=== PATIENT | male | born 1955 | race Caucasian/White ===

== ENCOUNTER 2016-11-11 18:39 | Emergency (ER) | payer OTHER ==
[~2016-11-11] VITALS: Ht 172.7 cm; Wt 110.7 kg
[~2016-11-11 18:39] MED LIST: ALL300 PO; ATEN100T PO; CLOP1TAB54 PO; FLV1 PO; GABA1CAP4 PO; INSUINJ4 SQ; ISOS-11 PO; LPD600 PO; LSX40 PO; NVLGI/PEN SC; NVLGIPEN SC; OMEP20CA9 PO; PRED-301 PO; PRED10TA PO; SIMV-151 PO
[2016-11-11 18:40] VITALS: TEMP 36.5; Ht 172.7 cm; Wt 110.7 kg
--- NOTE | 2016-11-11 18:55 | EMERGENCY ROOM VISIT NOTE ---
History First contact with patient: 18:44 Chief Complaint: LEG PAIN,LEG INJURY Stated Complaint: PAIN IN LEFT LEG History of Present Illness The patient is a 61 year old male who presents to the Emergency Room with complaints of left lower leg pain. The patient states his pain started approximately 2 weeks ago. He describes the pain as burning in nature and states it is localized to the left calf. He denies any low back pain. He denies any numbness or tingling. He denies any falls or injuries. The patient denies any chest pain or trouble breathing. He denies any redness, fevers. The patient has a history of recurrent DVT. He has been off of Coumadin for some time. He does take Plavix for a TIA. Review of Systems A 10 system review of systems was completed with positives and pertinent negatives listed in the HPI. Past Medical/Surgical History Medical Problems: (1) Acute Renal Failure, Unspecified (2) Arthritis (3) Borderline diabetes (4) Chronic Kidney Disease, Unspecified (5) DVT (deep venous thrombosis) (6) Esophageal Reflux (7) Hypertension Nos (8) Perforated diverticulitis (9) TIA (transient ischemic attack) Surgical Problems: (1) History of colon resection Family History Cancer Diabetes mellitus Social History Smoking Status: Former Smoker Alcohol Use: none Drug Use: none Marital Status: Housing Status: lives with family Occupation Status: employed Current/Historical Medications Scheduled Allopurinol (Allopurinol), 450 MG PO DAILY Atenolol (Tenormin), 100 MG PO DAILY Clopidogrel Bisulfate (Plavix), 75 MG PO DAILY Ergocalciferol (Vitamin D 54150 Unit), 50,000 UNIT PO MONTHLY Folic Acid (Folic Acid), 1 MG PO DAILY Furosemide (Furosemide), 40 MG PO DAILY Gabapentin (Gabapentin), 300 MG PO HS Gemfibrozil (Gemfibrozil), 600 MG PO BID Insulin Aspart (Novolog Flexpen), UNITS SC WM Insulin Aspart (Novolog Flexpen), 5 UNITS SC UD Insulin Aspart (Novolog Flexpen), 8 UNITS SC UD Insulin Glargine (Lantus Solostar), 30 UNITS SC QPM Isosorbide Mononitrate (Isosorbide Mononitrate ER), 30 MG PO DAILY Prednisone (Prednisone), 5 MG PO DAILY Simvastatin (Simvastatin), 20 MG PO HS Scheduled PRN Omeprazole (Prilosec), 20 MG PO DAILY PRN for Acid Reflux Allergies Coded Allergies: DEYSI Inhibitors (Verified Allergy, Unknown, cough, 11/11/16) Ibuprofen (Verified Allergy, Unknown, UNKNOWN, 11/11/16) Physical Exam Vital Signs Date Time Temp Pulse Resp B/P Pulse Ox O2 Delivery O2 Flow Rate FiO2 11/11/16 20:09 70 18 137/75 96 Room Air 11/11/16 18:40 36.5 80 18 154/88 91 Room Air Physical Exam VITALS: Vitals are noted on the nurse's note and reviewed by myself. Vital signs stable. GENERAL: This is a 61-year-old male in no acute distress, nondiaphoretic, well- developed well-nourished. SKIN: The skin was without rashes, erythema, edema, or bruising. there is a tender and palpable cord to the left calf. Capillary reflex less than 2 seconds. HEAD: Normocephalic atraumatic. EARS: The external ears are normal in appearance. EYES: Pupils equal round and reactive to light and accommodation. Conjunctivae without injection, sclerae without icterus. Extraocular movements intact. NOSE: Patent, turbinates without inflammation or discharge. MOUTH: Mucous membranes moist. Tonsils are not enlarged. Pharynx without erythema or exudate. Uvula midline. Airway patent. Tongue does not deviate. NECK: Supple without nuchal rigidity. No JVD. HEART: Regular rate and rhythm without murmurs gallops or rubs. LUNGS: Clear to auscultation bilaterally without wheezes, rales or rhonchi. No retractions or accessory muscle use. MUSCULOSKELETAL: No muscle atrophy, erythema, or edema noted. Full range of motion without joint tenderness in all extremities. Mild tenderness to palpation of the left calf. Normal gait. Strength 5/5 throughout. NEURO: Patient was alert and oriented to person place and time. No focal neurological deficits. Medical Decision & Procedures ER Provider Diagnostic Interpretation: ULTRASOUND LEFT LOWER EXTREMITY VENOUS CLINICAL HISTORY: Left leg pain and swelling. COMPARISON STUDY: Left lower extremity venous ultrasound dated 01/10/2015. TECHNIQUE: Real-time, grayscale, and color Doppler sonography of the deep veins of the left lower extremity was performed from the inguinal crease to the calf. Compression and augmentation were utilized. FINDINGS: Nonocclusive thrombus is identified within the left popliteal vein. The common femoral and superficial femoral veins are patent and normally compressible. The greater saphenous vein and the profunda femoris vein at the junction with the common femoral vein are clear. The visualized calf veins are patent. IMPRESSION: 1. There is no nonocclusive deep venous thrombosis identified in the left popliteal vein. This is similar in appearance to the 01/10/2015 examination and may be chronic. Clinical correlation will be required. 2. The remaining deep veins of the left lower extremity are clear. Laboratory Results 11/11/16 19:00 Red Blood Count 4.71, Mean Corpuscular Volume 89.8, Mean Corpuscular Hemoglobin 31.0, Mean Corpuscular Hemoglobin Concent 34.5, Mean Platelet Volume 10.0, Neutrophils (%) (Auto) 69.6, Lymphocytes (%) (Auto) 21.3, Monocytes (%) (Auto) 7.7, Eosinophils (%) (Auto) 0.8, Basophils (%) (Auto) 0.3, Neutrophils # (Auto) 6.38, Lymphocytes # (Auto) 1.95, Monocytes # (Auto) 0.71, Eosinophils # (Auto) 0.07, Basophils # (Auto) 0.03 11/11/16 19:00 Test 11/11/16 19:00 White Blood Count 9.17 K/uL (4.8-10.8) Red Blood Count 4.71 M/uL (4.7-6.1) Hemoglobin 14.6 g/dL (14.0-18.0) Hematocrit 42.3 % (42-52) Mean Corpuscular Volume 89.8 fL (80-100) Mean Corpuscular Hemoglobin 31.0 pg (25-34) Mean Corpuscular Hemoglobin Concent 34.5 g/dl (32-36) Platelet Count 233 K/uL (130-400) Mean Platelet Volume 10.0 fL (7.4-10.4) Neutrophils (%) (Auto) 69.6 % Lymphocytes (%) (Auto) 21.3 % Monocytes (%) (Auto) 7.7 % Eosinophils (%) (Auto) 0.8 % Basophils (%) (Auto) 0.3 % Neutrophils # (Auto) 6.38 K/uL (1.4-6.5) Lymphocytes # (Auto) 1.95 K/uL (1.2-3.4) Monocytes # (Auto) 0.71 K/uL (0.11-0.59) Eosinophils # (Auto) 0.07 K/uL (0-0.5) Basophils # (Auto) 0.03 K/uL (0-0.2) RDW Standard Deviation 44.4 fL (36.4-46.3) RDW Coefficient of Variation 13.6 % (11.5-14.5) Immature Granulocyte % (Auto) 0.3 % Immature Granulocyte # (Auto) 0.03 K/uL (0.00-0.02) Prothrombin Time 10.8 SECONDS (9.0-12.0) Prothromb Time International Ratio 1.0 (0.9-1.1) Activated Partial Thromboplast Time 31.1 SECONDS (21.0-31.0) Partial Thromboplastin Ratio 1.2 Anion Gap 13.0 mmol/L (3-11) Est Creatinine Clear Calc Drug Dose 50.7 ml/min Estimated GFR () 45.4 Estimated GFR (Non- 39.2 BUN/Creatinine Ratio 17.4 (10-20) Calcium Level 8.5 mg/dl (8.5-10.1) Total Bilirubin 0.5 mg/dl (0.2-1) Aspartate Amino Transf (AST/SGOT) 17 U/L (15-37) Alanine Aminotransferase (ALT/SGPT) 22 U/L (12-78) Alkaline Phosphatase 108 U/L (45-117) Total Protein 7.8 gm/dl (6.4-8.2) Albumin 3.5 gm/dl (3.4-5.0) Globulin 4.3 gm/dl (2.5-4.0) Albumin/Globulin Ratio 0.8 (0.9-2) ED Course The patient was seen and examined. Previous visits were reviewed. The patient does not have a fever or leukocytosis. He does not have any significant electrolyte abnormalities. BUN and creatinine are elevated at 31 and 1.8, respectively. This is similar compared to previous. His glucose is elevated at 174. He does have a history of diabetes. INR was 1.0. Ultrasound was obtained as above. There appears to be a chronic nonocclusive thrombus in the left popliteal vein. The image appears similar to 2015. The patient was encouraged to return to the ER immediately with any chest pain or trouble breathing. Otherwise, he should follow-up with his family doctor in 5- 7 days for recheck and possible repeat ultrasound. The case was discussed with Dr. Morgan who agrees with the assessment and treatment plan. Medical Decision The differential diagnosis includes DVT, cellulitis, superficial thrombophlebitis, muscle strain, among others Impression Primary Impression: Pain of left calf Additional Impression: 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 Departure Information Dispostion Home / Self-Care Condition GOOD Referrals Pro,Jam Onofre M.D. (PCP) Patient Instructions [facility] Additional Instructions Tylenol according to package instructions for pain Return immediately with shortness of breath or chest pain. Otherwise, follow up with your family doctor in 5-7 days for a recheck. Problem Qualifiers Additional Impression: 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 Affected thrombotic vein of extremity: popliteal Qualified Codes: I82.532 - Chronic embolism and thrombosis of left popliteal vein
[2016-11-11 19:11] LABS: BASO % 0.3 %; BASO ABS # 0.03 K/uL (0-0.2); COMPLETE YES; EOS % 0.8 %; HEMATOCRIT 42.3 % (42-52); IG% 0.3 %; LYMPH % 21.3 %; LYMPH ABS # 1.95 K/uL (1.2-3.4); MEAN CELL VOLUME 89.8 fL (80-100); MEAN CORPUSCULAR HGB CONC 34.5 g/dl (32-36); MONO % 7.7 %; NEUT % 69.6 %; PLATELET COUNT 233 K/uL (130-400); RED BLOOD COUNT 4.71 M/uL (4.7-6.1); WHITE BLOOD COUNT 9.17 K/uL (4.8-10.8)
[2016-11-11] MEDS ORDERED: INSDGIPEN SC (19:16)
[2016-11-11] MEDS ORDERED: ERGO500037 PO (19:16)
[2016-11-11 19:25] LABS: PARTIAL THROMBOPLASTIN RATIO 1.2; PROTHROMBIN TIME (PATIENT) 10.8 SECONDS (9.0-12.0)
[2016-11-11 19:27] LABS: BUN/CREATININE RATIO 17.4 (10-20); CALCIUM 8.5 mg/dl (8.5-10.1); CREATININE 1.8 mg/dl (0.60-1.40)
[2016-11-11 19:33] LABS: ALB/GLOB RATIO 0.8 (0.9-2)
[2016-11-11 20:09] VITALS: BP 137/75; PULSE 70; O2SAT 96
--- NOTE | 2016-11-11 20:19 | DIAGNOSTIC IMAGING REPORT ---
ULTRASOUND LEFT LOWER EXTREMITY VENOUS CLINICAL HISTORY: Left leg pain and swelling. COMPARISON STUDY: Left lower extremity venous ultrasound dated 01/10/2015. TECHNIQUE: Real-time, grayscale, and color Doppler sonography of the deep veins of the left lower extremity was performed from the inguinal crease to the calf. Compression and augmentation were utilized. FINDINGS: Nonocclusive thrombus is identified within the left popliteal vein. The common femoral and superficial femoral veins are patent and normally compressible. The greater saphenous vein and the profunda femoris vein at the junction with the common femoral vein are clear. The visualized calf veins are patent. IMPRESSION: 1. There is no nonocclusive deep venous thrombosis identified in the left popliteal vein. This is similar in appearance to the 01/10/2015 examination and may be chronic. Clinical correlation will be required. 2. The remaining deep veins of the left lower extremity are clear. Electronically signed by: Doug Martínez M.D. 11/11/2016 8:17 PM Dictated Date/Time: 11/11/2016 8:16 PM
== END 2016-11-11 20:47 | disposition home or self-care (01) ==
LOC: C.EDB 18:39 → C.EDC 20:47
DX: I82.532 Chronic embolism and thrombosis of left popliteal vein (principal); N18.9 Chronic kidney disease, unspecified; K21.9 Gastro-esophageal reflux disease without esophagitis; I10 Essential (primary) hypertension; Z86.73 Personal history of transient ischemic attack (TIA), and cerebral infarction without residual deficits; Z87.891 Personal history of nicotine dependence; Z79.4 Long term (current) use of insulin

== ENCOUNTER → 2017-02-06 | Outpatient (CLI) | payer OTHER ==
[~2017-02-06] MED LIST changes: +ERGO500037 PO; +INSDGIPEN SC; -INSUINJ4 SQ; -PRED10TA PO
[2017-02-06 12:31] LABS: HEMATOCRIT 47.2 % (42-52); MEAN CELL VOLUME 93.7 fL (80-100); MEAN CORPUSCULAR HEMOGLOBIN 30.8 pg (25-34); MEAN CORPUSCULAR HGB CONC 32.8 g/dl (32-36); MEAN PLATELET VOLUME 10.4 fL (7.4-10.4); PLATELET COUNT 226 K/uL (130-400); RED BLOOD COUNT 5.04 M/uL (4.7-6.1); WHITE BLOOD COUNT 8.12 K/uL (4.8-10.8)
[2017-02-06 12:37] LABS: URINE APPEARANCE CLEAR (CLEAR); URINE BILIRUBIN NEG (NEG); URINE COLOR YELLOW; URINE EPITHELIAL CELL AUTO 0-5 /lpf (0-5); URINE NITRITE NEG (NEG); UROBILINOGEN NEG (NEG)
[2017-02-06 12:42] LABS: MANUAL MICROSCOPIC REQUIRED? NO; REVIEW REQ? NO
[2017-02-06 13:06] LABS: ESTIMATED AVERAGE GLUCOSE 197 mg/dl; HA1C FLAG Normal (Normal)
[2017-02-06 13:30] LABS: URINE PROTIEN/CREAT RATIO 1.1 (0-0.2); URINE TOTAL PROTEIN 139.7 mg/dl (0-11.9)
[2017-02-06 13:43] LABS: ALT/SGPT 19 U/L (12-78); BLOOD UREA NITROGEN 39 mg/dl (7-18); BUN/CREATININE RATIO 20.7 (10-20); CARBON DIOXIDE 28 mmol/L (21-32); CHLORIDE 108 mmol/L (98-107); CHOLESTEROL 167 mg/dl (0-200); GLUCOSE 150 mg/dl (70-99); POTASSIUM 4.5 mmol/L (3.5-5.1); SODIUM 145 mmol/L (136-145); TRIGLYCERIDES 143 mg/dl (0-150); VERY LOW DENSITY LIPOPROT CALC 29 mg/dl
[2017-02-06 14:08] LABS: AST/SGOT 12 U/L (15-37)
[2017-02-06 15:29] LABS: HDL CHOLESTEROL 43 mg/dl
== END | disposition home or self-care (01) ==
LOC: C.LABBFT 09:15
PROVIDERS: ATTEND Internal Medicine Nephrology
DX: I10 Essential (primary) hypertension (principal); N18.3 Chronic kidney disease, stage 3 (moderate); D64.9 Anemia, unspecified; R80.9 Proteinuria, unspecified; E55.9 Vitamin D deficiency, unspecified; E78.00 Pure hypercholesterolemia, unspecified

== ENCOUNTER → 2017-10-19 | Outpatient (CLI) | payer OTHER ==
[~2017-10-19] MED LIST changes: +GABA-1219 PO; -GABA1CAP4 PO
[2017-10-19 08:21] LABS: HEMATOCRIT 42.6 % (42-52); HEMOGLOBIN 14.6 g/dL (14.0-18.0); MEAN CELL VOLUME 90.6 fL (80-100); MEAN CORPUSCULAR HEMOGLOBIN 31.1 pg (25-34); MEAN CORPUSCULAR HGB CONC 34.3 g/dl (32-36); MEAN PLATELET VOLUME 9.7 fL (7.4-10.4); PLATELET COUNT 200 K/uL (130-400); RED CELL DISTRIBUTION WIDTH CV 13.7 % (11.5-14.5); RED CELL DISTRIBUTION WIDTH SD 44.9 fL (36.4-46.3); WHITE BLOOD COUNT 7.21 K/uL (4.8-10.8)
[2017-10-19 08:57] LABS: ALBUMIN 3.4 gm/dl (3.4-5.0); ALT/SGPT 19 U/L (12-78); BLOOD UREA NITROGEN 27 mg/dl (7-18); CALCIUM 8.3 mg/dl (8.5-10.1); CARBON DIOXIDE 26 mmol/L (21-32); CHOLESTEROL 143 mg/dl (0-200); CREATININE 1.77 mg/dl (0.60-1.40); GLUCOSE 170 mg/dl (70-99); SODIUM 141 mmol/L (136-145)
[2017-10-19 09:02] LABS: ALKALINE PHOSPHATASE 94 U/L (45-117); AST/SGOT 11 U/L (15-37); LDL CHOLESTEROL CALCULATED 79 mg/dl; TOTAL PROTEIN 7.3 gm/dl (6.4-8.2); URIC ACID 4.5 mg/dl (2.6-7.2)
[2017-10-19 09:34] LABS: HEMOGLOBIN A1C 8.6 % (4.5-5.6)
== END | disposition home or self-care (01) ==
LOC: C.LAB 07:42
PROVIDERS: ATTEND Internal Medicine
DX: E78.00 Pure hypercholesterolemia, unspecified (principal); N18.3 Chronic kidney disease, stage 3 (moderate); M1A.9XX0 Chronic gout, unspecified, without tophus (tophi); D64.9 Anemia, unspecified; E55.9 Vitamin D deficiency, unspecified; E11.9 Type 2 diabetes mellitus without complications; Z12.5 Encounter for screening for malignant neoplasm of prostate

== ENCOUNTER 2017-11-01 12:44 | Emergency (ER) | payer OTHER ==
[~2017-11-01] VITALS: Ht 175.3 cm; Wt 110.7 kg
[2017-11-01 12:49] VITALS: BP 175/95; PULSE 66; TEMP 36.5; O2SAT 95; Ht 175.3 cm; Wt 110.7 kg
--- NOTE | 2017-11-01 13:13 | DIAGNOSTIC IMAGING REPORT ---
R SHOULDER MIN 2 VIEWS ROUTINE CLINICAL HISTORY: fell, right shoulder pain trauma. Pain. COMPARISON: None. DISCUSSION: The bones and joint spaces appear intact. There is no evidence of fracture, dislocation or bony disease. Moderate degenerative change of the acromioclavicular joint and to lesser extent glenohumeral joint. IMPRESSION: No acute process. Degenerative change. The above report was generated using voice recognition software. It may contain grammatical, syntax or spelling errors. Electronically signed by: Sebastien Hoyos M.D. 11/01/2017 1:12 PM Dictated Date/Time: 11/01/2017 1:11 PM
--- NOTE | 2017-11-01 14:24 | EMERGENCY ROOM VISIT NOTE ---
History Report prepared by Stephen: Mariama Shen Under the Supervision of: Dr. Rasheed Carver M.D. First contact with patient: 12:55 Chief Complaint: SHOULDER PAIN Stated Complaint: RT SHOULDER PAIN-WORK ACCIDENT History of Present Illness The patient is a 62 year old male who presents to the Emergency Room with complaints of persistent right shoulder pain starting this morning. The patient was at work today when he injured his right shoulder. He was pushing some timber when it rolled away and he fell onto his right shoulder. He denies any head injury. The pain is not that bad when he is still, but worsens with movement. He describes the pain as burning. He has not taken anything for pain. Pt denies LOC, headache, visual changes, neck pain, chest pain, breathing difficulties, nausea, vomiting, abdominal pain, back pain, other extremity pain , numbness, weakness, open wounds, active bleeding, or other complaints. Source of History: patient Onset: this morning Position: shoulder (right) Quality: burning Timing: other (persistent) Modifying Factors (Worsening): movement Review of Systems See HPI for pertinent positives and negatives. A total of ten systems were reviewed and were otherwise negative. Past Medical & Surgical Medical Problems: (1) Acute Renal Failure, Unspecified (2) Arthritis (3) Borderline diabetes (4) Chronic Kidney Disease, Unspecified (5) DVT (deep venous thrombosis) (6) Esophageal Reflux (7) Hypertension Nos (8) Perforated diverticulitis (9) TIA (transient ischemic attack) Surgical Problems: (1) History of colon resection Family History Cancer Diabetes mellitus Social History Smoking Status: Former Smoker Alcohol Use: none Drug Use: none Marital Status: Housing Status: lives with family Occupation Status: employed Current/Historical Medications Scheduled Allopurinol (Allopurinol), 450 MG PO DAILY Atenolol (Tenormin), 100 MG PO DAILY Clopidogrel Bisulfate (Plavix), 75 MG PO DAILY Ergocalciferol (Vitamin D 16658 Unit), 50,000 UNIT PO MONTHLY Folic Acid (Folic Acid), 1 MG PO DAILY Furosemide (Furosemide), 40 MG PO DAILY Gabapentin (Gabapentin), 300 MG PO HS Gemfibrozil (Gemfibrozil), 600 MG PO BID Insulin Aspart (Novolog Flexpen), UNITS SC WM Insulin Aspart (Novolog Flexpen), 5 UNITS SC UD Insulin Aspart (Novolog Flexpen), 8 UNITS SC UD Insulin Glargine (Lantus Solostar), 30 UNITS SC QPM Isosorbide Mononitrate (Isosorbide Mononitrate ER), 30 MG PO DAILY Prednisone (Prednisone), 5 MG PO DAILY Simvastatin (Simvastatin), 20 MG PO HS Scheduled PRN Omeprazole (Prilosec), 20 MG PO DAILY PRN for Acid Reflux Allergies Coded Allergies: DEYSI Inhibitors (Verified Allergy, Unknown, cough, 11/01/17) Ibuprofen (Verified Allergy, Unknown, UNKNOWN, 11/01/17) Physical Exam Vital Signs Date Time Temp Pulse Resp B/P (MAP) Pulse Ox O2 Delivery O2 Flow Rate FiO2 11/01/17 12:49 36.5 66 17 175/95 95 Room Air Physical Exam GENERAL: Awake, alert, well-appearing, in no distress HENT: Normocephalic, atraumatic. Oropharynx unremarkable. EYES: Normal conjunctiva. Sclera non-icteric. NECK: Supple. No nuchal rigidity. FROM. No masses. RESPIRATORY: Clear to auscultation. No wheezes. CARDIAC: Normal rate. Normal rhythm. No murmurs. No rubs. Extremities warm and well perfused. Pulses equal. No JVD. GI: Soft, non-distended. No tenderness to palpation. No rebound or guarding. No masses. RECTAL: Deferred. MUSCULOSKELETAL: Clavicle on the right side is nontender. Tenderness over the right AC joint. Forward flexion and abduction limited secondary to pain. Forced abduction limited secondary to pain. Adduction strength intact. LUE and bilateral lower extremities atraumatic. Chest examination reveals no tenderness. The back is symmetrical on inspection without obvious abnormality. There is no CVA tenderness to palpation. No joint edema. LOWER EXTREMITIES: Calves are equal size bilaterally and non-tender. No edema. No discoloration. NEURO: Normal sensorium. No sensory or motor deficits noted. SKIN: No rash or jaundice noted. Medical Decision & Procedures ER Provider Diagnostic Interpretation: Radiology results as stated below per my review and radiologist interpretation: R SHOULDER MIN 2 VIEWS ROUTINE CLINICAL HISTORY: fell, right shoulder pain trauma. Pain. COMPARISON: None. DISCUSSION: The bones and joint spaces appear intact. There is no evidence of fracture, dislocation or bony disease. Moderate degenerative change of the acromioclavicular joint and to lesser extent glenohumeral joint. IMPRESSION: No acute process. Degenerative change. The above report was generated using voice recognition software. It may contain grammatical, syntax or spelling errors. Electronically signed by: Sebastien Hoyos M.D. 11/01/2017 1:12 PM Dictated Date/Time: 11/01/2017 1:11 PM ED Course 1310: The patient was evaluated in room D7. A complete history and physical exam was performed. 1316: I reevaluated the patient. Discussed results and discharge instructions: He verbalized understanding and agreement. The patient is ready for discharge. Medical Decision er Triage Nursing notes reviewed and agree them. The patient's history was concerning for traumatic injury. Differential diagnosis: Etiologies such as fracture, dislocation, neurovascular compromise, compartment syndrome, soft tissue injury, as well as others were entertained. Physical examination: Consistent with an isolated Right should injury. ER treatment provided: Patient declined analgesia Ice pack Sling On reassessment the patient felt better. Diagnostics interpreted by me: Imaging studies: Xrays as above. The patient has a shoulder strain from falling. I suspect a possible rotator cuff injury. He has difficulty with abduction and forward flexion. There is no evidence of fracture or dislocation. He has seen [facility] in the past. He will follow-up with them. He was given a sling for comfort. I gave my usual and customary discussion regarding this issue. By the evaluation outlined above other emergent etiologies such as those listed in the differential, as well as others, were deemed relatively unlikely. The patient was educated about the findings as listed above. All questions were answered and the patient was pleased with the treatment. Return instructions were outlined and the patient was discharged in stable condition. The patient was referred to ortho for follow-up for a recheck of the current condition. Medication Reconcilliation Current Medication List: was personally reviewed by me Blood Pressure Screening Patient's blood pressure: Elevated blood pressure Blood pressure disposition: Elevated BP felt to be situational Impression Primary Impression: Right shoulder strain Scribe Attestation The scribe's documentation has been prepared under my direction and personally reviewed by me in its entirety. I confirm that the note above accurately reflects all work, treatment, procedures, and medical decision making performed by me. Departure Information Dispostion Home / Self-Care Referrals Jam Hdez M.D. (PCP) Forms HOME CARE DOCUMENTATION FORM, IMPORTANT VISIT INFORMATION Patient Instructions My [facility] Additional Instructions ORTHOPEDIC INSTRUCTIONS: Ibuprofen(Motrin, Advil) may be used for fever or pain. Use 600mg every six hours as needed. Take with food. Avoid using more than 2400mg in a 24 hour period. Do not use 2400mg per day for more than three consecutive days without physician direction. Prolonged inappropriate use can lead to stomach upset or ulcers. (AND/OR) Acetaminophen(Tylenol) may be used for fever or pain. Use 1000mg every six hours as needed. Avoid using more than 4000mg in a 24 hour period. Ice compresses for 20 minutes at a time four times daily for 2-3 days. Use the sling as instructed. Remove your arm from the sling 4-6 times a day and move all the joints around to keep them loose. Rest your injury. Return to the ER immediately for any numbness, tingling, severe pain, extreme swelling in the extremity or as needed. Call [facility], [phone], to arrange follow up for your injury.
== END 2017-11-01 13:33 | disposition home or self-care (01) ==
LOC: C.EDB 12:45 → C.EDD 13:33
DX: S43.401A Unspecified sprain of right shoulder joint, initial encounter (principal); W19.XXXA Unspecified fall, initial encounter; Y92.89 Other specified places as the place of occurrence of the external cause; Y99.0 Civilian activity done for income or pay; N17.9 Acute kidney failure, unspecified; M19.90 Unspecified osteoarthritis, unspecified site; R73.03 Prediabetes; Z86.718 Personal history of other venous thrombosis and embolism; K21.9 Gastro-esophageal reflux disease without esophagitis; I10 Essential (primary) hypertension; Z86.73 Personal history of transient ischemic attack (TIA), and cerebral infarction without residual deficits; Z80.9 Family history of malignant neoplasm, unspecified; Z83.3 Family history of diabetes mellitus; Z87.891 Personal history of nicotine dependence; Z79.4 Long term (current) use of insulin; Z79.899 Other long term (current) drug therapy; Z79.52 Long term (current) use of systemic steroids; Z88.8 Allergy status to other drugs, medicaments and biological substances

== ENCOUNTER → 2018-04-03 | Outpatient (CLI) | payer OTHER ==
[2018-04-03 12:21] LABS: HEMATOCRIT 42.3 % (42-52); MEAN CELL VOLUME 94.4 fL (80-100); MEAN CORPUSCULAR HEMOGLOBIN 31.3 pg (25-34); MEAN CORPUSCULAR HGB CONC 33.1 g/dl (32-36); MEAN PLATELET VOLUME 10.5 fL (7.4-10.4); PLATELET COUNT 228 K/uL (130-400); RED CELL DISTRIBUTION WIDTH CV 14.1 % (11.5-14.5); RED CELL DISTRIBUTION WIDTH SD 48.2 fL (36.4-46.3); WHITE BLOOD COUNT 7.74 K/uL (4.8-10.8)
[2018-04-03 12:38] LABS: HEMOGLOBIN A1C 7.5 % (4.5-5.6)
[2018-04-03 12:43] LABS: ALT/SGPT 18 U/L (12-78); AST/SGOT 16 U/L (15-37); BLOOD UREA NITROGEN 33 mg/dl (7-18); CALCIUM 8.9 mg/dl (8.5-10.1); CARBON DIOXIDE 30 mmol/L (21-32); CHOLESTEROL 152 mg/dl (0-200); CREATININE 1.89 mg/dl (0.60-1.40); GLUCOSE 89 mg/dl (70-99); LDL CHOLESTEROL CALCULATED 87 mg/dl; POTASSIUM 4.2 mmol/L (3.5-5.1); SODIUM 143 mmol/L (136-145)
== END | disposition home or self-care (01) ==
LOC: C.LABBFT 07:40
PROVIDERS: ATTEND Physician Assistant
DX: N18.3 Chronic kidney disease, stage 3 (moderate) (principal); E11.22 Type 2 diabetes mellitus with diabetic chronic kidney disease; E78.00 Pure hypercholesterolemia, unspecified; E55.9 Vitamin D deficiency, unspecified

== ENCOUNTER → 2018-04-08 | Outpatient (CLI) | payer OTHER ==
--- NOTE | 2018-04-08 12:19 | DIAGNOSTIC IMAGING REPORT ---
HEAD WITHOUT CONTRAST (CT) CT DOSE: 729.78 mGycm HISTORY: R51 [id number] TECHNIQUE: Multiaxial CT images of the head were performed without the use of intravenous contrast. A dose lowering technique was utilized adhering to the principles of ALARA. Comparison: None. Findings: The paranasal sinuses and mastoid air cells are clear. The calvarium and skull base are intact. The ventricles and sulci are within normal limits. There is no mass, hematoma, midline shift, or acute infarct. Impression: No acute intracranial abnormality. The above report was generated using voice recognition software. It may contain grammatical, syntax or spelling errors. Electronically signed by: Sebastien Hoyos M.D. 04/08/2018 12:17 PM Dictated Date/Time: 04/08/2018 12:13 PM
== END | disposition home or self-care (01) ==
LOC: C.CTS 12:01
PROVIDERS: ATTEND Internal Medicine
DX: R51 Headache (principal)

== ENCOUNTER 2020-12-28 06:39 | Inpatient (IN) ==
[2020-12-28] MEDS ORDERED: SODIUM CHLORIDE 0.9% 1000ML 1,000 ML IV STA (06:49)
[2020-12-28] MEDS ORDERED: ONDANSETRON INJ 2 MG/ML 2 ML VIAL IV STA ×2 (06:49→10:32)
--- NOTE | 2020-12-28 07:01 | Emergency Department Note ---
Impression & Plan Acute right flank pain ED Provider Note INFORMANT: Patient ED PROVIDER(S): Rasheed Carver MD CHIEF COMPLAINT: Flank pain PLAN: Disposition: Admitted Condition: Good Outpatient prescription management: none Referral: None MEDICAL DECISION MAKING: Patient presented to the emergency department because of flank pain. On examination there was concerns for a spinal etiology. He was treated with Zofran and Dilaudid. Given his severe level of pain he underwent MR imaging. He also noted urinary issues. He was found to have significant degenerative disc changes and nerve impingement mostly on the right side. This would explain his symptoms. The patient blood work was unremarkable. He was given his morning medications as he was hypertensive. He did vomit these. He was given additional antinausea medication. The patient had a consult placed with Dr. Khan with spine surgery. We discussed inpatient treatment. We also discussed IV Decadron and this was given. The hospital service was consulted. Case was discussed with Dr. Jackson. The patient will be admitted for further management. Triage Nursing notes reviewed and agree them. Vital Signs: reviewed and remarkable for hypertension Differential diagnosis: Musculoskeletal, disc herniation, fracture, metastatic disease, cord compression, discitis, sciatica, cauda equina, infection, aortic disease, renal colic, gastrointestinal, as well as other pathologies. Diagnostics interpreted by me: Cardiac Monitoring: Cardiac monitoring ordered by me: The patient was placed on continuous cardiac monitoring and observed. It revealed a normal sinus rhythm at 83 beats per minute without ectopy or evidence of dysrhythmia. Imaging studies: MRI lumbar spine: L3-4: There is a 1 cm free disc fragment located posterior to the L3 vertebral body to the right of midline. This likely arises from the L3-4 disc. There is an L3-4 disc bulge with moderate spinal stenosis. There is a right foraminal and lateral disc protrusion which likely impinges on the exited right L3 nerve root. There is facet joint arthropathy. L4-5: There is a grade 1 spondylolisthesis of L4 and L5. There is moderate to s evere spinal stenosis. There is facet joint ligamentous arthropathy. There is a moderate right lateral and foraminal disc protrusion. This likely impinges on the right L4 nerve root. There is right-sided foraminal stenosis. Other degenerative changes noted. I refer you to the EMR for further details. HPI: The patient is a 65 year old male who presents to the Emergency Room with complaints of right flank pain. This started 3 days ago and is constant. The patient also notes the following associated symptoms, right groin pain, right inner thigh pain, right inner thigh numbness, nausea, vomiting, weak urine. The patient has found no relieving factors. Current pain is rated as 10/10. Worse with walking or movement. Pt denies LOC, headache, fevers, chills, diaphoresis, visual changes, neck pain, chest pain, breathing difficulties, melena, hematochezia, weakness, lymphadenopathy, rash, or other complaints. ROS: See above HPI for pertinent positives & negatives. A total of 10 systems reviewed and were otherwise negative. PAST MEDICAL HISTORY:See Below , kidney stones, DM PAST SURGICAL HISTORY:See Below, FAMILY HISTORY:See Below SOCIAL HISTORY:See Below, no tobacco HOME MEDICATIONS:See Below ALLERGIES:See Below VITALS:See Below PHYSICAL EXAMINATION: GENERAL: Awake, alert, uncomfortable-appearing, in no distress HENT: Normocephalic, atraumatic. Oropharynx unremarkable. EYES: Normal conjunctiva. Sclera non-icteric. NECK: Inspection normal. Non-tender. Supple. No nuchal rigidity. FROM. No masses. RESPIRATORY: Clear to auscultation. No wheezes. No rales. Normal respiratory effort. CARDIAC: Normal rate. Normal rhythm. No murmurs. No rubs. Extremities warm and well perfused. Pulses equal. No JVD. GI: Soft, non-distended. No tenderness to palpation. No rebound or guarding. No masses. RECTAL: Deferred. MUSCULOSKELETAL: Atraumatic. Chest examination reveals no tenderness. The back i s symmetrical on inspection without obvious abnormality. There is no CVA tenderness to palpation. No joint edema. LOWER EXTREMITIES: Calves are equal size bilaterally and non-tender. No edema. No discoloration. NEURO: Normal sensorium. No sensory or motor deficits noted. No saddle anesthesia. + right SLR SKIN: No rash or jaundice noted. Rasheed Carver MD Past Med/Surg History Medical History 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 ~2012 or earlier. Chronic gout Chronic kidney disease, stage 3 (moderate) Colon polyps Diabetes mellitus, type 2 IDDM Diabetic peripheral neuropathy Diverticulitis of colon hx Essential hypertension Factor V Leiden mutation plavix daily GERD (gastroesophageal reflux disease) H/O proctoscopy History of balanitis Hypercholesterolemia Kidney stones hx Lumbar spondylosis Osteoarthritis Perforated diverticulitis (01/28/14) Sciatica Transient ischemic attack (TIA) (~2012) Surgical History H/O colonoscopy H/O repair of rotator cuff right x1 and left x2 History of cataract surgery bilateral History of colon resection r/t perforated diverticuliti History of cystoscopy with ureter stent History of dilation of urethra History of rectopexy laparoscopic with sigmoid resection --- patient unsure??? Family History Father Colon cancer Diabetes Myocardial infarction Mother Diabetes Sister Breast cancer Brother Brain cancer Stroke Other No family history of adverse response to anesthesia Denies family history of Ovarian cancer Prostate cancer Lung cancer Social History Smoking Status: Never smoker Age Started Using Tobacco: 14; Age Quit Using Tobacco: 30; packs per day: 1; Years Smoked: 16; Cigarettes Per Day: 20 a day for 16 years; Second Hand Exposure: No; Hx Alcohol Use: No Hx Substance Use: No Preferred Language: Bulgarian Communication Ability: Effective Visual Impairment: No Limitations Hearing Ability: Normal [employer] Required: No Beliefs That Will Affect Care: None marital status: Current Living Situation: Spouse current occupational status: 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 Other Information That Helps Us Care for You: No Feels Safe at Home: Yes Safety Concerns: Feels Safe At This Time Childhood Exposure to Second-Hand Smoke: Yes (father) Dental Care, Regularly: Yes Physical Activity Frequency: Does not Exercise Seatbelt Use: always Sunscreen Use: No Assistive Devices: Oxygen - Continuous Allergies Allergies Allergy/AdvReac Type Severity Reaction Status Date / Time ibuprofen Allergy Unknown UNKNOWN Verified 12/21/20 08:18 DEYSI Inhibitors AdvReac Mild cough Verified 12/21/20 08:41 Home Meds Home Medications Medication Instructions Recorded Confirmed prednisone 5 mg tablet 5 mg PO QAM 04/29/19 12/28/20 insulin aspart U-100 100 unit/mL 6 units SQ TIDM ml 06/07/20 12/28/20 (3 mL) subcutaneous pen Lantus Solostar U-100 Insulin 30 unit SUBCUT HS 12/14/20 12/28/20 allopurinol 300 mg PO QAM 12/14/20 12/28/20 atenolol 100 mg PO QAM 12/14/20 12/28/20 cholecalciferol (vitamin D3) 2,000 unit PO QAM 12/14/20 12/28/20 clopidogrel 75 mg PO QAM 12/14/20 12/28/20 folic acid 1 mg PO QAM 12/14/20 12/28/20 furosemide 40 mg PO QAM 12/14/20 12/28/20 omeprazole 20 mg PO QAM 12/14/20 12/28/20 Previous Rx's Medication Instructions Recorded Lite Touch Insulin Pen [place] 31 #400 ea NS 11/01/19 gauge x 3/16" atorvastatin 20 mg tablet 20 mg PO QPM #90 tab 03/02/20 gemfibrozil 600 mg tablet 600 mg PO BID #180 tab 03/02/20 gabapentin 300 mg capsule 300 mg PO BID #180 cap 06/01/20 BD Ultra-Fine Mini Pen Needle 31 #400 ea NS 06/07/20 gauge x 3/16" isosorbide mononitrate 30 mg 30 mg PO QAM #30 tab 12/22/20 tablet,extended release 24 hr lancets #400 ea 12/22/20 OneTouch Ultra Blue Test Strip #400 ea NS 12/23/20 Results & Data (ED) Vital Signs Vital Signs - 24 hr 12/28/20 06:45 12/28/20 07:13 12/28/20 07:25 Temperature 37.1 C Temperature Source Temporal Artery Scan Pulse Rate 66 Pulse Rate [Finger] 67 Respiratory Rate 20 18 Respiratory Depth Normal Blood Pressure 192/93 H Blood Pressure [Left Arm] 227/106 H Blood Pressure Mean 126 Blood Pressure Mean [Left Arm] 146 Pulse Oximetry 93 96 96 Oxygen Delivery Method Room Air Room Air Room Air Oxygen Flow Rate Sepsis Recent Fever Within 48 Hours No Sepsis New/Unexplained Change in Mental Status N/A Sepsis Action Taken by Nursing No Action Required 12/28/20 07:49 12/28/20 08:06 12/28/20 08:07 Temperature Temperature Source Pulse Rate Pulse Rate [Finger] 73 64 Respiratory Rate 18 16 Respiratory Depth Blood Pressure Blood Pressure [Left Arm] 174/91 H 169/105 H Blood Pressure Mean Blood Pressure Mean [Left Arm] 118 126 Pulse Oximetry 95 89 L 97 Oxygen Delivery Method Room Air Room Air Nasal Cannula Oxygen Flow Rate 2 Sepsis Recent Fever Within 48 Hours Sepsis New/Unexplained Change in Mental Status Sepsis Action Taken by Nursing 12/28/20 09:50 12/28/20 10:30 12/28/20 11:10 Temperature Temperature Source Pulse Rate Pulse Rate [Finger] 65 64 62 Respiratory Rate 16 16 16 Respiratory Depth Blood Pressure Blood Pressure [Left Arm] 169/119 H 181/105 H 160/110 H Blood Pressure Mean Blood Pressure Mean [Left Arm] 135 130 126 Pulse Oximetry 98 94 95 Oxygen Delivery Method Room Air Room Air Room Air Oxygen Flow Rate Sepsis Recent Fever Within 48 Hours Sepsis New/Unexplained Change in Mental Status Sepsis Action Taken by Nursing 12/28/20 12:11 12/28/20 13:03 Temperature Temperature Source Pulse Rate Pulse Rate [Finger] 65 65 Respiratory Rate 18 16 Respiratory Depth Blood Pressure Blood Pressure [Left Arm] 198/93 H 158/89 H Blood Pressure Mean Blood Pressure Mean [Left Arm] 128 112 Pulse Oximetry 98 98 Oxygen Delivery Method Nasal Cannula Nasal Cannula Oxygen Flow Rate 2 2 Sepsis Recent Fever Within 48 Hours Sepsis New/Unexplained Change in Mental Status Sepsis Action Taken by Nursing Laboratory Data Result diagrams: 12/28/20 07:15 12/28/20 07:15 Lab Results 12/28/20 12/28/20 12/28/20 Range/Units 07:15 07:15 07:16 WBC 7.53 (4.8-10.8) K/uL RBC 4.65 L (4.7-6.1) M/uL Hgb 13.3 L (14.0-18.0) g/dL Hct 39.7 L (42-52) % MCV 85.4 (80-100) fL MCH 28.6 (25-34) pg MCHC 33.5 (32-36) g/dL RDW Std Deviation 46.5 H (36.4-46.3) fL RDW Coeff of Jono 14.9 H (11.5-14.5) % Plt Count 273 (130-400) K/uL MPV 9.7 (7.4-10.4) fL Immature Gran % (Auto) 0.1 % Neut % (Auto) 69.0 % Lymph % (Auto) 18.5 % Brooks % (Auto) 11.2 % Eos % (Auto) 1.1 % Baso % (Auto) 0.1 % Neut # (Auto) 5.20 (1.4-6.5) K/uL Lymph # (Auto) 1.39 (1.2-3.4) K/uL Brooks # (Auto) 0.84 H (0.11-0.59) K/uL Eos # (Auto) 0.08 (0-0.5) K/uL Baso # (Auto) 0.01 (0-0.2) K/uL Immature Gran # (Auto) 0.01 (0.00-0.02) K/uL Sodium 140 (136-145) mmol/L Potassium 4.3 (3.5-5.1) mmol/L Chloride 109 H (98-107) mmol/L Carbon Dioxide 26 (21-32) mmol/L Anion Gap 5.0 (3-11) BUN 25 H (7-18) mg/dl Creatinine 1.69 H (0.6-1.4) mg/dl Est Cr Clr Drug Dosing 51.6 ml/min Est GFR ( Amer) 47.7 Est GFR (Non-Af Amer) 41.1 BUN/Creatinine Ratio 14.6 (10-20) Glucose 191 H (70-99) mg/dl Calcium 9.0 (8.5-10.1) mg/dl Total Bilirubin 0.7 (0.2-1) mg/dl AST 10 L (15-37) U/L ALT 17 (12-78) U/L Alkaline Phosphatase 124 H (45-117) U/L Total Protein 7.6 (6.4-8.2) gm/dl Albumin 3.4 (3.4-5.0) gm/dl Globulin 4.2 H (2.5-4.0) gm/dl Albumin/Globulin Ratio 0.8 L (0.9-2) Lipase 102 (73-393) U/L Urine Color Yellow Urine Appearance Clear (Clear) Urine pH 6.5 (4.5-7.5) Ur Specific [place] 1.021 (1.000-1.030) Urine Protein 3+ H (Negative) Urine Glucose (UA) 1+ H (Negative) Urine Ketones Negative (Negative) Urine Blood 1+ H (Negative) Urine Nitrite Negative (Negative) Urine Bilirubin Negative (Negative) Urine Urobilinogen Negative (Negative) Ur Leukocyte Esterase Negative (Negative) Urine WBC (Auto) 1-5 (0-5) /hpf Urine RBC (Auto) 0-4 (0-4) /hpf U Hyaline Cast (Auto) Not Reportable U Epithel Cells (Auto) 0-5 (0-5) /lpf Urine Bacteria (Auto) Negative (Negative) COVID-19 Eval Order SARS-CoV-2 (PCR) (Negative) Influenza Type A (PCR) (Neg) Influenza Type B (PCR) (Neg) RSV (RT-PCR) (Neg) 12/28/20 12/28/20 Range/Units 11:10 11:10 WBC (4.8-10.8) K/uL RBC (4.7-6.1) M/uL Hgb (14.0-18.0) g/dL Hct (42-52) % MCV (80-100) fL MCH (25-34) pg MCHC (32-36) g/dL RDW Std Deviation (36.4-46.3) fL RDW Coeff of Jono (11.5-14.5) % Plt Count (130-400) K/uL MPV (7.4-10.4) fL Immature Gran % (Auto) % Neut % (Auto) % Lymph % (Auto) % Brooks % (Auto) % Eos % (Auto) % Baso % (Auto) % Neut # (Auto) (1.4-6.5) K/uL Lymph # (Auto) (1.2-3.4) K/uL Brooks # (Auto) (0.11-0.59) K/uL Eos # (Auto) (0-0.5) K/uL Baso # (Auto) (0-0.2) K/uL Immature Gran # (Auto) (0.00-0.02) K/uL Sodium (136-145) mmol/L Potassium (3.5-5.1) mmol/L Chloride (98-107) mmol/L Carbon Dioxide (21-32) mmol/L Anion Gap (3-11) BUN (7-18) mg/dl Creatinine (0.6-1.4) mg/dl Est Cr Clr Drug Dosing ml/min Est GFR ( Amer) Est GFR (Non-Af Amer) BUN/Creatinine Ratio (10-20) Glucose (70-99) mg/dl Calcium (8.5-10.1) mg/dl Total Bilirubin (0.2-1) mg/dl AST (15-37) U/L ALT (12-78) U/L Alkaline Phosphatase (45-117) U/L Total Protein (6.4-8.2) gm/dl Albumin (3.4-5.0) gm/dl Globulin (2.5-4.0) gm/dl Albumin/Globulin Ratio (0.9-2) Lipase (73-393) U/L Urine Color Urine Appearance (Clear) Urine pH (4.5-7.5) Ur Specific [place] (1.000-1.030) Urine Protein (Negative) Urine Glucose (UA) (Negative) Urine Ketones (Negative) Urine Blood (Negative) Urine Nitrite (Negative) Urine Bilirubin (Negative) Urine Urobilinogen (Negative) Ur Leukocyte Esterase (Negative) Urine WBC (Auto) (0-5) /hpf Urine RBC (Auto) (0-4) /hpf U Hyaline Cast (Auto) U Epithel Cells (Auto) (0-5) /lpf Urine Bacteria (Auto) (Negative) COVID-19 Eval Order CovFluRsv at [facility] SARS-CoV-2 (PCR) NEGATIVE (Negative) Influenza Type A (PCR) Negative (Neg) Influenza Type B (PCR) Negative (Neg) RSV (RT-PCR) Negative (Neg) Administered Medications Insulin Aspart (Insulin Aspart 100 Units/Ml 3 Ml Pen) 0 units SC ACHS [facility] Stop: 01/27/21 14:29 Last Admin: 12/28/20 16:08 Dose: Not Given Documented by: [id number] Discontinued Medications Atenolol (Atenolol 50 Mg Tablet) 100 mg PO NOW ONE Stop: 12/28/20 11:39 Last Admin: 12/28/20 11:57 Dose: 100 mg Documented by: [id number] Dexamethasone Sodium Phosphate (DexamethasonePf 10 Mg/Ml Vial) 10 mg IV NOW ONE Stop: 12/28/20 10:52 Last Admin: 12/28/20 11:04 Dose: 10 mg Documented by: [id number] Furosemide (Furosemide 40 Mg Tab) 40 mg PO NOW ONE Stop: 12/28/20 11:39 Last Admin: 12/28/20 11:57 Dose: 40 mg Documented by: [id number] Gadobutrol (Gadobutrol 65ml Vial) 10.5 ml IV ONCE ONE Stop: 12/28/20 09:21 Last Admin: 12/28/20 09:20 Dose: 10.5 ml Documented by: [id number] Hydromorphone HCl (Hydromorphone Inj 0.5 Mg/0.5 Ml Syr) 0.5 mg IV Q15M PRN PRN Reason: Pain Stop: 01/11/21 06:48 Last Admin: 12/28/20 11:04 Dose: 0.5 mg Documented by: [id number] Admin: 12/28/20 07:48 Dose: 0.5 mg Documented by: [id number] Admin: 12/28/20 07:22 Dose: 0.5 mg Documented by: [id number] Sodium Chloride (Nss 1000ml) 1,000 mls @ 999 mls/hr IV .Q1H1M STA Stop: 12/28/20 07:49 Last Infusion: 12/28/20 08:00 Dose: 0 mls/hr Documented by: [id number] Admin: 12/28/20 07:22 Dose: 999 mls/hr Documented by: [id number] Promethazine HCl (Phenergan) 12.5 mg in 50.5 mls @ 202 mls/hr IV NOW STA Stop: 12/28/20 12:34 Last Admin: 12/28/20 12:22 Dose: Not Given Documented by: [id number] Isosorbide Mononitrate (Isosorbide Brooks Extended Rel 30 Mg Tabcr) 30 mg PO NOW ONE Stop: 12/28/20 11:39 Last Admin: 12/28/20 13:01 Dose: 30 mg Documented by: [id number] Metoclopramide HCl (Metoclopramide Hcl Inj 5 Mg/Ml 2 Ml Vial) Confirm Administered Dose 10 mg .ROUTE .STK-MED ONE Stop: 12/28/20 12:03 Last Admin: 12/28/20 12:03 Dose: 5 mg Documented by: [id number] Metoclopramide HCl (Metoclopramide Hcl Inj 5 Mg/Ml 2 Ml Vial) 5 mg IV ONE ONE Stop: 04/28/21 12:22 Last Admin: 12/28/20 12:22 Dose: Not Given Documented by: [id number] Ondansetron HCl (Ondansetron Inj 2 Mg/Ml 2 Ml Vial) 4 mg IV NOW STA Stop: 12/28/20 06:50 Last Admin: 12/28/20 07:22 Dose: 4 mg Documented by: [id number] Ondansetron HCl (Ondansetron Inj 2 Mg/Ml 2 Ml Vial) 4 mg IV NOW STA Stop: 12/28/20 10:33 Last Admin: 12/28/20 10:37 Dose: 4 mg Documented by: [id number] Promethazine HCl (Promethazine Hcl Inj 25 Mg/Ml 1 Ml Vial) Confirm Administered Dose 25 mg .ROUTE .STK-MED ONE Stop: 12/28/20 12:02 Last Admin: 12/28/20 12:03 Dose: 12.5 mg Documented by: [id number] Imaging Data Radiologist's Impression: Lumbar Spine MRI 12/28/20 07:03 MR lumbar spine wo/w con CLINICAL HISTORY: right sciatica TECHNIQUE: Sagittal and axial T1, T2 and STIR images were obtained. Images were acquired before and after the administration of 10.5 cc of intravenous Gadavist. COMPARISON STUDY: X-ray study dated 04/02/2016 OBSERVATIONS: The vertebral bodies and posterior elements appear intact. There is no abnormal bony signal present to suggest a marrow replacement process. L1-2: There is a circumferential disc bulge. There is mild spinal canal narrowing. There is minor bilateral foraminal narrowing. L2-3: There is a circumferential disc bulge. There is mild spinal stenosis. There is mild bilateral foraminal narrowing. L3-4: There is a 1 cm free disc fragment located posterior to the L3 vertebral body to the right of midline. This likely arises from the L3-4 disc. There is an L3-4 disc bulge with moderate spinal stenosis. There is a right foraminal and lateral disc protrusion which likely impinges on the exited right L3 nerve root. There is facet joint arthropathy. L4-5: There is a grade 1 spondylolisthesis of L4 and L5. There is moderate to severe spinal stenosis. There is facet joint ligamentous arthropathy. There is a moderate right lateral and foraminal disc protrusion. This likely impinges on the right L4 nerve root. There is right-sided foraminal stenosis. L5-S1: There is a small broad-based central disc protrusion. There is no significant spinal stenosis. There is bilateral foraminal narrowing. The conus medullaris and cauda equina appear normal. Postcontrast images reveal no pathologically enhancing masses. IMPRESSION: 1. Advanced multilevel spondylytic changes. 2. 1 cm free disc fragment located posterior to the L3 vertebral body to the right of midline 3. Right foraminal and lateral disc protrusion at the L3-4 level. 4. Right lateral and foraminal disc protrusion at the L4-5 level. 5. Moderate spinal stenosis at the L3-4 level, and moderate to severe spinal stenosis at the L4-5 level. 6. Other findings as described above. ACT 112: Negative or not required by law. Electronically signed by: Roni Feng M.D. 12/28/2020 9:41 AM Discharge Plan Visit Data Chief Complaint: Flank Pain Stated Complaint: SEVERE PAIN IN RIGHT SIDE X 3DYS,HX KIDNEY STONES ED Provider: Rasheed Carver Discharge Problem: Acute right flank pain Patient Disposition: Admitted As Inpatient Discharge Instructions Interventions: ED Discharge Assessment Last Done: 12/28/20 13:35
[2020-12-28] MEDS: HYDROmorphone INJ 0.5 MG/0.5 ML SYR IV PRN ×3 (07:22→11:04)
[2020-12-28 07:26] LABS: Basophils # (auto) 0.01 K/uL (0-0.2); Basophils % (auto) 0.1 %; Eosinophils # (auto) 0.08 K/uL (0-0.5); Eosinophils % (auto) 1.1 %; Hematocrit (blood only) 39.7 % (42-52); Hemoglobin 13.3 g/dL (14.0-18.0); Immature Granulocytes # (auto) 0.01 K/uL (0.00-0.02); Immature Granulocytes % (auto) 0.1 %; Lymphocytes # (auto) 1.39 K/uL (1.2-3.4); Lymphocytes % (auto) 18.5 %; Mean Corpuscular Hemoglobin 28.6 pg (25-34); Mean Corpuscular Hgb Conc 33.5 g/dL (32-36); Mean Corpuscular Volume 85.4 fL (80-100); Mean Platelet Volume 9.7 fL (7.4-10.4); Monocytes # (auto) 0.84 K/uL (0.11-0.59); Monocytes % (auto) 11.2 %; Platelet Count 273 K/uL (130-400); RDW Coefficient of Variation 14.9 % (11.5-14.5); RDW Standard Deviation 46.5 fL (36.4-46.3); Red Blood Count 4.65 M/uL (4.7-6.1); White Blood Count 7.53 K/uL (4.8-10.8)
[2020-12-28 07:43] LABS: Appearance Urine Clear (Clear); Bacteria Urine Automated Negative (Negative); Bilirubin Urine Negative (Negative); Blood Urine 1+ (Negative); Color Urine Yellow; Glucose Urine UA 1+ (Negative); Ketones Urine Negative (Negative); Leukocyte Esterase Urine Negative (Negative); Nitrite Urine Negative (Negative); Protein Urine 3+ (Negative); RBC Urine Automated 0-4 /hpf (0-4); Specific Gravity Urine 1.021 (1.000-1.030); Urobilinogen Urine Negative (Negative); pH Urine 6.5 (4.5-7.5)
[2020-12-28 07:44] LABS: Albumin Level 3.4 gm/dl (3.4-5.0); BUN Creatinine Ratio 14.6 (10-20); Creatinine Clr Calc Pharmacy 51.6 ml/min; Est GFR (African American) 47.7; Est GFR (Non-African American) 41.1; Potassium 4.3 mmol/L (3.5-5.1)
[2020-12-28 07:46] LABS: Albumin Globulin Ratio 0.8 (0.9-2); Bilirubin,Total 0.7 mg/dl (0.2-1); Globulin 4.2 gm/dl (2.5-4.0); Total Protein 7.6 gm/dl (6.4-8.2)
[2020-12-28 07:58] LABS: Epithelial Cell Urine Auto 0-5 /lpf (0-5)
[2020-12-28] MEDS ORDERED: GADOBUTROL 65ML VIAL IV ONE (09:20)
--- NOTE | 2020-12-28 09:42 | Magnetic Resonance Report ---
MR lumbar spine wo/w con CLINICAL HISTORY: right sciatica TECHNIQUE: Sagittal and axial T1, T2 and STIR images were obtained. Images were acquired before and a fter the administration of 10.5 cc of intravenous Gadavist. COMPARISON STUDY: X-ray study dated 04/02/2016 OBSERVATIONS: The vertebral bodies and posterior elements appear intact. There is no abnormal bony signal present t o suggest a marrow replacement process. L1-2: There is a circumferential disc bulge. There is mild spinal canal narrowing. There is minor may ateral foraminal narrowing. L2-3: There is a circumferential disc bulge. There is mild spinal stenosis. There is mild bilateral f oraminal narrowing. L3-4: There is a 1 cm free disc fragment located posterior to the L3 vertebral body to the right of m idline. This likely arises from the L3-4 disc. There is an L3-4 disc bulge with moderate spinal steno sis. There is a right foraminal and lateral disc protrusion which likely impinges on the exited right L3 nerve root. There is facet joint arthropathy. L4-5: There is a grade 1 spondylolisthesis of L4 and L5. There is moderate to severe spinal stenosis. There is facet joint ligamentous arthropathy. There is a moderate right lateral and foraminal disc p rotrusion. This likely impinges on the right L4 nerve root. There is right-sided foraminal stenosis. L5-S1: There is a small broad-based central disc protrusion. There is no significant spinal stenosis. There is bilateral foraminal narrowing. The conus medullaris and cauda equina appear normal. Postcontrast images reveal no pathologically enhancing masses. IMPRESSION: 1. Advanced multilevel spondylytic changes. 2. 1 cm free disc fragment located posterior to the L3 vertebral body to the right of midline 3. Right foraminal and lateral disc protrusion at the L3-4 level. 4. Right lateral and foraminal disc protrusion at the L4-5 level. 5. Moderate spinal stenosis at the L3-4 level, and moderate to severe spinal stenosis at the L4-5 lev el. 6. Other findings as described above. ACT 112: Negative or not required by law. Electronically signed by: Roni Feng M.D. 12/28/2020 9:41 AM
[2020-12-28] MEDS ORDERED: dexAMETHasone**PF** 10 MG/ML VIAL IV ONE (10:51)
[2020-12-28] MEDS ORDERED: FUROSEMIDE 40 MG TAB PO ONE (11:38)
[2020-12-28] MEDS ORDERED: ATENOLOL 50 MG TABLET PO ONE (11:38)
[2020-12-28] MEDS ORDERED: ISOSORBIDE MONO EXTENDED REL 30 MG TABCR PO ONE (11:38)
[2020-12-28 12:01] LABS: Influenza A virus by PCR Negative (Neg); Influenza B virus by PCR Negative (Neg); RSV by PCR Negative (Neg); SARS CoV2 RNA(COVID-19) InHosp NEGATIVE (Negative)
[2020-12-28] MEDS ORDERED: PROMETHAZINE HCL INJ 25 MG/ML 1 ML VIAL ONE (12:01)
[2020-12-28] MEDS ORDERED: METOCLOPRAMIDE HCL INJ 5 MG/ML 2 ML VIAL ONE (12:02)
[2020-12-28] MEDS ORDERED: PROMETHAZINE 12.5 MG/50.5 ML BAG IV STA (12:20)
[2020-12-28] MEDS ORDERED: METOCLOPRAMIDE HCL INJ 5 MG/ML 2 ML VIAL IV ONE (12:21)
--- NOTE | 2020-12-28 13:21 | History & Physical Report ---
Date of Service December 28, 2020 Assessment & Plan (1) Degeneration of lumbosacral intervertebral disc with acute herniation: Mr. Modi is a 65-year-old male with a history of Insulin-Requiring Type 2 Diabetes Mellitus, Stage 3 Chronic Kidney Disease, Diabetic Peripheral Neuropathy, Hypertension, Hypercholesterolemia, Factor 5 Leiden Mutation, Hyperhomocystinemia, Cervical Degenerative Disc Disease, Chronic DVT of LLE, Obesity, GERD, Anemia, Prior TIA, and Inflammatory Arthritis (on chronic prednisone 5 mg daily) who presents to [facility] ER today secondary to an Acute Lumbar Disc Herniation resulting a 1 cm free disc fragment located posterior to the L3 vertebral body to the right of midline. This likely arises from the L3-4 disc. There is an L3-4 disc bulge with moderate spinal stenosis. There is a right foraminal and lateral disc protrusion which likely impinges on the exited right L3 nerve root. Also there is grade 1 spondylolisthesis of L4 and L5. There is moderate to severe spinal stenosis. There is a moderate right lateral and foraminal disc protrusion which likely impinges on the right L4 nerve root. There is right-sided foraminal stenosis at this level. Recommend the followin. Admit to Med-Surg floor. 2. NPO at midnight except for medications in preparation for spinal surgery. 3. Consult Dr. Lex Khan, spine surgeon. 4. Pain management with hydromorphone and oxycodone as prescribed. 5. Hold prednisone 5 mg. 6. IV Dexamethasone 6 mg daily. 7. Knee-high compression stockings bilaterally for DVT prophylaxis. Recommend initiating Lovenox or heparin postoperatively for DVT prophylaxis. 8. Plavix is being held for upcoming surgical procedure. (2) Lumbar spinal stenosis: -- As outlined above. (3) Intractable low back pain: -- As outlined above. (4) Chronic kidney disease, stage 3 (moderate): Secondary to DM, HTN. -- Serum Creatinine is 1.69 mg/dl on admission. -- Monitor daily BMP. -- Avoid nephrotoxic medications. (5) Uncontrolled type 2 diabetes mellitus: Insulin-requiring type 2 diabetes mellitus, diagnosed approximately 8 years ago. -- Glycemic control consultation. -- Continue Lantus 30 units injected subcutaneously each evening. -- BSG qAC and HS. -- SSI. (6) Essential hypertension: 1. Continue Atenolol 100 mg daily including the morning of surgery with sips of water. 2. Continue Lasix 40 mg daily. 3. Continue Imdur ER 30 mg daily. 4. Consider adding an ARB for its nephro protective affects. Patient is aller gic to DEYSI inhibitors. (7) Hypercholesterolemia: 1. Continue Lipitor 20 mg daily. 2. Continue Gemfibrozil 600 mg b.i.d.. (8) 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: -- History of factor 5 Leiden mutation. -- DVT prophylaxis as noted above. -- Start heparin or Lovenox postoperatively. -- B/L knee-high compression stocking. -- Ambulate postoperatively. History of Present Illness Chief Complaint: -- Acute Lumbar Disc Herniation with Moderate to Severe Lumbar Spinal Stenosis. -- Intractable Back Pain. -- Right Sided Lumbar Radiculopathy. Primary Care Provider: Jam Hdez MD Mr. Modi is a 65-year-old male with a history of Insulin-Requiring Type 2 Diabetes Mellitus, Stage 3 Chronic Kidney Disease, Diabetic Peripheral Neuropat hy, Hypertension, Hypercholesterolemia, Factor 5 Leiden Mutation, Hyperhomocystinemia, Cervical Degenerative Disc Disease, Chronic DVT of LLE, Obesity, GERD, Anemia, Prior TIA, and Inflammatory Arthritis (on chronic prednisone 5 mg daily) who presents to [facility] ER today complaining of right low back and flank pain which radiates into his right groin and down to his anterior thigh to the level of the knee, right inner thigh pain, right inner thigh numbness, nausea, vomiting, weak urine. Patient recently moved into a new place. There is a small step down in the laundry room from the kitchen, and when he was moving in on Saturday or Saturday he misjudged this step down and stepped particularly hard. He thinks this may have been when he injured himself. The patient has found no relieving factors -- saw his chiropractor the past 2 days, these treatments did not help. Currently his pain is rated as 10/10. It is worse with walking or movement. Patient denies lightheadedness, syncope, heada geraldine, fevers, chills, diaphoresis, visual changes, neck pain, chest pain, breathing difficulties, melena, hematochezia, weakness, lymphadenopathy, rash, or other complaints. Patient has not had any urinary or fecal incontinence. MRI L-Spine 12/28/20: L3-4: There is a 1 cm free disc fragment located posterior to the L3 vertebral body to the right of midline. This likely arises from the L3-4 disc. There is an L3-4 disc bulge with moderate spinal stenosis. There is a right foraminal and lateral disc protrusion which likely impinges on the exited right L3 nerve root. There is facet joint arthropathy. L4-5: There is a grade 1 spondylolisthesis of L4 and L5. There is moderate to severe spinal stenosis. There is facet joint ligamentous arthropathy. There is a moderate right lateral and foraminal disc protrusion. This likely impinges on the right L4 nerve root. There is right-sided foraminal stenosis. Other degenerative changes noted. Allergies Allergy/AdvReac Type Severity Reaction Status Date / Time ibuprofen Allergy Unknown UNKNOWN Verified 12/21/20 08:18 DEYSI Inhibitors AdvReac Mild cough Verified 12/21/20 08:41 Home Medications Medication Instructions Recorded Confirmed Type prednisone 5 mg tablet 5 mg PO QAM 04/29/19 12/28/20 History Lite Touch Insulin Pen [place] 31 #400 ea NS 11/01/19 12/28/20 Rx gauge x 3/16" atorvastatin 20 mg tablet 20 mg PO QPM #90 tab 03/02/20 12/28/20 Rx gemfibrozil 600 mg tablet 600 mg PO BID #180 tab 03/02/20 12/28/20 Rx gabapentin 300 mg capsule 300 mg PO BID #180 cap 06/01/20 12/28/20 Rx BD Ultra-Fine Mini Pen Needle 31 #400 ea NS 06/07/20 12/28/20 Rx gauge x 3/16" insulin aspart U-100 100 unit/mL 6 units SQ TIDM ml 06/07/20 12/28/20 History (3 mL) subcutaneous pen Lantus Solostar U-100 Insulin 30 unit SUBCUT HS 12/14/20 12/28/20 History allopurinol 300 mg PO QAM 12/14/20 12/28/20 History atenolol 100 mg PO QAM 12/14/20 12/28/20 History cholecalciferol (vitamin D3) 2,000 unit PO QAM 12/14/20 12/28/20 History clopidogrel 75 mg PO QAM 12/14/20 12/28/20 History folic acid 1 mg PO QAM 12/14/20 12/28/20 History furosemide 40 mg PO QAM 12/14/20 12/28/20 History omeprazole 20 mg PO QAM 12/14/20 12/28/20 History isosorbide mononitrate 30 mg 30 mg PO QAM #30 tab 12/22/20 12/28/20 Rx tablet,extended release 24 hr lancets #400 ea 12/22/20 12/28/20 Rx [employer] Ultra Blue Test Strip #400 ea NS 12/23/20 12/28/20 Rx Past Med/Surg History Medical History 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 ~2012 or earlier. Chronic gout Chronic kidney disease, stage 3 (moderate) Colon polyps Diabetes mellitus, type 2 IDDM Diabetic peripheral neuropathy Diverticulitis of colon hx Essential hypertension Factor V Leiden mutation plavix daily GERD (gastroesophageal reflux disease) H/O proctoscopy History of balanitis Hypercholesterolemia Kidney stones hx Lumbar spondylosis Osteoarthritis Perforated diverticulitis (01/28/14) Sciatica Transient ischemic attack (TIA) (~2012) Surgical History H/O colonoscopy H/O repair of rotator cuff right x1 and left x2 History of cataract surgery bilateral History of colon resection r/t perforated diverticuliti History of cystoscopy with ureter stent History of dilation of urethra History of rectopexy laparoscopic with sigmoid resection --- patient unsure??? Family History Father Colon cancer Diabetes Myocardial infarction Mother Diabetes Sister Breast cancer Brother Brain cancer Stroke Other No family history of adverse response to anesthesia Denies family history of Ovarian cancer Prostate cancer Lung cancer Social History Smoking Status: Never smoker Age Started Using Tobacco: 14; Age Quit Using Tobacco: 30; packs per day: 1; Years Smoked: 16; Cigarettes Per Day: 20 a day for 16 years; Second Hand Exposure: No; Hx Alcohol Use: No Hx Substance Use: No Preferred Language: Ecuadorean Communication Ability: Effective Visual Impairment: No Limitations Hearing Ability: Normal Chief Executive Required: No Beliefs That Will Affect Care: None marital status: Current Living Situation: Spouse current occupational status: 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 HEENT: Head is atraumatic, normocephalic. EOM's intact. Facies symmetric. No perioral cyanosis. NECK: No JVD. JVP is at the level of the clavicle sitting upright. Carotid upstrokes are + 2 bilaterally. No bruits are noted. CHEST/LUNGS: Clear to auscultation throughout all lung jarquin. No wheezes, rales, or crackles. CVS: S1 and S2 are regular without obvious murmurs, gallops, or rubs. PMI is nonpalpable. No lifts, heaves, or thrills. No abdominal aortic or renal bruits. ABDOMINAL EXAM: Bowel sounds are present. No masses, organomegaly, or tenderness. EXTREMITIES: No clubbing or cyanosis. No edema. Intact posterior tibial and radial pulses bilaterally. NEUROLOGIC EXAM: Patient is awake, alert, and oriented. Pleasant and cooperative. Answers questions appropriately. Speech is clear. Sensation of the right anteromedial thigh is altered to light touch. No focal muscular weakness is noted. Gait was not assessed. Results & Data Results & Data ([facility]) Vital Signs (Past 12 Hours) Vital Signs Temp Pulse Pulse Resp BP BP Pulse Ox 12/28/20 13:03 65 16 158/89 H 98 12/28/20 12:11 65 18 198/93 H 98 12/28/20 11:10 62 16 160/110 H 95 12/28/20 10:30 64 16 181/105 H 94 12/28/20 09:50 65 16 169/119 H 98 12/28/20 08:07 97 12/28/20 08:06 64 16 169/105 H 89 L 12/28/20 07:49 73 18 174/91 H 95 12/28/20 07:25 67 18 227/106 H 96 12/28/20 07:13 96 12/28/20 06:45 37.1 C 66 20 192/93 H 93 Laboratory Results Laboratory Results - last 24 hr 12/28/20 12/28/20 12/28/20 07:15 07:15 07:16 WBC 7.53 RBC 4.65 L Hgb 13.3 L Hct 39.7 L MCV 85.4 MCH 28.6 MCHC 33.5 RDW Std Deviation 46.5 H RDW Coeff of Jono 14.9 H Plt Count 273 MPV 9.7 Immature Gran % (Auto) 0.1 Neut % (Auto) 69.0 Lymph % (Auto) 18.5 [place] % (Auto) 11.2 Eos % (Auto) 1.1 Baso % (Auto) 0.1 Neut # (Auto) 5.20 Lymph # (Auto) 1.39 [place] # (Auto) 0.84 H Eos # (Auto) 0.08 Baso # (Auto) 0.01 Immature Gran # (Auto) 0.01 Sodium 140 Potassium 4.3 Chloride 109 H Carbon Dioxide 26 Anion Gap 5.0 BUN 25 H Creatinine 1.69 H Est Cr Clr Drug Dosing 51.6 Est GFR ( Amer) 47.7 Est GFR (Non-Af Amer) 41.1 BUN/Creatinine Ratio 14.6 Glucose 191 H Calcium 9.0 Total Bilirubin 0.7 AST 10 L ALT 17 Alkaline Phosphatase 124 H Total Protein 7.6 Albumin 3.4 Globulin 4.2 H Albumin/Globulin Ratio 0.8 L Lipase 102 Urine Color Yellow Urine Appearance Clear Urine pH 6.5 Ur Specific [place] 1.021 Urine Protein 3+ H Urine Glucose (UA) 1+ H Urine Ketones Negative Urine Blood 1+ H Urine Nitrite Negative Urine Bilirubin Negative Urine Urobilinogen Negative Ur Leukocyte Esterase Negative Urine WBC (Auto) 1-5 Urine RBC (Auto) 0-4 U Hyaline Cast (Auto) Not Reportable U Epithel Cells (Auto) 0-5 Urine Bacteria (Auto) Negative COVID-19 Eval Order SARS-CoV-2 (PCR) Influenza Type A (PCR) Influenza Type B (PCR) RSV (RT-PCR) 12/28/20 12/28/20 11:10 11:10 WBC RBC Hgb Hct MCV MCH MCHC RDW Std Deviation RDW Coeff of Jono Plt Count MPV Immature Gran % (Auto) Neut % (Auto) Lymph % (Auto) [place] % (Auto) Eos % (Auto) Baso % (Auto) Neut # (Auto) Lymph # (Auto) [place] # (Auto) Eos # (Auto) Baso # (Auto) Immature Gran # (Auto) Sodium Potassium Chloride Carbon Dioxide Anion Gap BUN Creatinine Est Cr Clr Drug Dosing Est GFR ( Amer) Est GFR (Non-Af Amer) BUN/Creatinine Ratio Glucose Calcium Total Bilirubin AST ALT Alkaline Phosphatase Total Protein Albumin Globulin Albumin/Globulin Ratio Lipase Urine Color Urine Appearance Urine pH Ur Specific [place] Urine Protein Urine Glucose (UA) Urine Ketones Urine Blood Urine Nitrite Urine Bilirubin Urine Urobilinogen Ur Leukocyte Esterase Urine WBC (Auto) Urine RBC (Auto) U Hyaline Cast (Auto) U Epithel Cells (Auto) Urine Bacteria (Auto) COVID-19 Eval Order CovFluRsv at [facility] SARS-CoV-2 (PCR) NEGATIVE Influenza Type A (PCR) Negative Influenza Type B (PCR) Negative RSV (RT-PCR) Negative Diagnostic Findings MRI lumbar spine today: L3-4: There is a 1 cm free disc fragment located posterior to the L3 vertebral body to the right of midline. This likely arises from the L3-4 disc. There is an L3-4 disc bulge with moderate spinal stenosis. There is a right foraminal and lateral disc protrusion which likely impinges on the exited right L3 nerve root. There is facet joint arthropathy. L4-5: There is a grade 1 spondylolisthesis of L4 and L5. There is moderate to severe spinal stenosis. There is facet joint ligamentous arthropathy. There is a moderate right lateral and foraminal disc protrusion. This likely impinges on the right L4 nerve root. There is right-sided foraminal stenosis. Other degenerative changes noted. Code Status & VTE Plan Code Status Full Code VTE Prophylaxis Plan VTE Prophylaxis will be ordered: Yes Reason for no VTE drug order: Contraindicated Supervising Physician Co-Signing Physician Notes I personally saw and examined the patient. I verified all bruno points and agree with George Rodriguez PA-C with the following exceptions and/or additions: 65-year-old male admission for intractable back pain. Constant 3 days ago right flank pain radiating down his right leg. Severity 06/11. O/E HS1+2, no murmurs, Chest CTAB, Abdo SNT, Right flank pain on palpation. A/P Intractable back pain - severe spinal stenosis L4-L5, L3 disc herniation with fragment displacement 1 cm posteriorly. Disc herniation appears consistent with radiculopathy. Agree with IV dexamethasone 6 mg daily. Possible surgical management per spine orthopedics. Medical condition management as above. No known history of coronary artery disease. No shortness of breath or chest pain on exertion. Revised cardiac risk will 1. 6% 30-day risk of , SD or cardiac arrest. Suspect this is an underestimate however he is medically optimized for surgery at this time. Suggest chemical DVT prophylaxis with heparin or Lovenox post surgery given history of DVT and factor V Leiden (Plavix can be held presurgery and while on VTE prophylaxis). PG Care Time/CCT Total # of Minutes Spent Total Time Spent with Patient: Total time spent is greater than 50% in coordination of care (as documented) at patient's floor/unit and/or counseling patient:45 Coding Level of Care Code 38642 Initial Inpt Care Lvl 3 Diagnoses Degeneration of lumbosacral intervertebral disc with acute herniation M51.36; M51.27 Lumbar spinal stenosis M48.061 Intractable low back pain M54.5 Chronic kidney disease, stage 3 (moderate) N18.3 Uncontrolled type 2 diabetes mellitus E11.65 Essential hypertension I10 Hypercholesterolemia E78.00 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 I82.502 Time Spent (min) 65
[2020-12-28] MEDS ORDERED: ALUMINUM/MAGNESIUM/SIMETH (MAALOX MAX) 30 ML UDC PO PRN (14:07)
[2020-12-28] MEDS ORDERED: PROMETHAZINE HCL 12.5 MG in SODIUM CHLORIDE 0.9% 50 ML IV PRN (14:07)
[2020-12-28] MEDS ORDERED: PHARMACY GLYCEMIC MGMT CONSULT PRN (14:07)
[2020-12-28] MEDS ORDERED: HYDROmorphone INJ 1 MG/ML SYRINGE IV PRN (14:07)
[2020-12-28] MEDS ORDERED: MAGNESIUM HYDROXIDE SUSP 30 ML UDC PO PRN (14:07)
[2020-12-28] MEDS ORDERED: ACETAMINOPHEN 325 MG TAB PO PRN (14:07)
[2020-12-28] MEDS ORDERED: ONDANSETRON INJ 2 MG/ML 2 ML VIAL IV PRN (14:07)
--- NOTE | 2020-12-28 15:38 | Pharmacy Report ---
Pharmacy Glycemic Short Note 2 - Date of Service December 28, 2020 - Glycemic Short BSG Results (Last 24 hours): 12/28/20 12/28/20 07:15 14:35 Glucose 191 H POC Glucose 214 H OUTPATIENT ANTIDIABETIC REGIMEN: * Lantus 30 units qHS; Novolog 6 units TIDM * A1c 7.9% 10/31/20 ASSESSMENT: * Pt admitted with planned spinal surgery for tomorrow, NPO after midnight * Pt received dexamethasone 10 mg IV in the emergency department, pre lunch BSG 214, will use weight based stress of 3 carb ratio, stress of 2 correction * Dexamethasone 6 mg scheduled daily. * Lantus will be provided in scale up to stress of 3 dosing, will add NPH tomorrow if needed PLAN FOR INPATIENT GLYCEMIC CONTROL: * Hold outpatient oral diabetes medications * Basal insulin * Lantus 30-45 units SQ HS per scale * Bolus insulin * NovoLog per scale ACHS or Q6hrs while NPO * Goal Range: Low 110 mg/dL - High 140 mg/dL * Correction Factor: 20 mg/dL/unit * Nutritional / Prandial insulin per carb ratio of 1 unit per 5 grams CHO consumed
[2020-12-28] MEDS: INSULIN ASPART 100 UNITS/ML 3 ML PEN SC SCH ×3 (16:08→21:29)
[2020-12-28] MEDS ORDERED: INSULIN GLARGINE SOLOSTAR 100 UNITS/ML 3 ML PEN SQ SCH ×3 (16:30→21:00)
[2020-12-28] MEDS: oxyCODONE HCL IR 5 MG TAB (IMMEDIATE RELEASE) PO PRN (18:15)
[2020-12-28] MEDS: ATORVASTATIN 20 MG TAB PO SCH (21:27)
[2020-12-28] MEDS: GABAPENTIN 300 MG CAP PO SCH (21:28)
[2020-12-28] MEDS: gemfibroziL 600 MG TAB PO SCH (21:28)
[2020-12-28] MEDS: INSULIN GLARGINE SOLOSTAR 100 UNITS/ML 3 ML PEN SQ SCH (21:34)
[2020-12-29] MEDS: INSULIN ASPART 100 UNITS/ML 3 ML PEN SC SCH ×6 (00:28→21:07)
[2020-12-29] MEDS: oxyCODONE HCL IR 5 MG TAB (IMMEDIATE RELEASE) PO PRN ×4 (04:03→21:10)
[2020-12-29 07:17] LABS: Basophils # (auto) 0.01 K/uL (0-0.2); Basophils % (auto) 0.1 %; Eosinophils # (auto) 0.03 K/uL (0-0.5); Eosinophils % (auto) 0.2 %; Hemoglobin 13.1 g/dL (14.0-18.0); Immature Granulocytes # (auto) 0.03 K/uL (0.00-0.02); Immature Granulocytes % (auto) 0.2 %; Lymphocytes # (auto) 2.13 K/uL (1.2-3.4); Lymphocytes % (auto) 17.7 %; Mean Corpuscular Hemoglobin 28.2 pg (25-34); Mean Corpuscular Hgb Conc 32.8 g/dL (32-36); Mean Corpuscular Volume 86.2 fL (80-100); Mean Platelet Volume 10.1 fL (7.4-10.4); Monocytes # (auto) 1.21 K/uL (0.11-0.59); Neutrophils # (auto) 8.64 K/uL (1.4-6.5); Neutrophils % (auto) 71.8 %; Platelet Count 275 K/uL (130-400); RDW Coefficient of Variation 14.8 % (11.5-14.5); RDW Standard Deviation 46.1 fL (36.4-46.3); Red Blood Count 4.64 M/uL (4.7-6.1); White Blood Count 12.05 K/uL (4.8-10.8)
[2020-12-29 07:46] LABS: BUN Creatinine Ratio 18.2 (10-20); Calcium 9.3 mg/dl (8.5-10.1); Creatinine Clr Calc Pharmacy 44.3 ml/min; Est GFR (African American) 39.3; Est GFR (Non-African American) 33.9
--- NOTE | 2020-12-29 08:44 | Orthopedic Consultation ---
Date of Consultation December 29, 2020 Assessment & Plan (1) Degeneration of lumbosacral intervertebral disc with acute herniation: I did review with the patient the results of his MRI. Is evidence of a massive disc herniation at L3-L4 with foraminal involvement and direct compression of the L3 nerve root consistent with his radiculopathy. He also has evidence of spondylolisthesis L4-5 central and lateral recess stenosis at this region. He has neuroforaminal disease at L5-S1 bilaterally. This point he is struggling with severe pain and inability to ambulate and would like to pursue surgical invention. Would require a lumbar decompression and fusion L3-4 L4-5 possible L5-S1. Risk benefits pros cons and alternatives were outlined in detail. Risk include but not limited to anesthesia blindness stroke paralysis nerve damage blood loss requiring transfusion infection requiring reoperation benefits hopefully marked improvement of his radiculopathy inability to ambulate. This time will make him n.p.o. after midnight we will plan for surgery tomorrow pending medical clearance. Present on Admission?: Yes History of Present Illness Reason for Consultation: Back and leg pain Attending Physician: Keyur Jackson, History of Present Illness This is a 65-year-old male who presents with marked severe right leg pain. It began several days ago. He denies any precipitating trauma fall or event. It markedly limits his ability to stand and ambulate. Severe pain. He presents the emergency room being unable to take care of himself and ambulate secondary to pain. He does note a history of neurogenic claudication over the past several years only able to stand and ambulate for short distances. He now has new onset of severe radiculopathy. Allergies Allergy/AdvReac Type Severity Reaction Status Date / Time ibuprofen Allergy Unknown UNKNOWN Verified 12/21/20 08:18 DEYSI Inhibitors AdvReac Mild cough Verified 12/21/20 08:41 Home Medications Medication Instructions Recorded Confirmed Type prednisone 5 mg tablet 5 mg PO QAM 04/29/19 12/28/20 History Lite Touch Insulin Pen [place] 31 #400 ea NS 11/01/19 12/28/20 Rx gauge x 3/16" atorvastatin 20 mg tablet 20 mg PO QPM #90 tab 03/02/20 12/28/20 Rx gemfibrozil 600 mg tablet 600 mg PO BID #180 tab 03/02/20 12/28/20 Rx gabapentin 300 mg capsule 300 mg PO BID #180 cap 06/01/20 12/28/20 Rx BD Ultra-Fine Mini Pen Needle 31 #400 ea NS 06/07/20 12/28/20 Rx gauge x 3/16" insulin aspart U-100 100 unit/mL 6 units SQ TIDM ml 06/07/20 12/28/20 History (3 mL) subcutaneous pen Lantus Solostar U-100 Insulin 30 unit SUBCUT HS 12/14/20 12/28/20 History allopurinol 300 mg PO QAM 12/14/20 12/28/20 History atenolol 100 mg PO QAM 12/14/20 12/28/20 History cholecalciferol (vitamin D3) 2,000 unit PO QAM 12/14/20 12/28/20 History clopidogrel 75 mg PO QAM 12/14/20 12/28/20 History folic acid 1 mg PO QAM 12/14/20 12/28/20 History furosemide 40 mg PO QAM 12/14/20 12/28/20 History omeprazole 20 mg PO QAM 12/14/20 12/28/20 History isosorbide mononitrate 30 mg 30 mg PO QAM #30 tab 12/22/20 12/28/20 Rx tablet,extended release 24 hr lancets #400 ea 12/22/20 12/28/20 Rx OneTouch Ultra Blue Test Strip #400 ea NS 12/23/20 12/28/20 Rx Patient History Medical History 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 ~2012 or earlier. Chronic gout Chronic kidney disease, stage 3 (moderate) Colon polyps Diabetes mellitus, type 2 IDDM Diabetic peripheral neuropathy Diverticulitis of colon hx Essential hypertension Factor V Leiden mutation plavix daily GERD (gastroesophageal reflux disease) H/O proctoscopy History of balanitis Hypercholesterolemia Kidney stones hx Lumbar spondylosis Osteoarthritis Perforated diverticulitis (01/28/14) Sciatica Transient ischemic attack (TIA) (~2012) Surgical History H/O colonoscopy H/O repair of rotator cuff right x1 and left x2 History of cataract surgery bilateral History of colon resection r/t perforated diverticuliti History of cystoscopy with ureter stent History of dilation of urethra History of rectopexy laparoscopic with sigmoid resection --- patient unsure??? Family History Father Colon cancer Diabetes Myocardial infarction Mother Diabetes Sister Breast cancer Brother Brain cancer Stroke Other No family history of adverse response to anesthesia Denies family history of Ovarian cancer Prostate cancer Lung cancer Social History Smoking Status: Never smoker Age Started Using Tobacco: 14; Age Quit Using Tobacco: 30; packs per day: 1; Years Smoked: 16; Cigarettes Per Day: 20 a day for 16 years; Second Hand Exposure: No; Hx Alcohol Use: No Hx Substance Use: No Preferred Language: Marshallese Communication Ability: Effective Visual Impairment: No Limitations Hearing Ability: Normal 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 He is uncomfortable with straight leg raise. He exhibits reasonable plus out of 5 plantar flexion dorsiflexion extensor pollicis longus. There is deficits of the right quadricep at L4-5 compared to the left. Deep tendon reflexes are diminished. Sensory is intact. Results & Data ([facility]) Vital Signs (Past 12 Hours) Vital Signs Temp Pulse Resp BP Pulse Ox Pulse Ox 12/29/20 08:01 36.3 C L 57 L 16 163/84 H 95 12/28/20 23:23 36.5 C 62 18 137/74 95 12/28/20 20:50 97
[2020-12-29] MEDS ORDERED: INSULIN HUMAN NPH SC SCH (09:00)
[2020-12-29] MEDS: FOLIC ACID 1 MG TAB PO SCH (09:27)
[2020-12-29] MEDS: allopurinoL 300 MG TAB PO SCH (09:27)
[2020-12-29] MEDS: ATENOLOL 50 MG TABLET PO SCH (09:27)
[2020-12-29] MEDS: GABAPENTIN 300 MG CAP PO SCH ×2 (09:27→20:13)
[2020-12-29] MEDS: gemfibroziL 600 MG TAB PO SCH ×2 (09:27→20:13)
[2020-12-29] MEDS: FUROSEMIDE 40 MG TAB PO SCH (09:27)
[2020-12-29] MEDS: PANTOprazole 40 MG TAB PO SCH (09:28)
[2020-12-29] MEDS: CHOLECALCIFEROL 1,000 UNITS 25 MCG TAB PO SCH (09:28)
[2020-12-29] MEDS: DEXAMETHASONE SOD INJ 4 MG/ML VIAL IV SCH (09:28)
[2020-12-29] MEDS: ISOSORBIDE MONO EXTENDED REL 30 MG TABCR PO SCH (09:29)
--- NOTE | 2020-12-29 10:21 | Hospitalist Progress Note ---
Date of Service December 29, 2020 Assessment & Plan (1) Degeneration of lumbosacral intervertebral disc with acute herniation: Mr. Modi is a 65-year-old male with a history of Insulin-Requiring Type 2 Diabetes Mellitus, Stage 3 Chronic Kidney Disease, Diabetic Peripheral Neuropathy, Hypertension, Hypercholesterolemia, Factor 5 Leiden Mutation, Hyperhomocystinemia, Cervical Degenerative Disc Disease, Chronic DVT of LLE, Obesity, GERD, Anemia, Prior TIA, and Inflammatory Arthritis (on chronic prednisone 5 mg daily) who was admitted yesterday with an Acute Lumbar Disc Herniation resulting a 1 cm free disc fragment located posterior to the L3 vertebral body to the right of midline - likely arising from the L3-4 disc. There is an L3-4 disc bulge with moderate spinal stenosis. There is a right foraminal and lateral disc protrusion which likely impinges on the exited right L3 nerve root. Also there is grade 1 spondylolisthesis of L4 and L5. There is moderate to severe spinal stenosis. There is a moderate right lateral and foraminal disc protrusion which likely impinges on the right L4 nerve root. There is right-sided foraminal stenosis at this level. He is awaiting insurance approval to undergo surgical intervention. He is NPO currently. No BM since admission, but sitting on the toilet really exacerbates his back pain and radiculopathy. Urinating normally. His pain is under control on his current regimen, and he states that the nurses are taking very good care of him. Recommend the followin. Admit to Med-Surg floor. 2. NPO in preparation for spinal surgery today if his insurance approves it. 3. Pain management with hydromorphone and oxycodone as prescribed. 4. IV Dexamethasone 6 mg daily. 5. Knee-high compression stockings bilaterally for DVT prophylaxis. Recommend initiating Lovenox or heparin postoperatively for DVT prophylaxis. 6. Plavix is being held for upcoming surgical procedure. (2) Lumbar spinal stenosis: -- As outlined above. (3) Intractable low back pain: -- As outlined above. (4) Chronic kidney disease, stage 3 (moderate): Secondary to DM, HTN. -- Serum Creatinine is 1.69 mg/dl on admission. -- Today his creatinine is 1.98 mg/dl - likely prerenal due to NPO status. -- Monitor daily BMP. -- Avoid nephrotoxic medications. (5) Uncontrolled type 2 diabetes mellitus: Insulin-requiring type 2 diabetes mellitus, diagnosed approximately 8 years ago. -- Glycemic control consultation. -- Continue Lantus 30 units injected subcutaneously each evening. -- BSG qAC and HS. -- SSI. (6) Essential hypertension: 1. Continue Atenolol 100 mg daily including the morning of surgery with sips of water. 2. Continue Lasix 40 mg daily. 3. Continue Imdur ER 30 mg daily. 4. Consider adding an ARB for its nephro protective affects. Patient is allergic to DEYSI inhibitors. (7) Hypercholesterolemia: 1. Continue Lipitor 20 mg daily. 2. Continue Gemfibrozil 600 mg b.i.d.. (8) 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: -- History of factor 5 Leiden mutation. -- DVT prophylaxis as noted above. -- Start heparin or Lovenox postoperatively. -- B/L knee-high compression stocking. -- Ambulate postoperatively. Admission and Anticipated Discharge Date Admission Date: December 28, 2020 Subjective Mr. Modi is a 65-year-old male with a history of Insulin-Requiring Type 2 Diabetes Mellitus, Stage 3 Chronic Kidney Disease, Diabetic Peripheral Neuropathy, Hypertension, Hypercholesterolemia, Factor 5 Leiden Mutation, Hyperhomocystinemia, Cervical Degenerative Disc Disease, Chronic DVT of LLE, Obesity, GERD, Anemia, Prior TIA, and Inflammatory Arthritis (on chronic prednisone 5 mg daily) who was admitted yesterday with an Acute Lumbar Disc Herniation resulting a 1 cm free disc fragment located posterior to the L3 vertebral body to the right of midline - likely arising from the L3-4 disc. There is an L3-4 disc bulge with moderate spinal stenosis. There is a right foraminal and lateral disc protrusion which likely impinges on the exited right L3 nerve root. Also there is grade 1 spondylolisthesis of L4 and L5. There is moderate to severe spinal stenosis. There is a moderate right lateral and foraminal disc protrusion which likely impinges on the right L4 nerve root. There is right-sided foraminal stenosis at this level. He is awaiting insurance approval to undergo surgical intervention. He is NPO currently. No BM since admission, but sitting on the toilet really exacerbates his back pain and radiculopathy. Urinating normally. His pain is under control on his current regimen, and he states that the nurses are taking very good care of him. Review of Systems Review of Systems: All systems reviewed & are unremarkable except as noted in Subjective Physical Exam Physical Exam: GENERAL: Patient in no acute distress. He is lying supine in his bed. HEENT: Head is atraumatic, normocephalic. EOM's intact. Facies symmetric. No perioral cyanosis. NECK: No JVD. JVP is at the level of the clavicle sitting upright. Carotid upstrokes are + 2 bilaterally. No bruits are noted. CHEST/LUNGS: Clear to auscultation throughout all lung jarquin. No wheezes, rales, or crackles. CVS: S1 and S2 are regular without obvious murmurs, gallops, or rubs. PMI is nonpalpable. No lifts, heaves, or thrills. No abdominal aortic or renal bruits. ABDOMINAL EXAM: Bowel sounds are present. No masses, organomegaly, or tenderness. EXTREMITIES: No clubbing or cyanosis. No edema. Intact posterior tibial and radial pulses bilaterally. NEUROLOGIC EXAM: Patient is awake, alert, and oriented. Pleasant and cooperative. Answers questions appropriately. Speech is clear. Sensation of the right anteromedial thigh is altered to light touch. No focal muscular weakness is noted. Gait was not assessed. Results & Data Results & Data ([facility]) Vital Signs (Past 12 Hours) Vital Signs Temp Pulse Resp BP Pulse Ox 12/29/20 08:01 36.3 C L 57 L 16 163/84 H 95 12/28/20 23:23 36.5 C 62 18 137/74 95 Laboratory Results Laboratory Results - last 24 hr 12/28/20 12/28/20 12/28/20 11:10 11:10 14:35 WBC RBC Hgb Hct MCV MCH MCHC RDW Std Deviation RDW Coeff of Jono Plt Count MPV Immature Gran % (Auto) Neut % (Auto) Lymph % (Auto) [place] % (Auto) Eos % (Auto) Baso % (Auto) Neut # (Auto) Lymph # (Auto) [place] # (Auto) Eos # (Auto) Baso # (Auto) Immature Gran # (Auto) Sodium Potassium Chloride Carbon Dioxide Anion Gap BUN Creatinine Est Cr Clr Drug Dosing Est GFR ( Amer) Est GFR (Non-Af Amer) BUN/Creatinine Ratio Glucose POC Glucose 214 H Calcium COVID-19 Eval Order CovFluRsv at [facility] SARS-CoV-2 (PCR) NEGATIVE Influenza Type A (PCR) Negative Influenza Type B (PCR) Negative RSV (RT-PCR) Negative 12/28/20 12/28/20 12/29/20 16:56 20:36 00:09 WBC RBC Hgb Hct MCV MCH MCHC RDW Std Deviation RDW Coeff of Jono Plt Count MPV Immature Gran % (Auto) Neut % (Auto) Lymph % (Auto) [place] % (Auto) Eos % (Auto) Baso % (Auto) Neut # (Auto) Lymph # (Auto) [place] # (Auto) Eos # (Auto) Baso # (Auto) Immature Gran # (Auto) Sodium Potassium Chloride Carbon Dioxide Anion Gap BUN Creatinine Est Cr Clr Drug Dosing Est GFR ( Amer) Est GFR (Non-Af Amer) BUN/Creatinine Ratio Glucose POC Glucose 271 H 212 H 117 H Calcium COVID-19 Eval Order SARS-CoV-2 (PCR) Influenza Type A (PCR) Influenza Type B (PCR) RSV (RT-PCR) 12/29/20 12/29/20 12/29/20 03:53 06:23 06:23 WBC 12.05 H RBC 4.64 L Hgb 13.1 L Hct 40.0 L MCV 86.2 MCH 28.2 MCHC 32.8 RDW Std Deviation 46.1 RDW Coeff of Jono 14.8 H Plt Count 275 MPV 10.1 Immature Gran % (Auto) 0.2 Neut % (Auto) 71.8 Lymph % (Auto) 17.7 [place] % (Auto) 10.0 Eos % (Auto) 0.2 Baso % (Auto) 0.1 Neut # (Auto) 8.64 H Lymph # (Auto) 2.13 [place] # (Auto) 1.21 H Eos # (Auto) 0.03 Baso # (Auto) 0.01 Immature Gran # (Auto) 0.03 H Sodium 138 Potassium 4.0 Chloride 107 Carbon Dioxide 25 Anion Gap 6.0 BUN 36 H Creatinine 1.98 H Est Cr Clr Drug Dosing 44.3 Est GFR ( Amer) 39.3 Est GFR (Non-Af Amer) 33.9 BUN/Creatinine Ratio 18.2 Glucose 111 H POC Glucose 134 H Calcium 9.3 COVID-19 Eval Order SARS-CoV-2 (PCR) Influenza Type A (PCR) Influenza Type B (PCR) RSV (RT-PCR) 12/29/20 08:29 WBC RBC Hgb Hct MCV MCH MCHC RDW Std Deviation RDW Coeff of Jono Plt Count MPV Immature Gran % (Auto) Neut % (Auto) Lymph % (Auto) [place] % (Auto) Eos % (Auto) Baso % (Auto) Neut # (Auto) Lymph # (Auto) [place] # (Auto) Eos # (Auto) Baso # (Auto) Immature Gran # (Auto) Sodium Potassium Chloride Carbon Dioxide Anion Gap BUN Creatinine Est Cr Clr Drug Dosing Est GFR ( Amer) Est GFR (Non-Af Amer) BUN/Creatinine Ratio Glucose POC Glucose 118 H Calcium COVID-19 Eval Order SARS-CoV-2 (PCR) Influenza Type A (PCR) Influenza Type B (PCR) RSV (RT-PCR) PG Care Time/CCT Total # of Minutes Spent Total Time Spent with Patient: Total time spent is greater than 50% in coordination of care (as documented) at patient's floor/unit and/or counseling patient:35 Coding Level of Care Code 31334 Subseq Hosp Care Lvl 3 Diagnoses Degeneration of lumbosacral intervertebral disc with acute herniation M51.36; M51.27 Lumbar spinal stenosis M48.061 Intractable low back pain M54.5 Chronic kidney disease, stage 3 (moderate) N18.3 Uncontrolled type 2 diabetes mellitus E11.65 Essential hypertension I10 Hypercholesterolemia E78.00 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 I82.502 Time Spent (min) 45
[2020-12-29] MEDS ORDERED: SODIUM CHLORIDE 0.9% 1000ML 1,000 ML IV SCH (10:45)
--- NOTE | 2020-12-29 11:06 | Pharmacy Report ---
Pharmacy Glycemic Short Note 2 - Date of Service December 29, 2020 - Glycemic Short BSG Results (Last 24 hours): 12/28/20 12/28/20 12/28/20 14:35 16:56 20:36 Glucose POC Glucose 214 H 271 H 212 H 12/29/20 12/29/20 12/29/20 00:09 03:53 06:23 Glucose 111 H POC Glucose 117 H 134 H 12/29/20 08:29 Glucose POC Glucose 118 H OUTPATIENT ANTIDIABETIC REGIMEN: * Lantus 30 units qHS; Novolog 25 units TIDM * A1c 7.9% 10/31/20 ASSESSMENT: 12/29/20 * Patient NPO tonight at midnight for spinal surgery tomorrow morning * Blood sugars improved overnight, tighten CF/CR slightly for better prandial coverage * Fasting 118mg/dl - no change in Lantus * Add NPH to cover IV Dexamethasone * Updated Med rec- patient takes Novolog 25 units with meals at home 12/28/20 * Pt admitted with planned spinal surgery for tomorrow, NPO after midnight * Pt received dexamethasone 10 mg IV in the emergency department, pre lunch BSG 214, will use weight based stress of 3 carb ratio, stress of 2 correction * Dexamethasone 6 mg scheduled daily. * Lantus will be provided in scale up to stress of 3 dosing, will add NPH tomorrow if needed PLAN FOR INPATIENT GLYCEMIC CONTROL: * Hold outpatient oral diabetes medications * Basal insulin * Lantus 30-45 units SQ HS per scale * ADD: NPH 20 units SQ daily with IV Dexamethasone * Bolus insulin * NovoLog per scale ACHS or Q6hrs while NPO * Goal Range: Low 110 mg/dL - High 140 mg/dL * TIGHTEN: Correction Factor: 10 mg/dL/unit * TIGHTEN: Nutritional / Prandial insulin per carb ratio of 1 unit per 3.5 grams CHO consumed
[2020-12-29] MEDS: CARBOHYDRATES FOR HYPOGLYCEMIA PO PRN ×2 (17:10→17:27)
[2020-12-29] MEDS ORDERED: GLUCOSE 40% GEL 15 GM TUBE PO PRN (17:30)
[2020-12-29] MEDS ORDERED: GLUCAGON FOR INJ 1 MG VIAL IM PRN (17:30)
[2020-12-29] MEDS ORDERED: DEXTROSE 50% 50 ML SYRINGE IV PRN (17:30)
[2020-12-29] MEDS ORDERED: GLUCOSE 10 TABS/TUBE PO PRN (17:30)
[2020-12-29] MEDS: ATORVASTATIN 20 MG TAB PO SCH (20:12)
[2020-12-29] MEDS: INSULIN GLARGINE SOLOSTAR 100 UNITS/ML 3 ML PEN SQ SCH (21:06)
--- NOTE | 2020-12-30 00:57 | Anesthesiology Consultation ---
Date of Service December 30, 2020 Assessment & Plan (1) Encounter for pre-operative examination: Chart Review Chart Review: Acceptable Risk for Surgery and Patient NOT seen in Pre Admission Testing Consults Requested none History Surgery Operation Date: 12/30/20 12:05 Proposed Procedures p L3-L5 Decompression Fusion, Spinal Cord Monitoring - Arun Khan DO Height/Weight Height: 5 ft 8 in Weight: 113.852 kg Allergies Allergy/AdvReac Type Severity Reaction Status Date / Time ibuprofen Allergy Unknown UNKNOWN Verified 12/21/20 08:18 DEYSI Inhibitors AdvReac Mild cough Verified 12/21/20 08:41 Medications Home Medications Medication Instructions Recorded Confirmed Last Taken prednisone 5 mg tablet 5 mg PO QAM 04/29/19 12/28/20 12/27/20 Lite Touch Insulin Pen [place] 31 #400 ea NS 11/01/19 12/28/20 Unknown gauge x 3/16" atorvastatin 20 mg tablet 20 mg PO QPM #90 tab 03/02/20 12/28/20 12/27/20 gemfibrozil 600 mg tablet 600 mg PO BID #180 tab 03/02/20 12/28/20 12/27/20 gabapentin 300 mg capsule 300 mg PO BID #180 cap 06/01/20 12/28/20 12/27/20 BD Ultra-Fine Mini Pen Needle 31 #400 ea NS 06/07/20 12/28/20 Unknown gauge x 3/16" insulin aspart U-100 100 unit/mL 25 units SQ TIDM ml 06/07/20 12/29/20 12/27/20 (3 mL) subcutaneous pen Lantus Solostar U-100 Insulin 30 unit SUBCUT HS 12/14/20 12/28/20 12/27/20 allopurinol 300 mg PO QAM 12/14/20 12/28/20 12/27/20 atenolol 100 mg PO QAM 12/14/20 12/28/20 12/27/20 cholecalciferol (vitamin D3) 2,000 unit PO QAM 12/14/20 12/28/20 12/27/20 clopidogrel 75 mg PO QAM 12/14/20 12/28/20 12/27/20 folic acid 1 mg PO QAM 12/14/20 12/28/20 12/27/20 furosemide 40 mg PO QAM 04/12/28/20 12/27/20 omeprazole 20 mg PO QAM 12/14/20 12/28/20 12/27/20 isosorbide mononitrate 30 mg 30 mg PO QAM #30 tab 12/22/20 12/28/20 12/27/20 tablet,extended release 24 hr lancets #400 ea 12/22/20 12/28/20 Unknown OneTouch Ultra Blue Test Strip #400 ea NS 12/23/20 12/28/20 Unknown Active Medications Generic Name Dose Route Start Last Admin Trade Name Lee PRN Reason Stop Dose Admin Allopurinol 300 mg 12/29/20 09:00 12/29/20 09:27 Allopurinol 300 Mg Tab PO 01/28/21 08:59 300 mg QAM HUGO Administration Atenolol 100 mg 12/29/20 09:00 12/29/20 09:27 Atenolol 50 Mg Tablet PO 01/28/21 08:59 100 mg QAM HUGO Administration Atorvastatin Calcium 20 mg 12/28/20 21:00 12/29/20 20:12 Atorvastatin 20 Mg Tab PO 01/27/21 20:59 20 mg QPM HUGO Administration Dexamethasone 6 mg 12/29/20 09:00 12/29/20 09:28 Dexamethasone Sod Inj 4 Mg/Ml Vial IV 01/28/21 08:59 6 mg DAILY HUGO Administration Folic Acid 1 mg 12/29/20 09:00 12/29/20 09:27 Folic Acid 1 Mg Tab PO 01/28/21 08:59 1 mg QAM HUGO Administration Furosemide 40 mg 12/29/20 09:00 12/29/20 09:27 Furosemide 40 Mg Tab PO 01/28/21 08:59 40 mg QAM HUGO Administration Gabapentin 300 mg 12/28/20 21:00 12/29/20 20:13 Gabapentin 300 Mg Cap PO 01/27/21 20:59 300 mg BID HUOG Administration Gemfibrozil 600 mg 12/28/20 21:00 12/29/20 20:13 Gemfibrozil 600 Mg Tab PO 01/27/21 20:59 600 mg BID HUGO Administration Insulin Aspart 0 units 12/28/20 14:30 12/29/20 21:07 Insulin Aspart 100 Units/Ml 3 Ml Pen SC 01/27/21 14:29 Not Given ACHS [facility] Protocol Insulin Glargine 0 units 12/28/20 21:00 12/29/20 21:06 Insulin Glargine Solostar 100 Units/Ml 3 Ml Pen SQ 01/27/21 20:59 30 units HS HUGO Administration Protocol Isosorbide Mononitrate 30 mg 12/29/20 09:00 12/29/20 09:29 Isosorbide [place] Extended Rel 30 Mg Tabcr PO 01/28/21 08:59 30 mg QAM HUGO Administration Miscellaneous 15 - 30 gm 12/29/20 17:30 12/29/20 17:27 Carbohydrates For Hypoglycemia PO 01/28/21 17:29 15 gm UD PRN Administration Hypoglycemia Treatment Oxycodone HCl 5 mg 12/28/20 14:07 12/29/20 21:10 Oxycodone Hcl Ir 5 Mg Tab (Immediate Release) PO 01/11/21 14:06 5 mg Q4H PRN Administration Pain Pantoprazole Sodium 40 mg 12/29/20 09:00 12/29/20 09:28 Pantoprazole 40 Mg Tab PO 01/28/21 08:59 40 mg QAM HUGO Administration Protocol Vitamin D 2,000 units 12/29/20 09:00 12/29/20 09:28 Cholecalciferol 1,000 Units 25 Mcg Tab PO 01/28/21 08:59 2,000 units QAM HUGO Administration NPO Date Last Intake of Fluids: 12/28/20 Time Last Intake of Fluids: 23:59 Date Last Intake of Solids: 12/28/20 Time Last Intake of Solids: 23:59 Past Medical History Medical History 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 ~2012 or earlier. Chronic gout Chronic kidney disease, stage 3 (moderate) Colon polyps Diabetes mellitus, type 2 IDDM Diabetic peripheral neuropathy Diverticulitis of colon hx Essential hypertension Factor V Leiden mutation plavix daily GERD (gastroesophageal reflux disease) H/O proctoscopy History of balanitis Hypercholesterolemia Kidney stones hx Lumbar spondylosis Osteoarthritis Perforated diverticulitis (01/28/14) Sciatica Transient ischemic attack (TIA) (~2012) Past Family History Family History Father Colon cancer Diabetes Myocardial infarction Mother Diabetes Sister Breast cancer Brother Brain cancer Stroke Other No family history of adverse response to anesthesia Denies family history of Ovarian cancer Prostate cancer Lung cancer Past Surgical History Surgical History H/O colonoscopy H/O repair of rotator cuff right x1 and left x2 History of cataract surgery bilateral History of colon resection r/t perforated diverticuliti History of cystoscopy with ureter stent History of dilation of urethra History of rectopexy laparoscopic with sigmoid resection --- patient unsure??? Social History Smoking Status: Never smoker tobacco type: cigarettes Smoking cigarettes per day: 20 a day for 16 years Hx Alcohol Use: No Hx Substance Use: No Physical Exam Vital Signs Last Vital Signs Temp 36.6 C 12/30/20 00:19 Pulse 64 12/30/20 00:19 Resp 16 12/30/20 00:19 BP 157/83 H 12/30/20 00:19 Pulse Ox 94 12/30/20 00:19 Testing Laboratory Results 12/29/20 06:23 12/29/20 06:23 Urine Color Yellow 12/28/20 07:16 Urine Appearance Clear (Clear) 12/28/20 07:16 Urine pH 6.5 (4.5-7.5) 12/28/20 07:16 Ur Specific Harold 1.021 (1.000-1.030) 12/28/20 07:16 Urine Protein 3+ (Negative) H 12/28/20 07:16 Urine Glucose (UA) 1+ (Negative) H 12/28/20 07:16 Urine Ketones Negative (Negative) 12/28/20 07:16 Urine Nitrite Negative (Negative) 12/28/20 07:16 Ur Leukocyte Esterase Negative (Negative) 12/28/20 07:16 Urine WBC (Auto) 1-5 /hpf (0-5) 12/28/20 07:16 Urine RBC (Auto) 0-4 /hpf (0-4) 12/28/20 07:16 U Hyaline Cast (Auto) Not Reportable 12/28/20 07:16 U Epithel Cells (Auto) 0-5 /lpf (0-5) 12/28/20 07:16 Urine Bacteria (Auto) Negative (Negative) 12/28/20 07:16 Blood Type A Positive 12/29/20 14:37 Antibody Screen NEGATIVE 12/29/20 14:37 12/29/20 12/29/20 12/29/20 20:22 17:48 17:27 POC Glucose 94 70 63 L* 12/29/20 12/29/20 17:09 17:05 POC Glucose 55 L* 58 L* Electrocardiogram Date: 12/29/20 Findings: + NSR @ (60)
[2020-12-30] MEDS ORDERED: Nursing to Pharmacy Communication SCH ×2 (02:30→17:30)
[2020-12-30] MEDS: oxyCODONE HCL IR 5 MG TAB (IMMEDIATE RELEASE) PO PRN ×2 (05:51→23:42)
[2020-12-30] MEDS: INSULIN ASPART 100 UNITS/ML 3 ML PEN SC SCH ×4 (05:58→22:06)
[2020-12-30 06:47] LABS: Basophils # (auto) 0.03 K/uL (0-0.2); Basophils % (auto) 0.3 %; Eosinophils # (auto) 0.17 K/uL (0-0.5); Eosinophils % (auto) 1.8 %; Hematocrit (blood only) 38.5 % (42-52); Hemoglobin 12.6 g/dL (14.0-18.0); Immature Granulocytes # (auto) 0.03 K/uL (0.00-0.02); Immature Granulocytes % (auto) 0.3 %; Lymphocytes # (auto) 2.45 K/uL (1.2-3.4); Lymphocytes % (auto) 25.5 %; Mean Corpuscular Hemoglobin 28.1 pg (25-34); Mean Corpuscular Hgb Conc 32.7 g/dL (32-36); Mean Corpuscular Volume 85.9 fL (80-100); Mean Platelet Volume 10.4 fL (7.4-10.4); Monocytes # (auto) 0.98 K/uL (0.11-0.59); Monocytes % (auto) 10.2 %; Neutrophils # (auto) 5.94 K/uL (1.4-6.5); Neutrophils % (auto) 61.9 %; Platelet Count 238 K/uL (130-400); RDW Coefficient of Variation 14.9 % (11.5-14.5); Red Blood Count 4.48 M/uL (4.7-6.1)
[2020-12-30 07:16] LABS: BUN Creatinine Ratio 20.4 (10-20); Calcium 8.5 mg/dl (8.5-10.1); Est GFR (African American) 35.8; Est GFR (Non-African American) 30.9; Potassium 3.9 mmol/L (3.5-5.1)
[2020-12-30] MEDS ORDERED: INSULIN HUMAN NPH SC SCH (09:00)
[2020-12-30] MEDS: ATENOLOL 50 MG TABLET PO SCH ×2 (09:11→17:54)
[2020-12-30] MEDS: GABAPENTIN 300 MG CAP PO SCH ×2 (09:12→19:56)
[2020-12-30] MEDS: ISOSORBIDE MONO EXTENDED REL 30 MG TABCR PO SCH (09:12)
[2020-12-30] MEDS: DEXAMETHASONE SOD INJ 4 MG/ML VIAL IV SCH (09:14)
--- NOTE | 2020-12-30 09:37 | Hospitalist Progress Note ---
Date of Service December 30, 2020 Assessment & Plan (1) Degeneration of lumbosacral intervertebral disc with acute herniation: Mr. Modi is a 65-year-old male with a history of Insulin-Requiring Type 2 Diabetes Mellitus, Stage 3 Chronic Kidney Disease, Diabetic Peripheral Neuropathy, Hypertension, Hypercholesterolemia, Factor 5 Leiden Mutation, Hyperhomocystinemia, Cervical Degenerative Disc Disease, Chronic DVT of LLE, Obesity, GERD, Anemia, Prior TIA, and Inflammatory Arthritis (on chronic prednisone 5 mg daily) who was admitted yesterday with an Acute Lumbar Disc Herniation resulting a 1 cm free disc fragment located posterior to the L3 vertebral body to the right of midline - likely arising from the L3-4 disc. There is an L3-4 disc bulge with moderate spinal stenosis. There is a right foraminal and lateral disc protrusion which likely impinges on the exited right L3 nerve root. Also there is grade 1 spondylolisthesis of L4 and L5. There is moderate to severe spinal stenosis. There is a moderate right lateral and foraminal disc protrusion which likely impinges on the right L4 nerve root. There is right-sided foraminal stenosis at this level. He is scheduled to go to the OR today around lunchtime and he is excited for this surgery to get rid of his pain. He is NPO currently -- and he received his Atenolol and Isosorbide this morning. Urinating normally. His pain is under good control on his current regimen, and the nurses are taking very good care of him according to the patient. Recommend the followin. Remain on Med-Surg floor. 2. NPO in preparation for spinal surgery today at lunchtime. 3. Pain management with hydromorphone and oxycodone as prescribed. 4. IV Dexamethasone 6 mg daily. 5. Knee-high compression stockings bilaterally for DVT prophylaxis. Recommend initiating Lovenox or heparin postoperatively for DVT prophylaxis. 6. Plavix is being held for upcoming surgical procedure. Resume Plavix post- operatively. (2) Lumbar spinal stenosis: -- As outlined above. (3) Intractable low back pain: -- As outlined above. -- Pain is controlled on current regimen. (4) Chronic kidney disease, stage 3 (moderate): Secondary to DM, HTN. -- Serum Creatinine is 1.69 mg/dl on admission. -- Today his creatinine is 2.14 mg/dl - likely prerenal due to NPO status. -- Resume IV NSS this morning. -- Hold Lasix tomorrow morning. -- Recheck BMP tomorrow morning. -- Avoid nephrotoxic medications. (5) Uncontrolled type 2 diabetes mellitus: Insulin-requiring type 2 diabetes mellitus, diagnosed approximately 8 years ago. -- Glycemic control consultation. -- Continue Lantus 30 units injected subcutaneously each evening. -- BSG qAC and HS. -- SSI. (6) Essential hypertension: 1. Continue Atenolol 100 mg daily including the morning of surgery with sips of water. 2. Continue Imdur ER 30 mg daily. 3. Consider adding an ARB for its nephro protective affects. Patient is allergic to DEYSI inhibitors. (7) Hypercholesterolemia: 1. Continue Lipitor 20 mg daily. 2. Continue Gemfibrozil 600 mg b.i.d.. (8) 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: -- History of factor 5 Leiden mutation. -- DVT prophylaxis as noted above. -- Start heparin or Lovenox postoperatively. -- B/L knee-high compression stocking. -- Ambulate postoperatively. Admission and Anticipated Discharge Date Admission Date: December 28, 2020 Subjective Mr. Modi is a 65-year-old male with a history of Insulin-Requiring Type 2 Diabetes Mellitus, Stage 3 Chronic Kidney Disease, Diabetic Peripheral Neuropathy, Hypertension, Hypercholesterolemia, Factor 5 Leiden Mutation, Hyperhomocystinemia, Cervical Degenerative Disc Disease, Chronic DVT of LLE, Obesity, GERD, Anemia, Prior TIA, and Inflammatory Arthritis (on chronic prednisone 5 mg daily) who was admitted yesterday with an Acute Lumbar Disc Herniation resulting a 1 cm free disc fragment located posterior to the L3 vertebral body to the right of midline - likely arising from the L3-4 disc. There is an L3-4 disc bulge with moderate spinal stenosis. There is a right foraminal and lateral disc protrusion which likely impinges on the exited right L3 nerve root. Also there is grade 1 spondylolisthesis of L4 and L5. There is moderate to severe spinal stenosis. There is a moderate right lateral and foraminal disc protrusion which likely impinges on the right L4 nerve root. There is right-sided foraminal stenosis at this level. He is scheduled to go to the OR today around lunchtime and he is excited for this surgery to get rid of his pain. He is NPO currently -- and he received his Atenolol and Isosorbide this morning. Urinating normally. His pain is under good control on his current regimen, and the nurses are taking very good care of him according to the patient. Physical Exam Physical Exam: VSS. GENERAL: Patient in no acute distress. He is lying supine in his bed. HEENT: Head is atraumatic, normocephalic. EOM's intact. Facies symmetric. No perioral cyanosis. NECK: No JVD. JVP is at the level of the clavicle sitting upright. Carotid upstrokes are + 2 bilaterally. No bruits are noted. CHEST/LUNGS: Clear to auscultation throughout all lung jarquin. No wheezes, rales, or crackles. CVS: S1 and S2 are regular without obvious murmurs, gallops, or rubs. PMI is nonpalpable. No lifts, heaves, or thrills. No abdominal aortic or renal bruits. ABDOMINAL EXAM: Bowel sounds are present. No masses, organomegaly, or tenderness. EXTREMITIES: No clubbing or cyanosis. No edema. Intact posterior tibial and radial pulses bilaterally. NEUROLOGIC EXAM: Patient is awake, alert, and oriented. Pleasant and cooperative. Answers questions appropriately. Speech is clear. Sensation of the right anteromedial thigh is altered to light touch. No focal muscular weakness is noted. Gait was not assessed. Results & Data Results & Data ([facility]) Vital Signs (Past 12 Hours) Vital Signs Temp Pulse Resp BP Pulse Ox 12/30/20 09:07 57 L 138/96 12/30/20 07:49 36.6 C 69 18 173/94 H 93 12/30/20 00:19 36.6 C 64 16 157/83 H 94 Laboratory Results Laboratory Results - last 24 hr 12/29/20 12/29/20 12/29/20 12:01 14:37 17:05 WBC RBC Hgb Hct MCV MCH MCHC RDW Std Deviation RDW Coeff of Jono Plt Count MPV Immature Gran % (Auto) Neut % (Auto) Lymph % (Auto) [place] % (Auto) Eos % (Auto) Baso % (Auto) Neut # (Auto) Lymph # (Auto) [place] # (Auto) Eos # (Auto) Baso # (Auto) Immature Gran # (Auto) Sodium Potassium Chloride Carbon Dioxide Anion Gap BUN Creatinine Est Cr Clr Drug Dosing Est GFR ( Amer) Est GFR (Non-Af Amer) BUN/Creatinine Ratio Glucose POC Glucose 163 H 58 L* Calcium Blood Type A Positive Antibody Screen NEGATIVE Crossmatch See Detail 12/29/20 12/29/20 12/29/20 17:09 17:27 17:48 WBC RBC Hgb Hct MCV MCH MCHC RDW Std Deviation RDW Coeff of Jono Plt Count MPV Immature Gran % (Auto) Neut % (Auto) Lymph % (Auto) [place] % (Auto) Eos % (Auto) Baso % (Auto) Neut # (Auto) Lymph # (Auto) [place] # (Auto) Eos # (Auto) Baso # (Auto) Immature Gran # (Auto) Sodium Potassium Chloride Carbon Dioxide Anion Gap BUN Creatinine Est Cr Clr Drug Dosing Est GFR ( Amer) Est GFR (Non-Af Amer) BUN/Creatinine Ratio Glucose POC Glucose 55 L* 63 L* 70 Calcium Blood Type Antibody Screen Crossmatch 12/29/20 12/30/20 12/30/20 20:22 05:47 06:06 WBC 9.60 RBC 4.48 L Hgb 12.6 L Hct 38.5 L MCV 85.9 MCH 28.1 MCHC 32.7 RDW Std Deviation 46.0 RDW Coeff of Jono 14.9 H Plt Count 238 MPV 10.4 Immature Gran % (Auto) 0.3 Neut % (Auto) 61.9 Lymph % (Auto) 25.5 [place] % (Auto) 10.2 Eos % (Auto) 1.8 Baso % (Auto) 0.3 Neut # (Auto) 5.94 Lymph # (Auto) 2.45 [place] # (Auto) 0.98 H Eos # (Auto) 0.17 Baso # (Auto) 0.03 Immature Gran # (Auto) 0.03 H Sodium Potassium Chloride Carbon Dioxide Anion Gap BUN Creatinine Est Cr Clr Drug Dosing Est GFR ( Amer) Est GFR (Non-Af Amer) BUN/Creatinine Ratio Glucose POC Glucose 94 101 H Calcium Blood Type Antibody Screen Crossmatch 12/30/20 12/30/20 06:06 08:34 WBC RBC Hgb Hct MCV MCH MCHC RDW Std Deviation RDW Coeff of Jono Plt Count MPV Immature Gran % (Auto) Neut % (Auto) Lymph % (Auto) [place] % (Auto) Eos % (Auto) Baso % (Auto) Neut # (Auto) Lymph # (Auto) [place] # (Auto) Eos # (Auto) Baso # (Auto) Immature Gran # (Auto) Sodium 140 Potassium 3.9 Chloride 110 H Carbon Dioxide 25 Anion Gap 5.0 BUN 44 H Creatinine 2.14 H Est Cr Clr Drug Dosing 41.0 Est GFR ( Amer) 35.8 Est GFR (Non-Af Amer) 30.9 BUN/Creatinine Ratio 20.4 H Glucose 85 POC Glucose 80 Calcium 8.5 Blood Type Antibody Screen Crossmatch Medications Administered Medications prednisone 5 mg tablet 5 mg PO QAM 04/29/19 [History Confirmed 12/28/20] Lite Touch Insulin Pen [place] 31 gauge x 3/16" #400 ea NS 11/01/19 [Rx Confirmed 12/28/20] atorvastatin 20 mg tablet 20 mg PO QPM #90 tab 03/02/20 [Rx Confirmed 12/28/20] gemfibrozil 600 mg tablet 600 mg PO BID #180 tab 03/02/20 [Rx Confirmed 12/28/20] gabapentin 300 mg capsule 300 mg PO BID #180 cap 06/01/20 [Rx Confirmed 12/28/20] BD Ultra-Fine Mini Pen Needle 31 gauge x 3/16" #400 ea NS 06/07/20 [Rx Confirmed 12/28/20] insulin aspart U-100 100 unit/mL (3 mL) subcutaneous pen 25 units SQ TIDM ml 06/07/20 [History Confirmed 12/29/20] Lantus Solostar U-100 Insulin 30 unit SUBCUT HS 12/14/20 [History Confirmed 12/28/20] allopurinol 300 mg PO QAM 12/14/20 [History Confirmed 12/28/20] atenolol 100 mg PO QAM 12/14/20 [History Confirmed 12/28/20] cholecalciferol (vitamin D3) 2,000 unit PO QAM 12/14/20 [History Confirmed 12/28/20] clopidogrel 75 mg PO QAM 12/14/20 [History Confirmed 12/28/20] folic acid 1 mg PO QAM 12/14/20 [History Confirmed 12/28/20] furosemide 40 mg PO QAM 12/14/20 [History Confirmed 12/28/20] omeprazole 20 mg PO QAM 12/14/20 [History Confirmed 12/28/20] isosorbide mononitrate 30 mg tablet,extended release 24 hr 30 mg PO QAM #30 tab 12/22/20 [Rx Confirmed 12/28/20] lancets #400 ea 12/22/20 [Rx Confirmed 12/28/20] OneTouch Ultra Blue Test Strip #400 ea NS 12/23/20 [Rx Confirmed 12/28/20] Home Medications Acetaminophen (Acetaminophen 325 Mg Tab) 650 mg PO Q6H PRN PRN Reason: Pain or Fever Stop: 01/27/21 14:06 Al Hydrox/Mg Hydrox/Simethicone (Aluminum/Magnesium/Simeth (Maalox Max) 30 Ml Udc) 30 ml PO Q6H PRN PRN Reason: Heartburn Stop: 01/27/21 14:06 Allopurinol (Allopurinol 300 Mg Tab) 300 mg PO QAM [facility] Stop: 01/28/21 08:59 Last Admin: 12/29/20 09:27 Dose: 300 mg Documented by: Atenolol (Atenolol 50 Mg Tablet) 100 mg PO QAM [facility] Stop: 01/28/21 08:59 Last Admin: 12/30/20 09:11 Dose: Not Given Documented by: Atorvastatin Calcium (Atorvastatin 20 Mg Tab) 20 mg PO QPM [facility] Stop: 01/27/21 20:59 Last Admin: 12/29/20 20:12 Dose: 20 mg Documented by: Dexamethasone (Dexamethasone Sod Inj 4 Mg/Ml Vial) 6 mg IV DAILY [facility] Stop: 01/28/21 08:59 Last Admin: 12/30/20 09:14 Dose: 6 mg Documented by: Dextrose (Dextrose 50% 50 Ml Syringe) 25 - 50 ml IV UD PRN; Protocol PRN Reason: Hypoglycemia Protocol Stop: 01/28/21 17:29 Folic Acid (Folic Acid 1 Mg Tab) 1 mg PO QAM [facility] Stop: 01/28/21 08:59 Last Admin: 12/29/20 09:27 Dose: 1 mg Documented by: Furosemide (Furosemide 40 Mg Tab) 40 mg PO QAM [facility] Stop: 01/28/21 08:59 Last Admin: 12/29/20 09:27 Dose: 40 mg Documented by: Gabapentin (Gabapentin 300 Mg Cap) 300 mg PO BID [facility] Stop: 01/27/21 20:59 Last Admin: 12/30/20 09:12 Dose: 300 mg Documented by: Gemfibrozil (Gemfibrozil 600 Mg Tab) 600 mg PO BID [facility] Stop: 01/27/21 20:59 Last Admin: 12/29/20 20:13 Dose: 600 mg Documented by: Glucagon (Glucagon For Inj 1 Mg Vial) 1 mg IM UD PRN; Protocol PRN Reason: Hypoglycemia Protocol Stop: 01/28/21 17:29 Glucose (Glucose 40% Gel 15 Gm Tube) 15 - 30 gm PO UD PRN; Protocol PRN Reason: Hypoglycemia Protocol Stop: 01/28/21 17:29 Glucose (Glucose 10 Tabs/Tube) 4 - 8 tabs PO UD PRN; Protocol PRN Reason: Hypoglycemia Protocol Stop: 01/28/21 17:29 Hydromorphone HCl (Hydromorphone Inj 1 Mg/Ml Syringe) 1 mg IV Q1H PRN PRN Reason: Pain Stop: 01/11/21 14:06 Promethazine HCl 12.5 mg/ (Sodium Chloride) 50.5 mls @ 202 mls/hr IV Q6H PRN PRN Reason: Nausea And Vomiting Stop: 01/27/21 14:06 Insulin Aspart (Insulin Aspart 100 Units/Ml 3 Ml Pen) 0 units SC Q6 [facility]; Protocol Stop: 01/29/21 05:59 Last Admin: 12/30/20 05:58 Dose: Not Given Documented by: Insulin Glargine (Insulin Glargine Solostar 100 Units/Ml 3 Ml Pen) 0 units SQ HS [facility]; Protocol Stop: 01/27/21 20:59 Last Admin: 12/29/20 21:06 Dose: 30 units Documented by: Insulin Human NPH (Insulin Human Nph) 18 units SC DAILY [facility]; Protocol Stop: 01/29/21 08:59 Last Admin: 12/30/20 09:03 Dose: Not Given Documented by: Isosorbide Mononitrate (Isosorbide [place] Extended Rel 30 Mg Tabcr) 30 mg PO QAM [facility] Stop: 01/28/21 08:59 Last Admin: 12/30/20 09:12 Dose: 30 mg Documented by: Magnesium Hydroxide (Magnesium Hydroxide Susp 30 Ml Udc) 30 ml PO Q6H PRN PRN Reason: Constipation Stop: 01/27/21 14:06 Miscellaneous (Carbohydrates For Hypoglycemia ) 15 - 30 gm PO UD PRN PRN Reason: Hypoglycemia Treatment Stop: 01/28/21 17:29 Last Admin: 12/29/20 17:27 Dose: 15 gm Documented by: Miscellaneous Information (Pharmacy Glycemic Mgmt Consult) 1 ea N/A UD PRN PRN Reason: consult Stop: 01/27/21 14:06 Ondansetron HCl (Ondansetron Inj 2 Mg/Ml 2 Ml Vial) 4 mg IV Q8 PRN PRN Reason: Nausea Stop: 01/27/21 14:06 Oxycodone HCl (Oxycodone Hcl Ir 5 Mg Tab (Immediate Release)) 5 mg PO Q4H PRN PRN Reason: Pain Stop: 01/11/21 14:06 Last Admin: 12/30/20 05:51 Dose: 5 mg Documented by: Pantoprazole Sodium (Pantoprazole 40 Mg Tab) [facility] [place] Stop: 01/28/21 08:59 Last Admin: 12/29/20 09:28 Dose: 40 mg Documented by: Vitamin D (Cholecalciferol 1,000 Units 25 Mcg Tab) 2,000 units PO QAM [facility] Stop: 01/28/21 08:59 Last Admin: 12/29/20 09:28 Dose: 2,000 units Documented by: PG Care Time/CCT Total # of Minutes Spent Total Time Spent with Patient: Total time spent is greater than 50% in coordination of care (as documented) at patient's floor/unit and/or counseling patient: Coding Level of Care Code 48838 Subseq Hosp Care Lvl 3 Diagnoses Degeneration of lumbosacral intervertebral disc with acute herniation M51.36; M51.27 Lumbar spinal stenosis M48.061 Intractable low back pain M54.5 Chronic kidney disease, stage 3 (moderate) N18.3 Uncontrolled type 2 diabetes mellitus E11.65 Essential hypertension I10 Hypercholesterolemia E78.00 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 I82.502 Time Spent (min) 40
[2020-12-30] MEDS ORDERED: SODIUM CHLORIDE 0.9% 1000ML 1,000 ML IV SCH (09:45)
[2020-12-30] MEDS: FUROSEMIDE 40 MG TAB PO SCH (09:45)
[2020-12-30] MEDS ORDERED: BUPIVACAINE/EPINEPHRINE 0.5% MPF 1:200,000 30 ML VIAL ONE (11:07)
[2020-12-30] MEDS ORDERED: ATROPINE SULFATE 0.1 MG/ML 10ML SYR IV PRN (11:20)
[2020-12-30] MEDS ORDERED: fentaNYL citrate 100 MCG/2 ML VIAL IV PRN (11:20)
[2020-12-30] MEDS ORDERED: ePHEDrine sulfate 50 MG/ML AMP IV PRN (11:20)
[2020-12-30] MEDS ORDERED: ONDANSETRON INJ 2 MG/ML 2 ML VIAL IV PRN ×2 (11:20→16:49)
[2020-12-30] MEDS ORDERED: PROMETHAZINE HCL 6.25 MG in SODIUM CHLORIDE 0.9% 50 ML IV PRN (11:20)
[2020-12-30] MEDS ORDERED: HYDROmorphone INJ 2 MG/ML SYR/VIAL IV PRN (11:20)
--- NOTE | 2020-12-30 11:59 | History & Physical Bridge Note ---
Date of Service December 30, 2020 History & Physical Bridge Note I have examined the patient, reviewed the History & Physical and in the interval since the performance of the History & Physical I have noted the following changes of clinical significance: no changes noted Lumbar decompression and fusion L3-4 L4-5 possible L5-S1
[2020-12-30] MEDS ORDERED: fentaNYL citrate 100 MCG/2 ML VIAL ONE ×3 (12:12→15:03)
--- NOTE | 2020-12-30 12:44 | Electrocardiogram Report ---
Test Reason : Blood Pressure : / mmHG Vent. Rate : 060 BPM Atrial Rate : 060 BPM P-R Int : 140 ms QRS Dur : 090 ms QT Int : 416 ms P-R-T Axes : 057 004 038 degrees QTc Int : 416 ms Normal sinus rhythm Normal ECG When compared with ECG of 13-NOV-2017 09:47, No significant change was found Confirmed by Jam Haynes ([id number]) on 12/30/2020 12:44:12 PM Referred By: REFERRED SELF Confirmed By:Jam Haynes
[2020-12-30] MEDS ORDERED: ceFAZolin 2000MG 2,000 MG/15 ML SYR IV ONE (13:04)
--- NOTE | 2020-12-30 13:24 | Pharmacy Report ---
Pharmacy Glycemic Short Note 2 - Date of Service December 30, 2020 - Glycemic Short BSG Results (Last 24 hours): 12/29/20 12/29/20 12/29/20 17:05 17:09 17:27 Glucose POC Glucose 58 L* 55 L* 63 L* 12/29/20 12/29/20 12/30/20 17:48 20:22 05:47 Glucose POC Glucose 70 94 101 H 12/30/20 12/30/20 12/30/20 06:06 08:34 11:00 Glucose 85 POC Glucose 80 97 12/30/20 11:00 Glucose POC Glucose 97 OUTPATIENT ANTIDIABETIC REGIMEN: * Lantus 30 units qHS; Novolog 25 units TIDM * A1c 7.9% 10/31/20 ASSESSMENT: 12/30/20 * Patient NPO today, fasting BSG 80mg/dl, will hold NPH to prevent hypoglycemia, resume with IV Dexamethasone tomorrow * Patient w/ hypoglycemia predinner yesterday after receiving 14 units of Novolog at lunch, decrease NPH and loosen CF/CR, patient requiring much less insulin than reported 25 units with meals at home 12/29/20 * Patient NPO tonight at midnight for spinal surgery tomorrow morning * Blood sugars improved overnight, tighten CF/CR slightly for better prandial coverage * Fasting 118mg/dl - no change in Lantus * Add NPH to cover IV Dexamethasone * Updated Med rec- patient takes Novolog 25 units with meals at home 12/28/20 * Pt admitted with planned spinal surgery for tomorrow, NPO after midnight * Pt received dexamethasone 10 mg IV in the emergency department, pre lunch BSG 214, will use weight based stress of 3 carb ratio, stress of 2 correction * Dexamethasone 6 mg scheduled daily. * Lantus will be provided in scale up to stress of 3 dosing, will add NPH tomorrow if needed PLAN FOR INPATIENT GLYCEMIC CONTROL: * Basal insulin * Lantus 30-45 units SQ HS per scale * NPH 18 units SQ daily with IV Dexamethasone (hold today) * Bolus insulin * NovoLog per scale ACHS or Q6hrs while NPO * Goal Range: Low 110 mg/dL - High 140 mg/dL * LOOSEN: Correction Factor: 15 mg/dL/unit * LOOSEN: Nutritional / Prandial insulin per carb ratio of 1 unit per 5 grams CHO consumed
[2020-12-30] MEDS ORDERED: PROPOFOL IV EMULSION 10 MG/ML 20 ML VIAL IV ONE (13:42)
[2020-12-30] MEDS ORDERED: PHENYLEPHRINE 100MCG/ML 5ML SYR ONE (13:42)
[2020-12-30] MEDS ORDERED: ONDANSETRON INJ 2 MG/ML 2 ML VIAL ONE (13:42)
[2020-12-30] MEDS ORDERED: DEXAMETHASONE SOD INJ 4 MG/ML VIAL ONE (13:42)
[2020-12-30] MEDS ORDERED: ROCURONIUM BROMIDE 10 MG/ML 5 ML VIAL IV ONE (13:42)
[2020-12-30] MEDS ORDERED: ePHEDrine sulfate 50 MG/ML SYR ONE (13:42)
[2020-12-30] MEDS ORDERED: LIDOCAINE HCL 2% 2 ML VIAL/AMP(20MG/ML) INFIL ONE (13:42)
[2020-12-30] MEDS ORDERED: FLOSEAL HEMOSTATIC MATRIX 10ML TOP ONE (13:54)
--- NOTE | 2020-12-30 14:59 | Operative Report ---
Post Operative Report Pre & Post Diagnosis Operation Date: 12/30/20 12:05 Pre-Op Diagnosis: Lumbar disc condition with radiculopathy Lumbar spinal stenosis Spondylolisthesis L4-L5 Post-Op Diagnosis: Same I identified the patient and participated in the time-out.: Yes Procedure Operation Date: 12/30/20 12:05 Actual Procedures #1 lumbar decompression with bilateral medial facetectomies and foraminotomies L2-3, L3-4, L4-5 and L5-S1. #2 posterior spinal fusion L3-4, L4-5 L5-S1. #3 placement posterior segmental instrumentation L3-S1. #4 interbody fusion L3-4, L4-5 and L5-S1. #5 placed a peek cage 13 x 26 mm at L3-4, 13 x 26 mm at L4-5, and 10 x 26 mm at L5-S1. #6 placement locally harvested morselized autograft and posterior gutters. #7 placement infuse collagen sponge, master graft in the posterior lateral gutters and I factor in the interbody space. Surgeon Arun Khan, DO Ply Splicer Olegario Womack Estimated Blood Loss 450 Findings See Below The patient is 5 foot inches tall weighing over 113 kg with a BMI in excess of 38. Patient's body habitus did contribute to significant technical difficulty requiring her deepest retractors longus instruments in order to perform his procedure. This contributed least 50% increase to the operative time. Specimens None Indications This is a 65-year-old male who presents above-mentioned diagnosis after failing since course of nonoperative care is here for the above-mentioned procedure. Description of Procedure Patient was met with identified informed consent obtained. Patient was then taken to the operative suite underwent ablation placed in the prone position the [place] table top [place] frame. All bony prominences well-padded eyes inspected to ensure no external pressure placed on the right this point the lumbar spine was prepped and draped in a sterile fashion. Sharp dissection with the assistance of Bovie cautery was performed down to and exposing the lamina and transverse processes of L3-L4-L5 and sacral ala bilaterally. From caudal to cephalad fashion complete laminectomy of L5 L4 L3 partial laminectomy of L2 was performed including medial facetectomies and foraminotomies addressing severe spinal stenosis. There is evidence of herniated free fragment at L3-4 with migration down to the foramen. This was completely removed as well. Pedicle screws were then placed in L3-L4-L5 and S1 levels bilaterally with assistance of fluoroscopy and the proper sized nery placed. Bilateral transforaminal approach on the right complete discectomy of L5-S1 was performed endplates curetted to subcortical bleeding bone and a 10 x 26 mm peek cage filled with I factor tapped in position. I then proceeded L4-L5 and again by way of a transforaminal portion right complete discectomy was performed endplates curetted to subcortical bleeding bone and a 13 x 26 mm peek cage filled with I factor tapped in position. Lastly presented to L3-L4 and again by way of a transforaminal portion right complete discectomy performed endplates curetted to subcortically bone and a 13 x 26 mm peek cage filled with I factor tapped in position. The rods were then compressed locked into final position bilaterally. The transverse processes of L3-L4-L5 and sacral ala burred to subcortical bleeding bone. Infuse collagen sponge master graft local autograft was placed in the posterior gutters. 15 round [place] drain inserted. The incision was then closed with 1 Vicryl in the fascia 2-0 Vicryl subcutaneously and 4 Monocryl for final skin closure. Steri-Strip sterile dressings placed. Patient will continue PACU stable condition. Please note spinal cord monitoring was utilized at the pro cedure no changes noted. Lastly Olegario record was present at the entire surgery involved the patient positioning complex portions of the surgery and final skin closure. I attest to the content of the Intraoperative Record and any orders documented therein. Any exceptions are noted below.
--- NOTE | 2020-12-30 15:33 | Fluoroscopy Report ---
[place] lumbar spine 2-3V CLINICAL HISTORY: Posterior decompression and fusion. COMPARISON STUDY: Lumbar spine MRI December 28, 2020. FLUOROSCOPY TIME: 27 seconds. FLUOROSCOPIC IMAGES: 2 FINDINGS: Fluoroscopy was provided during L3-L4, L4-L5 and L5-S1 discectomies with interbody spacer p lacement. Posterior decompression is noted with bilateral pedicle screws extending from L3 through S1 with interconnecting rods. Hardware is intact. There are no unexpected radiopaque foreign bodies. IMPRESSION: Fluoroscopy provided during L3-S1 discectomy, posterior decompression and bilateral pedi yordan screw fusion. ACT 112: Negative or not required by law. Electronically signed by: Adonis Arellano M.D. 12/30/2020 3:32 PM
[2020-12-30] MEDS ORDERED: LABETALOL HCL IV 5 MG/ML 20ML IV STA (15:49)
[2020-12-30] MEDS ORDERED: LABETALOL HCL IV 5 MG/ML 20ML IV ONE (15:50)
--- NOTE | 2020-12-30 16:27 | Anesthesiology Progress Note ---
Date of Service December 30, 2020 Anesthesia Post Procedure Vital Signs Vital Signs: Temp Pulse Pulse Resp BP BP Pulse Ox 12/30/20 15:55 74 16 185/87 H 94 12/30/20 15:45 83 15 193/109 H 96 12/30/20 15:35 96 H 15 179/101 H 100 12/30/20 15:25 87 19 199/102 H 94 12/30/20 15:18 36.2 C L 104 H 12 187/103 H 95 12/30/20 11:14 36.5 C 65 18 166/95 H 96 12/30/20 09:07 57 L 138/96 12/30/20 07:49 36.6 C 69 18 173/94 H 93 12/30/20 00:19 36.6 C 64 16 157/83 H 94 Pain Intensity Right Back: Pain Intensity: 0 Transfer of Care Handoff Completed per policy Notes Mental Status: alert / awake / arousable Patient Amnestic to Procedure: Yes Nausea / Vomiting: adequately controlled Pain: adequately controlled Airway Patency, RR, SpO2: stable & adequate BP & HR: stable & adequate Hydration State: stable & adequate Anesthetic Complications: no major complications apparent
[2020-12-30] MEDS ORDERED: DO NOT ADMINISTER FLU VACCINE PRN (16:49)
[2020-12-30] MEDS ORDERED: ONDANSETRON 4 MG OD TAB PO PRN (16:49)
[2020-12-30] MEDS ORDERED: PHARMACY GLYCEMIC MGMT CONSULT STA (16:49)
[2020-12-30] MEDS ORDERED: HYDROmorphone INJ 0.5 MG/0.5 ML SYR IV PRN (16:49)
[2020-12-30] MEDS ORDERED: SOD PHOSPHATE/SOD BIPHOSPHATE ENEMA 132 ML BTL PR PRN (16:49)
[2020-12-30] MEDS ORDERED: PROMETHAZINE HCL 12.5 MG in SODIUM CHLORIDE 0.9% 50 ML IV PRN (16:49)
[2020-12-30] MEDS ORDERED: HYDROmorphone INJ 1 MG/ML SYRINGE IV PRN (16:49)
[2020-12-30] MEDS ORDERED: LORazepam 0.5 MG/1 ML VIAL IV PRN (16:49)
[2020-12-30] MEDS ORDERED: METOCLOPRAMIDE HCL INJ 5 MG/ML 2 ML VIAL IV PRN (16:49)
[2020-12-30] MEDS ORDERED: LORazepam 0.5 MG TAB PO PRN (16:49)
[2020-12-30] MEDS ORDERED: ACETAMINOPHEN 500 MG TAB PO PRN (16:49)
[2020-12-30] MEDS ORDERED: hydrOXYzine HCl 25 MG TAB PO PRN (16:49)
[2020-12-30] MEDS ORDERED: NALOXONE HCL 0.4 MG/1 ML VIAL/CARP IV PRN (16:49)
[2020-12-30] MEDS ORDERED: DO NOT ADMINISTER PNEUMOCOCCAL VACCINE PRN (16:49)
[2020-12-30] MEDS ORDERED: bisacodyL 10 MG SUPP PR PRN (16:49)
[2020-12-30] MEDS ORDERED: ALUMINUM/MAGNESIUM SUSP 30 ML UDC PO PRN (16:49)
[2020-12-30] MEDS ORDERED: diphenhydrAMINE Capsule 25 MG CAP PO PRN (16:49)
[2020-12-30] MEDS ORDERED: FAMOTIDINE 20 MG TAB PO PRN (16:49)
[2020-12-30] MEDS ORDERED: MAGNESIUM HYDROXIDE SUSP 30 ML UDC PO PRN (16:49)
[2020-12-30] MEDS ORDERED: ACETAMINOPHEN 1,000 MG/100 ML VIAL IV PRN (16:49)
[2020-12-30] MEDS: allopurinoL 300 MG TAB PO SCH (17:27)
[2020-12-30] MEDS: CHOLECALCIFEROL 1,000 UNITS 25 MCG TAB PO SCH (17:27)
[2020-12-30] MEDS: PANTOprazole 40 MG TAB PO SCH (17:28)
[2020-12-30] MEDS: FOLIC ACID 1 MG TAB PO SCH (17:28)
[2020-12-30] MEDS: gemfibroziL 600 MG TAB PO SCH ×2 (17:28→19:56)
[2020-12-30] MEDS: SODIUM CHLORIDE 0.9% 1000ML 1,000 ML IV SCH ×2 (17:32→22:03)
[2020-12-30] MEDS ORDERED: hydrALAZINE HCL 20 MG/ML VIAL IV PRN (17:35)
[2020-12-30] MEDS: ATORVASTATIN 20 MG TAB PO SCH (19:56)
[2020-12-30] MEDS: DOCUSATE SODIUM/SENNA 50/8.6MG TAB PO SCH (21:57)
[2020-12-30] MEDS: INSULIN GLARGINE SOLOSTAR 100 UNITS/ML 3 ML PEN SQ SCH (22:05)
[2020-12-30] MEDS: ceFAZolin 2000MG 2,000 MG/15 ML SYR IV SCH (22:10)
[2020-12-31] MEDS: SODIUM CHLORIDE 0.9% 1000ML 1,000 ML IV SCH (04:19)
[2020-12-31] MEDS: POLYETHYLENE (MIRALAX) 17 GM PACK PO SCH ×4 (06:05→21:07)
[2020-12-31] MEDS: oxyCODONE HCL IR 5 MG TAB (IMMEDIATE RELEASE) PO PRN ×2 (06:06→19:47)
[2020-12-31] MEDS: ceFAZolin 2000MG 2,000 MG/15 ML SYR IV SCH (06:06)
[2020-12-31 06:48] LABS: Hematocrit (blood only) 33.8 % (42-52); Immature Granulocytes # (auto) 0.02 K/uL (0.00-0.02); Immature Granulocytes % (auto) 0.2 %; Lymphocytes # (auto) 0.96 K/uL (1.2-3.4); Lymphocytes % (auto) 8.7 %; Mean Corpuscular Hemoglobin 27.8 pg (25-34); Mean Corpuscular Hgb Conc 32.5 g/dL (32-36); Mean Corpuscular Volume 85.6 fL (80-100); Mean Platelet Volume 10.4 fL (7.4-10.4); Monocytes # (auto) 1.12 K/uL (0.11-0.59); Monocytes % (auto) 10.1 %; Neutrophils # (auto) 8.99 K/uL (1.4-6.5); Platelet Count 247 K/uL (130-400); RDW Coefficient of Variation 14.8 % (11.5-14.5); RDW Standard Deviation 45.9 fL (36.4-46.3); Red Blood Count 3.95 M/uL (4.7-6.1); White Blood Count 11.09 K/uL (4.8-10.8)
[2020-12-31 07:05] LABS: BUN Creatinine Ratio 22.1 (10-20); Calcium 8.1 mg/dl (8.5-10.1); Est GFR (African American) 43.3; Est GFR (Non-African American) 37.3; Potassium 4.3 mmol/L (3.5-5.1)
[2020-12-31] MEDS: traMADol HCL 50 MG TABLET PO PRN (08:35)
--- NOTE | 2020-12-31 08:36 | Orthopedic Progress Note ---
Date of Service December 31, 2020 Assessment & Plan (1) Lumbar spinal stenosis: Patient is doing well postoperative day 1. Will start physical therapy today. Maintain PHOENIX drain. DVT prophylaxis is in the form of teds and SCDs. Continue with aggressive bowel regimen. Anticipate discharge home early next week. Admission and Anticipated Discharge Date Admission Date: December 28, 2020 Supervising Physician Co-Signing Physician Notes Dr. Arun Khan Subjective Patient is postoperative day 1 posterior lumbar decompression and fusion L3-S1 by Dr. Khan. He had an uneventful evening. He is doing fantastic. Denies lower back pain. Radicular leg pain he had preoperatively has since resolved. PHOENIX drain output last shift was 165 cc. H&H is morning are 11.0 and 33.8 respectively. Review of Systems Review of Systems: All systems reviewed & are unremarkable except as noted in HPI & below Physical Exam Physical Exam: Alert and oriented x3 no acute distress Lumbar dressing is clean dry and intact with functioning PHOENIX drain Calves are soft and nontender bilaterally. Motor testing is 5/5 bilateral lower extremities Constitutional: WD/WN, vitals as above well developed Eyes: normal visual jarquin by confrontation ENMT: external ear and nose normal, oropharynx normal Neck: normal visual inspection Respiratory: normal respiratory effort Cardiovascular: Extremities: normal capillary refill Chest (Breasts): Chest: normal inspection of chest Gastrointestinal (Abdomen): Inspection/Auscultation: abdomen normal to inspection Musculoskeletal: no cyanosis or clubbing, extremities motor strength 5/5 Extremities: extremities normal to inspection and strength 5/5 throughout Skin: no rashes, warm and dry Neurologic: normal touch/pain/proprioception and moves all extremities Psychiatric: A+Ox3, euthymic affect Eye Contact: good eye contact Results & Data ([facility]) Vital Signs (Past 12 Hours) Vital Signs Temp Pulse Resp BP Pulse Ox 12/31/20 07:08 36.7 C 66 17 152/78 H 97 12/31/20 02:46 36.5 C 72 18 142/87 H 96 12/30/20 22:52 36.5 C 77 16 120/76 93 12/30/20 20:40 94
[2020-12-31] MEDS: allopurinoL 300 MG TAB PO SCH (08:40)
[2020-12-31] MEDS: CHOLECALCIFEROL 1,000 UNITS 25 MCG TAB PO SCH (08:42)
[2020-12-31] MEDS: gemfibroziL 600 MG TAB PO SCH ×2 (08:43→19:57)
[2020-12-31] MEDS: GABAPENTIN 300 MG CAP PO SCH ×2 (08:43→19:57)
[2020-12-31] MEDS: FOLIC ACID 1 MG TAB PO SCH (08:43)
[2020-12-31] MEDS: PANTOprazole 40 MG TAB PO SCH (08:44)
[2020-12-31] MEDS: ISOSORBIDE MONO EXTENDED REL 30 MG TABCR PO SCH (08:44)
[2020-12-31] MEDS: INSULIN ASPART 100 UNITS/ML 3 ML PEN SC SCH ×4 (08:46→20:55)
[2020-12-31] MEDS: INSULIN HUMAN NPH SC SCH (08:50)
[2020-12-31] MEDS: dexAMETHasone 4 MG TAB PO SCH (08:58)
[2020-12-31] MEDS ORDERED: dexAMETHasone 4 MG in SYRINGE 0 ML IV SCH (09:00)
[2020-12-31] MEDS: ATENOLOL 50 MG TABLET PO SCH (09:59)
--- NOTE | 2020-12-31 12:25 | Pharmacy Report ---
Pharmacy Glycemic Short Note 2 - Date of Service December 31, 2020 - Glycemic Short BSG Results (Last 24 hours): 12/30/20 12/30/20 12/30/20 15:21 17:08 20:40 Glucose POC Glucose 156 H 190 H 189 H 12/31/20 12/31/20 12/31/20 06:02 08:02 11:59 Glucose 136 H POC Glucose 119 H 135 H OUTPATIENT ANTIDIABETIC REGIMEN: * Lantus 30 units qHS; Novolog 25 units TIDM * A1c 7.9% 10/31/20 ASSESSMENT: 12/31/20 * Blood sugars 80-189 mg/dl over past 24 hours, with 37 units of insulin, 30 units basal, POD1, on clear liquid diet * Resume NPH with IV Dexamethasone since diet resumed * Fasting 119mg/dl - continue Lantus on scale 12/30/20 * Patient NPO today, fasting BSG 80mg/dl, will hold NPH to prevent hypoglycemia, resume with IV Dexamethasone tomorrow * Patient w/ hypoglycemia predinner yesterday after receiving 14 units of Novolog at lunch, decrease NPH and loosen CF/CR, patient requiring much less insulin than reported 25 units with meals at home 12/29/20 * Patient NPO tonight at midnight for spinal surgery tomorrow morning * Blood sugars improved overnight, tighten CF/CR slightly for better prandial coverage * Fasting 118mg/dl - no change in Lantus * Add NPH to cover IV Dexamethasone * Updated Med rec- patient takes Novolog 25 units with meals at home 12/28/20 * Pt admitted with planned spinal surgery for tomorrow, NPO after midnight * Pt received dexamethasone 10 mg IV in the emergency department, pre lunch BSG 214, will use weight based stress of 3 carb ratio, stress of 2 correction * Dexamethasone 6 mg scheduled daily. * Lantus will be provided in scale up to stress of 3 dosing, will add NPH tomorrow if needed PLAN FOR INPATIENT GLYCEMIC CONTROL: * Basal insulin * Lantus 25-40 units SQ HS per scale * NPH 15 units SQ daily with IV Dexamethasone * Bolus insulin * NovoLog per scale ACHS or Q6hrs while NPO * Goal Range: Low 110 mg/dL - High 140 mg/dL * Correction Factor: 15 mg/dL/unit * Nutritional / Prandial insulin per carb ratio of 1 unit per 5 grams CHO consumed
--- NOTE | 2020-12-31 14:01 | Hospitalist Progress Note ---
Date of Service December 31, 2020 Assessment & Plan (1) Degeneration of lumbosacral intervertebral disc with acute herniation: Mr. Modi is a 65-year-old male with a history of Insulin-Requiring Type 2 Diabetes Mellitus, Stage 3 Chronic Kidney Disease, Diabetic Peripheral Neuropathy, Hypertension, Hypercholesterolemia, Factor 5 Leiden Mutation, Hyperhomocystinemia, Cervical Degenerative Disc Disease, Chronic DVT of LLE, Obesity, GERD, Anemia, Prior TIA, and Inflammatory Arthritis (on chronic prednisone 5 mg daily) who was admitted yesterday with an Acute Lumbar Disc Herniation resulting a 1 cm free disc fragment located posterior to the L3 vertebral body to the right of midline - likely arising from the L3-4 disc. There is an L3-4 disc bulge with moderate spinal stenosis. There is a right foraminal and lateral disc protrusion which likely impinges on the exited right L3 nerve root. Also there is grade 1 spondylolisthesis of L4 and L5. There is moderate to severe spinal stenosis. There is a moderate right lateral and foraminal disc protrusion which likely impinges on the right L4 nerve root. There is right-sided foraminal stenosis at this level. POD #1 from decompression, fusion, tolerated quite well minimal pain participating in therapy keep PHOENIX drain d/w Dr. Khan, discharge plans (2) Lumbar spinal stenosis: see above (3) Intractable low back pain: due to disc herniation, resolved after surgery (4) Chronic kidney disease, stage 3 (moderate): Secondary to DM, HTN. -- Serum Creatinine is 1.8 today slaughter pulled today, watch for ability to void electrolytes stable (5) Uncontrolled type 2 diabetes mellitus: Insulin-requiring type 2 diabetes mellitus, diagnosed approximately 8 years ago. -- Glycemic control consultation. -- Continue Lantus 30 units injected subcutaneously each evening. -- BSG qAC and HS. -- SSI. giving NPH with Decadron some high values, no hypoglycemic episodes (6) Essential hypertension: 1. Continue Atenolol 100 mg daily including the morning of surgery with sips of water. 2. Continue Imdur ER 30 mg daily. BP stable today (7) Hypercholesterolemia: 1. Continue Lipitor 20 mg daily. 2. Continue Gemfibrozil 600 mg b.i.d.. (8) 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: -- History of factor 5 Leiden mutation. -- DVT prophylaxis is SCD and TEDS per surgery -- B/L knee-high compression stocking. -- Ambulate postoperatively. check with Dr. Khan about Lovenox or heparin SC tomorrow Admission and Anticipated Discharge Date Admission Date: December 28, 2020 Subjective patient is doing great, he has no back pain, just some "burning" with the incision site he is doing well with therapy, he is breathing comfortably, no chest pain no GI symptoms, his slaughter was pulled this morning, + flatus but no BM reviewed labs, Hb is stable, Cr is 1.8, baseline he is unsure of discharge plans, he lives with his , one story home check PT/OT notes Review of Systems Review of Systems: All systems reviewed & are unremarkable except as noted in Subjective Physical Exam Constitutional: WD/WN, vitals as above Neck: trachea midline, no thyromegaly Respiratory: normal respiratory effort, lungs clear to auscultation Cardiovascular: RRR, no murmur, no edema Gastrointestinal (Abdomen): normal bowel sounds, soft, nontender, no hepatosplenomegaly Musculoskeletal: no cyanosis or clubbing, extremities motor strength 5/5 Skin: no rashes, warm and dry Neurologic: patellar DTR's 2+ bilat, sensation intact and PERRL, EOMI, accommodation nl, no face palsy, no dysarthria Psychiatric: A+Ox3, euthymic affect Lymphatic: no cervical or axillary lymphadenopathy Results & Data Results & Data ([facility]) Vital Signs (Past 12 Hours) Vital Signs Temp Pulse Resp BP Pulse Ox 12/31/20 10:47 36.9 C 70 17 122/78 92 12/31/20 07:08 36.7 C 66 17 152/78 H 97 12/31/20 02:46 36.5 C 72 18 142/87 H 96 Laboratory Results Laboratory Results - last 24 hr 12/30/20 12/30/20 12/30/20 15:21 17:08 20:40 WBC RBC Hgb Hct MCV MCH MCHC RDW Std Deviation RDW Coeff of Jono Plt Count MPV Immature Gran % (Auto) Neut % (Auto) Lymph % (Auto) [place] % (Auto) Eos % (Auto) Baso % (Auto) Neut # (Auto) Lymph # (Auto) [place] # (Auto) Eos # (Auto) Baso # (Auto) Immature Gran # (Auto) Sodium Potassium Chloride Carbon Dioxide Anion Gap BUN Creatinine Est Cr Clr Drug Dosing Est GFR ( Amer) Est GFR (Non-Af Amer) BUN/Creatinine Ratio Glucose POC Glucose 156 H 190 H 189 H Calcium 12/31/20 12/31/20 12/31/20 06:02 06:02 08:02 WBC 11.09 H RBC 3.95 L Hgb 11.0 L Hct 33.8 L MCV 85.6 MCH 27.8 MCHC 32.5 RDW Std Deviation 45.9 RDW Coeff of Jono 14.8 H Plt Count 247 MPV 10.4 Immature Gran % (Auto) 0.2 Neut % (Auto) 81.0 Lymph % (Auto) 8.7 [place] % (Auto) 10.1 Eos % (Auto) 0.0 Baso % (Auto) 0.0 Neut # (Auto) 8.99 H Lymph # (Auto) 0.96 L [place] # (Auto) 1.12 H Eos # (Auto) 0.00 Baso # (Auto) 0.00 Immature Gran # (Auto) 0.02 Sodium 138 Potassium 4.3 Chloride 108 H Carbon Dioxide 24 Anion Gap 6.0 BUN 41 H Creatinine 1.83 H D Est Cr Clr Drug Dosing 48.0 Est GFR ( Amer) 43.3 Est GFR (Non-Af Amer) 37.3 BUN/Creatinine Ratio 22.1 H Glucose 136 H POC Glucose 119 H Calcium 8.1 L 12/31/20 11:59 WBC RBC Hgb Hct MCV MCH MCHC RDW Std Deviation RDW Coeff of Jono Plt Count MPV Immature Gran % (Auto) Neut % (Auto) Lymph % (Auto) [place] % (Auto) Eos % (Auto) Baso % (Auto) Neut # (Auto) Lymph # (Auto) [place] # (Auto) Eos # (Auto) Baso # (Auto) Immature Gran # (Auto) Sodium Potassium Chloride Carbon Dioxide Anion Gap BUN Creatinine Est Cr Clr Drug Dosing Est GFR ( Amer) Est GFR (Non-Af Amer) BUN/Creatinine Ratio Glucose POC Glucose 135 H Calcium Medications Administered Current Inpatient Medications Acetaminophen (Acetaminophen 500 Mg Tab) 1,000 mg PO Q8H PRN PRN Reason: MILD Pain Scale 1,2,3 & Pre PT Stop: 01/29/21 16:48 Al Hydrox/Mg Hydrox/Simethicone (Aluminum/Magnesium Susp 30 Ml Udc) 30 ml PO Q6H PRN PRN Reason: Dyspepsia Stop: 01/29/21 16:48 Allopurinol (Allopurinol 300 Mg Tab) 300 mg PO QAM [facility] Stop: 01/28/21 08:59 Last Admin: 12/31/20 08:40 Dose: 300 mg Documented by: Atenolol (Atenolol 50 Mg Tablet) 100 mg PO QAM [facility] Stop: 01/28/21 08:59 Last Admin: 12/31/20 09:59 Dose: 100 mg Documented by: Atorvastatin Calcium (Atorvastatin 20 Mg Tab) 20 mg PO QPM [facility] Stop: 01/27/21 20:59 Last Admin: 12/30/20 19:56 Dose: 20 mg Documented by: Bisacodyl (Bisacodyl 10 Mg Supp) 10 mg MO DAILY PRN PRN Reason: Constipation Stop: 01/29/21 16:48 Dexamethasone ([facility] 4 Mg Tab) [facility] Stop: 01/30/21 08:59 Last Admin: 12/31/20 08:58 Dose: 4 mg Documented by: Dextrose (Dextrose 50% 50 Ml Syringe) 25 - 50 ml IV UD PRN; Protocol PRN Reason: Hypoglycemia Protocol Stop: 01/28/21 17:29 Diphenhydramine HCl (Diphenhydramine Capsule 25 Mg Cap) 25 mg PO Q6H PRN PRN Reason: Allergic Rhinitis/Insomnia Stop: 01/29/21 16:48 Famotidine (Famotidine 20 Mg Tab) 20 mg PO Q12H PRN PRN Reason: Dyspepsia Stop: 01/29/21 16:48 Folic Acid (Folic Acid 1 Mg Tab) 1 mg PO QAM [facility] Stop: 01/28/21 08:59 Last Admin: 12/31/20 08:43 Dose: 1 mg Documented by: Gabapentin (Gabapentin 300 Mg Cap) 300 mg PO BID [facility] Stop: 01/27/21 20:59 Last Admin: 12/31/20 08:43 Dose: 300 mg Documented by: Gemfibrozil (Gemfibrozil 600 Mg Tab) 600 mg PO BID [facility] Stop: 01/27/21 20:59 Last Admin: 12/31/20 08:43 Dose: 600 mg Documented by: Glucagon (Glucagon For Inj 1 Mg Vial) 1 mg IM UD PRN; Protocol PRN Reason: Hypoglycemia Protocol Stop: 01/28/21 17:29 Glucose (Glucose 40% Gel 15 Gm Tube) 15 - 30 gm PO UD PRN; Protocol PRN Reason: Hypoglycemia Protocol Stop: 01/28/21 17:29 Glucose (Glucose 10 Tabs/Tube) 4 - 8 tabs PO UD PRN; Protocol PRN Reason: Hypoglycemia Protocol Stop: 01/28/21 17:29 Hydralazine HCl (Hydralazine Hcl 20 Mg/Ml Vial) 20 mg IV Q6 PRN PRN Reason: Hypertension Stop: 01/29/21 17:34 Hydromorphone HCl (Hydromorphone Inj 0.5 Mg/0.5 Ml Syr) 0.5 mg IV Q3H PRN PRN Reason: MOD pain (scale 4-6) & Pre PT Stop: 01/13/21 16:48 Hydromorphone HCl (Hydromorphone Inj 1 Mg/Ml Syringe) 1 mg IV Q3H PRN PRN Reason: severe pain (scale 7-10) Stop: 01/13/21 16:48 Hydroxyzine HCl (Hydroxyzine Hcl 25 Mg Tab) 25 mg PO Q8H PRN PRN Reason: Anxiety Stop: 01/29/21 16:48 Lorazepam (Ativan) 0.5 mg in 1 mls @ 0.5 mls/min IV Q8H PRN PRN Reason: Sedation/Anxiety Stop: 01/29/21 16:48 Acetaminophen (Ofirmev) 1,000 mg in 100 mls @ 400 mls/hr IV Q8H PRN PRN Reason: MILD Pain Rating 1,2,3 Stop: 12/31/20 16:48 Promethazine HCl 12.5 mg/ (Sodium Chloride) 50.5 mls @ 204 mls/hr IV Q6H PRN PRN Reason: Nausea &/or Vomiting Stop: 01/29/21 16:48 Influenza Virus Vaccine Quadrival (Do Not Administer Flu Vaccine) 1 ea N/A PRN PRN PRN Reason: Notification Stop: 01/29/21 16:48 Insulin Aspart (Insulin Aspart 100 Units/Ml 3 Ml Pen) 0 units SC [facility]; Protocol Stop: 01/29/21 20:59 Last Admin: 12/31/20 12:45 Dose: 5 units Documented by: Insulin Glargine (Insulin Glargine Solostar 100 Units/Ml 3 Ml Pen) 0 units SQ HS [facility]; Protocol Stop: 01/27/21 20:59 Last Admin: 12/30/20 22:05 Dose: 30 units Documented by: Insulin Human NPH (Insulin Human Nph) 15 units SC DAILY [facility]; Protocol Stop: 01/30/21 08:59 Last Admin: 12/31/20 08:50 Dose: 15 units Documented by: Isosorbide Mononitrate (Isosorbide [place] Extended Rel 30 Mg Tabcr) 30 mg PO QAM [facility] Stop: 01/28/21 08:59 Last Admin: 12/31/20 08:44 Dose: 30 mg Documented by: Lorazepam (Lorazepam 0.5 Mg Tab) 0.5 mg PO Q8H PRN PRN Reason: Sedation/Anxiety Stop: 01/29/21 16:48 Magnesium Hydroxide (Magnesium Hydroxide Susp 30 Ml Udc) 30 ml PO DAILY PRN PRN Reason: Constipation Stop: 01/29/21 16:48 Metoclopramide HCl (Metoclopramide Hcl Inj 5 Mg/Ml 2 Ml Vial) 10 mg IV Q6H PRN PRN Reason: Nausea &/or Vomiting Stop: 01/29/21 16:48 Miscellaneous (Carbohydrates For Hypoglycemia ) 15 - 30 gm PO UD PRN PRN Reason: Hypoglycemia Treatment Stop: 01/28/21 17:29 Last Admin: 12/29/20 17:27 Dose: 15 gm Documented by: Miscellaneous Information (Pharmacy Glycemic Mgmt Consult) 1 ea N/A UD PRN PRN Reason: consult Stop: 01/27/21 14:06 Naloxone HCl (Naloxone Hcl 0.4 Mg/1 Ml Vial/Carp) 0.1 mg IV Q5M PRN; Protocol PRN Reason: Oversedation/Resp Depression Stop: 01/29/21 16:48 Ondansetron HCl (Ondansetron Inj 2 Mg/Ml 2 Ml Vial) 4 mg IV Q6H PRN PRN Reason: Nausea &/or Vomiting Stop: 01/29/21 16:48 Ondansetron HCl (Ondansetron 4 Mg Od Tab) 4 mg PO Q6H PRN PRN Reason: Nausea Stop: 01/29/21 16:48 Oxycodone HCl (Oxycodone Hcl Ir 5 Mg Tab (Immediate Release)) 5 - 10 mg PO Q4H PRN PRN Reason: Moderate-Severe Pain & Pre PT Stop: 01/13/21 16:48 Last Admin: 12/31/20 06:06 Dose: 5 mg Documented by: Pantoprazole Sodium (Pantoprazole 40 Mg Tab) 40 mg PO QAM [facility]; Protocol Stop: 01/28/21 08:59 Last Admin: 12/31/20 08:44 Dose: 40 mg Documented by: Pneumococcal Polyvalent Vaccine (Do Not Administer Pneumococcal Vaccine) 1 ea N/A PRN PRN PRN Reason: Notification Stop: 01/29/21 16:48 Polyethylene Glycol (Polyethylene (Miralax) 17 Gm Pack) 17 gm PO Q6 [facility] Stop: 01/30/21 05:59 Last Admin: 12/31/20 12:48 Dose: 17 gm Documented by: Senna/Docusate Sodium (Docusate Sodium/Senna 50/8.6mg Tab) 2 tab PO HS [facility] Stop: 01/29/21 20:59 Last Admin: 12/30/20 21:57 Dose: 2 tab Documented by: Sodium Biphosphate/Sodium Phosphate (Sod Phosphate/Sod Biphosphate Enema 132 Ml Btl) 132 ml MO ONE PRN PRN Reason: Constipation Stop: 01/29/21 16:48 Tramadol HCl (Tramadol Hcl 50 Mg Tablet) 50 - 100 mg PO Q4H PRN PRN Reason: Moderate-Severe Pain & Pre PT Stop: 01/29/21 16:48 Last Admin: 12/31/20 08:35 Dose: 50 mg Documented by: Vitamin D (Cholecalciferol 1,000 Units 25 Mcg Tab) [facility] [place] Stop: 01/28/21 08:59 Last Admin: 12/31/20 08:42 Dose: 2,000 units Documented by: PG Care Time/CCT Total # of Minutes Spent Total Time Spent with Patient: Total time spent is greater than 50% in coordination of care (as documented) at patient's floor/unit and/or counseling patient: Coding Level of Care Code 68608 Subseq Hosp Care Lvl 3 Diagnoses Degeneration of lumbosacral intervertebral disc with acute herniation M51.36; M51.27 Lumbar spinal stenosis M48.061 Intractable low back pain M54.5 Chronic kidney disease, stage 3 (moderate) N18.3 Uncontrolled type 2 diabetes mellitus E11.65 Essential hypertension I10 Hypercholesterolemia E78.00 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 I82.502
[2020-12-31] MEDS: DOCUSATE SODIUM/SENNA 50/8.6MG TAB PO SCH (19:56)
[2020-12-31] MEDS: ATORVASTATIN 20 MG TAB PO SCH (19:57)
[2020-12-31] MEDS: INSULIN GLARGINE SOLOSTAR 100 UNITS/ML 3 ML PEN SQ SCH (21:08)
[2021-01-01] MEDS: oxyCODONE HCL IR 5 MG TAB (IMMEDIATE RELEASE) PO PRN ×2 (00:41→09:15)
[2021-01-01] MEDS: traMADol HCL 50 MG TABLET PO PRN (03:18)
[2021-01-01] MEDS: POLYETHYLENE (MIRALAX) 17 GM PACK PO SCH ×2 (04:56→12:19)
[2021-01-01] MEDS: CHOLECALCIFEROL 1,000 UNITS 25 MCG TAB PO SCH (07:45)
[2021-01-01] MEDS: allopurinoL 300 MG TAB PO SCH (07:45)
[2021-01-01] MEDS: ATENOLOL 50 MG TABLET PO SCH (07:45)
[2021-01-01] MEDS: gemfibroziL 600 MG TAB PO SCH ×2 (07:46→21:31)
[2021-01-01] MEDS: GABAPENTIN 300 MG CAP PO SCH ×2 (07:46→21:30)
[2021-01-01] MEDS: ISOSORBIDE MONO EXTENDED REL 30 MG TABCR PO SCH (07:46)
[2021-01-01] MEDS: dexAMETHasone 4 MG TAB PO SCH (07:46)
[2021-01-01] MEDS: FOLIC ACID 1 MG TAB PO SCH (07:46)
[2021-01-01] MEDS: PANTOprazole 40 MG TAB PO SCH (07:47)
[2021-01-01] MEDS: INSULIN ASPART 100 UNITS/ML 3 ML PEN SC SCH ×4 (07:53→21:33)
[2021-01-01] MEDS: INSULIN HUMAN NPH SC SCH (07:55)
[2021-01-01 08:25] LABS: Hemoglobin 11.5 g/dL (14.0-18.0); Mean Corpuscular Hemoglobin 28.3 pg (25-34); Mean Corpuscular Hgb Conc 32.9 g/dL (32-36); Mean Corpuscular Volume 86.2 fL (80-100); Mean Platelet Volume 10.1 fL (7.4-10.4); Platelet Count 247 K/uL (130-400); RDW Coefficient of Variation 15.2 % (11.5-14.5); RDW Standard Deviation 47.4 fL (36.4-46.3); Red Blood Count 4.06 M/uL (4.7-6.1); White Blood Count 15.19 K/uL (4.8-10.8)
[2021-01-01 08:40] LABS: BUN Creatinine Ratio 20.6 (10-20); Calcium 8.6 mg/dl (8.5-10.1); Creatinine Clr Calc Pharmacy 44.3 ml/min; Est GFR (African American) 39.3; Est GFR (Non-African American) 33.9; Potassium 4.2 mmol/L (3.5-5.1)
--- NOTE | 2021-01-01 08:41 | Orthopedic Progress Note ---
Date of Service January 01, 2021 Assessment & Plan (1) Degeneration of lumbosacral intervertebral disc with acute herniation: Patient is postoperative day 2 lumbar decompression fusion L3-S1 by Dr. Khan. We will continue with pain control. Continue with bowel regimen. Maintain PHOENIX drain. He does have a history of factor V with chronic lower extremity DVTs and a history of a TIA. He is on Plavix at home which is currently being held. Today would be the earliest to resume anticoagulation although tomorrow would be preferred (72 hours post op). Would maintain PHOENIX drain when anticoagulation is started. Admission and Anticipated Discharge Date Admission Date: December 28, 2020 Supervising Physician Co-Signing Physician Notes Dr. Arun Khan Subjective Patient is postoperative day 2 L3-S1 decompression fusion. He is doing great. Back pain is controlled. Preoperative leg pain has resolved. PHOENIX drain output last shift was 115 cc. Yesterday in physical therapy he was ambulating 145 feet. He reports he is also ambulating the hallways with a walker. positive flatus but no bowel movement. Review of Systems Review of Systems: All systems reviewed & are unremarkable except as noted in HPI & below Physical Exam Physical Exam: Alert and oriented x3 No acute distress Lumbar dressing is clean dry and intact with functioning PHOENIX drain Calves are soft nontender bilaterally Strength is intact bilateral lower extremities Constitutional: WD/WN, vitals as above well developed Eyes: normal visual jarquin by confrontation ENMT: external ear and nose normal, oropharynx normal Neck: normal visual inspection Respiratory: normal respiratory effort Cardiovascular: Extremities: normal capillary refill Chest (Breasts): Chest: normal inspection of chest Gastrointestinal (Abdomen): Inspection/Auscultation: abdomen normal to inspection Musculoskeletal: no cyanosis or clubbing, extremities motor strength 5/5 Extremities: extremities normal to inspection and strength 5/5 throughout Skin: no rashes, warm and dry Neurologic: normal touch/pain/proprioception and moves all extremities Psychiatric: A+Ox3, euthymic affect Eye Contact: good eye contact Results & Data ([facility]) Vital Signs (Past 12 Hours) Vital Signs Temp Pulse Resp BP BP Pulse Ox 01/01/21 07:33 36.6 C 85 17 170/81 H 93 12/31/20 21:42 36.5 C 77 16 132/77 94
[2021-01-01] MEDS: ENOXAPARIN INJ 40 MG/0.4 ML SYR SQ SCH (12:08)
--- NOTE | 2021-01-01 14:15 | Hospitalist Progress Note ---
Date of Service January 01, 2021 Assessment & Plan (1) Degeneration of lumbosacral intervertebral disc with acute herniation: (2) Lumbar spinal stenosis: (3) Intractable low back pain: POD #2 from decompression, fusion, tolerated quite well --Minimal pain --participating in therapy --Keep PHOENIX drain per ortho --Voiding without difficulty. --No BM, but passing flatus and good bowel sounds. MOM, Miralax, Dulcolax suppositories, and Senokot tabs ordered. Continue to monitor. --WBC increased to 15.2 today. No evidence of fever or infection. Likely elevated secondary to Decadron. Repeat CBC in AM. D/c plans per Dr. Khan. (4) Chronic kidney disease, stage 3 (moderate): Secondary to DM, HTN. -- Serum Creatinine is 1.98 today; baseline 1.6-1.9. 200ml dark yellow urine in urinal this morning. Patient denies difficulty voiding. electrolytes stable (5) Uncontrolled type 2 diabetes mellitus: Insulin-requiring type 2 diabetes mellitus, diagnosed approximately 8 years ago. -- Last HgbA1C 7.9% 3. -- Glycemic control consultation. -- Continue Lantus 30 units injected subcutaneously each evening. -- BSG qAC and HS. -- SSI. giving NPH with Decadron some high values, no hypoglycemic episodes (6) Essential hypertension: BP elevated at 170/81. Patient is asymptomatic; pain controlled. --Hydralazine 20mg IV ordered PRN for SBP >160mmHg. --Continue Atenolol 100mg and Imdur ER 30mg daily. (7) Hypercholesterolemia: Continue Lipitor 20mg daily and Gemfibrozil 600mg BID. (8) 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: (9) Factor V Leiden mutation: Chronic DVT of LLE and Factor V Leiden mutation. Discussed with Rain Hunter PA-C, and OK'd to start Lovenox. Will order Lovenox 40mg daily. --SCDs and TEDs. --Continue ambulation. Admission and Anticipated Discharge Date Admission Date: December 28, 2020 Subjective Patient s/p decompression and spinal fusion. Patient reports he is feeling well this morning. Denies pain. Denies n/v. He is voiding without difficulty. He has not had a BM, but is passing flatus. Review of Systems Constitutional: no fever and no chills Eyes: no worsening vision Ear, Nose, Mouth, Throat: no dizziness Respiratory: no dyspnea Cardiovascular: no chest pain Gastrointestinal: no abdominal pain, no nausea and no vomiting Genitourinary: no dysuria, no difficulty urinating and no hematuria Psychiatric: no confusion Physical Exam Physical Exam: Temp Pulse Resp BP Pulse Ox 36.6 C 85 17 170/81 H 93 01/01/21 07:33 01/01/21 07:33 01/01/21 07:33 01/01/21 07:33 01/01/21 07:33 Patient is afebrile. He is hypertensive at 170/81, but is asymptomatic. Constitutional: + obese; no acute distress ENMT: Ears: no hearing impairment Neck: normal visual inspection Respiratory: normal respiratory effort, lungs clear to auscultation Cardiovascular: RRR, no murmur, no edema Gastrointestinal (Abdomen): Inspection/Auscultation: normal bowel sounds Percussion/Palpation: abdomen soft; abdomen nontender Psychiatric: A+Ox3, euthymic affect Lymphatic: no cervical lymphadenopathy Results & Data Results & Data ([facility]) Vital Signs (Past 12 Hours) Vital Signs Temp Pulse Resp BP Pulse Ox 01/01/21 07:33 36.6 C 85 17 170/81 H 93 PG Care Time/CCT Total # of Minutes Spent Total Time Spent with Patient: Total time spent is greater than 50% in co ordination of care (as documented) at patient's floor/unit and/or counseling patient: Coding Level of Care Code 76571 Subseq Hosp Care Lvl 2 Diagnoses Degeneration of lumbosacral intervertebral disc with acute herniation M51.36; M51.27 Lumbar spinal stenosis M48.061 Intractable low back pain M54.5 Chronic kidney disease, stage 3 (moderate) N18.3 Uncontrolled type 2 diabetes mellitus E11.65 Essential hypertension I10 Hypercholesterolemia E78.00 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 I82.502 Factor V Leiden mutation D68.51
[2021-01-01] MEDS: DOCUSATE SODIUM/SENNA 50/8.6MG TAB PO SCH (21:31)
[2021-01-01] MEDS: ATORVASTATIN 20 MG TAB PO SCH (21:31)
[2021-01-01] MEDS: INSULIN GLARGINE SOLOSTAR 100 UNITS/ML 3 ML PEN SQ SCH (21:34)
[2021-01-02] MEDS: oxyCODONE HCL IR 5 MG TAB (IMMEDIATE RELEASE) PO PRN ×2 (05:34→15:18)
[2021-01-02 06:23] LABS: Basophils # (auto) 0.01 K/uL (0-0.2); Basophils % (auto) 0.1 %; Eosinophils # (auto) 0.05 K/uL (0-0.5); Eosinophils % (auto) 0.5 %; Hematocrit (blood only) 31.2 % (42-52); Hemoglobin 10.2 g/dL (14.0-18.0); Immature Granulocytes # (auto) 0.04 K/uL (0.00-0.02); Immature Granulocytes % (auto) 0.4 %; Lymphocytes # (auto) 1.71 K/uL (1.2-3.4); Lymphocytes % (auto) 15.7 %; Mean Corpuscular Hemoglobin 28.3 pg (25-34); Mean Corpuscular Hgb Conc 32.7 g/dL (32-36); Mean Corpuscular Volume 86.7 fL (80-100); Mean Platelet Volume 10.1 fL (7.4-10.4); Monocytes # (auto) 1.28 K/uL (0.11-0.59); Monocytes % (auto) 11.8 %; Neutrophils % (auto) 71.5 %; Platelet Count 211 K/uL (130-400); RDW Coefficient of Variation 15.1 % (11.5-14.5); RDW Standard Deviation 47.5 fL (36.4-46.3); White Blood Count 10.89 K/uL (4.8-10.8)
[2021-01-02] MEDS: GABAPENTIN 300 MG CAP PO SCH (08:01)
[2021-01-02] MEDS: gemfibroziL 600 MG TAB PO SCH (08:01)
[2021-01-02] MEDS: FOLIC ACID 1 MG TAB PO SCH (08:01)
[2021-01-02] MEDS: dexAMETHasone 4 MG TAB PO SCH (08:01)
[2021-01-02] MEDS: PANTOprazole 40 MG TAB PO SCH (08:01)
[2021-01-02] MEDS: allopurinoL 300 MG TAB PO SCH (08:02)
[2021-01-02] MEDS: CHOLECALCIFEROL 1,000 UNITS 25 MCG TAB PO SCH (08:02)
[2021-01-02] MEDS: ATENOLOL 50 MG TABLET PO SCH (08:02)
[2021-01-02] MEDS: ISOSORBIDE MONO EXTENDED REL 30 MG TABCR PO SCH (08:02)
[2021-01-02] MEDS: ENOXAPARIN INJ 40 MG/0.4 ML SYR SQ SCH (08:02)
[2021-01-02] MEDS: INSULIN ASPART 100 UNITS/ML 3 ML PEN SC SCH ×2 (08:10→12:51)
--- NOTE | 2021-01-02 10:25 | Pharmacy Report ---
Pharmacy Glycemic Short Note 2 - Date of Service January 02, 2021 - Glycemic Short BSG Results (Last 24 hours): 01/01/21 01/01/21 01/01/21 11:50 17:06 21:02 POC Glucose 153 H 166 H 194 H 01/02/21 06:37 POC Glucose 121 H OUTPATIENT ANTIDIABETIC REGIMEN: * Lantus 30 units qHS; Novolog 25 units TIDM * A1c 7.9% 10/31/20 ASSESSMENT: 01/02/21 * BSGs reasonably well controlled over last 24 hrs * 77units SQ insulin administered over last 24 hrs while tolerating a diet * Fasting BSG 121 this AM w/ 45 units basal on board (Lantus + NPH) - will continue similar doses, Lantus scale will be adjusted given reduced needs * PO dexamethasone continues * Post-prandial BSGs fairly well controlled w/ current NPH and Novolog CR - no changes at this time 12/31/20 * Blood sugars 80-189 mg/dl over past 24 hours, with 37 units of insulin, 30 units basal, POD1, on clear liquid diet * Resume NPH with IV Dexamethasone since diet resumed * Fasting 119mg/dl - continue Lantus on scale 12/30/20 * Patient NPO today, fasting BSG 80mg/dl, will hold NPH to prevent hypoglycemia, resume with IV Dexamethasone tomorrow * Patient w/ hypoglycemia predinner yesterday after receiving 14 units of Novolog at lunch, decrease NPH and loosen CF/CR, patient requiring much less insulin than reported 25 units with meals at home PLAN FOR INPATIENT GLYCEMIC CONTROL: * Basal insulin * Lantus 25-30 units SQ HS per scale * NPH 15 units SQ daily with PO Dexamethasone * Bolus insulin * NovoLog per scale ACHS or Q6hrs while NPO * Goal Range: Low 110 mg/dL - High 140 mg/dL * Correction Factor: 15 mg/dL/unit * Nutritional / Prandial insulin per carb ratio of 1 unit per 5 grams CHO consumed
[2021-01-02] MEDS: INSULIN HUMAN NPH SC SCH (10:34)
[2021-01-02] MEDS ORDERED: CLOPIDOGREL BISULFATE 75 MG TAB PO SCH (13:30)
--- NOTE | 2021-01-02 16:03 | Discharge Summary ---
Date of Service January 02, 2021 Admission HPI Per Admitting Provider Mr. Modi is a 65-year-old male with a history of Insulin-Requiring Type 2 Diabetes Mellitus, Stage 3 Chronic Kidney Disease, Diabetic Peripheral Neuropathy, Hypertension, Hypercholesterolemia, Factor 5 Leiden Mutation, Hyperhomocystinemia, Cervical Degenerative Disc Disease, Chronic DVT of LLE, Obesity, GERD, Anemia, Prior TIA, and Inflammatory Arthritis (on chronic prednisone 5 mg daily) who presents to [facility] today complaining of right low back and flank pain which radiates into his right groin and down to his anterior thigh to the level of the knee, right inner thigh pain, right inner thigh numbness, nausea, vomiting, weak urine. Patient recently moved into a new place. There is a small step down in the laundry room from the kitchen, and when he was moving in on Saturday or Saturday he misjudged this step down and stepped particularly hard. He thinks this may have been when he injured himself. The patient has found no relieving factors -- saw his chiropractor the past 2 days, these treatments did not help. Currently his pain is rated as 10/10. It is worse with walking or movement. Patient denies lightheadedness, syncope, headache, fevers, chills, diaphoresis, visual changes, neck pain, chest pain, breathing difficulties, melena, hematochezia, weakness, lymphadenopathy, rash, or other complaints. Patient has not had any urinary or fecal incontinence. MRI L-Spine 12/28/20: L3-4: There is a 1 cm free disc fragment located posterior to the L3 vertebral body to the right of midline. This likely arises from the L3-4 disc. There is an L3-4 disc bulge with moderate spinal stenosis. There is a right foraminal and lateral disc protrusion which likely impinges on the exited right L3 nerve root. There is facet joint arthropathy. L4-5: There is a grade 1 spondylolisthesis of L4 and L5. There is moderate to severe spinal stenosis. There is facet joint ligamentous arthropathy. There is a moderate right lateral and foraminal disc protrusion. This likely impinges on the right L4 nerve root. There is right-sided foraminal stenosis. Other degenerative changes noted. Principal Diagnosis Spinal stenosis Discharge Exam Constitutional WD/WN, vitals as above Eyes EOM intact bilaterally; no conjunctival abnormality ENMT external ear and nose normal, oropharynx normal Neck trachea midline, no thyromegaly normal visual inspection Respiratory normal respiratory effort, lungs clear to auscultation no respiratory distress Cardiovascular RRR, no murmur, no edema Gastrointestinal (Abdomen) Inspection/Auscultation: abdomen normal to inspection; abdomen not distended Musculoskeletal no cyanosis or clubbing, extremities motor strength 5/5 Skin no rashes, warm and dry Neurologic moves all extremities and awake Psychiatric Orientation: alert, oriented to person and cooperative Discharge Data Allergies Allergy/AdvReac Type Severity Reaction Status Date / Time ibuprofen Allergy Unknown UNKNOWN Verified 12/21/20 08:18 DEYSI Inhibitors AdvReac Mild cough Verified 12/21/20 08:41 Consultations 12/28/20 14:07 Consult Orthopedic Surgery Routine Procedures Performed Operation Date: 12/30/20 12:05 Actual Procedures p L3-S1 Decompression Fusion, Spinal Cord Monitoring - Arun Khan, DO Ordered Studies 12/28/20 07:03 MR lumbar spine wo/w con Stat 12/30/20 12:05 FL lumbar spine 2-3V Routine Hospital Course (1) Degeneration of lumbosacral intervertebral disc with acute herniation: Mr. Modi is a 65-year-old male with a history of Insulin-Requiring Type 2 Diabetes Mellitus, Stage 3 Chronic Kidney Disease, Diabetic Peripheral Neuropathy, Hypertension, Hypercholesterolemia, Factor 5 Leiden Mutation, Hyperhomocystinemia, Cervical Degenerative Disc Disease, Chronic DVT of LLE, Obesity, GERD, Anemia, Prior TIA, and Inflammatory Arthritis (on chronic prednisone 5 mg daily) who was admitted yesterday with an Acute Lumbar Disc Herniation resulting a 1 cm free disc fragment located posterior to the L3 vertebral body to the right of midline - likely arising from the L3-4 disc. There is an L3-4 disc bulge with moderate spinal stenosis. There is a right foraminal and lateral disc protrusion which likely impinges on the exited right L3 nerve root. Also there is grade 1 spondylolisthesis of L4 and L5. There is moderate to severe spinal stenosis. There is a moderate right lateral and foraminal disc protrusion which likely impinges on the right L4 nerve root. There is right-sided foraminal stenosis at this level. POD #3 from decompression, fusion, tolerated quite well minimal pain participating in therapy d/w Dr. Khan, discharge plans Doing well. Ready for discharge per surgery. [place] drain out. Home with pain meds. (2) Lumbar spinal stenosis: see above (3) Intractable low back pain: due to disc herniation, resolved after surgery (4) Chronic kidney disease, stage 3 (moderate): Secondary to DM, HTN. -- Serum Creatinine is 1.8 today slaughter pulled today, watch for ability to void electrolytes stable (5) Uncontrolled type 2 diabetes mellitus: Insulin-requiring type 2 diabetes mellitus, diagnosed approximately 8 years ago. -- Glycemic control consultation. -- Continue Lantus 30 units injected subcutaneously each evening. -- BSG qAC and HS. -- SSI. giving NPH with Decadron some high values, no hypoglycemic episodes (6) Essential hypertension: 1. Continue Atenolol 100 mg daily including the morning of surgery with sips of water. 2. Continue Imdur ER 30 mg daily. BP stable today (7) Hypercholesterolemia: 1. Continue Lipitor 20 mg daily. 2. Continue Gemfibrozil 600 mg b.i.d.. (8) 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: -- History of factor 5 Leiden mutation. -- DVT prophylaxis is SCD and TEDS per surgery -- B/L knee-high compression stocking. -- Ambulate postoperatively. check with Dr. Khan about Lovenox or heparin SC tomorrow Total Time Total Time Spent Total Time Spent (In Minutes): 35 Discharge Plan Discharge Items Patient Disposition: Home - Self-Care Reason For Visit: ACUTE LUMBAR DISC HERNIATION INTRACTABLE BACK PAIN Discharge Diagnosis: Lumbar spinal stenosis with radiculopathy Activity: As commented below Non-emergency contact: Primary Care Provider Call non-emergency contact if: you have any medication questions Follow-up/Referrals: ProJam MD [Primary Care Provider] - Arun Khan DO [Surgeon] - 01/13/21 12:00 pm (Appointment will be with Travon Mera PA-C) Diet: Regular Addtl Attending Provider Instructions: ACTIVITY RECOMMENDATIONS: SELF CARE INSTRUCTIONS AFTER THORACIC/LUMBAR FUSIONS 1. You may walk to your tolerance. It is good exercise for your legs and back. Expect some back and intermittent leg aches and pains. 2. You may perform "counter-top" level activities (make a sandwich, nidia with a project, etc.). 3. No bending or lifting of more than 10 pounds or back twisting of any nature (roll like a log when turning in bed). 4. You may ride in a car for 20-30 minutes at a time. No driving until after your first visit with your doctor. 5. Frequent changes of position and restricting sitting to 30 minutes at a time will help limit the amount of back spasms and stiffness you may experience. 6. You may discontinue the use of ambulatory aids (cane, crutches, etc.) once your strength and confidence allow. 7. You may senior storage administrator the shower and let water strike your incision when you arrive home at least once daily. Do not take a tub bath, sit in a hot tub or go into a swimming pool until after your first recheck in the office. SPECIAL CARE INSTRUCTIONS: VERY IMPORTANT TO READ AND REVIEW A. Your surgical incision has been closed with a cosmetic suture under the skin that will dissolve in about 6 weeks. In 14 days, you can use a pair of clean scissors and cut the suture that is left outside of the skin at the ends of your incision. 1. The small skin tapes can be removed 7 days after surgery if they have not fallen off by that point. 2. You may keep the wound open to air as much as possible to promote healing after post-op day number 5 unless told otherwise by your doctor. 3. If you think the wound looks like it is becoming infected (redness or worsening drainage) and/or you are experiencing fever, chill or worsening back pain and muscle spasms, contact the office so that we may evaluate you as soon as possible. B. Complications are uncommon, but please contact us if you have any signs or symptoms of: 1. wound infection (fever higher than 102.5 degrees F, redness, separation of wound, drainage, or increasing pain from the incision) 2. blood clots in legs (pain, swelling, redness and warmth in legs) 3. urinary tract infection (fever higher than 102.5 degrees F, burning upon urination or increased frequency of urination) 4. nerve problems (inability to walk on your toes or heels, numbness, loss of bowel or bladder control) 5. any other symptoms that concern you C. Please call the office at if you have any concerns or questions about your operation or recovery. D. No smoking! Smoking drastically decreases the chance of a solid fusion. E. Do not take any anti-inflammatory medications (Indocin, Advil, Motrin, Aspirin, Naprosyn, etc.) as these may inhibit the chance of a solid fusion. Tylenol is okay to take for pain. MANAGING PAIN AFTER SPINAL SURGERY 1. Narcotic medication is intended for short-term use and will be provided for surgical pain. Surgical pain usually lasts for a period of 4-6 weeks. Narcotic medication includes Percocet, Vicodin, Darvocet, Tylenol #3 or Lortab. 2. Longer-term pain is more appropriately treated with non-narcotic medication such as Tylenol ES. 3. Muscle spasm is not appropriately treated with narcotics. Muscle relaxers such as Soma, Flexeril or Skelaxin can be used along with Tylenol ES. 4. Remember that we all live with some "aches and pains". This is not unusual or uncommon after an injury or as we get older. a. Back pain is expected and may include muscle spasms for 4 to 6 weeks after surgery. The pain should gradually improve. If the pain worsens for no apparent reason, please contact the office. b. Intermittent leg pain may also be experienced and should not be concerned about unless it worsens for no apparent reason. If so, please contact the office. 5. We will provide appropriate medication within the normal guidelines of their prescribed use. We will also be very cautious and aware of potential abuse and extended duration of patients' medication needs. a. Pain medications are for your comfort and to assist with sleep and rest so that the tissue can heal. They are not provided in order to return to normal activity and should not be used through the day. To do so or worsening pain at night can result from ongoing tissue damage and development of tolerance to the prescribed medicine. 6. Please allow 2-3 days to process refills. Prescriptions will not be mailed but must be picked up at the office. FOLLOW UP VISIT: Keep your scheduled follow-up appointment. Any questions, please call the office at . Pending Studies at Discharge: No Stand-Alone Forms: My Hurricane Party, Opioid Pain Management, Smoking Cessation Medications and DC Order Prescriptions: New oxycodone 5 mg tablet 5 mg PO Q6H PRN (Reason: pain, severe) Qty: 30 RF: 0 tramadol 50 mg tablet 50 mg PO Q6H PRN (Reason: pain, moderate) Qty: 30 RF: 0 Continued (DME) pen needle, diabetic [Lite Touch Insulin Pen [place]] 31 gauge x 3/16" needle See Rx Instructions .ROUTE .MEDSUPPLY Qty: 400 RF: 3 gemfibrozil 600 mg tablet 600 mg PO BID Qty: 180 RF: 3 atorvastatin 20 mg tablet 20 mg PO QPM Qty: 90 RF: 1 gabapentin 300 mg capsule 300 mg PO BID Qty: 180 RF: 3 (DME) pen needle, diabetic [BD Ultra-Fine Mini Pen Needle] 31 gauge x 3/16" needle See Rx Instructions .ROUTE .MEDSUPPLY Qty: 400 RF: 3 isosorbide mononitrate 30 mg tablet extended release 24 hr 30 mg PO QAM Qty: 30 RF: 3 (DME) lancets [OneTouch UltraSoft Lancets] Misc See Dose Instructions .ROUTE .MEDSUPPLY Qty: 400 RF: 3 (DME) OneTouch Ultra Blue Test Strip Strip See Dose Instructions .ROUTE .MEDSUPPLY Qty: 400 RF: 3 prednisone 5 mg tablet 5 mg PO QAM RF: 0 insulin aspart U-100 [Novolog Flexpen U-100 Insulin] 100 unit/mL (3 mL) insulin pen 25 units SQ TIDM RF: 0 furosemide 40 mg tablet 40 mg PO QAM RF: 0 atenolol 100 mg tablet 100 mg PO QAM RF: 0 clopidogrel 75 mg tablet 75 mg PO QAM RF: 0 omeprazole 20 mg capsule,delayed release(DR/EC) 20 mg PO QAM RF: 0 folic acid 1 mg tablet 1 mg PO QAM RF: 0 allopurinol 300 mg tablet 300 mg PO QAM RF: 0 cholecalciferol (vitamin D3) 25 mcg (1,000 unit) capsule 2,000 unit PO QAM RF: 0 Lantus Solostar U-100 Insulin 100 unit/mL (3 mL) insulin pen 30 unit subcut HS RF: 0 Discharge Orders: Discharge Order (Routine); Ordered 01/02/21 Ordered By: Arun Khan Admission Data Admit Date/Time: 12/28/20 13:13 Attending Provider: Skyler Laureano Admit Provider: George Rodriguez Primary Care Provider: Jam Hdez Other Providers: Arun Khan Other Interventions: Discharge Summary Assessment (RN) Last Done: 01/02/21 15:20 Coding Level of Care Code D/C Day Management >30 mins Diagnoses Degeneration of lumbosacral intervertebral disc with acute herniation M51.36; M51.27 Lumbar spinal stenosis M48.061 Intractable low back pain M54.5 Chronic kidney disease, stage 3 (moderate) N18.3 Uncontrolled type 2 diabetes mellitus E11.65 Essential hypertension I10 Hypercholesterolemia E78.00 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 I82.502
== END 2021-01-02 16:01 | disposition home or self-care (01) | DRG 454 ==
LOC: ED 06:39 → 3N 13:13 → SUATTDRO 13:13 → 3N 13:35
DX: D68.51 Activated protein C resistance; K21.9 Gastro-esophageal reflux disease without esophagitis; M48.061 Spinal stenosis, lumbar region without neurogenic claudication; M43.16 Spondylolisthesis, lumbar region; I12.9 Hypertensive chronic kidney disease with stage 1 through stage 4 chronic kidney disease, or unspecified chronic kidney disease; I82.5Z2 Chronic embolism and thrombosis of unspecified deep veins of left distal lower extremity; M51.16 Intervertebral disc disorders with radiculopathy, lumbar region; E11.22 Type 2 diabetes mellitus with diabetic chronic kidney disease; Z87.442 Personal history of urinary calculi; Z83.3 Family history of diabetes mellitus; M10.9 Gout, unspecified; Z86.73 Personal history of transient ischemic attack (TIA), and cerebral infarction without residual deficits; N18.30 Chronic kidney disease, stage 3 unspecified; Z82.3 Family history of stroke; E78.5 Hyperlipidemia, unspecified; E11.51 Type 2 diabetes mellitus with diabetic peripheral angiopathy without gangrene

== ENCOUNTER 2022-10-15 07:38 | Inpatient (IN) ==
--- NOTE | 2022-09-27 09:37 | PAT Medication Instructions ---
Medication Instructions Date of Service September 27, 2022 Home Medications Medication Instructions Recorded BD Ultra-Fine Mini Pen Needle 31 #400 ea 06/07/20 gauge x 3/16" (pen needle, diabetic) lancets (OneTouch UltraSoft #400 ea 12/22/20 Lancets) OneTouch Ultra Blue Test Strip #400 ea 12/23/20 (blood sugar diagnostic) multivitamin 1 tab PO DAILY #30 tabs 11/07/21 atenolol 100 mg tablet 100 mg PO QAM #90 tabs 11/29/21 insulin aspart U-100 100 unit/mL 30 unit (0.3 mL) subcut TIDM #90 mL 02/20/22 (3 mL) subcutaneous pen (Novolog FlexPen U-100 Insulin aspart) omeprazole 20 mg capsule,delayed 20 mg PO QAM #90 caps 02/26/22 release apixaban 5 mg tablet (Eliquis) 5 mg PO BID #180 tabs 05/04/22 folic acid 1 mg tablet 1 mg PO QAM #30 tabs 05/15/22 fluocinolone 0.01 % topical 1 applic topical BID #60 mL 05/22/22 solution gabapentin 300 mg capsule 300 mg PO .COMPLEX #270 caps 05/22/22 amlodipine 2.5 mg tablet 2.5 mg PO DAILY #90 tabs 06/20/22 furosemide 40 mg tablet 40 mg PO QAM #90 tabs 06/28/22 spironolactone 25 mg tablet 25 mg PO DAILY #90 tabs 07/23/22 gemfibrozil 600 mg tablet 600 mg PO BID #180 tabs 09/04/22 atorvastatin 20 mg tablet 20 mg PO QPM #90 tabs 09/21/22 insulin glargine 100 unit/mL (3 30 unit (0.3 mL) subcut HS 90 days 09/21/22 mL) subcutaneous pen (Lantus #30 mL Solostar U-100 Insulin) prednisone 5 mg tablet 5 mg PO QAM allopurinol 300 mg tablet 300 mg PO QAM multivitamin 1 tab PO DAILY atenolol 100 mg tablet 100 mg PO QAM insulin aspart U-100 100 unit/mL (3 mL) subcutaneous pen (Novolog FlexPen U-100 Insulin aspart) 30 unit (0.3 mL) subcut TIDM omeprazole 20 mg capsule,delayed release 20 mg PO QAM apixaban 5 mg tablet (Eliquis) 5 mg PO BID folic acid 1 mg tablet 1 mg PO QAM fluocinolone 0.01 % topical solution 1 applic topical BID gabapentin 300 mg capsule 300 mg PO .COMPLEX amlodipine 2.5 mg tablet 2.5 mg PO DAILY furosemide 40 mg tablet 40 mg PO QAM spironolactone 25 mg tablet 25 mg PO DAILY gemfibrozil 600 mg tablet 600 mg PO BID atorvastatin 20 mg tablet 20 mg PO QPM cholecalciferol (vitamin D3) 125 mcg (5,000 unit) capsule 125 mcg PO QAM insulin glargine 100 unit/mL (3 mL) subcutaneous pen (Lantus Solostar U-100 Insulin) 30 unit (0.3 mL) subcut HS acetaminophen 325 mg tablet (Tylenol) 325 mg PO QID PRN Pain ASK your prescriber and surgeon apixaban 5 mg tablet (Eliquis) 5 mg PO BID STOP taking 48 hours before surgery gemfibrozil 600 mg tablet 600 mg PO BID STOP taking 24 hours before surgery fluocinolone 0.01 % topical solution 1 applic topical BID DO NOT take the morning of surgery multivitamin 1 tab PO DAILY insulin aspart U-100 100 unit/mL (3 mL) subcutaneous pen (Novolog FlexPen U-100 Insulin aspart) 30 unit (0.3 mL) subcut TIDM folic acid 1 mg tablet 1 mg PO QAM furosemide 40 mg tablet 40 mg PO QAM spironolactone 25 mg tablet 25 mg PO DAILY cholecalciferol (vitamin D3) 125 mcg (5,000 unit) capsule 125 mcg PO QAM Take morning of surgery With a small sip of water, OTHERWISE NOTHING TO EAT OR DRINK AFTER MIDNIGHT: prednisone 5 mg tablet 5 mg PO QAM allopurinol 300 mg tablet 300 mg PO QAM atenolol 100 mg tablet 100 mg PO QAM omeprazole 20 mg capsule,delayed release 20 mg PO QAM gabapentin 300 mg capsule 300 mg PO .COMPLEX amlodipine 2.5 mg tablet 2.5 mg PO DAILY acetaminophen 325 mg tablet (Tylenol) 325 mg PO QID PRN Pain (if needed) Take evening before surgery insulin aspart U-100 100 unit/mL (3 mL) subcutaneous pen (Novolog FlexPen U-100 Insulin aspart) 30 unit (0.3 mL) subcut TIDM gabapentin 300 mg capsule 300 mg PO .COMPLEX atorvastatin 20 mg tablet 20 mg PO QPM insulin glargine 100 unit/mL (3 mL) subcutaneous pen (Lantus Solostar U-100 Insulin) 30 unit (0.3 mL) subcut HS acetaminophen 325 mg tablet (Tylenol) 325 mg PO QID PRN Pain (if needed) Other Notes If you have any questions please call us at [phone] or [phone] or [phone] or [phone]
--- NOTE | 2022-10-01 13:56 | Anesthesiology Consultation ---
Date of Service October 01, 2022 Assessment & Plan (1) Encounter for pre-operative examination: - awaiting PCP clearance, optimization form to be faxed to PCP office. - dyspnea, A1c elevated. 2/ PCP office visit scheduled per pt. Tavares with surgeon's office made aware surgery is pending PCP response. - check BSG am DOS. Chart Review Chart Review: Pending: Refer to Additional Notes / Consult section and Patient seen in Pre Admission Testing Teaching & Discussion Pre-Anesthesia Teaching/Discussion Notes: Instructed NPO after midnight before surgery, except medications with 15 cc of water. Medication instructions provided according to the PAT guidelines. History Surgery Operation Date: 10/15/22 07:45 Proposed Procedures p T12-L2 Decompression and Fusion, L3-S1 Hardware Removal, Spinal Cord Monitoring - Arun Khan DO Height/Weight Height: 5 ft 7 in Weight: 109.7 kg Allergies Allergy/AdvReac Type Severity Reaction Status Date / Time ARB-Angiotensin Receptor Allergy Intermediate Nausea Verified 09/21/22 10:54 Antagonist ibuprofen Allergy Mild Blister Verified 09/25/22 11:44 DEYSI Inhibitors AdvReac Mild cough Verified 09/21/22 10:54 Medications Home Medications Medication Instructions Recorded Confirmed Last Taken prednisone 5 mg tablet 5 mg PO QAM 04/29/19 09/25/22 12/09/21 BD Ultra-Fine Mini Pen Needle 31 #400 ea 06/07/20 09/21/22 Unknown gauge x 3/16" (pen needle, diabetic) allopurinol 300 mg tablet 300 mg PO QAM 12/14/20 09/25/22 12/09/21 lancets (OneTouch UltraSoft #400 ea 12/22/20 09/21/22 Unknown Lancets) OneTouch Ultra Blue Test Strip #400 ea 12/23/20 09/21/22 Unknown (blood sugar diagnostic) multivitamin 1 tab PO DAILY #30 tabs 11/07/21 09/25/22 12/09/21 atenolol 100 mg tablet 100 mg PO QAM #90 tabs 11/29/21 09/25/22 12/09/21 insulin aspart U-100 100 unit/mL 30 unit (0.3 mL) subcut TIDM #90 mL 02/20/22 09/25/22 Unknown (3 mL) subcutaneous pen (Novolog FlexPen U-100 Insulin aspart) omeprazole 20 mg capsule,delayed 20 mg PO QAM #90 caps 02/26/22 09/25/22 Unknown release apixaban 5 mg tablet (Eliquis) 5 mg PO BID #180 tabs 05/04/22 09/25/22 Unknown folic acid 1 mg tablet 1 mg PO QAM #30 tabs 05/15/22 09/25/22 Unknown fluocinolone 0.01 % topical 1 applic topical BID #60 mL 05/22/22 09/25/22 Unknown solution gabapentin 300 mg capsule 300 mg PO .COMPLEX #270 caps 05/22/22 09/25/22 Unknown amlodipine 2.5 mg tablet 2.5 mg PO DAILY #90 tabs 06/20/22 09/25/22 Unknown furosemide 40 mg tablet 40 mg PO QAM #90 tabs 06/28/22 09/25/22 Unknown spironolactone 25 mg tablet 25 mg PO DAILY #90 tabs 07/23/22 09/25/22 Unknown gemfibrozil 600 mg tablet 600 mg PO BID #180 tabs 09/04/22 09/25/22 Unknown atorvastatin 20 mg tablet 20 mg PO QPM #90 tabs 09/21/22 09/25/22 Unknown cholecalciferol (vitamin D3) 125 125 mcg PO QAM 09/21/22 09/25/22 Unknown mcg (5,000 unit) capsule insulin glargine 100 unit/mL (3 30 unit (0.3 mL) subcut HS 90 days 09/21/22 09/25/22 Unknown mL) subcutaneous pen (Lantus #30 mL Solostar U-100 Insulin) acetaminophen 325 mg tablet 325 mg PO QID PRN Pain 09/25/22 09/25/22 Unknown (Tylenol) clopidogrel 75 mg tablet (Plavix) 75 mg PO DAILY 10/01/22 10/01/22 Unknown isosorbide mononitrate 30 mg PO QAM 10/01/22 10/01/22 Unknown simvastatin 20 mg tablet 20 mg PO HS 10/01/22 10/01/22 Unknown Additional Notes: Pt states is also on Plavix 75 mg, atorvastatin, and isosorbide mononitrate. This was added to EMR and written on provided medication instructions in appropriate sections: to check with prescriber and surgeon on Plavix, to continue isosorbide mononitrate morning of surgery. He was advised to check if with his PCP if he is still on atorvastatin and simvastatin. He verbalized full understanding and agreement, denied questions, concerns or additional medications or supplements. Past Medical History Medical History (Updated 10/01/22 @ 14:20 by Aminata Rivero PA-C) 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 states ~35 yrs ago- was hospitalized, no issues since Chronic gout Chronic kidney disease, stage 3 (moderate) Diabetes mellitus, type 2 IDDM Diabetic nephropathy follows with [facility] Diabetic peripheral neuropathy feet and hands Diverticulitis of colon hx Dyspnea occasionally, with stairs or incline, ongoing x several yrs, denies change or worsening, follows with PCP Essential hypertension controlled, stable per pt Factor V Leiden mutation plavix daily GERD (gastroesophageal reflux disease) controlled, stable per pt H/O proctoscopy History of balanitis Hypercholesterolemia Kidney stones hx Lumbar spondylosis Myalgia and myositis Pulmonary emboli noted as likely chronic on 12/22 chest CTA Sciatica Transient ischemic attack (TIA) (~2012) no deficits Patient denies h/o seizures, heart attack, heart failure, or blood transfusions. Exercise / Class Metabolic Activity III < 4 Walking/Shop/Light housework (occasional dyspnea with inclines or stairs, ongoing x several yrs, denies change or worsening; denies chest dis comfort; ambulates with cane) Past Family History Family History Father Colon cancer Diabetes Myocardial infarction Mother Diabetes Sister Breast cancer Brother Brain cancer Stroke Other No family history of adverse response to anesthesia Denies family history of Ovarian cancer Prostate cancer Lung cancer Past Surgical History Surgical History (Updated 10/01/22 @ 14:28 by Aminata Rivero PA-C) H/O colonoscopy H/O repair of rotator cuff right x1 and left x2 History of cataract surgery bilateral History of colon resection r/t perforated diverticuliti History of cystoscopy with ureter stent History of dilation of urethra History of lumbar discectomy 12/30/2021 Grade 2 view, MAC 3, ETT 7.5. History of rectopexy laparoscopic with sigmoid resection --- patient unsure??? Past Anesthesia History No Hx of Anesthesia Complications and No Family Hx of Anesthesia Complications History of PONV History of PONV (denies needing scop patch) and Hx of Motion Sickness Social History Smoking Status: Never smoker tobacco type: cigarettes Smoking cigarettes per day: 20 a day for 16 years Do You Dip or Chew Tobacco: No Hx Alcohol Use: No Hx Substance Use: No substance use type: does not use Review of Systems Snoring, denies witnessed apneas. Patient denies chest pain, fever, chills, cough, wheezing, or palpitations. Physical Exam Vital Signs Vitals BP 160/91 P 68 TEMP 98.3 SP02 97% on RA RESP 18 Physical Full cervical extension range of motion without pain TMD 3.5 finger breadths Mallampati Score 2 Dentition: intact, denies chipped or loose teeth, caps/crowns, implants or bridges Lungs: normal respiratory effort. Clear throughout to auscultation, no adventitious breath sounds Cardiac: regular rate and rhythm, no murmurs noted Carotid arteries: negative bruit bilat Lab Results Anesthesia Preop Results Results Anesthesia Widget: WBC 9.52 K/ul (4.8-10.8) 10/01/22 Hgb 12.7 g/dl (14.0-18.0) L 10/01/22 Hct 38.6 % (42.0-52.0) L 10/01/22 Plt 279 K/uL (130-400) 10/01/22 Na 140 mmol/L (136-145) 10/01/22 K 4.7 mmol/L (3.5-5.1) 10/01/22 Cl 107 mmol/L (98-107) 10/01/22 CO2 23 mmol/L (21-32) 10/01/22 BUN 44 mg/dl (6-23) H 10/01/22 Creat 2.10 mg/dl (0.6-1.4) H 10/01/22 Glucose Level 194 mg/dl (70-99(Fasting)) H 10/01/22 PT 11.3 Seconds (9.0-12.0) 10/01/22 PTT 36.7 Seconds (21.0-31.0) H 10/01/22 INR 1.1 (0.9-1.1) 10/01/22 TSH 2.356 uIu/ml (0.300-4.500) 09/10/22 HA1c 7.8 % (4.5-5.6) H 09/10/22 Urine Color Yellow 10/01/22 Urine Appearance Clear (Clear) 10/01/22 Urine pH 5.5 (4.5-7.5) 10/01/22 Urine Specific [place] 1.012 (1.000-1.030) 10/01/22 Urine Protein 3+ (Negative) H 10/01/22 Urine Glucose (UA) Negative (Negative) 10/01/22 Urine Ketones Negative (Negative) 10/01/22 Urine Blood Negative (Negative) 10/01/22 Urine Nitrite Negative (Negative) 10/01/22 Urine Bilirubin Negative (Negative) 10/01/22 Urine Urobilinogen Negative (Negative) 10/01/22 Urine Leukocyte Esterase Negative (Negative) 10/01/22 Urine WBC (Auto) 5-10 /hpf (0-5) H 10/01/22 Urine RBC (Auto) 10-30 /hpf (0-4) H 10/01/22 Urine Hyaline Casts (Auto) 1-5 /lpf (0-5) 10/01/22 Urine Epithelial Cells (Auto) 0-5 /lpf (0-5) 10/01/22 Urine Bacteria (Auto) Negative (Negative) 10/01/22 Blood Type A Positive 10/01/22 Antibody Screen NEGATIVE 10/01/22 Testing Electrocardiogram Date: 12/09/21 Sinus rhythm with PACs, rate 75 bpm Other Testing Chest CTA 12/09/21 1. There is a small nonocclusive linear filling defect seen within the superior segmental pulmonary artery of the right lower lobe consistent with a small nonocclusive pulmonary embolus. This is age-indeterminate but favors a chronic embolus. No additional filling defects within the remaining pulmonary arteries. 2. No focal lung consolidations. 3. Mild cardiomegaly. Doppler study 12/09/21 bilat LE 1. No acute DVT within the right or left lower extremity. 2. No change in the chronic left popliteal nonocclusive deep vein thrombosis. COVID-19 Risk Screen Screening Information COVID-19 Screen Date: 10/01/22 Exposure 21 Days Family/Household +COVID Last 21 Days: No Exposure 10 Days Any COVID Exposure Last 10 Days: No Symptoms Last 10 Days Experienced COVID Sx Last 10 Days: No + COVID 0-90 Days COVID + in Last 0-90 Days: No
[~2022-10-15 07:38] MED LIST changes: +ACETAMINOPHEN 500 MG TAB PO SCH; -ALL300 PO; -ATEN100T PO; -CLOP1TAB54 PO; +CeleBREX 200 MG CAP PO SCH; -ERGO500037 PO; -FLV1 PO; -GABA-1219 PO; +GABAPENTIN 300 MG CAP PO SCH; -INSDGIPEN SC; -ISOS-11 PO; -LPD600 PO; +LR 15ML/HR IV SCH; -LSX40 PO; -NVLGI/PEN SC; -NVLGIPEN SC; -OMEP20CA9 PO; -PRED-301 PO; -SIMV-151 PO; +ceFAZolin 2000MG 2,000 MG/15 ML SYR IV SCH
[2022-10-15] MEDS ORDERED: ROCURONIUM BROMIDE 10 MG/ML 5 ML VIAL IV ONE ×4 (08:55→10:36)
[2022-10-15] MEDS ORDERED: LIDOCAINE 2% MPF LOCAL 5 ML VIAL INFIL ONE (08:55)
[2022-10-15] MEDS ORDERED: fentaNYL citrate PF 100 MCG/2 ML VIAL ONE ×2 (08:55→10:46)
[2022-10-15] MEDS ORDERED: MIDAZOLAM HCL 1 MG/ML 2ML VIAL ONE (08:55)
[2022-10-15] MEDS ORDERED: PROPOFOL IV EMULSION 10 MG/ML 20 ML VIAL IV ONE (08:55)
[2022-10-15] MEDS ORDERED: KETAMINE 50 MG/5 ML SYRINGE ONE (08:56)
--- NOTE | 2022-10-15 09:37 | History & Physical Bridge Note ---
Date of Service October 15, 2022 History & Physical Bridge Note I have examined the patient, reviewed the History & Physical and in the interval since the performance of the History & Physical I have noted the following changes of clinical significance: no changes noted
--- NOTE | 2022-10-15 09:38 | History & Physical Report ---
Date of Service October 15, 2022 Assessment & Plan (1) Lumbar spinal stenosis: Plan: Lumbar decompression L1-L3, lumbar fusion T12-L3, hardware removal L3-S1. History of Present Illness Chief Complaint: Back and leg pain Primary Care Provider: Jam Hdez MD This is a 67-year-old male who presents with chronic persistent back and leg pain after failing course of nonoperative care is here for surgical invention. Allergies Allergy/AdvReac Type Severity Reaction Status Date / Time ARB-Angiotensin Receptor Allergy Intermediate Nausea Verified 10/15/22 08:33 Antagonist ibuprofen Allergy Mild Blister Verified 10/15/22 08:33 DEYSI Inhibitors AdvReac Mild cough Verified 10/15/22 08:33 Home Medications Medication Instructions Recorded Confirmed Type prednisone 5 mg tablet 5 mg PO QAM 04/29/19 10/15/22 History BD Ultra-Fine Mini Pen Needle 31 #400 ea 06/07/20 10/03/22 Rx gauge x 3/16" (pen needle, diabetic) allopurinol 300 mg tablet 300 mg PO QAM 12/14/20 10/15/22 History lancets (OneTouch UltraSoft #400 ea 12/22/20 10/03/22 Rx Lancets) OneTouch Ultra Blue Test Strip #400 ea 12/23/20 10/03/22 Rx (blood sugar diagnostic) multivitamin 1 tab PO DAILY #30 tabs 11/07/21 10/15/22 Rx atenolol 100 mg tablet 100 mg PO QAM #90 tabs 11/29/21 10/15/22 Rx insulin aspart U-100 100 unit/mL 30 unit (0.3 mL) subcut TIDM #90 mL 02/20/22 10/15/22 Rx (3 mL) subcutaneous pen (Novolog FlexPen U-100 Insulin aspart) omeprazole 20 mg capsule,delayed 20 mg PO QAM #90 caps 02/26/22 10/15/22 Rx release apixaban 5 mg tablet (Eliquis) 5 mg PO BID #180 tabs 05/04/22 10/15/22 Rx fluocinolone 0.01 % topical 1 applic topical BID #60 mL 05/22/22 10/15/22 Rx solution gabapentin 300 mg capsule 300 mg PO .COMPLEX #270 caps 05/22/22 10/15/22 Rx amlodipine 2.5 mg tablet 2.5 mg PO DAILY #90 tabs 06/20/22 10/15/22 Rx furosemide 40 mg tablet 40 mg PO QAM #90 tabs 06/28/22 10/15/22 Rx spironolactone 25 mg tablet 25 mg PO DAILY #90 tabs 07/23/22 10/15/22 Rx gemfibrozil 600 mg tablet 600 mg PO BID #180 tabs 09/04/22 10/15/22 Rx atorvastatin 20 mg tablet 20 mg PO QPM #90 tabs 09/21/22 10/15/22 Rx cholecalciferol (vitamin D3) 125 125 mcg PO QAM 09/21/22 10/15/22 History mcg (5,000 unit) capsule insulin glargine 100 unit/mL (3 30 unit (0.3 mL) subcut HS 90 days 09/21/22 10/15/22 Rx mL) subcutaneous pen (Lantus #30 mL Solostar U-100 Insulin) acetaminophen 325 mg tablet 325 mg PO QID PRN Pain 09/25/22 10/15/22 History (Tylenol) isosorbide mononitrate 30 mg PO QAM 10/01/22 10/15/22 History folic acid 1 mg tablet 1 mg PO QAM #30 tabs 10/08/22 10/15/22 Rx Past Med/Surg History Medical History 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 states ~35 yrs ago- was hospitalized, no issues since Chronic gout Chronic kidney disease, stage 3 (moderate) Diabetes mellitus, type 2 IDDM Diabetic nephropathy follows with [place] nephrology and endocrinology Diabetic peripheral neuropathy feet and hands Diverticulitis of colon hx Dyspnea occasionally, with stairs or incline, ongoing x several yrs, denies change or worsening, follows with PCP Essential hypertension controlled, stable per pt Factor V Leiden mutation plavix daily GERD (gastroesophageal reflux disease) controlled, stable per pt H/O proctoscopy History of balanitis Hypercholesterolemia Kidney stones hx Lumbar spondylosis Myalgia and myositis Pulmonary emboli noted as likely chronic on 12/22 chest CTA Sciatica Transient ischemic attack (TIA) (~2012) no deficits Surgical History H/O colonoscopy H/O repair of rotator cuff right x1 and left x2 History of cataract surgery bilateral History of colon resection r/t perforated diverticuliti History of cystoscopy with ureter stent History of dilation of urethra History of lumbar discectomy 12/30/2021 Grade 2 view, MAC 3, ETT 7.5. History of rectopexy laparoscopic with sigmoid resection --- patient unsure??? Family History Father Colon cancer Diabetes Myocardial infarction Mother Diabetes Sister Breast cancer Brother Brain cancer Stroke Other No family history of adverse response to anesthesia Denies family history of Ovarian cancer Prostate cancer Lung cancer Social History Smoking Status: Former smoker Tobacco Type: Cigarettes Age Started Using Tobacco: 14; Age Quit Using Tobacco: 30; packs per day: 1; Cigarettes Per Day: 20 a day for 16 years; Second Hand Exposure: No; Do You Dip or Chew Tobacco: No; Tobacco Cessation Education Requested by Patient: No Hx Alcohol Use: No Hx Substance Use: No Preferred Language: Nigerian Communication Ability: Effective Visual Impairment: No Limitations Hearing Ability: Normal Transport Truck Driver Required: No Beliefs That Will Affect Care: None marital status: Current Living Situation: Spouse current occupational status: retired 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) Vital Signs (Past 12 Hours) Vital Signs Temp Pulse Resp BP Pulse Ox O2 Del Method 10/15/22 08:27 37.1 C 65 20 145/86 H 96 Room Air
[2022-10-15] MEDS ORDERED: ePHEDrine sulfate 50 MG/ML AMP IV PRN (09:41)
[2022-10-15] MEDS ORDERED: HYDROmorphone INJ 2 MG/ML SYR/VIAL IV PRN (09:41)
[2022-10-15] MEDS ORDERED: ATROPINE SULFATE 0.1 MG/ML 10ML SYR IV PRN (09:41)
[2022-10-15] MEDS ORDERED: ONDANSETRON INJ 2 MG/ML 2 ML VIAL IV PRN (09:41)
[2022-10-15] MEDS ORDERED: fentaNYL citrate PF 100 MCG/2 ML VIAL IV PRN (09:41)
[2022-10-15] MEDS ORDERED: ALBUMIN HUMAN 5% 12.5 GM/250 ML VIAL IV ONE (09:53)
[2022-10-15] MEDS ORDERED: FAMOTIDINE/PF 20 MG/2 ML VIAL IV ONE (09:53)
[2022-10-15] MEDS ORDERED: ceFAZolin 330 MG/ML 1 GM VIAL ONE (09:55)
[2022-10-15] MEDS ORDERED: BUPIVACAINE/EPINEPHRINE 0.5% MPF 1:200,000 30 ML VIAL ONE (09:55)
[2022-10-15] MEDS ORDERED: FLOSEAL HEMOSTATIC MATRIX 10ML TOP ONE (11:02)
[2022-10-15] MEDS ORDERED: ePHEDrine sulfate 50 MG/ML AMP ONE (12:11)
[2022-10-15] MEDS ORDERED: DEXAMETHASONE SOD INJ 4 MG/ML VIAL ONE (12:11)
[2022-10-15] MEDS ORDERED: HYDROmorphone INJ 2 MG/ML SYR/VIAL ONE (12:11)
[2022-10-15] MEDS ORDERED: ONDANSETRON INJ 2 MG/ML 2 ML VIAL ONE (12:11)
[2022-10-15] MEDS ORDERED: SUGAMMADEX SODIUM 200 MG/2 ML VIAL IV ONE (12:37)
--- NOTE | 2022-10-15 12:53 | Operative Report ---
Post Operative Report Pre & Post Diagnosis Operation Date: 10/15/22 09:35 Pre-Op Diagnosis: Lumbar spinal stenosis with neurogenic claudication Post-Op Diagnosis: Same I identified the patient and participated in the time-out.: Yes Procedure Operation Date: 10/15/22 09:35 Actual Procedures #1 removal of posterior instrumentation L3-S1. #2 exploration of fusion L3-S1. #3 lumbar decompression with bilateral medial facetectomies and foraminotomies T12-L1, L1-L2 and L2-L3. #4 posterior spinal fusion T12-L3. #5 placement posterior instrumentation T12-S1. #6 interbody fusion L2-L3. #7 placement of Spira 10 x 26 mm at L2-L3. #8 placement locally harvested morselized autograft in the posterior gutters. 9 placement of I factor in the interbody spaces and infuse sponges sponge from mass graft in the posterior gutters T12-L3. Surgeon Arun Khan, DO Motor Vehicle Light Assembler Rain Mcpherson Estimated Blood Loss 850 Findings See Below Patient is 5 foot 7 weighing over 109 kg with a BMI in excess of 37. This combined with an EBL of greater than 800 cc created significant technical difficulty. This at least 50% increased operative time. Specimens None Indications This is a 67-year-old male who presents above-mentioned diagnosis after failing course of nonoperative care is here for surgical intervention. Description of Procedure Patient is met with identified informed consent obtained. Patient was then taken to the operative suite underwent ablation placed in a prone position on the [place] table top [place] frame. All bony promises well-padded eyes inspected to ensure no external pressure placed upon the. This point lumbar spine was prepped and draped in normal sterile fashion. Sharp dissection with the assistance of Bovie cautery was then performed down to and exposing the lamina and transverse processes of T12 L1-L2 and the instrumentation at L3-S1 bilaterally. And then proceeded move the hardware bilaterally noting the fusion mass to be mature and intact. There was a fractured S1 pedicle screw on the left noted. The fusion mass was again intact. Informed complete laminectomy of L2 L1 and partial laminectomy of T12 including bilateral medial facetectomies and foraminotomies addressing severe spinal stenosis. Pedicle screws then placed in T12 L1-L2 L3-L4-L5 and S1 levels proper sized nery was then contoured and placed. By way of a transforaminal approach and right complete discectomy of L2-L3 was performed endplates curetted to subcortical any bone and a 10 x 26 mm Spira cage filled with I factor tapped in position. The rods were then locked in final position bilaterally. The transverse processes of T12 L1-L2-L3 burred to subcortical being bone. Infuse collagen sponge combined with V toss and locally harvested morselized autograft was then placed in the posterior gutters. 15 round [place] drain inserted. Incision was then closed with 1 Vicryl to fascia 2-0 Vicryl subcutaneously and 4 Monocryl for final skin closure. Steri- Strips dressings placed. Patient awakened taken to PACU in stable condition. Please note spinal cord monitoring was utilized at the procedure no changes noted. Lastly Rain Mcpherson was present at the entire procedure involved patient positioning complex portions of the surgery and final skin closure. I attest to the content of the Intraoperative Record and any orders documented therein. Any exceptions are noted below.
--- NOTE | 2022-10-15 13:23 | Fluoroscopy Report ---
FL lumbar spine 2-3V CLINICAL HISTORY: T12-L2 D/F, L3-S1 hardware removal TECHNIQUE: 4 views were obtained with the C-arm in the OR with the above procedure. Total fluoroscopy time was 24.1 seconds. Radiation dose was 20.02 mGy. Comparison: Comparison is made to lumbar spine radiographs 12/30/2020 FINDINGS/IMPRESSION: Intraoperative images were obtained of T12-L2 discectomy and fusion with removal or replacement of L3-S1 hardware. Please correlate with intraoperative fluoroscopy and operative report. ACT 112: Negative or not required by law. Electronically signed by: Keyur Helms M.D. 10/15/2022 1:22 PM
--- NOTE | 2022-10-15 14:30 | Anesthesiology Progress Note ---
Date of Service October 15, 2022 Anesthesia Post Procedure Vital Signs Vital Signs: Temp Pulse Pulse Resp BP Pulse Ox O2 Del Method 10/15/22 14:20 73 14 151/89 H 95 Nasal Cannula 10/15/22 14:10 73 13 151/86 H 94 Nasal Cannula 10/15/22 13:40 77 10 L 179/98 H 97 Oxymask 10/15/22 14:00 36.2 C L 75 12 179/96 H 94 Oxymask 10/15/22 13:50 74 12 167/95 H 97 Oxymask 10/15/22 13:30 76 8 L 156/96 H 97 Oxymask 10/15/22 13:22 36 C L 78 22 172/99 H 97 Oxymask 10/15/22 08:27 37.1 C 65 20 145/86 H 96 Room Air O2 Flow Rate 10/15/22 14:20 2 10/15/22 14:10 2 10/15/22 13:40 5 10/15/22 14:00 2 10/15/22 13:50 5 10/15/22 13:30 5 10/15/22 13:22 5 10/15/22 08:27 Transfer of Care Handoff Completed per policy Notes Mental Status: alert / awake / arousable Patient Amnestic to Procedure: Yes Nausea / Vomiting: adequately controlled Pain: adequately controlled Airway Patency, RR, SpO2: stable & adequate BP & HR: stable & adequate Hydration State: stable & adequate Anesthetic Complications: no major complications apparent
[2022-10-15] MEDS ORDERED: LORazepam 0.5 MG TAB PO PRN (14:51)
[2022-10-15] MEDS ORDERED: ALUMINUM/MAGNESIUM SUSP 30 ML UDC PO PRN (14:51)
[2022-10-15] MEDS ORDERED: GABAPENTIN 300 MG CAP PO SCH (14:51)
[2022-10-15] MEDS ORDERED: MAGNESIUM HYDROXIDE SUSP 30 ML UDC PO PRN (14:51)
[2022-10-15] MEDS ORDERED: FAMOTIDINE 20 MG TAB PO PRN (14:51)
[2022-10-15] MEDS ORDERED: SOD PHOSPHATE/SOD BIPHOSPHATE ENEMA 132 ML BTL PR PRN (14:51)
[2022-10-15] MEDS ORDERED: HYDROmorphone INJ 0.5 MG/0.5 ML SYR IV PRN (14:51)
[2022-10-15] MEDS ORDERED: DO NOT ADMINISTER FLU VACCINE PRN (14:51)
[2022-10-15] MEDS ORDERED: NALOXONE HCL 0.4 MG/1 ML VIAL/CARP IV PRN (14:51)
[2022-10-15] MEDS ORDERED: ACETAMINOPHEN 1,000 MG/100 ML VIAL IV PRN (14:51)
[2022-10-15] MEDS ORDERED: PHARMACY GLYCEMIC MGMT CONSULT PRN (14:51)
[2022-10-15] MEDS ORDERED: PROMETHAZINE HCL 12.5 MG in SODIUM CHLORIDE 0.9% 50 ML IV PRN (14:51)
[2022-10-15] MEDS ORDERED: DO NOT ADMINISTER PNEUMOCOCCAL VACCINE PRN (14:51)
[2022-10-15] MEDS ORDERED: HYDROmorphone INJ 1 MG/ML SYRINGE IV PRN (14:51)
[2022-10-15] MEDS ORDERED: hydrOXYzine HCl 25 MG TAB PO PRN (14:51)
[2022-10-15] MEDS ORDERED: LORazepam 2 MG/1 ML VIAL IV PRN (14:51)
[2022-10-15] MEDS ORDERED: ONDANSETRON 4 MG OD TAB PO PRN (14:51)
[2022-10-15] MEDS ORDERED: diphenhydrAMINE Capsule 25 MG CAP PO PRN (14:51)
[2022-10-15] MEDS ORDERED: oxyCODONE HCL IR 5 MG TAB (IMMEDIATE RELEASE) PO PRN (14:51)
[2022-10-15] MEDS ORDERED: bisacodyL 10 MG SUPP PR PRN (14:51)
[2022-10-15] MEDS: SODIUM CHLORIDE 0.9% 1000ML 1,000 ML IV SCH ×2 (15:10→22:08)
--- NOTE | 2022-10-15 15:26 | Hospitalist Consultation ---
Date of Consultation October 15, 2022 Assessment & Plan (1) Lumbar spinal stenosis: S/P Lumbar decompression L1L3, fusion T12-L3, Hardware removalL3 S1 with an EBL>800cc earlier today with Dr Khan Pain management per primary service (2) Uncontrolled type 2 diabetes mellitus: Last HgbA1C Sep was 7.8 Patient on Insulin sliding scale at home and Lantus 30 Units at night Primary team consulted pharmacy for glycemic control (3) Chronic kidney disease, stage 3 (moderate): Patient follows with Nephrology Dr Cano Baseline Cr 1.9 to 2.1 range Check AM labs Continue on Atenolol, Amlodipine, Spironolactone, Isosorbide and furosemide (-did not tolerate DEYSI due to cough and ARB due to N/V and refused SGLT2i) (4) Diabetic nephropathy: As above under #3 (5) Essential hypertension: Stable Continue Amlodipine 25 mg, Atenolol 100mg, Isosorbide 30mg, Lasix 40mg and spironolactone 25mg (6) Hypercholesterolemia: Continue Gemfibrozil and Atorvastatin (7) Factor V Leiden mutation: Had been on Eliquis 5mg BID, last dose was evening of 10/11/22 Currently with KAY stocking and SCDs Restart Eliquis when ok with surgeon (8) Anemia: Baseline Hgb 11-12 Hgb preoperatively was 12.7 AM labs (9) Chronic gout: Allopurinol 300mg Plan Patent is Full Code Eliquis held KAY stockings and SCDs PT/OT consults placed pharmacy consulted for glycemic control Will have clears and advance to DM diet when awake and recovers from anesthesia Supervising Physician Co-Signing Physician Notes During face to face encounter I obtained a physical examination and a history of current problem. Patient was admitted for lumbar stenosis and primary service consulted hospitalist team. Patient has history of diabetes type II. Place on short acting insulin and lantus as above. I reviewed above note and agree with it. I discussed plan of care with ISAAC Acosta and patient. History of Present Illness Reason for Consultation: Medical management Requesting Physician: Dr. Arun Khan Attending Physician: Arun Khan, DO History of Present Illness This is a 67 year old male with a past medical history of HTN, HLD, uncontrolled DMII on insulin with diabetic nephropathy, CKD stage 3, chronic anemia, vitamin D deficiency, GERD, obesity, lumbar spinal stenosis, gout and autoimmune inflammatory arthritis. Patient is s/p Lumbar decompression L1L3, fusion T12- L3, Hardware removalL3 S1 with an EBL>800cc. Orthopedic surgery consult hospitalists for medical management. Patient denies any chest pain, SOB, nausea, vomiting or abdominal pain. His only complaint currently is being tired secondary to the anesthesia post operatively. He also has a hx of diverticular disease with a bleed and last colo was in 2020. He denies any rectal bleeding or constipation. Patient denies any snoring or history of sleep apnea. Allergies Allergy/AdvReac Type Severity Reaction Status Date / Time ARB-Angiotensin Receptor Allergy Intermediate Nausea Verified 10/15/22 08:33 Antagonist ibuprofen Allergy Mild Blister Verified 10/15/22 08:33 DEYSI Inhibitors AdvReac Mild cough Verified 10/15/22 08:33 Home Medications Medication Instructions Recorded Confirmed Type prednisone 5 mg tablet 5 mg PO QAM 04/29/19 10/15/22 History BD Ultra-Fine Mini Pen Needle 31 #400 ea 06/07/20 10/03/22 Rx gauge x 3/16" (pen needle, diabetic) allopurinol 300 mg tablet 300 mg PO QAM 12/14/20 10/15/22 History lancets (OneTouch UltraSoft #400 ea 12/22/20 10/03/22 Rx Lancets) OneTouch Ultra Blue Test Strip #400 ea 12/23/20 10/03/22 Rx (blood sugar diagnostic) multivitamin 1 tab PO DAILY #30 tabs 11/07/21 10/15/22 Rx atenolol 100 mg tablet 100 mg PO QAM #90 tabs 11/29/21 10/15/22 Rx insulin aspart U-100 100 unit/mL 30 unit (0.3 mL) subcut TIDM #90 mL 02/20/22 10/15/22 Rx (3 mL) subcutaneous pen (Novolog FlexPen U-100 Insulin aspart) omeprazole 20 mg capsule,delayed 20 mg PO QAM #90 caps 02/26/22 10/15/22 Rx release apixaban 5 mg tablet (Eliquis) 5 mg PO BID #180 tabs 05/04/22 10/15/22 Rx fluocinolone 0.01 % topical 1 applic topical BID #60 mL 05/22/22 10/15/22 Rx solution gabapentin 300 mg capsule 300 mg PO .COMPLEX #270 caps 05/22/22 10/15/22 Rx amlodipine 2.5 mg tablet 2.5 mg PO DAILY #90 tabs 06/20/22 10/15/22 Rx furosemide 40 mg tablet 40 mg PO QAM #90 tabs 06/28/22 10/15/22 Rx spironolactone 25 mg tablet 25 mg PO DAILY #90 tabs 07/23/22 10/15/22 Rx gemfibrozil 600 mg tablet 600 mg PO BID #180 tabs 09/04/22 10/15/22 Rx atorvastatin 20 mg tablet 20 mg PO QPM #90 tabs 09/21/22 10/15/22 Rx cholecalciferol (vitamin D3) 125 125 mcg PO QAM 09/21/22 10/15/22 History mcg (5,000 unit) capsule insulin glargine 100 unit/mL (3 30 unit (0.3 mL) subcut HS 90 days 09/21/22 10/15/22 Rx mL) subcutaneous pen (Lantus #30 mL Solostar U-100 Insulin) acetaminophen 325 mg tablet 325 mg PO QID PRN Pain 09/25/22 10/15/22 History (Tylenol) isosorbide mononitrate 30 mg PO QAM 10/01/22 10/15/22 History folic acid 1 mg tablet 1 mg PO QAM #30 tabs 10/08/22 10/15/22 Rx oxycodone 5 mg tablet 5 mg PO Q6H PRN pain, severe #30 10/16/22 Rx tabs tramadol 50 mg tablet 50 mg PO Q6H PRN pain, moderate 10/16/22 Rx #30 tabs Patient History Medical History 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 states ~35 yrs ago- was hospitalized, no issues since Chronic gout Chronic kidney disease, stage 3 (moderate) Diabetes mellitus, type 2 IDDM Diabetic nephropathy follows with [facility] Diabetic peripheral neuropathy feet and hands Diverticulitis of colon hx Dyspnea occasionally, with stairs or incline, ongoing x several yrs, denies change or worsening, follows with PCP Essential hypertension controlled, stable per pt Factor V Leiden mutation plavix daily GERD (gastroesophageal reflux disease) controlled, stable per pt H/O proctoscopy History of balanitis Hypercholesterolemia Kidney stones hx Lumbar spondylosis Myalgia and myositis Pulmonary emboli noted as likely chronic on 12/22 chest CTA Sciatica Transient ischemic attack (TIA) (~2012) no deficits Surgical History H/O colonoscopy H/O repair of rotator cuff right x1 and left x2 History of cataract surgery bilateral History of colon resection r/t perforated diverticuliti History of cystoscopy with ureter stent History of dilation of urethra History of lumbar discectomy 12/30/2021 Grade 2 view, MAC 3, ETT 7.5. History of rectopexy laparoscopic with sigmoid resection --- patient unsure??? Family History Father Colon cancer Diabetes Myocardial infarction Mother Diabetes Sister Breast cancer Brother Brain cancer Stroke Other No family history of adverse response to anesthesia Denies family history of Ovarian cancer Prostate cancer Lung cancer Social History Smoking Status: Never smoker Tobacco Type: Cigarettes Age Started Using Tobacco: 14; Age Quit Using Tobacco: 30; packs per day: 1; Cigarettes Per Day: 20 a day for 16 years; Second Hand Exposure: No; Hx Alcohol Use: No Hx Substance Use: No Preferred Language: [place]ese Communication Ability: Effective Visual Impairment: No Limitations Hearing Ability: Normal Marketing Strategy Lead Required: No Beliefs That Will Affect Care: None marital status: Current Living Situation: Spouse current occupational status: retired 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 Physical Exam Constitutional: WD/WN, vitals as above Neck: trachea midline, no thyromegaly Respiratory: normal respiratory effort, lungs clear to auscultation Cardiovascular: Rate/Rhythm: regular rate and regular rhythm Heart Sounds: normal S1 and normal S2; no murmur Extremities: no calf tenderness and no edema Gastrointestinal (Abdomen): normal bowel sounds, soft, nontender, no hepatosplenomegaly Psychiatric: A+Ox3, euthymic affect Results & Data Results & Data ([facility]) Vital Signs (Past 12 Hours) Vital Signs Temp Pulse Pulse Resp BP Pulse Ox O2 Del Method 10/15/22 14:35 Nasal Cannula 10/15/22 14:35 36.9 C 76 14 180/92 H 96 Nasal Cannula 10/15/22 14:20 73 14 151/89 H 95 Nasal Cannula 10/15/22 14:10 73 13 151/86 H 94 Nasal Cannula 10/15/22 13:40 77 10 L 179/98 H 97 Oxymask 10/15/22 14:00 36.2 C L 75 12 179/96 H 94 Oxymask 10/15/22 13:50 74 12 167/95 H 97 Oxymask 10/15/22 13:30 76 8 L 156/96 H 97 Oxymask 10/15/22 13:22 36 C L 78 22 172/99 H 97 Oxymask 10/15/22 08:27 37.1 C 65 20 145/86 H 96 Room Air O2 Flow Rate 10/15/22 14:35 2 10/15/22 14:35 2 10/15/22 14:20 2 10/15/22 14:10 2 10/15/22 13:40 5 10/15/22 14:00 2 10/15/22 13:50 5 10/15/22 13:30 5 10/15/22 13:22 5 10/15/22 08:27 Laboratory Results Abnormal lab results 10/15/22 10/15/22 10/15/22 Range/Units 08:20 08:22 13:26 POC Glucose 215 H 250 H (70-99) mg/dl Crossmatch See Detail Diagnostic Findings Lumbar Spine X-Ray 10/15/22 00:00 FL lumbar spine 2-3V CLINICAL HISTORY: T12-L2 D/F, L3-S1 hardware removal TECHNIQUE: 4 views were obtained with the C-arm in the OR with the above procedure. Total fluoroscopy time was 24.1 seconds. Radiation dose was 20.02 mGy. Comparison: Comparison is made to lumbar spine radiographs 12/30/2020 FINDINGS/IMPRESSION: Intraoperative images were obtained of T12-L2 discectomy and fusion with removal or replacement of L3-S1 hardware. Please correlate with intraoperative fluoroscopy and operative report. ACT 112: Negative or not required by law. Electronically signed by: Keyur Helms M.D. 10/15/2022 1:22 PM PG Care Time/CCT Total # of Minutes Spent Total Time Spent with Patient: Total time spent is greater than 50% in coordination of care (as documented) at patient's floor/unit and/or counseling patient: Coding Level of Care Code INP/OBS CONSULT LVL 3, 45 MIN Diagnoses Lumbar spinal stenosis M48.061 Uncontrolled type 2 diabetes mellitus E11.65 Chronic kidney disease, stage 3 (moderate) N18.3 Diabetic nephropathy E11.21 Essential hypertension I10 Hypercholesterolemia E78.00 Factor V Leiden mutation D68.51 Anemia D64.9 Chronic gout [id number]
[2022-10-15] MEDS ORDERED: DEXTROSE 50% 50 ML SYRINGE IV PRN (15:30)
[2022-10-15] MEDS ORDERED: GLUCOSE 10 TAB/TUBE PO PRN (15:30)
[2022-10-15] MEDS ORDERED: CARBOHYDRATES FOR HYPOGLYCEMIA PO PRN (15:30)
[2022-10-15] MEDS ORDERED: GLUCAGON FOR INJ 1 MG VIAL IM PRN (15:30)
[2022-10-15] MEDS ORDERED: GLUCOSE 40% GEL 15 GM TUBE PO PRN (15:30)
[2022-10-15] MEDS: ONDANSETRON INJ 2 MG/ML 2 ML VIAL IV PRN (17:09)
[2022-10-15] MEDS ORDERED: COUGH DROP (SUGAR FREE) LOZ 24 LOZ/1 BOX BUCCAL ONE (17:23)
[2022-10-15] MEDS: INSULIN ASPART PER UNIT CHARGE SC SCH ×2 (17:59→20:59)
[2022-10-15] MEDS: traMADol HCL 50 MG TABLET PO PRN (18:48)
[2022-10-15] MEDS: ceFAZolin 2000MG 2,000 MG/15 ML SYR IV SCH (20:42)
[2022-10-15] MEDS: gemfibroziL 600 MG TAB PO SCH (20:43)
[2022-10-15] MEDS: ATORVASTATIN 20 MG TAB PO SCH (20:43)
[2022-10-15] MEDS: DOCUSATE SODIUM/SENNA 50/8.6MG TAB PO SCH (20:44)
[2022-10-15] MEDS: GABAPENTIN 300 MG CAP PO SCH (20:44)
[2022-10-15] MEDS ORDERED: LANTUS PER UNIT CHARGE SQ ONE (21:00)
[2022-10-15] MEDS: METOCLOPRAMIDE HCL INJ 5 MG/ML 2 ML VIAL IV PRN (21:10)
[2022-10-16] MEDS: INSULIN ASPART PER UNIT CHARGE SC SCH ×7 (00:54→21:00)
[2022-10-16] MEDS: ceFAZolin 2000MG 2,000 MG/15 ML SYR IV SCH (04:00)
[2022-10-16] MEDS: SODIUM CHLORIDE 0.9% 1000ML 1,000 ML IV SCH (04:47)
[2022-10-16] MEDS: POLYETHYLENE (MIRALAX) 17 GM PACK PO SCH ×3 (06:43→17:57)
[2022-10-16 06:59] LABS: Basophils # (auto) 0.02 K/uL (0-0.2); Basophils % (auto) 0.1 %; Hematocrit (blood only) 28.5 % (42.0-52.0); Hemoglobin 9.3 g/dl (14.0-18.0); Immature Granulocytes % (auto) 0.7 %; Lymphocytes # (auto) 1.24 K/uL (1.2-3.4); Lymphocytes % (auto) 8.6 %; Mean Corpuscular Hemoglobin 29.9 pg (25.0-34.0); Mean Corpuscular Hgb Conc 32.6 g/dL (32.0-36.0); Mean Corpuscular Volume 91.6 fL (80.0-100.0); Mean Platelet Volume 10.3 fL (9.4-12.4); Monocytes # (auto) 1.52 K/uL (0.11-0.59); Monocytes % (auto) 10.5 %; Neutrophils # (auto) 11.56 K/uL (1.40-6.50); Neutrophils % (auto) 80.1 %; Platelet Count 226 K/uL (130-400); RDW Coefficient of Variation 14.9 % (11.5-14.5); RDW Standard Deviation 49.6 fL (36.4-46.3); Red Blood Count 3.11 M/uL (4.70-6.10); White Blood Count 14.44 K/ul (4.8-10.8)
[2022-10-16 07:26] LABS: BUN Creatinine Ratio 21.1 (10-20); Calcium 7.5 mg/dl (8.5-10.1); Creatinine Clr Calc Pharmacy 38.7 ml/min; Est GFR (African American) 35.5 ml/min; Est GFR (Non-African American) 30.6 ml/min; Potassium 4.2 mmol/L (3.5-5.1)
--- NOTE | 2022-10-16 08:23 | Orthopedic Progress Note ---
Date of Service October 16, 2022 Assessment & Plan (1) Lumbar spinal stenosis: Plan: At this time initiate physical therapy monitor his [place] operatively discharge home next few days. Admission and Anticipated Discharge Date Admission Date: October 15, 2022 Subjective Back pain is controlled leg symptoms improved Physical Exam Physical Exam: Patient is in bed. He is comfortable. Scheduled to testing. Results & Data ([facility]) Vital Signs (Past 12 Hours) Vital Signs Temp Pulse Resp BP Pulse Ox O2 Del Method O2 Flow Rate 10/16/22 07:42 36.8 C 81 17 138/72 93 Room Air 10/16/22 02:30 36.4 C L 72 16 117/67 97 Nasal Cannula 1.0 10/15/22 22:50 36.4 C L 73 16 104/66 96 Nasal Cannula 1.0
[2022-10-16] MEDS: allopurinoL 300 MG TAB PO SCH (08:37)
[2022-10-16] MEDS: amLODIPine BESYLATE 5 MG TAB PO SCH (08:37)
[2022-10-16] MEDS: ATENOLOL 50 MG TABLET PO SCH (08:37)
[2022-10-16] MEDS: CHOLECALCIFEROL 5,000 UNITS 125 MCG TAB PO SCH (08:37)
[2022-10-16] MEDS: FOLIC ACID 1 MG TAB PO SCH (08:38)
[2022-10-16] MEDS: PANTOprazole 40 MG TAB PO SCH (08:38)
[2022-10-16] MEDS: gemfibroziL 600 MG TAB PO SCH ×2 (08:38→20:54)
[2022-10-16] MEDS: ISOSORBIDE MONO EXTENDED REL 30 MG TABCR PO SCH (08:38)
[2022-10-16] MEDS: FUROSEMIDE 40 MG TAB PO SCH (08:38)
[2022-10-16] MEDS: GABAPENTIN 300 MG CAP PO SCH ×2 (08:38→20:54)
[2022-10-16] MEDS: SPIRONOLACTONE 25 MG TAB PO SCH (08:38)
[2022-10-16] MEDS: traMADol HCL 50 MG TABLET PO PRN (08:46)
[2022-10-16] MEDS: ONDANSETRON INJ 2 MG/ML 2 ML VIAL IV PRN (10:52)
--- NOTE | 2022-10-16 13:00 | Pharmacy Report ---
Pharmacy Glycemic Short Note 2 - Date of Service October 16, 2022 - Glycemic Short BSG Results (Last 24 hours): 10/15/22 10/15/22 10/15/22 13:26 17:01 20:50 Glucose POC Glucose 250 H 277 H 282 H 10/16/22 10/16/22 10/16/22 00:45 05:51 06:07 Glucose 152 H POC Glucose 222 H 147 H 10/16/22 10/16/22 08:02 11:57 Glucose POC Glucose 159 H 214 H OUTPATIENT ANTIDIABETIC REGIMEN: * Lantus 30 units HS * Novolog 30 units TIDM + SSI * HbA1C = 7.8 (09/10/22) ASSESSMENT: * Mr Modi is a 67 y/o M with a PMH of T2DM on insulin at home who presents for spinal surgery. * BSG prior to surgery was 215 mg/dL and after surgery was 250 mg/dL. Patient received Dexamethasone 4 mg in surgery. There are no ongoing steroid orders. * BSGs today are 159-214 mg/dL. * Will continue Lantus 40 units nightly. Fasting was reasonable today and HbA1C indicates that Lantus 30 units may not be sufficient. * Patient's regimen is extremely bolus heavy (30 units of Novolog with each meal). This may be due to steroids at home and patient may be very sensitive to steroids. Will tighten CR. PLAN FOR INPATIENT GLYCEMIC CONTROL: * Hold outpatient oral diabetes medications * Basal insulin * Lantus 40 units SQ HS * Bolus insulin * NovoLog per scale ACHS or Q6hrs while NPO * Goal Range: Low 110 mg/dL - High 140 mg/dL * Correction Factor: 12 mg/dL/unit * Nutritional / Prandial insulin per carb ratio of 1 unit per 2 grams CHO consumed
--- NOTE | 2022-10-16 13:41 | Hospitalist Progress Note ---
Date of Service October 16, 2022 Assessment & Plan (1) Lumbar spinal stenosis: Plan: S/P Lumbar decompression L1L3, fusion T12-L3, Hardware removalL3 S1 with an EBL>800cc with Dr Khan Pain management per primary service POD#1 (2) Uncontrolled type 2 diabetes mellitus: Plan: Last HgbA1C Sep was 7.8 Patient on Insulin sliding scale at home and Lantus 30 Units at night Primary team consulted pharmacy for glycemic control (3) Chronic kidney disease, stage 3 (moderate): Plan: Patient follows with Nephrology Dr Cano Baseline Cr 1.9 to 2.1 range BMP stable Continue on Atenolol, Amlodipine, Spironolactone, Isosorbide and furosemide (-did not tolerate DEYSI due to cough and ARB due to N/V and refused SGLT2i) (4) Diabetic nephropathy: Plan: As above under #3 (5) Essential hypertension: Plan: Stable Continue Amlodipine 25 mg, Atenolol 100mg, Isosorbide 30mg, Lasix 40mg and spironolactone 25mg BP 138/72 (6) Hypercholesterolemia: Plan: Continue Gemfibrozil and Atorvastatin (7) Factor V Leiden mutation: Plan: Had been on Eliquis 5mg BID, last dose was evening of 10/11/22 Currently with KAY stocking and SCDs Restart Eliquis when ok with surgeon (8) Anemia: Plan: Baseline Hgb 11-12 Hgb preoperatively was 12.7 AM labs revealed a Hgb drop to 9.3 With no signs of any GI bleeding EBL was 850 in surgery and 680 in drain Has drain bulb in place (9) Chronic gout: Plan: Allopurinol 300mg Plan Patent is Full Code Eliquis held KAY stockings and SCDs PT/OT consults placed pharmacy consulted for glycemic control Tolerating carb consistent diet Admission and Anticipated Discharge Date Admission Date: October 15, 2022 Subjective Pateint was awake sitting upright in the chair this AM. He is passing flatus and tolerating diet. He denies any chest pain, SOB or nausea or vomiting. Review of Systems Review of Systems: All ROS negative unless stated + above. Physical Exam Constitutional: WD/WN, vitals as above Neck: trachea midline, no thyromegaly Respiratory: normal respiratory effort, lungs clear to auscultation Cardiovascular: Rate/Rhythm: regular rate and regular rhythm Heart Sounds: normal S1 and normal S2; no murmur Extremities: no calf tenderness and no edema Gastrointestinal (Abdomen): normal bowel sounds, soft, nontender, no hepatosplenomegaly Psychiatric: A+Ox3, euthymic affect Results & Data Results & Data ([facility]) Vital Signs (Past 12 Hours) Vital Signs Temp Pulse Resp BP Pulse Ox O2 Del Method O2 Flow Rate 10/16/22 07:42 36.8 C 81 17 138/72 93 Room Air 10/16/22 02:30 36.4 C L 72 16 117/67 97 Nasal Cannula 1.0 Laboratory Results Abnormal lab results 10/15/22 10/15/22 10/16/22 Range/Units 17:01 20:50 00:45 WBC (4.8-10.8) K/ul RBC (4.70-6.10) M/uL Hgb (14.0-18.0) g/dl Hct (42.0-52.0) % RDW Std Deviation (36.4-46.3) fL RDW Coeff of Jono (11.5-14.5) % Neut # (Auto) (1.40-6.50) K/uL [place] # (Auto) (0.11-0.59) K/uL Chloride (98-107) mmol/L BUN (6-23) mg/dl Creatinine (0.6-1.4) mg/dl BUN/Creatinine Ratio (10-20) Glucose (70-99(Fasting)) mg/dl POC Glucose 277 H 282 H 222 H (70-99) mg/dl Calcium (8.5-10.1) mg/dl 10/16/22 10/16/22 10/16/22 Range/Units 05:51 06:07 06:07 WBC 14.44 H (4.8-10.8) K/ul RBC 3.11 L (4.70-6.10) M/uL Hgb 9.3 L (14.0-18.0) g/dl Hct 28.5 L (42.0-52.0) % RDW Std Deviation 49.6 H (36.4-46.3) fL RDW Coeff of Jono 14.9 H (11.5-14.5) % Neut # (Auto) 11.56 H (1.40-6.50) K/uL [place] # (Auto) 1.52 H (0.11-0.59) K/uL Chloride 108 H (98-107) mmol/L BUN 45 H (6-23) mg/dl Creatinine 2.13 H (0.6-1.4) mg/dl BUN/Creatinine Ratio 21.1 H (10-20) Glucose 152 H (70-99(Fasting)) mg/dl POC Glucose 147 H (70-99) mg/dl Calcium 7.5 L (8.5-10.1) mg/dl 10/16/22 10/16/22 Range/Units 08:02 11:57 WBC (4.8-10.8) K/ul RBC (4.70-6.10) M/uL Hgb (14.0-18.0) g/dl Hct (42.0-52.0) % RDW Std Deviation (36.4-46.3) fL RDW Coeff of Jono (11.5-14.5) % Neut # (Auto) (1.40-6.50) K/uL [place] # (Auto) (0.11-0.59) K/uL Chloride (98-107) mmol/L BUN (6-23) mg/dl Creatinine (0.6-1.4) mg/dl BUN/Creatinine Ratio (10-20) Glucose (70-99(Fasting)) mg/dl POC Glucose 159 H 214 H (70-99) mg/dl Calcium (8.5-10.1) mg/dl PG Care Time/CCT Total # of Minutes Spent Total Time Spent with Patient: Total time spent is greater than 50% in coordination of care (as documented) at patient's floor/unit and/or counseling patient: Coding Level of Care Code 37891 SUB INP/OBS CARE 09/26MIN Diagnoses Lumbar spinal stenosis M48.061 Uncontrolled type 2 diabetes mellitus E11.65 Chronic kidney disease, stage 3 (moderate) N18.3 Diabetic nephropathy E11.21 Essential hypertension I10 Hypercholesterolemia E78.00 Factor V Leiden mutation D68.51 Anemia D64.9 Chronic gout [id number]
[2022-10-16] MEDS: ATORVASTATIN 20 MG TAB PO SCH (20:54)
[2022-10-16] MEDS: DOCUSATE SODIUM/SENNA 50/8.6MG TAB PO SCH (20:54)
[2022-10-16] MEDS ORDERED: LANTUS PER UNIT CHARGE SQ SCH ×2 (21:00→22:45)
[2022-10-17] MEDS: POLYETHYLENE (MIRALAX) 17 GM PACK PO SCH ×3 (00:35→11:26)
[2022-10-17] MEDS: guaiFENesin 600 MG TABCR PO SCH ×2 (06:51→20:32)
[2022-10-17 06:57] LABS: Hematocrit (blood only) 24.7 % (42.0-52.0); Hemoglobin 8.1 g/dl (14.0-18.0); Mean Corpuscular Hemoglobin 29.9 pg (25.0-34.0); Mean Corpuscular Hgb Conc 32.8 g/dL (32.0-36.0); Mean Corpuscular Volume 91.1 fL (80.0-100.0); Mean Platelet Volume 10.6 fL (9.4-12.4); Nucleated RBC # (auto) 0.02 K/uL (0-0.12); Nucleated RBC % (auto) 0.2 %; Platelet Count 181 K/uL (130-400); RDW Coefficient of Variation 15.1 % (11.5-14.5); RDW Standard Deviation 50.1 fL (36.4-46.3); Red Blood Count 2.71 M/uL (4.70-6.10); White Blood Count 9.89 K/ul (4.8-10.8)
--- NOTE | 2022-10-17 07:36 | XRay Report ---
SINGLE VIEW CHEST CLINICAL HISTORY: Cough and wheezing FINDINGS: An AP, portable, upright chest radiograph is compared to chest x-ray and chest CT dated 12/09. The examination is degraded by portable technique and patient rotation. The heart is enlarged . The pulmonary vasculature is noncongested. The lungs and pleural spaces are clear noting dependent atelectasis. No pneumothorax is seen. The skeletal structures are osteopenic. The bony thorax is mirian sly intact. IMPRESSION: Cardiomegaly with no acute cardiopulmonary abnormality identified. ACT 112: Negative or not required by law. Electronically signed by: Doug Martínez M.D. 10/17/2022 7:34 AM
[2022-10-17 07:46] LABS: BUN Creatinine Ratio 17.9 (10-20); Calcium 7.6 mg/dl (8.5-10.1); Creatinine Clr Calc Pharmacy 36.8 ml/min; Est GFR (African American) 33.4 ml/min; Est GFR (Non-African American) 28.8 ml/min; Potassium 4.3 mmol/L (3.5-5.1)
--- NOTE | 2022-10-17 07:49 | Hospitalist Progress Note ---
Date of Service October 17, 2022 Assessment & Plan (1) Lumbar spinal stenosis: Plan: S/P Lumbar decompression L1L3, fusion T12-L3, Hardware removalL3 S1 with an EBL>800cc with Dr Khan Pain management per primary service POD#2 (2) Uncontrolled type 2 diabetes mellitus: Plan: Last HgbA1C Sep was 7.8 Patient on Insulin sliding scale at home and Lantus 30 Units at night Primary team consulted pharmacy for glycemic control (3) Chronic kidney disease, stage 3 (moderate): Plan: Patient follows with Nephrology Dr Cano Baseline Cr 1.9 to 2.1 range BMP stable Continue on Atenolol, Amlodipine, Spironolactone, Isosorbide and furosemide (-did not tolerate DEYSI due to cough and ARB due to N/V and refused SGLT2i) (4) Diabetic nephropathy: Plan: As above under #3 (5) Essential hypertension: Plan: Stable Continue Amlodipine 25 mg, Atenolol 100mg, Isosorbide 30mg, Lasix 40mg and spironolactone 25mg BP 144/75 (6) Hypercholesterolemia: Plan: Continue Gemfibrozil and Atorvastatin (7) Factor V Leiden mutation: Plan: Had been on Eliquis 5mg BID, last dose was evening of 10/11/22 Currently with KAY stocking and SCDs Restart Eliquis when ok with surgeon (8) Anemia: Plan: Baseline Hgb 11-12 Hgb preoperatively was 12.7 AM labs revealed a Hgb drop to 8.1 (9.3) With no signs of any GI bleeding, but patient was symptomatic with slight SOB and dizziness EBL was 850 in surgery with 680 and 310 in drain Has drain bulb in place Likely ABLA secondary to recent surgery Ortho has ordered 2 unit transfusion today Repeat labs in the AM (9) Chronic gout: Plan: Allopurinol 300mg Plan Patent is Full Code Eliquis held KAY stockings and SCDs PT/OT consults placed pharmacy consulted for glycemic control Tolerating carb consistent diet Admission and Anticipated Discharge Date Admission Date: October 15, 2022 Subjective Patient was awake in bed and states he had several loose light castillo colored BMs this AM. He states he is feeeling weak and dizzy. His Hgb dropped to 8.1. Ortho has ordered 2 unit transfusion. Patient denies any cough, chest pain or dyspnea. He admits to some mild SOB and mild nausea. Review of Systems Review of Systems: All ROS negative unless stated + above. Physical Exam Constitutional: WD/WN, vitals as above Neck: trachea midline, no thyromegaly Respiratory: normal respiratory effort, lungs clear to auscultation Cardiovascular: Rate/Rhythm: regular rate and regular rhythm Heart Sounds: normal S1 and normal S2; no murmur Extremities: no calf tenderness and no edema Gastrointestinal (Abdomen): normal bowel sounds, soft, nontender, no he patosplenomegaly Musculoskeletal: Surgical drain bulb in place with scant amount of serosanguineous drainage. Psychiatric: A+Ox3, euthymic affect Results & Data Results & Data ([facility]) Vital Signs (Past 12 Hours) Vital Signs Temp Pulse Pulse Resp BP Pulse Ox O2 Del Method 10/17/22 07:35 36.9 C 94 H 16 144/75 H 97 Nasal Cannula 10/17/22 05:04 36.6 C 100 H 18 139/78 97 Nasal Cannula 10/16/22 20:46 37.5 C 104 H 20 157/87 H 94 Nasal Cannula O2 Flow Rate 10/17/22 07:35 3 10/17/22 05:04 3 10/16/22 20:46 3.5 Laboratory Results Abnormal lab results 10/15/22 10/16/22 10/16/22 Range/Units 08:20 17:07 20:39 RBC (4.70-6.10) M/uL Hgb (14.0-18.0) g/dl Hct (42.0-52.0) % RDW Std Deviation (36.4-46.3) fL RDW Coeff of Jono (11.5-14.5) % Sodium (136-145) mmol/L BUN (6-23) mg/dl Creatinine (0.6-1.4) mg/dl Glucose (70-99(Fasting)) mg/dl POC Glucose 116 H 65 L* (70-99) mg/dl Calcium (8.5-10.1) mg/dl Crossmatch See Detail 10/16/22 10/16/22 10/16/22 Range/Units 20:41 21:04 21:36 RBC (4.70-6.10) M/uL Hgb (14.0-18.0) g/dl Hct (42.0-52.0) % RDW Std Deviation (36.4-46.3) fL RDW Coeff of Jono (11.5-14.5) % Sodium (136-145) mmol/L BUN (6-23) mg/dl Creatinine (0.6-1.4) mg/dl Glucose (70-99(Fasting)) mg/dl POC Glucose 59 L* 57 L* 108 H (70-99) mg/dl Calcium (8.5-10.1) mg/dl Crossmatch 10/17/22 10/17/22 10/17/22 Range/Units 04:46 06:18 06:18 RBC 2.71 L (4.70-6.10) M/uL Hgb 8.1 L (14.0-18.0) g/dl Hct 24.7 L (42.0-52.0) % RDW Std Deviation 50.1 H (36.4-46.3) fL RDW Coeff of Jono 15.1 H (11.5-14.5) % Sodium 135 L (136-145) mmol/L BUN 40 H (6-23) mg/dl Creatinine 2.24 H (0.6-1.4) mg/dl Glucose 129 H (70-99(Fasting)) mg/dl POC Glucose 130 H (70-99) mg/dl Calcium 7.6 L (8.5-10.1) mg/dl Crossmatch 10/17/22 10/17/22 10/17/22 Range/Units 07:56 11:52 11:54 RBC (4.70-6.10) M/uL Hgb (14.0-18.0) g/dl Hct (42.0-52.0) % RDW Std Deviation (36.4-46.3) fL RDW Coeff of Jono (11.5-14.5) % Sodium (136-145) mmol/L BUN (6-23) mg/dl Creatinine (0.6-1.4) mg/dl Glucose (70-99(Fasting)) mg/dl POC Glucose 153 H 401 H* 161 H (70-99) mg/dl Calcium (8.5-10.1) mg/dl Crossmatch 10/17/22 Range/Units 12:31 RBC (4.70-6.10) M/uL Hgb (14.0-18.0) g/dl Hct (42.0-52.0) % RDW Std Deviation (36.4-46.3) fL RDW Coeff of Jono (11.5-14.5) % Sodium (136-145) mmol/L BUN (6-23) mg/dl Creatinine (0.6-1.4) mg/dl Glucose 140 H (70-99(Fasting)) mg/dl POC Glucose (70-99) mg/dl Calcium (8.5-10.1) mg/dl Crossmatch Diagnostic Findings Chest X-Ray 10/17/22 05:25 SINGLE VIEW CHEST CLINICAL HISTORY: Cough and wheezing FINDINGS: An AP, portable, upright chest radiograph is compared to chest x-ray and chest CT dated 12/09/2021. The examination is degraded by portable technique and patient rotation. The heart is enlarged. The pulmonary vasculature is noncongested. The lungs and pleural spaces are clear noting dependent atelectasis. No pneumothorax is seen. The skeletal structures are osteopenic. The bony thorax is grossly intact. IMPRESSION: Cardiomegaly with no acute cardiopulmonary abnormality identified. ACT 112: Negative or not required by law. Electronically signed by: Doug Martínez M.D. 10/17/2022 7:34 AM PG Care Time/CCT Total # of Minutes Spent Total Time Spent with Patient: Total time spent is greater than 50% in coordination of care (as documented) at patient's floor/unit and/or counseling patient: Coding Level of Care Code 52369 SUB INP/OBS CARE 3/50MIN Diagnoses Lumbar spinal stenosis M48.061 Uncontrolled type 2 diabetes mellitus E11.65 Chronic kidney disease, stage 3 (moderate) N18.3 Diabetic nephropathy E11.21 Essential hypertension I10 Hypercholesterolemia E78.00 Factor V Leiden mutation D68.51 Anemia D64.9 Chronic gout [id number]
--- NOTE | 2022-10-17 08:10 | Orthopedic Progress Note ---
Date of Service October 17, 2022 Assessment & Plan (1) Degeneration of lumbosacral intervertebral disc with acute herniation: Plan: Timoteo is postoperative day 2 status post hard removal L3-S1, decompression T12- L2 with instrumented fusion T12-S1. His H&H have dropped. He is now asymptomatic. We will transfuse 2 units of packed red blood cells. Light physical therapy/ambulation today. DVT prophylaxis in the form teds and SCDs. Continue with pain control. Maintain PHOENIX drain. Anticipate discharge home within the next 24 to 48 hours. Admission and Anticipated Discharge Date Admission Date: October 15, 2022 Subjective Timoteo is postoperative day 2 status post hard removal L3-S1, decompression T12- L2 with instrumented fusion T12-S1. This morning he notes a little bit of shakiness and lightheadedness. H&H are 8.1 and 24.7 respectively. PHOENIX drain output last shift was 70 cc. Yesterday in physical therapy he was ambling 325 feet. He has had a bowel movement. Discharge plan is to home when medically stable Review of Systems Review of Systems: All systems reviewed & are unremarkable except as noted in HPI & below Physical Exam Physical Exam: He is lying in bed in no acute distress Alert and oriented x3 Lumbar dressing is clean dry intact with functioning PHOENIX drain 5/5 bilateral lower extremities Calf soft nontender bilaterally Results & Data ([facility]) Vital Signs (Past 12 Hours) Vital Signs Temp Pulse Pulse Resp BP Pulse Ox O2 Del Method 10/17/22 07:35 36.9 C 94 H 16 144/75 H 97 Nasal Cannula 10/17/22 05:04 36.6 C 100 H 18 139/78 97 Nasal Cannula 10/16/22 20:46 37.5 C 104 H 20 157/87 H 94 Nasal Cannula O2 Flow Rate 10/17/22 07:35 3 10/17/22 05:04 3 10/16/22 20:46 3.5
[2022-10-17] MEDS ORDERED: SODIUM CHLORIDE 0.9% 250 ML IV PRN ×2 (08:11→09:02)
[2022-10-17] MEDS: SPIRONOLACTONE 25 MG TAB PO SCH (08:43)
[2022-10-17] MEDS: allopurinoL 300 MG TAB PO SCH (08:43)
[2022-10-17] MEDS: amLODIPine BESYLATE 5 MG TAB PO SCH (08:43)
[2022-10-17] MEDS: gemfibroziL 600 MG TAB PO SCH ×2 (08:43→20:32)
[2022-10-17] MEDS: ISOSORBIDE MONO EXTENDED REL 30 MG TABCR PO SCH (08:43)
[2022-10-17] MEDS: FOLIC ACID 1 MG TAB PO SCH (08:44)
[2022-10-17] MEDS: PANTOprazole 40 MG TAB PO SCH (08:44)
[2022-10-17] MEDS: FUROSEMIDE 40 MG TAB PO SCH (08:45)
[2022-10-17] MEDS: ATENOLOL 50 MG TABLET PO SCH (08:45)
[2022-10-17] MEDS: CHOLECALCIFEROL 5,000 UNITS 125 MCG TAB PO SCH (08:45)
[2022-10-17] MEDS: GABAPENTIN 300 MG CAP PO SCH ×2 (08:45→20:33)
[2022-10-17] MEDS: INSULIN ASPART PER UNIT CHARGE SC SCH ×4 (08:46→20:41)
[2022-10-17] MEDS ORDERED: guaiFENesin 600 MG TABCR PO SCH (09:00)
[2022-10-17] MEDS ORDERED: LANTUS PER UNIT CHARGE SQ ONE ×2 (09:15→21:00)
[2022-10-17] MEDS: ACETAMINOPHEN 500 MG TAB PO PRN (09:27)
--- NOTE | 2022-10-17 10:39 | Pharmacy Report ---
Pharmacy Glycemic Short Note 2 - Date of Service October 17, 2022 - Glycemic Short BSG Results (Last 24 hours): 10/16/22 10/16/22 10/16/22 11:57 17:07 20:39 Glucose POC Glucose 214 H 116 H 65 L* 10/16/22 10/16/22 10/16/22 20:41 21:04 21:36 Glucose POC Glucose 59 L* 57 L* 108 H 10/17/22 10/17/22 10/17/22 01:39 04:46 06:18 Glucose 129 H POC Glucose 79 130 H 10/17/22 07:56 Glucose POC Glucose 153 H OUTPATIENT ANTIDIABETIC REGIMEN: * Lantus 30 units HS * Novolog 30 units TIDM + SSI * HbA1C = 7.8 (09/10/22) ASSESSMENT: 10/17/22 * Yesterday, BSG was between 57 - 214 mg/dL. Total NovoLog dose was 85 units (Due to CF/CR: 08/03 starting at lunchtime and high carb intake). Basal insulin was skipped due to low BSG at bedtime * FBSG today is 153 mg/dL * Will administer a 15 units basal insulin this morning and plan a scale basal insulin (0/10 units for BSG > 151 mg/dL) for tonight. Will keep Novolog CR parameter loose at 4 unit 10/16/22 * Mr Modi is a 67 y/o M with a PMH of T2DM on insulin at home who presents for spinal surgery. * BSG prior to surgery was 215 mg/dL and after surgery was 250 mg/dL. Patient received Dexamethasone 4 mg in surgery. There are no ongoing steroid orders. * BSGs today are 159-214 mg/dL. * Will continue Lantus 40 units nightly. Fasting was reasonable today and HbA1C indicates that Lantus 30 units may not be sufficient. * Patient's regimen is extremely bolus heavy (30 units of Novolog with each meal). This may be due to steroids at home and patient may be very sensitive to steroids. Will tighten CR. PLAN FOR INPATIENT GLYCEMIC CONTROL: * Hold outpatient oral diabetes medications * Basal insulin * Lantus 15 units x 1 AM and scale (0/10 units for BSG > 151 mg/dL) for tonight * Bolus insulin * NovoLog per scale ACHS or Q6hrs while NPO * Goal Range: Low 110 mg/dL - High 140 mg/dL * Correction Factor: 12 mg/dL/unit * Nutritional / Prandial insulin per carb ratio of 1 unit per 4 grams CHO consumed
[2022-10-17] MEDS: ONDANSETRON INJ 2 MG/ML 2 ML VIAL IV PRN (14:53)
[2022-10-17] MEDS: traMADol HCL 50 MG TABLET PO PRN (19:44)
[2022-10-17] MEDS: ATORVASTATIN 20 MG TAB PO SCH (20:32)
[2022-10-17] MEDS: DOCUSATE SODIUM/SENNA 50/8.6MG TAB PO SCH (20:32)
[2022-10-17] MEDS: APIXABAN 5 MG TABLET PO SCH (20:43)
--- NOTE | 2022-10-18 06:23 | Ultrasound Report ---
BILATERAL LOWER EXTREMITY VENOUS DOPPLER CLINICAL HISTORY: Right calf pain. COMPARISON STUDY: Bilateral lower extremity venous Doppler ultrasound December 09, 2021. TECHNIQUE: Sonography of the deep venous system of the bilateral lower extremities was performed. Co mpression and augmentation were evaluated. FINDINGS: There is no deep venous thrombus within the right lower extremity. Nonocclusive thrombus wi thin one of two paired left popliteal veins is similar to ultrasound December 09, 2021. This represents c hronic thrombus. There is no evidence for acute deep venous thrombus within the lower extremities. IMPRESSION: 1. No evidence of acute deep venous thrombus within the bilateral lower extremities. 2. No change in chronic left popliteal nonocclusive deep venous thrombosis. ACT 112: Negative or not required by law. Electronically signed by: Adonis Arellano M.D. 10/18/2022 6:21 AM
[2022-10-18 07:43] LABS: Hematocrit (blood only) 31.5 % (42.0-52.0); Hemoglobin 10.3 g/dl (14.0-18.0); Mean Corpuscular Hemoglobin 29.1 pg (25.0-34.0); Mean Corpuscular Hgb Conc 32.7 g/dL (32.0-36.0); Mean Platelet Volume 10.4 fL (9.4-12.4); Platelet Count 175 K/uL (130-400); RDW Standard Deviation 52.3 fL (36.4-46.3); Red Blood Count 3.54 M/uL (4.70-6.10)
[2022-10-18 07:45] LABS: BUN Creatinine Ratio 17.5 (10-20); Calcium 8.5 mg/dl (8.5-10.1); Est GFR (African American) 34.7 ml/min; Potassium 4.3 mmol/L (3.5-5.1)
[2022-10-18] MEDS ORDERED: LANTUS PER UNIT CHARGE SQ SCH ×2 (09:00→16:30)
[2022-10-18] MEDS: FUROSEMIDE 40 MG TAB PO SCH (09:10)
[2022-10-18] MEDS: APIXABAN 5 MG TABLET PO SCH ×2 (09:10→21:16)
[2022-10-18] MEDS: amLODIPine BESYLATE 5 MG TAB PO SCH (09:10)
[2022-10-18] MEDS: FOLIC ACID 1 MG TAB PO SCH (09:10)
[2022-10-18] MEDS: PANTOprazole 40 MG TAB PO SCH (09:11)
[2022-10-18] MEDS: ISOSORBIDE MONO EXTENDED REL 30 MG TABCR PO SCH (09:11)
[2022-10-18] MEDS: CHOLECALCIFEROL 5,000 UNITS 125 MCG TAB PO SCH (09:11)
[2022-10-18] MEDS: GABAPENTIN 300 MG CAP PO SCH ×2 (09:11→21:15)
[2022-10-18] MEDS: ATENOLOL 50 MG TABLET PO SCH (09:11)
[2022-10-18] MEDS: gemfibroziL 600 MG TAB PO SCH ×2 (09:11→21:13)
[2022-10-18] MEDS: SPIRONOLACTONE 25 MG TAB PO SCH (09:11)
[2022-10-18] MEDS: guaiFENesin 600 MG TABCR PO SCH ×2 (09:11→21:15)
[2022-10-18] MEDS: allopurinoL 300 MG TAB PO SCH (09:11)
[2022-10-18] MEDS: INSULIN ASPART PER UNIT CHARGE SC SCH ×4 (09:15→21:20)
--- NOTE | 2022-10-18 10:25 | Orthopedic Progress Note ---
Date of Service October 18, 2022 Assessment & Plan (1) Lumbar spinal stenosis: Plan: This time we will continue physical therapy monitor his PHOENIX output anticipate discharge home tomorrow. Admission and Anticipated Discharge Date Admission Date: October 15, 2022 Subjective Back pain is controlled leg pain markedly improved. He is struggling with some nausea this morning and lightheadedness. He has not undergone physical therapy yet. Physical Exam Physical Exam: On exam he is alert and oriented. He has good strength testing. Results & Data ([facility]) Vital Signs (Past 12 Hours) Vital Signs Temp Pulse Resp BP BP Pulse Ox O2 Del Method 10/18/22 09:35 Nasal Cannula 10/18/22 07:28 36.7 C 84 16 171/79 H 95 Nasal Cannula 10/17/22 23:38 37 C 90 20 145/74 H 95 Nasal Cannula 10/17/22 22:50 37.5 C 95 H 18 143/78 H 93 Nasal Cannula O2 Flow Rate 10/18/22 09:35 2 10/18/22 07:28 2 10/17/22 23:38 2 10/17/22 22:50 2
--- NOTE | 2022-10-18 11:44 | Hospitalist Progress Note ---
Date of Service October 18, 2022 Assessment & Plan (1) Lumbar spinal stenosis: Plan: S/P Lumbar decompression L1L3, fusion T12-L3, Hardware removalL3 S1 with Dr Khan on 10/15/22 PT/OT and pain management as outlined by primary service (2) Uncontrolled type 2 diabetes mellitus: Plan: Last HgbA1C was 7.8 in September 2022 Patient on Insulin lispro sliding scale at home and Lantus 30u qHS Primary team consulted pharmacy for glycemic control (3) Chronic kidney disease, stage 3 (moderate): Plan: Patient follows with Nephrology Dr Cano Baseline Cr 1.9 to 2.1 range (remains within his baseline) (4) Diabetic nephropathy: Plan: As above under #3 (5) Essential hypertension: Plan: Continue Amlodipine 25 mg, Atenolol 100mg, Isosorbide 30mg, Lasix 40mg and spironolactone 25mg BP 140s systolic throughout the day following med administration (6) Hypercholesterolemia: Plan: Continue Gemfibrozil and Atorvastatin (7) Factor V Leiden mutation: Plan: Had been on Eliquis 5mg BID, last dose was evening of 10/11/22 Currently with KAY sun and SCDs Restarted Eliquis 5mg BID on 10/17/22 (8) Anemia: Plan: Baseline Hgb 11-12. Hgb preoperatively was 12.7 AM labs revealed a Hgb drop to 8.1 (9.3) - No signs of any GI bleeding, but patient was symptomatic with slight SOB and dizziness Likely ABLA secondary to recent surgery Transfused 2 units on 10/17 - hgb 10.3 on 10/18 (9) Chronic gout: Plan: Allopurinol 300mg Plan Patient is doing well post operatively. For some reason, patient underwent a pulmonary perfusion study today, results reviewed with a questionable filling defect in the ADOLFO - this could be due to overlying soft tissue as the patient couldn't lift his arms but findings are indeterminate for PE. However, pt is currently on ACT with Eliquis. He is not short of breath or complaining of chest pain. Not requiring supplemental O2. CXR done prior to V/Q scan did not show an acute process. At this point, no further recommendations at this time. Thank you for allowing us to participate in the care of your patient, will sign off as pt is medically stable. Please feel free to reconsult if the need should arise while patient remains in house. Plan d/w Dr. Turcios. Admission and Anticipated Discharge Date Admission Date: October 15, 2022 Subjective Patient seen on daily rounds this morning He is s/p T12-L2 decompression and fusion. Pt doing well post op, has no complaints. Back is sore but pain is adequately controlled. No urinary or bowel incontinence. No pain down one or both legs. Denies cp or dyspnea. Physical Exam Physical Exam: GENERAL: 67 yo Well-developed, well-nourished WM. NAD. LUNGS: Clear to auscultation bilaterally. No W/R/R. CARDIOVASCULAR: Regular rate and rhythm. EXTREMITIES: No edema. Non-tender. Peripheral pulses +2/4. NEUROLOGIC: intact Results & Data Results & Data ([facility]) Vital Signs (Past 12 Hours) Vital Signs Temp Pulse Resp BP BP Pulse Ox O2 Del Method 10/18/22 09:35 Nasal Cannula 10/18/22 07:28 36.7 C 84 16 171/79 H 95 Nasal Cannula 10/17/22 23:38 37 C 90 20 145/74 H 95 Nasal Cannula O2 Flow Rate 10/18/22 09:35 2 10/18/22 07:28 2 10/17/22 23:38 2 Laboratory Results 10/18/22 06:41 10/18/22 06:41 PG Care Time/CCT Total # of Minutes Spent Total Time Spent with Patient: Total time spent is greater than 50% in coordination of care (as documented) at patient's floor/unit and/or counseling patient: Coding Level of Care Code 52764 SUB INP/OBS CARE 2/35MIN Diagnoses Lumbar spinal stenosis M48.061 Uncontrolled type 2 diabetes mellitus E11.65 Chronic kidney disease, stage 3 (moderate) N18.3 Diabetic nephropathy E11.21 Essential hypertension I10 Hypercholesterolemia E78.00 Factor V Leiden mutation D68.51 Anemia D64.9 Chronic gout [id number]
--- NOTE | 2022-10-18 11:57 | Nuclear Medicine Report ---
NUCLEAR PULMONARY PERFUSION SCAN CLINICAL HISTORY: Cough and wheezing. COMPARISON STUDY: Chest CT dated 12/09/2021. Chest x-ray dated 10/17/2022. TECHNIQUE: Nuclear perfusion scan of the lungs is obtained following the IV administration of 5.3 mCi of technetium 99m MAA. Ventilation and perfusion images were acquired in the anterior, posterior, an d oblique projections. FINDINGS: A chest x-ray performed 10/17/2022 shows cardiac enlargement with no acute cardiopulmonary abnormality identified Cardiac perfusion is heterogeneous. A segmental filling defect is questioned in the left upper lobe. IMPRESSION: Heterogeneous perfusion of both lungs with a segmental filling defect questioned in the l eft upper lobe. This may be related to overlying soft tissue as the patient could not lift their arms . Findings are indeterminate for pulmonary embolus. If there is clinical concern for pulmonary embolu s a CT angiogram of the chest should be obtained. ACT 112: Negative or not required by law. Electronically signed by: Doug Martínez M.D. 10/18/2022 11:55 AM
--- NOTE | 2022-10-18 12:59 | Pharmacy Report ---
Pharmacy Glycemic Short Note 2 - Date of Service October 18, 2022 - Glycemic Short BSG Results (Last 24 hours): 10/17/22 10/17/22 10/17/22 12:31 17:06 20:26 Glucose 140 H POC Glucose 183 H 207 H 10/18/22 10/18/22 10/18/22 06:41 07:51 11:57 Glucose 156 H POC Glucose 176 H 182 H OUTPATIENT ANTIDIABETIC REGIMEN: * Lantus 30 units HS * Novolog 30 units TIDM + SSI * HbA1C = 7.8 (09/10/22) ASSESSMENT: 10/18/22 * Timoteo received 67 units of insulin yesterday (25 units Lantus, 42 units Novolog) * Fasting BSG is trending upward. I suspect this is due to holding basal insulin on 10/16 and then partial dose given 10/17 AM, therefore I will not react to this number today. Will change to once daily dosing. Will give an additional 5 units based on BSG this evening if BSG remains elevated. * Post prandial BSGs were elevated yesterday. Will tighten carb coverage. 10/17/22 * Yesterday, BSG was between 57 - 214 mg/dL. Total NovoLog dose was 85 units (Due to CF/CR: 08/03 starting at lunchtime and high carb intake). Basal insulin was skipped due to low BSG at bedtime * FBSG today is 153 mg/dL * Will administer a 15 units basal insulin this morning and plan a scale basal insulin (0/10 units for BSG > 151 mg/dL) for tonight. Will keep Novolog CR parameter loose at 4 unit 10/16/22 * Mr Modi is a 67 y/o M with a PMH of T2DM on insulin at home who presents for spinal surgery. * BSG prior to surgery was 215 mg/dL and after surgery was 250 mg/dL. Patient received Dexamethasone 4 mg in surgery. There are no ongoing steroid orders. * BSGs today are 159-214 mg/dL. * Will continue Lantus 40 units nightly. Fasting was reasonable today and HbA1C indicates that Lantus 30 units may not be sufficient. * Patient's regimen is extremely bolus heavy (30 units of Novolog with each meal). This may be due to steroids at home and patient may be very sensitive to steroids. Will tighten CR. PLAN FOR INPATIENT GLYCEMIC CONTROL: * Hold outpatient oral diabetes medications * Basal insulin * Lantus 25 units SQ qAM (will slowly move this to HS dosing since this is when patient takes med at home) * Lantus 0-5 units SQ @ 1630 x 1 (5 units for BSG > 180) * Bolus insulin * NovoLog per scale ACHS or Q6hrs while NPO * Goal Range: Low 110 mg/dL - High 140 mg/dL * Correction Factor: 12 mg/dL/unit * Nutritional / Prandial insulin per carb ratio of 1 unit per 3 grams CHO consumed
--- NOTE | 2022-10-18 13:29 | Pharmacy Report ---
Pharmacy Glycemic Short Note 2 - Date of Service October 18, 2022 - Glycemic Short BSG Results (Last 24 hours): 10/17/22 10/17/22 10/17/22 12:31 17:06 20:26 Glucose 140 H POC Glucose 183 H 207 H 10/18/22 10/18/22 10/18/22 06:41 07:51 11:57 Glucose 156 H POC Glucose 176 H 182 H OUTPATIENT ANTIDIABETIC REGIMEN: * Lantus 30 units HS * Novolog 30 units TIDM + SSI * HbA1C = 7.8 (09/10/22) ASSESSMENT: 10/17/22 * Yesterday, BSG was between 57 - 214 mg/dL. Total NovoLog dose was 85 units (Due to CF/CR: 08/03 starting at lunchtime and high carb intake). Basal insulin was skipped due to low BSG at bedtime * FBSG today is 153 mg/dL * Will administer a 15 units basal insulin this morning and plan a scale basal insulin (0/10 units for BSG > 151 mg/dL) for tonight. Will keep Novolog CR parameter loose at 4 unit 10/16/22 * Mr Modi is a 67 y/o M with a PMH of T2DM on insulin at home who presents for spinal surgery. * BSG prior to surgery was 215 mg/dL and after surgery was 250 mg/dL. Patient received Dexamethasone 4 mg in surgery. There are no ongoing steroid orders. * BSGs today are 159-214 mg/dL. * Will continue Lantus 40 units nightly. Fasting was reasonable today and HbA1C indicates that Lantus 30 units may not be sufficient. * Patient's regimen is extremely bolus heavy (30 units of Novolog with each meal). This may be due to steroids at home and patient may be very sensitive to steroids. Will tighten CR. PLAN FOR INPATIENT GLYCEMIC CONTROL: * Hold outpatient oral diabetes medications * Basal insulin * Lantus 15 units x 1 AM and scale (0/10 units for BSG > 151 mg/dL) for tonight * Bolus insulin * NovoLog per scale ACHS or Q6hrs while NPO * Goal Range: Low 110 mg/dL - High 140 mg/dL * Correction Factor: 12 mg/dL/unit * Nutritional / Prandial insulin per carb ratio of 1 unit per 4 grams CHO consumed
[2022-10-18] MEDS: traMADol HCL 50 MG TABLET PO PRN (21:10)
[2022-10-18] MEDS: ATORVASTATIN 20 MG TAB PO SCH (21:14)
[2022-10-18] MEDS: DOCUSATE SODIUM/SENNA 50/8.6MG TAB PO SCH (21:14)
[2022-10-19] MEDS: ACETAMINOPHEN 500 MG TAB PO PRN (07:39)
--- NOTE | 2022-10-19 08:17 | Orthopedic Progress Note ---
Date of Service October 19, 2022 Assessment & Plan (1) Lumbar spinal stenosis: Plan: Patient is stable at this point. He has been having difficulties walking. Physical therapy recommended referral to rehab facility postoperatively. Social work is aware. Continue GI DVT prophylaxis. We will continue to monitor his PHOENIX output. He will work with physical therapy until rehab facility is available. Admission and Anticipated Discharge Date Admission Date: October 15, 2022 Subjective Patient was seen bedside in room 307. He had a difficult day yesterday and had difficulties walking. He felt that his legs were weak and he was lightheaded. He feels better today. He is not having much in the way of pain. He denies any other numbness, tingling, or paresthesias. Physical Exam Physical Exam: On exam he is alert and oriented. His sensation is intact to light touch. He has full strength in both lower extremities he has full range of motion of the hips and knees. His abdomen soft and nontender. His calves are supple nontender. Dressings clean dry and intact. PHOEN[place] drain is intact and holding suction. Results & Data ([facility]) Vital Signs (Past 12 Hours) Vital Signs Temp Pulse Resp BP Pulse Ox O2 Del Method 10/19/22 08:05 Room Air 10/18/22 21:27 Room Air 10/18/22 20:43 37.0 C 85 18 160/80 H 95 Room Air
[2022-10-19] MEDS ORDERED: LANTUS PER UNIT CHARGE SQ SCH ×2 (09:00→11:30)
[2022-10-19] MEDS: APIXABAN 5 MG TABLET PO SCH ×2 (09:08→20:41)
[2022-10-19] MEDS: PANTOprazole 40 MG TAB PO SCH (09:09)
[2022-10-19] MEDS: FUROSEMIDE 40 MG TAB PO SCH (09:09)
[2022-10-19] MEDS: ISOSORBIDE MONO EXTENDED REL 30 MG TABCR PO SCH (09:09)
[2022-10-19] MEDS: ATENOLOL 50 MG TABLET PO SCH (09:09)
[2022-10-19] MEDS: GABAPENTIN 300 MG CAP PO SCH ×2 (09:09→20:40)
[2022-10-19] MEDS: amLODIPine BESYLATE 5 MG TAB PO SCH (09:09)
[2022-10-19] MEDS: guaiFENesin 600 MG TABCR PO SCH ×2 (09:09→20:42)
[2022-10-19] MEDS: CHOLECALCIFEROL 5,000 UNITS 125 MCG TAB PO SCH (09:09)
[2022-10-19] MEDS: gemfibroziL 600 MG TAB PO SCH ×2 (09:09→20:41)
[2022-10-19] MEDS: SPIRONOLACTONE 25 MG TAB PO SCH (09:10)
[2022-10-19] MEDS: FOLIC ACID 1 MG TAB PO SCH (09:10)
[2022-10-19] MEDS: allopurinoL 300 MG TAB PO SCH (09:10)
[2022-10-19] MEDS: INSULIN ASPART PER UNIT CHARGE SC SCH ×4 (09:14→20:37)
--- NOTE | 2022-10-19 11:15 | Pharmacy Report ---
Pharmacy Glycemic Short Note 2 - Date of Service October 19, 2022 - Glycemic Short BSG Results (Last 24 hours): 10/18/22 10/18/22 10/18/22 11:57 16:49 20:41 POC Glucose 182 H 161 H 172 H 10/19/22 07:52 POC Glucose 182 H OUTPATIENT ANTIDIABETIC REGIMEN: * Lantus 30 units HS * Novolog 30 units TIDM + SSI * HbA1C = 7.8 (09/10/22) ASSESSMENT: 10/19/22 * Timoteo received 64 units of insulin yesterday (25 units Lantus, 39 units Novolog) with good glycemic control. * Fasting BSG remains elevated at 182 mg/dL. Will increase Lantus to home dose of 30 units. * Post prandial BSGs are well controlled. No change to Novolog order. 10/18/22 * Timoteo received 67 units of insulin yesterday (25 units Lantus, 42 units Novolog) * Fasting BSG is trending upward. I suspect this is due to holding basal insulin on 10/16 and then partial dose given 10/17 AM, therefore I will not react to this number today. Will change to once daily dosing. Will give an additional 5 units based on BSG this evening if BSG remains elevated. * Post prandial BSGs were elevated yesterday. Will tighten carb coverage. 10/17/22 * Yesterday, BSG was between 57 - 214 mg/dL. Total NovoLog dose was 85 units (Due to CF/CR: 08/03 starting at lunchtime and high carb intake). Basal insulin was skipped due to low BSG at bedtime * FBSG today is 153 mg/dL * Will administer a 15 units basal insulin this morning and plan a scale basal insulin (0/10 units for BSG > 151 mg/dL) for tonight. Will keep Novolog CR parameter loose at 4 unit 10/16/22 * Mr Modi is a 67 y/o M with a PMH of T2DM on insulin at home who presents for spinal surgery. * BSG prior to surgery was 215 mg/dL and after surgery was 250 mg/dL. Patient received Dexamethasone 4 mg in surgery. There are no ongoing steroid orders. * BSGs today are 159-214 mg/dL. * Will continue Lantus 40 units nightly. Fasting was reasonable today and HbA1C indicates that Lantus 30 units may not be sufficient. * Patient's regimen is extremely bolus heavy (30 units of Novolog with each bárbara l). This may be due to steroids at home and patient may be very sensitive to steroids. Will tighten CR. PLAN FOR INPATIENT GLYCEMIC CONTROL: * Hold outpatient oral diabetes medications * Basal insulin * Lantus 30 units SQ daily (will slowly move this to HS dosing since this is when patient takes med at home) * Bolus insulin * NovoLog per scale ACHS or Q6hrs while NPO * Goal Range: Low 110 mg/dL - High 140 mg/dL * Correction Factor: 12 mg/dL/unit * Nutritional / Prandial insulin per carb ratio of 1 unit per 3 grams CHO consumed
[2022-10-19] MEDS: traMADol HCL 50 MG TABLET PO PRN ×3 (12:46→23:14)
[2022-10-19] MEDS: DOCUSATE SODIUM/SENNA 50/8.6MG TAB PO SCH (20:41)
[2022-10-19] MEDS: ATORVASTATIN 20 MG TAB PO SCH (20:42)
--- NOTE | 2022-10-20 08:12 | Orthopedic Progress Note ---
Date of Service October 20, 2022 Assessment & Plan (1) Lumbar spinal stenosis: Plan: This time we will continue physical therapy discontinue his drain and change his dressing today. Will await progress and determine if he will ultimately go to rehab or home. Admission and Anticipated Discharge Date Admission Date: October 15, 2022 Subjective Patient complaining of nausea today. Believes his back and leg symptoms are improved. He is tolerating ambulation well. Physical Exam Physical Exam: Patient is in the chair at the bedside. Is good strength testing. Results & Data ([facility]) Vital Signs (Past 12 Hours) Vital Signs Temp Pulse Resp BP Pulse Ox O2 Del Method 10/20/22 07:32 Room Air 10/19/22 21:02 36.6 C 70 18 149/85 H 96 Room Air
[2022-10-20] MEDS: gemfibroziL 600 MG TAB PO SCH ×2 (08:23→21:35)
[2022-10-20] MEDS: FUROSEMIDE 40 MG TAB PO SCH (08:23)
[2022-10-20] MEDS: amLODIPine BESYLATE 5 MG TAB PO SCH (08:23)
[2022-10-20] MEDS: GABAPENTIN 300 MG CAP PO SCH ×2 (08:23→21:35)
[2022-10-20] MEDS: guaiFENesin 600 MG TABCR PO SCH ×2 (08:23→21:36)
[2022-10-20] MEDS: PANTOprazole 40 MG TAB PO SCH (08:23)
[2022-10-20] MEDS: allopurinoL 300 MG TAB PO SCH (08:23)
[2022-10-20] MEDS: APIXABAN 5 MG TABLET PO SCH ×2 (08:23→21:36)
[2022-10-20] MEDS: SPIRONOLACTONE 25 MG TAB PO SCH (08:24)
[2022-10-20] MEDS: ISOSORBIDE MONO EXTENDED REL 30 MG TABCR PO SCH (08:24)
[2022-10-20] MEDS: CHOLECALCIFEROL 5,000 UNITS 125 MCG TAB PO SCH (08:24)
[2022-10-20] MEDS: FOLIC ACID 1 MG TAB PO SCH (08:24)
[2022-10-20] MEDS: ATENOLOL 50 MG TABLET PO SCH (08:24)
[2022-10-20] MEDS: INSULIN ASPART PER UNIT CHARGE SC SCH ×4 (08:37→20:56)
[2022-10-20] MEDS: METOCLOPRAMIDE HCL INJ 5 MG/ML 2 ML VIAL IV PRN (10:24)
[2022-10-20] MEDS ORDERED: LANTUS PER UNIT CHARGE SQ SCH (11:30)
[2022-10-20] MEDS: DOCUSATE SODIUM/SENNA 50/8.6MG TAB PO SCH (20:48)
[2022-10-20] MEDS: ATORVASTATIN 20 MG TAB PO SCH (21:36)
[2022-10-21] MEDS: traMADol HCL 50 MG TABLET PO PRN (05:50)
[2022-10-21 06:47] LABS: Basophils # (auto) 0.02 K/uL (0-0.2); Basophils % (auto) 0.2 %; Eosinophils # (auto) 0.28 K/uL (0-0.50); Eosinophils % (auto) 3.5 %; Hematocrit (blood only) 31.7 % (42.0-52.0); Hemoglobin 10.6 g/dl (14.0-18.0); Immature Granulocytes # (auto) 0.07 K/uL (0.01-0.20); Immature Granulocytes % (auto) 0.9 %; Lymphocytes % (auto) 18.7 %; Mean Corpuscular Hemoglobin 29.4 pg (25.0-34.0); Mean Corpuscular Hgb Conc 33.4 g/dL (32.0-36.0); Mean Corpuscular Volume 87.8 fL (80.0-100.0); Mean Platelet Volume 9.9 fL (9.4-12.4); Monocytes # (auto) 0.98 K/uL (0.11-0.59); Monocytes % (auto) 12.2 %; Neutrophils # (auto) 5.17 K/uL (1.40-6.50); Neutrophils % (auto) 64.5 %; Nucleated RBC # (auto) 0.02 K/uL (0-0.12); Nucleated RBC % (auto) 0.2 %; Platelet Count 239 K/uL (130-400); RDW Coefficient of Variation 14.7 % (11.5-14.5); RDW Standard Deviation 47.6 fL (36.4-46.3); Red Blood Count 3.61 M/uL (4.70-6.10); White Blood Count 8.02 K/ul (4.8-10.8)
[2022-10-21 07:02] LABS: BUN Creatinine Ratio 17.3 (10-20); Calcium 8.9 mg/dl (8.5-10.1); Creatinine Clr Calc Pharmacy 43.1 ml/min; Est GFR (African American) 40.5 ml/min; Potassium 3.9 mmol/L (3.5-5.1)
[2022-10-21] MEDS: ACETAMINOPHEN 500 MG TAB PO PRN (07:18)
[2022-10-21] MEDS: INSULIN ASPART PER UNIT CHARGE SC SCH ×2 (08:24→12:24)
[2022-10-21] MEDS: GABAPENTIN 300 MG CAP PO SCH (08:28)
[2022-10-21] MEDS: APIXABAN 5 MG TABLET PO SCH (08:28)
[2022-10-21] MEDS: guaiFENesin 600 MG TABCR PO SCH (08:28)
[2022-10-21] MEDS: PANTOprazole 40 MG TAB PO SCH (08:29)
[2022-10-21] MEDS: ISOSORBIDE MONO EXTENDED REL 30 MG TABCR PO SCH (08:29)
[2022-10-21] MEDS: FOLIC ACID 1 MG TAB PO SCH (08:29)
[2022-10-21] MEDS: SPIRONOLACTONE 25 MG TAB PO SCH (08:29)
[2022-10-21] MEDS: allopurinoL 300 MG TAB PO SCH (08:30)
[2022-10-21] MEDS: amLODIPine BESYLATE 5 MG TAB PO SCH (08:30)
[2022-10-21] MEDS: CHOLECALCIFEROL 5,000 UNITS 125 MCG TAB PO SCH (08:30)
[2022-10-21] MEDS: ATENOLOL 50 MG TABLET PO SCH (08:30)
[2022-10-21] MEDS: FUROSEMIDE 40 MG TAB PO SCH (08:30)
[2022-10-21] MEDS: gemfibroziL 600 MG TAB PO SCH (08:31)
[2022-10-21] MEDS ORDERED: ALBUT/IPRATROP 3MG/0.5MG NEB 3 ML VIAL NEB STA (09:21)
--- NOTE | 2022-10-21 09:28 | Hospitalist Progress Note ---
Date of Service October 21, 2022 Assessment & Plan (1) Headache: Plan: Uncertain etiology - obtained CT head w/o contrast which was negative for any intracranial abnormality Responded to Tramadol and Tylenol No neurologic deficits (2) Cough: Plan: CXR bedside ordered - cardiomegaly noted w/o any cardiopulmonary abnormality Stat Duoneb If evidence of pna, will initiate abx Not hypoxic, afebrile, and normal wbc (3) Lumbar spinal stenosis: Plan: S/P Lumbar decompression L1L3, fusion T12-L3, Hardware removalL3 S1 with Dr Khan on 10/15/22 PT/OT, drain, and pain management as outlined by primary service Recommended use of IS q1-2h wa for atelectasis/pna prevention (4) Uncontrolled type 2 diabetes mellitus: Plan: Last HgbA1C was 7.8 in September 2022 Patient on Insulin lispro sliding scale at home and Lantus 30u qHS Primary team consulted pharmacy for glycemic control (5) Chronic kidney disease, stage 3 (moderate): Plan: Patient follows with Nephrology Dr Cnao Baseline Cr 1.9 to 2.1 range (remains within his baseline) (6) Diabetic nephropathy: Plan: As above under #3 (7) Essential hypertension: Plan: Continue Amlodipine 25 mg, Atenolol 100mg, Isosorbide 30mg, Lasix 40mg and spironolactone 25mg BP 140s systolic throughout the day following med administration (8) Hypercholesterolemia: Plan: Continue Gemfibrozil and Atorvastatin (9) Factor V Leiden mutation: Plan: Had been on Eliquis 5mg BID, last dose was evening of 10/11/22 Currently with KAY stocking and SCDs Restarted Eliquis 5mg BID on 10/17/22 (10) Anemia: Plan: Baseline Hgb 11-12. Hgb preoperatively was 12.7 AM labs revealed a Hgb drop to 8.1 (9.3) - No signs of any GI bleeding, but patient was symptomatic with slight SOB and dizziness Likely ABLA secondary to recent surgery Transfused 2 units on 10/17 - hgb 10.3 on 10/18 and 10.6 on 10/21 Plan Given benign findings on CXR and CT head - may have a mild bronchitis, would treat supportively. Headache, could've simply been tension since it responded to analgesics. If recurrent or worsens in severity, should have further work up including MRI w/ contrast. Patient is medically stable for discharge to [facility] which is able to take patient today. Subsequently, will sign back off, thank you for allowing us to participate in the care of your patient. Plan to be d/w Dr. Sunshine. Admission and Anticipated Discharge Date Admission Date: October 15, 2022 Subjective Patient seen this morning at request of RN. Pt overnight reportedly was more lethargic and slow to respond/follow commands. BSG was 87, he was given some ice cream and came up to 124. Overnight MD messaged, labs ordered. Patient was c/o to RN this morning of headache. Pt states it was in the center of his forehead, was sensitive to sound, no photophobia or nausea. He doesn't have a h/o headaches or migraines. He is also c/o productive cough. He carries no h/o COPD or asthma and denies fever/chills. He is for dc to [facility] today. Physical Exam Physical Exam: GENERAL: 67 yo Well-developed, well-nourished WM. NAD. LUNGS: Nonlabored, scattered expiratory wheezes throughout. CARDIOVASCULAR: Regular rate and rhythm. EXTREMITIES: No edema. Non-tender. Peripheral pulses +2/4. NEUROLOGIC: intact, CN II-XII grossly intact. No facial droop or slurred speech. Results & Data Results & Data ([facility]) Vital Signs (Past 12 Hours) Vital Signs Temp Pulse Resp BP Pulse Ox O2 Del Method 10/21/22 08:27 83 156/83 H 95 Room Air 10/21/22 06:06 36.8 C 78 18 165/83 H 92 Room Air 10/21/22 01:11 36.7 C 79 18 151/88 H 93 Room Air Laboratory Results 10/21/22 06:28 10/21/22 06:28 PG Care Time/CCT Total # of Minutes Spent Total Time Spent with Patient: Total time spent is greater than 50% in coordination of care (as documented) at patient's floor/unit and/or counseling patient: Coding Level of Care Code 23023 SUB INP/OBS CARE 2/35MIN Diagnoses Headache R51.9 Cough R05.9 Lumbar spinal stenosis M48.061 Uncontrolled type 2 diabetes mellitus E11.65 Chronic kidney disease, stage 3 (moderate) N18.3 Diabetic nephropathy E11.21 Essential hypertension I10 Hypercholesterolemia E78.00 Factor V Leiden mutation D68.51 Anemia D64.9
--- NOTE | 2022-10-21 09:36 | XRay Report ---
SINGLE VIEW CHEST CLINICAL HISTORY: Cough FINDINGS: An AP, portable, upright chest radiograph is compared to study dated 10/17/2022 and correlat ed with chest CT dated 12/09/2021. The heart is enlarged. The pulmonary vasculature is noncongested. Th e lungs and pleural spaces are clear noting mild bibasilar atelectasis. No pneumothorax is seen. The skeletal structures are osteopenic. The bony thorax is grossly intact. Fusion hardware is noted in th e upper lumbar spine. IMPRESSION: Cardiomegaly with no acute cardiopulmonary abnormality identified. ACT 112: Negative or not required by law. Electronically signed by: Doug Martínez M.D. 10/21/2022 9:34 AM
--- NOTE | 2022-10-21 09:46 | CT Scan Report ---
CT SCAN OF THE BRAIN WITHOUT IV CONTRAST CLINICAL HISTORY: Headache. COMPARISON STUDY: CT of the brain dated 04/08/2018. TECHNIQUE: Unenhanced axial CT scan of the brain is performed from the vertex to the skull base. A do se lowering technique was utilized adhering to the principles of ALARA. CT DOSE: 614.27 mGy.cm FINDINGS: Brain parenchyma: There is age-related involutional change noting mild subcortical and periventricula r microangiopathic disease. There is no hemorrhage, mass effect, or evidence of acute territorial isc hemia by CT criteria. Huber-white matter differentiation is preserved. No extra-axial fluid collection is seen. Ventricles, sulci, cisterns: Prominent secondary to involutional change. Intracranial vasculature: There is atherosclerotic calcification of the cavernous carotid and vertebr al arteries. Calvarium: Unremarkable. Sinuses and mastoids: The visualized paranasal sinuses are clear. There are mastoid effusions, right larger than left. Orbits: The bony orbits are grossly intact. There are bilateral ocular lens implants. IMPRESSION: No acute intracranial abnormality. ACT 112: Negative or not required by law. Electronically signed by: Doug Martínez M.D. 10/21/2022 9:44 AM
--- NOTE | 2022-10-21 11:02 | Discharge Summary ---
Date of Service October 21, 2022 Admission HPI Per Admitting Provider This is a 67-year-old male who presents with chronic persistent back and leg pain after failing course of nonoperative care is here for surgical invention. Principal Diagnosis Lumbar spinal stenosis with neurogenic claudication Discharge Data Allergies Allergy/AdvReac Type Severity Reaction Status Date / Time ARB-Angiotensin Receptor Allergy Intermediate Nausea Verified 10/15/22 08:33 Antagonist ibuprofen Allergy Mild Blister Verified 10/15/22 08:33 DEYSI Inhibitors AdvReac Mild cough Verified 10/15/22 08:33 Consultations 10/15/22 14:51 Consult Hospitalist Routine Procedures Performed Operation Date: 10/15/22 09:35 Actual Procedures p T12-L2 Decompression and Fusion, Spinal Cord Monitoring(Not Applicable) - Arun Khan DO s L3-S1 Hardware Removal,(Not Applicable) - Arun Khan DO Ordered Studies 10/15/22 [place] lumbar spine 2-3V Routine 10/17/22 19:42 US venous doppler LE BI Urgent 10/21/22 09:21 CT head/brain wo con Stat Hospital Course (1) Lumbar spinal stenosis: Patient underwent lumbar decompression fusion tolerated this well was taken to orthopedic for postoperative. Postop day #1 he was up and ambulating progressed throughout the week stated decline [place] output and improvement in function. Subsequently discharged to rehab. Discharge orders and instructions found in chart for further review. Total Time Total Time Spent Total Time Spent (In Minutes): 20 minutes Discharge Plan Discharge Items Patient Disposition: Home - Self-Care Reason For Visit: Intervertebral Disc Disorders with Radiculopathy, Discharge Diagnosis: Lumbar spinal stenosis with neurogenic claudication Activity: As commented below Non-emergency contact: Primary Care Provider Call non-emergency contact if: you have any medication questions Follow-up/Referrals: ProJam MD [Primary Care Provider] - Diet: Regular Addtl Attending Provider Instructions: ACTIVITY RECOMMENDATIONS: SELF CARE INSTRUCTIONS AFTER THORACIC/LUMBAR FUSIONS 1. You may walk to your tolerance. It is good exercise for your legs and back. Expect some back and intermittent leg aches and pains. 2. You may perform "counter-top" level activities (make a sandwich, nidia with a project, etc.). 3. No bending or lifting of more than 10 pounds or back twisting of any nature (roll like a log when turning in bed). 4. You may ride in a car for 20-30 minutes at a time. No driving until after your first visit with your doctor. 5. Frequent changes of position and restricting sitting to 30 minutes at a time will help limit the amount of back spasms and stiffness you may experience. 6. You may discontinue the use of ambulatory aids (cane, crutches, etc.) once your strength and confidence allow. 7. You may methods examiner the shower and let water strike your incision when you arrive home at least once daily. Do not take a tub bath, sit in a hot tub or go into a swimming pool until after your first recheck in the office. SPECIAL CARE INSTRUCTIONS: VERY IMPORTANT TO READ AND REVIEW A. Your surgical incision has been closed with a cosmetic suture under the skin that will dissolve in about 6 weeks. In 14 days, you can use a pair of clean scissors and cut the suture that is left outside of the skin at the ends of your incision. 1. The small skin tapes can be removed 7 days after surgery if they have not fallen off by that point. 2. You may keep the wound open to air as much as possible to promote healing after post-op day number 5 unless told otherwise by your doctor. 3. If you think the wound looks like it is becoming infected (redness or worsening drainage) and/or you are experiencing fever, chill or worsening back pain and muscle spasms, contact the office so that we may evaluate you as soon as possible. B. Complications are uncommon, but please contact us if you have any signs or symptoms of: 1. wound infection (fever higher than 102.5 degrees F, redness, separation of wound, drainage, or increasing pain from the incision) 2. blood clots in legs (pain, swelling, redness and warmth in legs) 3. urinary tract infection (fever higher than 102.5 degrees F, burning upon urination or increased frequency of urination) 4. nerve problems (inability to walk on your toes or heels, numbness, loss of bowel or bladder control) 5. any other symptoms that concern you C. Please call the office at if you have any concerns or questions about your operation or recovery. D. No smoking! Smoking drastically decreases the chance of a solid fusion. E. Do not take any anti-inflammatory medications (Indocin, Advil, Motrin, Aspirin, Naprosyn, etc.) as these may inhibit the chance of a solid fusion. Tylenol is okay to take for pain. MANAGING PAIN AFTER SPINAL SURGERY 1. Narcotic medication is intended for short-term use and will be provided for surgical pain. Surgical pain usually lasts for a period of 4-6 weeks. Narcotic medication includes Percocet, Vicodin, Darvocet, Tylenol #3 or Lortab. 2. Longer-term pain is more appropriately treated with non-narcotic medication such as Tylenol ES. 3. Muscle spasm is not appropriately treated with narcotics. Muscle relaxers such as Soma, Flexeril or Skelaxin can be used along with Tylenol ES. 4. Remember that we all live with some "aches and pains". This is not unusual or uncommon after an injury or as we get older. a. Back pain is expected and may include muscle spasms for 4 to 6 weeks after surgery. The pain should gradually improve. If the pain worsens for no apparent reason, please contact the office. b. Intermittent leg pain may also be experienced and should not be concerned about unless it worsens for no apparent reason. If so, please contact the office. 5. We will provide appropriate medication within the normal guidelines of their prescribed use. We will also be very cautious and aware of potential abuse and extended duration of patients' medication needs. a. Pain medications are for your comfort and to assist with sleep and rest so that the tissue can heal. They are not provided in order to return to normal activity and should not be used through the day. To do so or worsening pain at night can result from ongoing tissue damage and development of tolerance to the prescribed medicine. 6. Please allow 2-3 days to process refills. Prescriptions will not be mailed but must be picked up at the office. FOLLOW UP VISIT: Keep your scheduled follow-up appointment. Any questions, please call the office at . Pending Studies at Discharge: No Stand-Alone Forms: My [employer], Smoking Cessation Medications and DC Order Prescriptions: New oxycodone 5 mg tablet 5 mg PO Q6H PRN (Reason: pain, severe) Qty: 30 0RF tramadol 50 mg tablet 50 mg PO Q6H PRN (Reason: pain, moderate) Qty: 30 0RF Continued (DME) pen needle, diabetic [BD Ultra-Fine Mini Pen Needle] 31 gauge x 3/16" needle See Rx Instructions .ROUTE .MEDSUPPLY Qty: 400 3RF Rx Instructions: Four times a day (DME) lancets [OneTouch UltraSoft Lancets] Misc See Dose Instructions .ROUTE .MEDSUPPLY Qty: 400 3RF Dose Instruction: As directed Rx Instructions: test blood sugars four times daily (DME) OneTouch Ultra Blue Test Strip Strip See Dose Instructions .ROUTE .MEDSUPPLY Qty: 400 3RF Dose Instruction: As directed Rx Instructions: test 4 times daily to control fluctuating blood sugars atenolol 100 mg tablet 100 mg PO QAM Qty: 90 1RF insulin aspart U-100 [Novolog FlexPen U-100 Insulin] 100 unit/mL (3 mL) insulin pen 30 unit SQ TIDM MDD 90 UNITS Qty: 90 3RF Rx Instructions: plus sliding scale omeprazole 20 mg capsule,delayed release(DR/EC) 20 mg PO QAM Qty: 90 3RF Eliquis 5 mg tablet 5 mg PO BID Qty: 180 1RF furosemide 40 mg tablet 40 mg PO QAM Qty: 90 3RF gemfibrozil 600 mg tablet 600 mg PO BID Qty: 180 1RF folic acid 1 mg tablet 1 mg PO QAM Qty: 30 3RF prednisone 5 mg tablet 5 mg PO QAM multivitamin Tablet 1 tab PO DAILY Qty: 30 0RF amlodipine 2.5 mg tablet 2.5 mg PO DAILY Qty: 90 3RF fluocinolone 0.01 % solution 1 applic topical BID Qty: 60 0RF Rx Instructions: to scalp gabapentin 300 mg capsule 300 mg PO .COMPLEX Qty: 270 3RF Rx Instructions: 300 mg orally one in am and two at nightime; spironolactone 25 mg tablet 25 mg PO DAILY Qty: 90 3RF cholecalciferol (vitamin D3) 125 mcg (5,000 unit) capsule 125 mcg PO QAM atorvastatin 20 mg tablet 20 mg PO QPM Qty: 90 1RF insulin glargine [Lantus Solostar U-100 Insulin] 100 unit/mL (3 mL) insulin pen 30 unit subcut HS 90 Days Qty: 30 1RF allopurinol 300 mg tablet 300 mg PO QAM acetaminophen [Tylenol] 325 mg Tablet 325 mg PO QID PRN (Reason: Pain) isosorbide mononitrate 30 mg PO QAM Discharge Orders: Discharge Order (Routine); Ordered 10/21/22 Ordered By: Arun Khan Admission Data Admit Date/Time: 10/15/22 13:02 Attending Provider: Arun Khan Admit Provider: Arun Khan Primary Care Provider: Jam Hdez Other Providers: [place] Daniel ; [facility] ; [place] ; Manuel Sunshine
[2022-10-21] MEDS ORDERED: LANTUS PER UNIT CHARGE SQ SCH (21:00)
--- NOTE | 2022-11-15 14:23 | Coding Query ---
CODING QUERY FOR UNCONTROLLED DIABETES To promote full compliance with coding requirements relating to patient care, provider participation is requested in all cases of rails developer uncertainty. Please assist us with the question(s) below: Coding Question: The term uncontrolled Diabetes was used throughout the record. To be able to code this diagnosis properly, could you please clarify the diagnosis below: ( ) Uncontrolled Diabetes meaning hypoglycemia ( X ) Uncontrolled Diabetes meaning hyperglycemia ( ) Other (please specify) Principal Diagnosis: "that condition established after study, to be chiefly responsible for occasioning the admission of the patient to the hospital for care." Co-Existing Principal Diagnosis: "when two or more diagnoses equally meet the criteria for principal diagnosis as determined by the circumstances of admission, diagnostic work up, and/or therapy provided, and the Alphabetic Index, Tabular List, or another coding guideline does not provide sequencing direction, any one of the diagnoses may be sequenced first." "When the physician has documented what appears to be a current diagnosis in the body of the record, but has not included the diagnosis in the final diagnostic statement, the physician should be asked whether the diagnosis should be added." (Source [facility]oding [facility] 2 QTR90. p3-4) TJ
== END 2022-10-21 13:41 | DRG 454 ==
LOC: ASU 07:38 → 3E 13:02

== ENCOUNTER 2023-03-08 11:24 | Inpatient (IN) ==
[2023-03-08] MEDS ORDERED: OPTIRAY 320 125ml IV ONE (11:37)
--- NOTE | 2023-03-08 11:51 | Emergency Department Note ---
Impression & Plan Dysarthria, Acute CVA (cerebrovascular accident) ED Provider Note ED Provider Note NAME: SAVANNAH BARRIOS AGE:67 SEX: Male : 1955 ARRIVES VIA: EMS INFORMANT: Patient ED PROVIDER(s): Jael Soliz DO CHIEF COMPLAINT: Slurred speech, possible stroke HPI: This is a 67-year-old male presents the emergency department via EMS due to slurred speech and concern for possible stroke. Patient states he felt well when he woke up this morning and at approximately 10 AM realized he was having difficulty swallowing his normal morning pills and began having difficulty speaking. He denies any arm or leg weakness or dizziness. He states he did begin to develop a slight headache. He denies any recent illness or change in medications. Patient reports he does take Eliquis daily and did take his morning dose earlier today. He states he has a history of blood clots. Patient states symptoms today are similar to prior TIA. PAST MEDICAL HISTORY:See Below PAST SURGICAL HISTORY:See Below FAMILY HISTORY:See Below SOCIAL HISTORY:See Below HOME MEDICATIONS:See Below ALLERGIES:See Below VITALS:See Below PHYSICAL EXAMINATION: GENERAL: alert, well appearing, well nourished, no distress, non-toxic EYE EXAM: normal conjunctiva, PERRL and EOM's grossly intact, no gaze deviation or nystagmus OROPHARYNX: no exudate, no erythema, lips, buccal mucosa, and tongue normal and mucous membranes are moist NECK: supple, no nuchal rigidity, no adenopathy, non-tender LUNGS: Clear to auscultation. Normal chest wall mechanics, no w/r/r HEART: no murmurs, S1 normal and S2 normal ABDOMEN: abdomen soft, non-tender, normo-active bowel sounds, no masses, no rebound or guarding. BACK: Back is symmetrical on inspection and there is no deformity, no midline tenderness, no CVA tenderness. SKIN: no rashes, petechiae, orbruising UPPER EXTREMITIES: upper extremities are grossly normal. FROM, nml pulses b/l. LOWER EXTREMITIES: No pitting edema. FROM, nml pulses b/l. NEURO EXAM: Normal sensorium, cranial nerves II-XII grossly intact, dysarthria noted, no facial droop,nogross weakness of arms, no gross weakness of legs. Gross sensation intact. No ataxia.NIHSS 1 Vital Signs: reviewed and remarkable Differential Diagnosis: CVA, TIA, electrolyte abnormality, medication ADR, MILLI, anemia, ICH, as well as others were considered MEDICAL DECISION MAKING: This is a 67 yo male brought in by EMS as stroke alert from the field due to new onset dysarthria and definite time of onset this am at 10. VS stable and pt afebrile. No other deficits noted on neuro exam. Patient on eliquis daily and did take his morning dose. We did confirm dosing via EMR and also with pt's as additional family arrived. He went urgently to CT/CTA and then came to room B1 for additional evaluation. Labs drawn and sent, IV established, EKG and CXR performed and interpreted at bedside, and patient placed on telemetry. CAse discussed with [facility] teleneurologist. Patient not a candidate for TNK or intervention. Case discussed with hospitalist for additional evaluation and treatment. Consultation(s): 1200: ED pharmacist able to confirm Eliquis dose and last fill. 1208: Discussed with Dr. Blanca, [facility] neurology. Not a candidate for TNK or intervention at this time. Recommends admission for additional stroke evaluation. 1240: Discussed with Dr. Mario. ER Treatment Provided: See below 1200: Updated family at bedside. Patient and family updated on results. Diagnostics Interpreted By Me: -ECG: NSR at 68 nml axis, nml intervals, no acute ST/T wave changes -Cardiac Monitoring: An order was placed for continuous cardiac monitoring. The monitor shows a rate of 70 with normal sinus rhythm. -Laboratory studies: As stated above and show below. -Imaging studies: X-ray Chest: A single view study of the chest was reviewed and was negative for cardiomegaly, focal infiltrate, effusion, pulmonary edema, or wide mediastinum. Triage Nursing Note Reviewed Prior/Outside Records Reviewed - prior DC summary reviewed Critical Care: Critical care of 42 min performed to assess and manage high likelihood of life- threatening CVA, involving labs and imaging performed with assessment to ev aluate CVA diagnosis with frequent reassessment. This time includes bedside time, treatment discussions with patient/family/consultants, documentation time and excludes procedure time. Past Med/Surg History Medical History 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 states ~35 yrs ago- was hospitalized, no issues since Chronic gout Chronic kidney disease, stage 3 (moderate) Cough Diabetes mellitus, type 2 IDDM Diabetic nephropathy follows with [facility] Diabetic peripheral neuropathy feet and hands Diverticulitis of colon hx Dyspnea occasionally, with stairs or incline, ongoing x several yrs, denies change or worsening, follows with PCP Essential hypertension controlled, stable per pt Factor V Leiden mutation plavix daily GERD (gastroesophageal reflux disease) controlled, stable per pt H/O proctoscopy History of balanitis Hypercholesterolemia Kidney stones hx Lumbar spondylosis Myalgia and myositis Pre-op evaluation Pulmonary emboli noted as likely chronic on 12/22 chest CTA Sciatica Transient ischemic attack (TIA) (~2012) no deficits Surgical History H/O colonoscopy H/O repair of rotator cuff right x1 and left x2 History of back surgery 10/15/22, rods and screws were placed History of cataract surgery bilateral History of colon resection r/t perforated diverticuliti History of cystoscopy with ureter stent History of dilation of urethra History of lumbar discectomy 12/30/2021 Grade 2 view, MAC 3, ETT 7.5. History of rectopexy laparoscopic with sigmoid resection --- patient unsure??? Family History Father , in his early 60s of colon cancer Colon cancer Diabetes Myocardial infarction Mother , in her 70s Diabetes Stroke Sister Breast cancer Brother Brain cancer Stroke Other No family history of adverse response to anesthesia Denies family history of Ovarian cancer Prostate cancer Lung cancer Social History Smoking Status: Never smoker Tobacco Type: Cigarettes Age Started Using Tobacco: 14; Age Quit Using Tobacco: 30; packs per day: 1; Cigarettes Per Day: 20 a day for 16 years; Second Hand Exposure: No; Do You Dip or Chew Tobacco: No; Hx Alcohol Use: No Hx Substance Use: No Preferred Language: Czech Communication Ability: Effective Visual Impairment: No Limitations Hearing Ability: Normal Robotic Technician Required: No Beliefs That Will Affect Care: None marital status: Current Living Situation: Spouse current occupational status: retired 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 Feels Safe at Home: No Is there a partner from a previous relationship who is making you feel unsafe now?: No Childhood Exposure to Second-Hand Smoke: Yes (father) Dental Care, Regularly: Yes Physical Activity Frequency: Does not Exercise Seatbelt Use: always Sunscreen Use: No Assistive Devices: Cane Allergies Allergies Allergy/AdvReac Type Severity Reaction Status Date / Time ARB-Angiotensin Receptor Allergy Intermediate Nausea Verified 03/08/23 13:19 Antagonist ibuprofen Allergy Mild Blister Verified 03/08/23 13:19 DEYSI Inhibitors AdvReac Mild cough Verified 03/08/23 13:19 Home Meds Home Medications Medication Instructions Recorded Confirmed prednisone 5 mg tablet 5 mg PO QAM 04/29/19 03/08/23 allopurinol 300 mg tablet 300 mg PO QAM 12/14/20 03/08/23 cholecalciferol (vitamin D3) 125 125 mcg PO QAM 09/21/22 03/08/23 mcg (5,000 unit) capsule blood sugar diagnostic (KaaiTouch 01/02/23 01/18/23 Ultra Blue Test Strip) flash glucose sensor (FreeStyle 01/02/23 01/18/23 Pa 2 Sensor kit) lancets (D2S UltraSoft 01/02/23 01/18/23 Lancets) acetaminophen 500 mg tablet 1,000 mg PO BID PRN Pain 03/08/23 03/08/23 (Tylenol Extra Strength) fluocinolone 0.01 % topical 1 applic topical BID PRN .Flare ups 03/08/23 03/08/23 solution gabapentin 300 mg capsule 300 mg PO QAM 03/08/23 03/08/23 gabapentin 300 mg capsule 600 mg PO QPM 03/08/23 03/08/23 isosorbide mononitrate 30 mg 30 mg PO QAM 03/08/23 03/08/23 tablet,extended release 24 hr Previous Rx's Medication Instructions Recorded BD Ultra-Fine Mini Pen Needle 31 #400 ea 06/07/20 gauge x 3/16" (pen needle, diabetic) multivitamin 1 tab PO DAILY #30 tabs 11/07/21 apixaban 5 mg tablet (Eliquis) 5 mg PO BID #180 tabs 11/26/22 atenolol 100 mg tablet 100 mg PO QAM #90 tabs 12/11/22 folic acid 1 mg tablet 1 mg PO QAM #90 tabs 12/26/22 furosemide 40 mg tablet 40 mg PO QAM #90 tabs 12/26/22 gemfibrozil 600 mg tablet 600 mg PO BID #180 tabs 12/26/22 spironolactone 25 mg tablet 25 mg PO DAILY #90 tabs 01/21/23 amlodipine 5 mg tablet 5 mg PO DAILY #90 tabs 03/09/23 atorvastatin 40 mg tablet 40 mg PO HS #90 tabs 03/09/23 clopidogrel 75 mg tablet 75 mg PO QAM #30 tabs 03/09/23 insulin aspart U-100 100 unit/mL 26 unit (0.26 mL) subcut QAM #15 mL 03/09/23 (3 mL) subcutaneous pen (Novolog FlexPen U-100 Insulin aspart) insulin aspart U-100 100 unit/mL 28 unit (0.28 mL) subcut BIDM #15 03/09/23 (3 mL) subcutaneous pen (Novolog mL FlexPen U-100 Insulin aspart) insulin glargine 100 unit/mL (3 40 unit (0.4 mL) subcut HS 90 days 03/09/23 mL) subcutaneous pen (Lantus #30 mL Solostar U-100 Insulin) pantoprazole 40 mg tablet,delayed 40 mg PO QAM #30 tabs 03/09/23 release Results & Data (ED) Vital Signs Vital Signs - 24 hr 03/08/23 11:30 03/08/23 11:30 Temperature 36.4 C L Temperature Source Oral Pulse Rate 69 Pulse Rhythm Regular Respiratory Rate 20 Respiratory Effort / Characteristics Non-Labored Spontaneous Respiratory Depth Normal Blood Pressure 133/80 Blood Pressure Mean 97 Pulse Oximetry 97 95 Oxygen Delivery Method Room Air Room Air Sepsis Recent Fever Within 48 Hours No Sepsis New/Unexplained Change in Mental Status No Sepsis Action Taken by Nursing No Action Required Laboratory Data 03/08/23 11:44 03/08/23 11:44 Lab Results 03/08/23 03/08/23 03/08/23 Range/Units 11:44 11:44 11:44 WBC 9.19 (4.8-10.8) K/ul RBC 4.05 L (4.70-6.10) M/uL Hgb 10.9 L (14.0-18.0) g/dl Hct 34.6 L (42.0-52.0) % MCV 85.4 (80.0-100.0) fL MCH 26.9 (25.0-34.0) pg MCHC 31.5 L (32.0-36.0) g/dL RDW Std Deviation 47.3 H (36.4-46.3) fL RDW Coeff of Jono 15.5 H (11.5-14.5) % Plt Count 252 (130-400) K/uL MPV 10.1 (9.4-12.4) fL Immature Gran % (Auto) 0.5 % Neut % (Auto) 75.5 % Lymph % (Auto) 12.7 % [place] % (Auto) 9.2 % Eos % (Auto) 1.6 % Baso % (Auto) 0.5 % Neut # (Auto) 6.92 H (1.40-6.50) K/uL Lymph # (Auto) 1.17 L (1.2-3.4) K/uL [place] # (Auto) 0.85 H (0.11-0.59) K/uL Eos # (Auto) 0.15 (0-0.50) K/uL Baso # (Auto) 0.05 (0-0.2) K/uL Immature Gran # (Auto) 0.05 (0.01-0.20) K/uL PT 12.0 (9.0-12.0) Seconds INR 1.1 (0.9-1.1) APTT 35.2 H (21.0-31.0) Seconds PTT Ratio 1.2 Sodium 137 (136-145) mmol/L Potassium 4.5 (3.5-5.1) mmol/L Chloride 105 (98-107) mmol/L Carbon Dioxide 23 (21-32) mmol/L Anion Gap 9 (3-11) BUN 35 H (6-23) mg/dl Creatinine 1.86 H (0.6-1.4) mg/dl Est Cr Clr Drug Dosing 47.0 ml/min Est GFR ( Amer) 41.8 ml/min Est GFR (Non-Af Amer) 36.1 ml/min BUN/Creatinine Ratio 18.8 (10-20) Glucose 126 H (70-99(Fasting)) mg/dl POC Glucose (70-99) mg/dl Calcium 8.8 (8.6-10.3) mg/dl Magnesium 1.8 (1.7-2.4) mg/dl Total Bilirubin 0.4 (0.2-1.0) mg/dl AST 12 L (13-39) U/L ALT 10 (7-52) U/L Alkaline Phosphatase 136 H (34-104) U/L Troponin I High Sens 10.4 (0-20) pg/ml Total Protein 6.7 (6.0-8.3) gm/dl Albumin 3.7 (3.4-5.0) gm/dl Globulin 3.0 (2.5-4.0) gm/dl Albumin/Globulin Ratio 1.2 (0.9-2) SARS-CoV-2, RNA, NAAT (NEGATIVE) 03/08/23 03/08/23 Range/Units 11:49 11:54 WBC (4.8-10.8) K/ul RBC (4.70-6.10) M/uL Hgb (14.0-18.0) g/dl Hct (42.0-52.0) % MCV (80.0-100.0) fL MCH (25.0-34.0) pg MCHC (32.0-36.0) g/dL RDW Std Deviation (36.4-46.3) fL RDW Coeff of Jono (11.5-14.5) % Plt Count (130-400) K/uL MPV (9.4-12.4) fL Immature Gran % (Auto) % Neut % (Auto) % Lymph % (Auto) % [place] % (Auto) % Eos % (Auto) % Baso % (Auto) % Neut # (Auto) (1.40-6.50) K/uL Lymph # (Auto) (1.2-3.4) K/uL [place] # (Auto) (0.11-0.59) K/uL Eos # (Auto) (0-0.50) K/uL Baso # (Auto) (0-0.2) K/uL Immature Gran # (Auto) (0.01-0.20) K/uL PT (9.0-12.0) Seconds INR (0.9-1.1) APTT (21.0-31.0) Seconds PTT Ratio Sodium (136-145) mmol/L Potassium (3.5-5.1) mmol/L Chloride (98-107) mmol/L Carbon Dioxide (21-32) mmol/L Anion Gap (3-11) BUN (6-23) mg/dl Creatinine (0.6-1.4) mg/dl Est Cr Clr Drug Dosing ml/min Est GFR ( Amer) ml/min Est GFR (Non-Af Amer) ml/min BUN/Creatinine Ratio (10-20) Glucose (70-99(Fasting)) mg/dl POC Glucose 123 H (70-99) mg/dl Calcium (8.6-10.3) mg/dl Magnesium (1.7-2.4) mg/dl Total Bilirubin (0.2-1.0) mg/dl AST (13-39) U/L ALT (7-52) U/L Alkaline Phosphatase (34-104) U/L Troponin I High Sens (0-20) pg/ml Total Protein (6.0-8.3) gm/dl Albumin (3.4-5.0) gm/dl Globulin (2.5-4.0) gm/dl Albumin/Globulin Ratio (0.9-2) SARS-CoV-2, RNA, NAAT NEGATIVE (NEGATIVE) Administered Medications Discontinued Medications Allopurinol ([facility]ol 300 Mg Tab) [facility] [place] Stop: 04/08/23 08:59 Last Admin: 03/09/23 08:48 Dose: 300 mg Documented By: BT Apixaban (Apixaban 5 Mg Tablet) 5 mg PO BID [facility] Stop: 04/08/23 08:59 Last Admin: 03/09/23 08:48 Dose: 5 mg Documented By: BT Atenolol (Atenolol 50 Mg Tablet) [facility] [place] Stop: 04/08/23 08:59 Last Admin: 03/09/23 08:48 Dose: 100 mg Documented By: BT Atorvastatin Calcium (Atorvastatin 40 Mg Tab) 40 mg PO [facility] Stop: 04/07/23 20:59 Last Admin: 03/08/23 20:41 Dose: 40 mg Documented By: TPB Clopidogrel Bisulfate (Clopidogrel Bisulfate 75 Mg Tab) [facility] [place] Stop: 04/07/23 13:29 Last Admin: 03/09/23 08:48 Dose: 75 mg Documented By: Admin: 03/08/23 16:44 Dose: 75 mg Documented By: JASMIN Gabapentin (Gabapentin 300 Mg Cap) [facility] [place] Stop: 04/08/23 08:59 Last Admin: 03/09/23 08:48 Dose: 300 mg Documented By: BT Gabapentin (Gabapentin 300 Mg Cap) 600 mg PO QPM [facility] Stop: 04/07/23 20:59 Last Admin: 03/08/23 20:41 Dose: 600 mg Documented By: TPLiliana Insulin Aspart (Insulin Aspart Per Unit Charge) 0 units SC ACHS [facility] Stop: 04/07/23 16:29 Last Admin: 03/09/23 12:09 Dose: 15 units Documented By: RODRIGUE Co-signed By: JOSEPH Admin: 03/09/23 08:52 Dose: 4 units Documented By: RODRIGUE Co-signed By: JOSEPH Admin: 03/08/23 21:35 Dose: 3 units Documented By: TPLiliana Co-signed By: LOLA Admin: 03/08/23 16:47 Dose: 12 units Documented By: JASMIN Co-signed By: HERBERT Insulin Glargine (Lantus Per Unit Charge) 30 units SQ HS [facility] Stop: 04/07/23 20:59 Last Admin: 03/08/23 21:35 Dose: 30 units Documented By: TPLiliana Co-signed By: LOLA Ioversol (Optiray 320 125ml) 120 ml IV ONCE ONE Stop: 03/08/23 11:38 Last Admin: 03/08/23 11:38 Dose: 120 ml Documented By: JAR Isosorbide Mononitrate (Isosorbide [place] Extended Rel 30 Mg Tabcr) 30 mg PO [facility] Stop: 04/08/23 08:59 Last Admin: 03/09/23 08:48 Dose: 30 mg Documented By: RODRIGUE Miscellaneous Information (Stroke Patient Discharge) 1 each N/A NOW STA Stop: 03/09/23 14:02 Last Admin: 03/09/23 14:53 Dose: 1 each Documented By: RODRIGUE Pantoprazole Sodium (Pantoprazole 40 Mg Tab) 40 mg PO [facility] Stop: 04/08/23 08:59 Last Admin: 03/09/23 08:48 Dose: 40 mg Documented By: RODRIGUE Prednisone (Prednisone 5 Mg Tab) 5 mg PO QAM [facility] Stop: 04/08/23 08:59 Last Admin: 03/09/23 08:48 Dose: 5 mg Documented By: RODRIGUE Spironolactone (Spironolactone 25 Mg Tab) 25 mg PO DAILY [facility] Stop: 04/08/23 08:59 Last Admin: 03/09/23 08:48 Dose: 25 mg Documented By: RODRIGUE Imaging Data Radiologist's Impression: Head CT 03/08/23 11:34 CT OF THE HEAD WITHOUT CONTRAST CLINICAL HISTORY: neuro deficit, acute stroke suspected. Slurred speech. COMPARISON STUDY: Head CT October 21, 2022. MRI of the brain September 24, 2014. TECHNIQUE: Helical axial images of the head were obtained without IV contrast. Automated exposure control was utilized for the study. A dose lowering technique was utilized adhering to the principles of ALARA. FINDINGS: No acute intracranial hemorrhage, midline shift or mass effect is pr esent. Several white matter hypodensities are unchanged. Suspected old lacunar infarct within left cerebellar hemisphere is unchanged. The appearance of the brain is unchanged. The ventricular system is unremarkable. The basal cisterns are patent. No extra-axial collections are present. There are no findings to suggest acute dural sinus thrombosis or acute territorial infarct. No significant calvarial abnormalities are present. Partially opacified right mastoid air cells are unchanged. IMPRESSION: No acute intracranial findings. No change in appearance of the brain. ACT 112: Negative or not required by law. Electronically signed by: Adonis Arellano M.D. 03/08/2023 11:50 AM Head CTA 03/08/23 11:34 CT ANGIOGRAM OF THE BRAIN; CT ANGIOGRAM OF THE NECK CLINICAL HISTORY: Strokelike symptoms. COMPARISON STUDY: Unenhanced CT of the brain performed concurrently on 03/08/2023. MR angiogram of the brain dated 09/30/2014. TECHNIQUE: Following the IV administration of 120 of Optiray 320, CT angiogram of the head and neck was performed from the aortic arch to the vertex. Images are reviewed in the axial, sagittal, and coronal planes. 3-D MIPS images are created and assessed. IV contrast was administered without complication. All measurements were calculated based on NASCET criteria. A dose lowering technique was utilized adhering to the principles of ALARA. CT DOSE: 1318.66 mGy.cm FINDINGS: Brain parenchyma: There is age-related involutional change noting moderate subcortical and periventricular microangiopathic disease. There is no evidence of hemorrhage, mass effect, or acute territorial ischemia noting angiographic phase technique. There is a chronic lacunar infarct in the left cerebellar hemisphere. There is no evidence of enhancing mass lesion on the angiogram phase images. The ventricles, sulci, and cisterns are prominent secondary to additional change. Huber-white matter differentiation is preserved. No extra- axial fluid collection is seen. Thoracic aorta: Visualized portions of the thoracic aorta are normal in caliber. The aortic arch demonstrates standard 3-vessel anatomy. Right carotid arterial system: The right common carotid artery is widely patent, as are the right internal and external carotid arteries. Calcified plaque is noted in the carotid bulb. Left carotid arterial system: The left common carotid artery is widely patent, as are the left internal and external carotid arteries. Calcified plaque is noted in the carotid bulb. Vertebral arteries: The vertebral arteries are widely patent bilaterally and codominant. Subclavian arteries: Widely patent bilaterally. Intracranial vasculature: The internal carotid arteries are patent at the skull base, as are the anterior and middle cerebral arteries bilaterally. The vertebrobasilar system and posterior cerebral arteries are widely patent. The vertebral arteries are codominant. There is no aneurysm, high-grade stenosis, or focal vessel cut off seen throughout the intracranial circulation. Jugular veins: Patent bilaterally. Dural sinuses: Patent. Lung apices: Partially visualized upper lobe lung parenchyma appears clear. Soft tissues: The visualized pharyngeal soft tissues are normal in appearance noting angiographic phase technique. The oropharyngeal airway appears widely patent. The salivary and thyroid glands are normal in appearance. No cervical lymphadenopathy is seen. Skeletal structures: The skeletal structures are osteopenic. The calvarium appea rs intact. The cervical spine is maintained noting multilevel spondylosis. Orbits: The bony orbits are intact. Orbital contents are normal as visualized noting bilateral ocular lens implants. Sinuses and mastoids: Trace mucosal thickening is noted in the left maxillary antrum. The remaining paranasal sinuses are clear. There are bilateral mastoid effusions. IMPRESSION: 1. There is no evidence of hemorrhage, mass effect, or acute territorial ischemia noting angiographic phase technique. 2. Unremarkable CT angiogram of the brain. 3. Unremarkable CT angiogram of the neck. ACT 112: Negative or not required by law. Electronically signed by: Doug Martínez M.D. 03/08/2023 11:57 AM Neck CTA 03/08/23 11:34 CT ANGIOGRAM OF THE BRAIN; CT ANGIOGRAM OF THE NECK CLINICAL HISTORY: Strokelike symptoms. COMPARISON STUDY: Unenhanced CT of the brain performed concurrently on 03/08/2023. MR angiogram of the brain dated 09/30/2014. TECHNIQUE: Following the IV administration of 120 of Optiray 320, CT angiogram of the head and neck was performed from the aortic arch to the vertex. Images are reviewed in the axial, sagittal, and coronal planes. 3-D MIPS images are created and assessed. IV contrast was administered without complication. All measurements were calculated based on NASCET criteria. A dose lowering technique was utilized adhering to the principles of ALARA. CT DOSE: 1318.66 mGy.cm FINDINGS: Brain parenchyma: There is age-related involutional change noting moderate subcortical and periventricular microangiopathic disease. There is no evidence of hemorrhage, mass effect, or acute territorial ischemia noting angiographic phase technique. There is a chronic lacunar infarct in the left cerebellar hemisphere. There is no evidence of enhancing mass lesion on the angiogram phase images. The ventricles, sulci, and cisterns are prominent secondary to additional change. Huber-white matter differentiation is preserved. No extra- axial fluid collection is seen. Thoracic aorta: Visualized portions of the thoracic aorta are normal in caliber. The aortic arch demonstrates standard 3-vessel anatomy. Right carotid arterial system: The right common carotid artery is widely patent, as are the right internal and external carotid arteries. Calcified plaque is noted in the carotid bulb. Left carotid arterial system: The left common carotid artery is widely patent, as are the left internal and external carotid arteries. Calcified plaque is noted in the carotid bulb. Vertebral arteries: The vertebral arteries are widely patent bilaterally and codominant. Subclavian arteries: Widely patent bilaterally. Intracranial vasculature: The internal carotid arteries are patent at the skull base, as are the anterior and middle cerebral arteries bilaterally. The vertebrobasilar system and posterior cerebral arteries are widely patent. The vertebral arteries are codominant. There is no aneurysm, high-grade stenosis, or focal vessel cut off seen throughout the intracranial circulation. Jugular veins: Patent bilaterally. Dural sinuses: Patent. Lung apices: Partially visualized upper lobe lung parenchyma appears clear. Soft tissues: The visualized pharyngeal soft tissues are normal in appearance noting angiographic phase technique. The oropharyngeal airway appears widely patent. The salivary and thyroid glands are normal in appearance. No cervical lymphadenopathy is seen. Skeletal structures: The skeletal structures are osteopenic. The calvarium appears intact. The cervical spine is maintained noting multilevel spondylosis. Orbits: The bony orbits are intact. Orbital contents are normal as visualized noting bilateral ocular lens implants. Sinuses and mastoids: Trace mucosal thickening is noted in the left maxillary antrum. The remaining paranasal sinuses are clear. There are bilateral mastoid effusions. IMPRESSION: 1. There is no evidence of hemorrhage, mass effect, or acute territorial ischemia noting angiographic phase technique. 2. Unremarkable CT angiogram of the brain. 3. Unremarkable CT angiogram of the neck. ACT 112: Negative or not required by law. Electronically signed by: Doug Martínez M.D. 03/08/2023 11:57 AM Discharge Plan Visit Data Chief Complaint: Stroke Alert Stated Complaint: STROKE ALERT ED Provider: Jael Soliz Discharge Problem: Dysarthria, Acute CVA (cerebrovascular accident) Patient Disposition: Admitted As Inpatient Condition: Good Discharge Instructions Interventions: ED Discharge Assessment Last Done: 03/08/23 14:05
--- NOTE | 2023-03-08 11:51 | CT Scan Report ---
CT OF THE HEAD WITHOUT CONTRAST CLINICAL HISTORY: neuro deficit, acute stroke suspected. Slurred speech. COMPARISON STUDY: Head CT October 21, 2022. MRI of the brain September 24, 2014. TECHNIQUE: Helical axial images of the head were obtained without IV contrast. Automated exposure con trol was utilized for the study. A dose lowering technique was utilized adhering to the principles o f ALARA. FINDINGS: No acute intracranial hemorrhage, midline shift or mass effect is present. Several white ma tter hypodensities are unchanged. Suspected old lacunar infarct within left cerebellar hemisphere is unchanged. The appearance of the brain is unchanged. The ventricular system is unremarkable. The basa l cisterns are patent. No extra-axial collections are present. There are no findings to suggest acute dural sinus thrombosis or acute territorial infarct. No significant calvarial abnormalities are pres ent. Partially opacified right mastoid air cells are unchanged. IMPRESSION: No acute intracranial findings. No change in appearance of the brain. ACT 112: Negative or not required by law. Electronically signed by: Adonis Arellano M.D. 03/08/2023 11:50 AM
--- NOTE | 2023-03-08 11:59 | CT Scan Report ---
CT ANGIOGRAM OF THE BRAIN; CT ANGIOGRAM OF THE NECK CLINICAL HISTORY: Strokelike symptoms. COMPARISON STUDY: Unenhanced CT of the brain performed concurrently on 03/08/2023. MR angiogram of the brain dated 09/30/2014. TECHNIQUE: Following the IV administration of 120 of Optiray 320, CT angiogram of the head and neck w as performed from the aortic arch to the vertex. Images are reviewed in the axial, sagittal, and shaunna nal planes. 3-D MIPS images are created and assessed. IV contrast was administered without complicati on. All measurements were calculated based on NASCET criteria. A dose lowering technique was utilize d adhering to the principles of ALARA. CT DOSE: 1318.66 mGy.cm FINDINGS: Brain parenchyma: There is age-related involutional change noting moderate subcortical and periventri cular microangiopathic disease. There is no evidence of hemorrhage, mass effect, or acute territorial ischemia noting angiographic phase technique. There is a chronic lacunar infarct in the left cerebel lar hemisphere. There is no evidence of enhancing mass lesion on the angiogram phase images. The vent ricles, sulci, and cisterns are prominent secondary to additional change. Huber-white matter different iation is preserved. No extra-axial fluid collection is seen. Thoracic aorta: Visualized portions of the thoracic aorta are normal in caliber. The aortic arch demo nstrates standard 3-vessel anatomy. Right carotid arterial system: The right common carotid artery is widely patent, as are the right int ernal and external carotid arteries. Calcified plaque is noted in the carotid bulb. Left carotid arterial system: The left common carotid artery is widely patent, as are the left international bank manager al and external carotid arteries. Calcified plaque is noted in the carotid bulb. Vertebral arteries: The vertebral arteries are widely patent bilaterally and codominant. Subclavian arteries: Widely patent bilaterally. Intracranial vasculature: The internal carotid arteries are patent at the skull base, as are the ante rior and middle cerebral arteries bilaterally. The vertebrobasilar system and posterior cerebral angelica tammy are widely patent. The vertebral arteries are codominant. There is no aneurysm, high-grade steno sis, or focal vessel cut off seen throughout the intracranial circulation. Jugular veins: Patent bilaterally. Dural sinuses: Patent. Lung apices: Partially visualized upper lobe lung parenchyma appears clear. Soft tissues: The visualized pharyngeal soft tissues are normal in appearance noting angiographic pha se technique. The oropharyngeal airway appears widely patent. The salivary and thyroid glands are nor mal in appearance. No cervical lymphadenopathy is seen. Skeletal structures: The skeletal structures are osteopenic. The calvarium appears intact. The cervic al spine is maintained noting multilevel spondylosis. Orbits: The bony orbits are intact. Orbital contents are normal as visualized noting bilateral ocular lens implants. Sinuses and mastoids: Trace mucosal thickening is noted in the left maxillary antrum. The remaining p aranasal sinuses are clear. There are bilateral mastoid effusions. IMPRESSION: 1. There is no evidence of hemorrhage, mass effect, or acute territorial ischemia noting angiographic phase technique. 2. Unremarkable CT angiogram of the brain. 3. Unremarkable CT angiogram of the neck. ACT 112: Negative or not required by law. Electronically signed by: Doug Martínez M.D. 03/08/2023 11:57 AM
[2023-03-08 12:12] LABS: Basophils # (auto) 0.05 K/uL (0-0.2); Basophils % (auto) 0.5 %; Eosinophils # (auto) 0.15 K/uL (0-0.50); Eosinophils % (auto) 1.6 %; Hematocrit (blood only) 34.6 % (42.0-52.0); Hemoglobin 10.9 g/dl (14.0-18.0); Immature Granulocytes # (auto) 0.05 K/uL (0.01-0.20); Immature Granulocytes % (auto) 0.5 %; Lymphocytes # (auto) 1.17 K/uL (1.2-3.4); Lymphocytes % (auto) 12.7 %; Mean Corpuscular Hemoglobin 26.9 pg (25.0-34.0); Mean Corpuscular Hgb Conc 31.5 g/dL (32.0-36.0); Mean Corpuscular Volume 85.4 fL (80.0-100.0); Mean Platelet Volume 10.1 fL (9.4-12.4); Monocytes # (auto) 0.85 K/uL (0.11-0.59); Monocytes % (auto) 9.2 %; Neutrophils # (auto) 6.92 K/uL (1.40-6.50); Neutrophils % (auto) 75.5 %; Platelet Count 252 K/uL (130-400); RDW Coefficient of Variation 15.5 % (11.5-14.5); RDW Standard Deviation 47.3 fL (36.4-46.3); Red Blood Count 4.05 M/uL (4.70-6.10); White Blood Count 9.19 K/ul (4.8-10.8)
--- NOTE | 2023-03-08 12:22 | XRay Report ---
SINGLE VIEW CHEST CLINICAL HISTORY: Neurological deficit. Stroke like symptoms. FINDINGS: An AP, portable, upright chest radiograph is compared to study dated 10/21/2022. The examina tion is degraded by portable technique and apical lordotic positioning. The heart is enlarged. There is prominence of the pulmonary vasculature. Atelectasis is seen at the lung bases. The lungs and pleu ral spaces are otherwise clear. No pneumothorax is seen. The skeletal structures are osteopenic. The bony thorax is grossly intact. IMPRESSION: 1. Cardiomegaly with prominence of the pulmonary vasculature. Correlate clinically for evidence of fl uid overload/mild congestive change. 2. No airspace consolidation or large pleural effusion is identified. ACT 112: Negative or not required by law. Electronically signed by: Doug Martínez M.D. 03/08/2023 12:21 PM
[2023-03-08 12:23] LABS: INR 1.1 (0.9-1.1); Partial Thromboplastin Ratio 1.2; Partial Thromboplastin Time 35.2 Seconds (21.0-31.0)
[2023-03-08 12:35] LABS: Albumin Globulin Ratio 1.2 (0.9-2); Albumin Level 3.7 gm/dl (3.4-5.0); BUN Creatinine Ratio 18.8 (10-20); Bilirubin,Total 0.4 mg/dl (0.2-1.0); Calcium 8.8 mg/dl (8.6-10.3); Est GFR (African American) 41.8 ml/min; Est GFR (Non-African American) 36.1 ml/min; Magnesium 1.8 mg/dl (1.7-2.4); Potassium 4.5 mmol/L (3.5-5.1); Total Protein 6.7 gm/dl (6.0-8.3)
[2023-03-08 12:42] LABS: Troponin I High Sensitivity 10.4 pg/ml (0-20)
--- NOTE | 2023-03-08 13:00 | History & Physical Report ---
Date of Service March 08, 2023 Assessment & Plan (1) Dysarthria: Plan: Dysarthria/dysphagia suspicious for CVA CTAhead/neck without acute findings MRI pending Atorvastatin 20 mg increased to 40 mg, lipid panel pending Patient is anticoagulated on Eliquis, single dose of this has been held while following stroke evaluation Antihypertensives held for 24 hours/until MRI is resulted for permissive hypertension. Normotensive at time of assessment High-sensitivity troponin normal Echo with bubble study pending - w/ L facial droop and syarthria at bedside. No crescendo symptoms in the preceding week, last TIA with similar symptoms was more than a year ago, his actual TIAs were 6 years ago. Initially notes that he has had some intermittent left arm symptoms in the last few weeks but then clarifies this was more itching which went away with Benadryl and is separate from his current symptoms Discussed risk/benefits of antiplatelet addition to his anticoagulation and reviewed with neurology. Added Plavix 75 mg daily including 1 dose on admissio n. Patient is aware there is a slightly elevated bleeding risk, but a benefit to small vessel protection from the addition of antiplatelet CKD Baseline creatinine around 1.92.25 Admitting creatinine 1.86 Trend BMP daily, renally adjust medications Type II DM Switch to weight-based basal bolus while inpatient Close checks AC/at bedtime - Took lantus 30u HS, and scaled aspared w/ meals. 24uam//26 short acting with meals, doesn't need much additional coverage Hypertension Hold antihypertensives in first 24 hours for permissive hypertension to 220/120 If MRI is negative, or after 24 hours then will pursue blood pressure goal of 180 systolic and resume antihypertensives Labetalol as needed for greater than 220 overnight Denies history of heart failure/heart disease/stents DVT prophylaxis: Known to coagulated Diet: DM 2, heart healthy once passes swallow eval CODE STATUS: Full code Disposition: PCU (2) Diabetic nephropathy: (3) Allergy to DEYSI inhibitors: (4) History of back surgery: (5) Uncontrolled type 2 diabetes mellitus: (6) Factor V Leiden mutation: (7) Essential hypertension: History of Present Illness Primary Care Provider: Jam Hdez MD Timoteo Modi is a 67-year-old male with past medical history of TIA, type II DM with nephropathy, FVL, HLD dysarthria and dysphagia @ 10am. No other symptoms. No arm or leg weakness. No numbness/tingling. Intermittent foot itching but no numbness tingling. Similar sx to this with ministrokes in the past Does not take aspirin or plaavix. On eliquis for FVL/homocysteinemia with multiple DVT/PE. No history of bleeding problems No chest pain, no chest pressure Atorvastatin 20mg, has not been on a higher dose. Medical History: Reviewed Medications: Reviewed Surgical History: Reviewed Family history: Reviewed Allergies: Reviewed Social History: No tobacco use, no etoh use Code Status: Full Allergies Allergy/AdvReac Type Severity Reaction Status Date / Time ARB-Angiotensin Receptor Allergy Intermediate Nausea Verified 03/08/23 13:19 Antagonist ibuprofen Allergy Mild Blister Verified 03/08/23 13:19 DEYSI Inhibitors AdvReac Mild cough Verified 03/08/23 13:19 Home Medications Medication Instructions Recorded Confirmed Type prednisone 5 mg tablet 5 mg PO QAM 04/29/19 03/08/23 History BD Ultra-Fine Mini Pen Needle 31 #400 ea 06/07/20 01/18/23 Rx gauge x 3/16" (pen needle, diabetic) allopurinol 300 mg tablet 300 mg PO QAM 12/14/20 03/08/23 History multivitamin 1 tab PO DAILY #30 tabs 11/07/21 03/08/23 Rx cholecalciferol (vitamin D3) 125 125 mcg PO QAM 09/21/22 03/08/23 History mcg (5,000 unit) capsule apixaban 5 mg tablet (Eliquis) 5 mg PO BID #180 tabs 11/26/22 03/08/23 Rx atenolol 100 mg tablet 100 mg PO QAM #90 tabs 12/11/22 03/08/23 Rx folic acid 1 mg tablet 1 mg PO QAM #90 tabs 12/26/22 03/08/23 Rx furosemide 40 mg tablet 40 mg PO QAM #90 tabs 12/26/22 03/08/23 Rx gemfibrozil 600 mg tablet 600 mg PO BID #180 tabs 12/26/22 03/08/23 Rx blood sugar diagnostic (OneTouch 01/02/23 01/18/23 History Ultra Blue Test Strip) flash glucose sensor (FreeStyle 01/02/23 01/18/23 History Pa 2 Sensor kit) lancets (OneTouch UltraSoft 01/02/23 01/18/23 History Lancets) spironolactone 25 mg tablet 25 mg PO DAILY #90 tabs 01/21/23 03/08/23 Rx insulin glargine 100 unit/mL (3 30 unit (0.3 mL) subcut HS 90 days 01/29/23 03/08/23 Rx mL) subcutaneous pen (Lantus #30 mL Solostar U-100 Insulin) omeprazole 20 mg capsule,delayed 20 mg PO QAM #90 caps 02/19/23 03/08/23 Rx release acetaminophen 500 mg tablet 1,000 mg PO BID PRN Pain 03/08/23 03/08/23 History (Tylenol Extra Strength) amlodipine 2.5 mg tablet 2.5 mg PO QAM 03/08/23 03/08/23 History atorvastatin 20 mg tablet 20 mg PO HS 03/08/23 03/08/23 History fluocinolone 0.01 % topical 1 applic topical BID PRN .Flare ups 03/08/23 03/08/23 History solution gabapentin 300 mg capsule 300 mg PO QAM 03/08/23 03/08/23 History gabapentin 300 mg capsule 600 mg PO QPM 03/08/23 03/08/23 History insulin aspart U-100 100 unit/mL 22 unit subcut QAM 03/08/23 03/08/23 History (3 mL) subcutaneous pen (Novolog FlexPen U-100 Insulin aspart) insulin aspart U-100 100 unit/mL 26 unit subcut BIDM 03/08/23 03/08/23 History (3 mL) subcutaneous pen (Novolog FlexPen U-100 Insulin aspart) isosorbide mononitrate 30 mg 30 mg PO QAM 03/08/23 03/08/23 History tablet,extended release 24 hr Past Med/Surg History Medical History 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 Chronic gout Chronic kidney disease, stage 3 (moderate) Cough Diabetes mellitus, type 2 Diabetic nephropathy Diabetic peripheral neuropathy Diverticulitis of colon Dyspnea Essential hypertension Factor V Leiden mutation GERD (gastroesophageal reflux disease) H/O proctoscopy History of balanitis Hypercholesterolemia Kidney stones Lumbar spondylosis Myalgia and myositis Pre-op evaluation Pulmonary emboli Sciatica Transient ischemic attack (TIA) (~2013) Surgical History H/O colonoscopy H/O repair of rotator cuff History of back surgery History of cataract surgery History of colon resection History of cystoscopy History of dilation of urethra History of lumbar discectomy History of rectopexy Family History Father Colon cancer Diabetes Myocardial infarction Mother Diabetes Sister Breast cancer Brother Brain cancer Stroke Other No family history of adverse response to anesthesia Denies family history of Ovarian cancer Prostate cancer Lung cancer Social History Smoking Status: Former smoker Tobacco Type: Cigarettes Age Started Using Tobacco: 14; Age Quit Using Tobacco: 30; packs per day: 1; Cigarettes Per Day: 20 a day for 16 years; Second Hand Exposure: No; Do You Dip or Chew Tobacco: No; Hx Alcohol Use: No Hx Substance Use: No Preferred Language: Estonian Communication Ability: Effective Visual Impairment: No Limitations Hearing Ability: Normal Deputy Building Guard Required: No Beliefs That Will Affect Care: None marital status: Current Living Situation: Spouse current occupational status: 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 NAD. Cooperative. HEENT: Atraumatic. Pulm: CTAB A&P. -wheezes, -rales, -rhonchi. Symmetrical chest rise. No increased work of breathing. No respiratory distress. Cardiac: RRR, -mrg. Radial pulses intact and symmetrical. Abdominal: Nontender, nondistended, soft. BS present. CRANIAL NERVES: II: Pupils equal and reactive, no relative afferent pupillary defect, no VF cuts III, IV, : EOM intact, no gaze preference or deviation, no nystagmus. V: normal sensation in V1, V2, and V3 segments bilaterally VII: Slight left-sided facial droop, corrects on smile. Cheek puff without air leak VIII: normal hearing to speech IX, X: normal palatal elevation, no uvular deviation XI: 5/5 head turn and 5/5 shoulder shrug bilaterally XII: midline tongue protrusion MOTOR: RUE: 5/5 Shoulder internal rotation, external rotation, flexion, extension, abduction, adduction 5/5 Elbow flexion/extension, wrist flexion/extension 5/5 honey extractor strength, finger flexion/extension, interosseus LUE: 5/5 Shoulder internal rotation, external rotation, flexion, extension, abduction, adduction 5/5 Elbow flexion/extension, wrist flexion/extension 5/5 honey extractor strength, finger flexion/extension, interosseus RLE: 5/5 to hip flexion ankle dorsiflexion/plantarflexion LLE: 5/5 to hip flexion ankle dorsiflexion/plantarflexion SENSORY: Normal to touch in upper and lower extremities without deficit or asymmetry Results & Data Results & Data Vital Signs (Past 12 Hours) Vital Signs Temp Pulse Resp BP Pulse Ox O2 Del Method 03/08/23 12:33 63 03/08/23 11:30 95 Room Air 03/08/23 11:30 36.4 C L 69 20 133/80 97 Room Air PG Care Time/CCT Total # of Minutes Spent Total Time Spent with Patient: Total time spent is greater than 50% in coordination of care (as documented) at patient's floor/unit and/or counseling patient: Coding Level of Care Code 89572 INT INP/OBS CARE 3/75MIN Diagnoses Dysarthria R47.1 Diabetic nephropathy E11.21 Allergy to DEYSI inhibitors Z88.8 History of back surgery Z98.890 Uncontrolled type 2 diabetes mellitus E11.65 Factor V Leiden mutation D68.51 Essential hypertension I10
[2023-03-08] MEDS ORDERED: LABETALOL HCL IV 5 MG/ML 20ML IV PRN (13:32)
[2023-03-08] MEDS ORDERED: CARBOHYDRATES FOR HYPOGLYCEMIA PO PRN (14:54)
[2023-03-08] MEDS ORDERED: GLUCAGON FOR INJ 1 MG VIAL SQ PRN (14:54)
[2023-03-08] MEDS ORDERED: PHARMACIST DISCHARGE MED REC CONSULT PRN (14:54)
[2023-03-08] MEDS ORDERED: GLUCOSE 10 TAB/TUBE PO PRN (14:54)
[2023-03-08] MEDS ORDERED: GLUCOSE 40% GEL 15 GM TUBE PO PRN (14:54)
[2023-03-08] MEDS ORDERED: PHARMACY GLYCEMIC MGMT CONSULT PRN (14:54)
[2023-03-08] MEDS ORDERED: DEXTROSE 50% 50 ML SYRINGE IV PRN (14:54)
--- NOTE | 2023-03-08 16:27 | XCELERA ---
[id number] [id number]
[2023-03-08] MEDS: CLOPIDOGREL BISULFATE 75 MG TAB PO SCH (16:44)
[2023-03-08] MEDS: INSULIN ASPART PER UNIT CHARGE SC SCH ×2 (16:47→21:35)
--- NOTE | 2023-03-08 20:11 | Magnetic Resonance Report ---
Exam(s): MRI HEAD Without Contrast EXAM: MR Head Without Intravenous Contrast CLINICAL HISTORY: Reason for exam: cva. TECHNIQUE: Magnetic resonance images of the head/brain without intravenous contrast in multiple planes. COMPARISON: No relevant prior studies available. FINDINGS: Brain: Left parietal lobe infarct. Moderate ischemic microangiopathy. No hemorrhage. Ventricles: Unremarkable. No ventriculomegaly. Bones/joints: Unremarkable. Sinuses: Unremarkable as visualized. No acute sinusitis. Mastoid air cells: Unremarkable as visualized. No mastoid effusion. Orbits: Unremarkable as visualized. IMPRESSION: Left parietal lobe infarct Communications: Call Doctor Stroke Electronically signed by: Geronimo Casillas MD 03/08/23 20:10 PM
[2023-03-08] MEDS ORDERED: GABAPENTIN 300 MG CAP PO SCH (21:00)
[2023-03-08] MEDS ORDERED: LANTUS PER UNIT CHARGE SQ SCH (21:00)
[2023-03-08] MEDS ORDERED: ATORVASTATIN 40 MG TAB PO SCH (21:00)
--- NOTE | 2023-03-09 07:05 | Electrocardiogram Report ---
Test Reason : Blood Pressure : / mmHG Vent. Rate : 068 BPM Atrial Rate : 068 BPM P-R Int : 150 ms QRS Dur : 080 ms QT Int : 380 ms P-R-T Axes : 060 -06 050 degrees QTc Int : 404 ms Normal sinus rhythm Normal ECG When compared with ECG of 09-DEC-2021 10:05, Premature atrial complexes are no longer Present Confirmed by Major Heaton ([id number]) on 03/09/2023 7:04:58 AM Referred By: Confirmed By:Jeremías Heaton
[2023-03-09 07:29] LABS: Basophils # (auto) 0.04 K/uL (0-0.2); Basophils % (auto) 0.5 %; Eosinophils % (auto) 2.3 %; Hematocrit (blood only) 34.6 % (42.0-52.0); Hemoglobin 11.2 g/dl (14.0-18.0); Immature Granulocytes # (auto) 0.03 K/uL (0.01-0.20); Immature Granulocytes % (auto) 0.3 %; Lymphocytes # (auto) 1.98 K/uL (1.2-3.4); Lymphocytes % (auto) 22.4 %; Mean Corpuscular Hemoglobin 27.1 pg (25.0-34.0); Mean Corpuscular Hgb Conc 32.4 g/dL (32.0-36.0); Mean Corpuscular Volume 83.8 fL (80.0-100.0); Mean Platelet Volume 10.2 fL (9.4-12.4); Monocytes % (auto) 9.1 %; Neutrophils # (auto) 5.77 K/uL (1.40-6.50); Neutrophils % (auto) 65.4 %; Platelet Count 245 K/uL (130-400); RDW Coefficient of Variation 15.6 % (11.5-14.5); RDW Standard Deviation 47.1 fL (36.4-46.3); Red Blood Count 4.13 M/uL (4.70-6.10); White Blood Count 8.82 K/ul (4.8-10.8)
[2023-03-09 07:56] LABS: BUN Creatinine Ratio 16.2 (10-20); Calcium 8.7 mg/dl (8.6-10.3); Chol HDL Ratio 4.3 (0-5); Creatinine Clr Calc Pharmacy 42.1 ml/min; Est GFR (African American) 38.8 ml/min; Est GFR (Non-African American) 33.5 ml/min; Potassium 4.2 mmol/L (3.5-5.1)
[2023-03-09 08:41] LABS: Estimated Average Glucose 206 mg/dl; Hemoglobin A1C 8.8 % (4.5-5.6)
[2023-03-09] MEDS: CLOPIDOGREL BISULFATE 75 MG TAB PO SCH (08:48)
--- NOTE | 2023-03-09 08:50 | Neurology Consultation ---
Date of Consultation March 09, 2023 Assessment & Plan (1) Acute CVA (cerebrovascular accident): (2) Dysarthria: (3) Uncontrolled type 2 diabetes mellitus: (4) Essential hypertension: (5) Hypercholesterolemia: (6) Factor V Leiden mutation: (7) Lumbar spinal stenosis: (8) Inflammatory arthritis: Plan this patient had a very small acute left parietal, peripheral stroke resulting in some mild right facial droop and dysarthria. He is currently improved although has some residual issues left over. He has no other focal findings, meningeal signs, or encephalopathy. The stroke was seen on the diffusion imaging in the MRI and it also showed some mild old small vessel ischemic disease of a nonspecific scattered nature. The etiology of this stroke is likely thrombotic and he has multiple risk factors including hypertension, dyslipidemia, and diabetes. Patient is on anticoagulant for DVT and factor 5 Leiden. Unfortunately, the anticoagulation will not prevent small vessel ischemic disease. Echocardiogram and CT angiography of the head neck showed no other vascular anomalies. The patient has a history of inflammatory arthritis which is steroid dependent. He has had lumbar spinal stenosis and is post decompression and fusion surgery in October of this year. He has chronic low back pain but no radicular symptoms currently. Recommendations: 1. continue clopidogrel 75 mg daily , along with the anticoagulant. 2. control blood pressure as you are doing, aiming for an mean arterial pressure of 9500. 3. agree with increasing atorvastatin to 40 mg. 4. Awaiting hemoglobin A1c. Controlled glucose is being done 5. Increase activity as able. 6. I have no further neurologic testing or treatment recommendations to make at this time. Please contact me if I can be of further assistance on this case. Overall, I spent a total of 60 minutes with this case including review of records, review of CT and MRI films, direct evaluation of the patient at bedside, report generation, and discussion of the case with the patient an RN at bedside and Dr. Hoff, including differential diagnosis and treatment options. History of Present Illness Reason for Consultation: patient is a 67-year-old, who I was asked to see at the request of Dr. Mario, for neurologic consultation regarding stroke. Requesting Physician: Dr. Mario Attending Physician: Cynthia Hoff MD History of Present Illness I 1st saw this patient in September of 2014 in consultation for acute onset right upper extremity dysesthesias and expressive aphasia. MRI at that time did not show any acute stroke and this was considered a TIA. MRI did show evidence of scattered small vessel ischemic disease. at the time he was admitted his blood pressure was markedly elevated at 170/112. he had a history of hypertension for years prior. 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 This has created and insulin-dependent type 2 diabetes and he has diabetic peripheral neuropathy and diabetic nephropathy. He has factor 5 Leiden mutation and history of blood comments including lower extremity DVT in 2012 for which she was on anticoagulant for 1 year, and a not other blood clots 6 months ago and has been on Eliquis since. He has not been on any antiplatelet medication. He also has dyslipidemia on atorvastatin. Patient was feeling well when he woke at 8:00 a.m. on March 08. Around 0900 he noted that he was drooling liquid out of the right corner of his mouth and that he had some slurred speech. He could get words out and understand what was being said to him. This was very mild and faded some and he and his decided to go on some errands. At around 10:00 a.m., the symptoms became worse again. He arrived to the emergency room March 08 at 11:30 a.m., with a temperature of 36.4, pulse 69 regular, respiratory rate 20 and comfortable, blood pressure 133/80, and O2 saturation 97%. Although the emergency room exam did not note any focal deficits, the admitting physician thought there was a mild facial weakness and dysarthria. CBC showed mild anemia and Chem profile revealed elevated BUN and creatinine. Glucose was 134. CT scan of the head showed no acute changes but there was evidence of small vessel ischemic disease of unknown nature. CT angiography of the head and neck were unremarkable with out any vascular anomalies or stenoses. MRI of the brain showed a small left parietal stroke peripherally. There was mild atrophy and old small vessel ischemic disease. I reviewed these films This morning the patient feels much better and is not drooling. He feels his speech is markedly improved as well. Patient never had any headache, vision problems, confusion, weakness or numbness in the arms and legs, balance issues. Echocardiogram showed mild left ventricular hypertrophy but was otherwise unremarkable. today, Triglycerides 181 and total cholesterol 154. CBC and Chem profile were similar March 08. Patient has a history of lumbar spine surgery back in October which was an extension in revision of previous surgery 2 years prior. He has chronic low back pain but no radicular symptoms in his lower extremities. Allergies Allergy/AdvReac Type Severity Reaction Status Date / Time ARB-Angiotensin Receptor Allergy Intermediate Nausea Verified 03/08/23 13:19 Antagonist ibuprofen Allergy Mild Blister Verified 03/08/23 13:19 DEYSI Inhibitors AdvReac Mild cough Verified 03/08/23 13:19 Home Medications Medication Instructions Recorded Confirmed Type prednisone 5 mg tablet 5 mg PO QAM 04/29/19 03/08/23 History BD Ultra-Fine Mini Pen Needle 31 #400 ea 06/07/20 01/18/23 Rx gauge x 3/16" (pen needle, diabetic) allopurinol 300 mg tablet 300 mg PO QAM 12/14/20 03/08/23 History multivitamin 1 tab PO DAILY #30 tabs 11/07/21 03/08/23 Rx cholecalciferol (vitamin D3) 125 125 mcg PO QAM 09/21/22 03/08/23 History mcg (5,000 unit) capsule apixaban 5 mg tablet (Eliquis) 5 mg PO BID #180 tabs 11/26/22 03/08/23 Rx atenolol 100 mg tablet 100 mg PO QAM #90 tabs 12/11/22 03/08/23 Rx folic acid 1 mg tablet 1 mg PO QAM #90 tabs 12/26/22 03/08/23 Rx furosemide 40 mg tablet 40 mg PO QAM #90 tabs 12/26/22 03/08/23 Rx gemfibrozil 600 mg tablet 600 mg PO BID #180 tabs 12/26/22 03/08/23 Rx blood sugar diagnostic (OneTouch 01/02/23 01/18/23 History Ultra Blue Test Strip) flash glucose sensor (FreeStyle 01/02/23 01/18/23 History Pa 2 Sensor kit) lancets (OneTouch UltraSoft 01/02/23 01/18/23 History Lancets) spironolactone 25 mg tablet 25 mg PO DAILY #90 tabs 01/21/23 03/08/23 Rx insulin glargine 100 unit/mL (3 30 unit (0.3 mL) subcut HS 90 days 01/29/23 03/08/23 Rx mL) subcutaneous pen (Lantus #30 mL Solostar U-100 Insulin) omeprazole 20 mg capsule,delayed 20 mg PO QAM #90 caps 02/19/23 03/08/23 Rx release acetaminophen 500 mg tablet 1,000 mg PO BID PRN Pain 03/08/23 03/08/23 History (Tylenol Extra Strength) amlodipine 2.5 mg tablet 2.5 mg PO QAM 03/08/23 03/08/23 History atorvastatin 20 mg tablet 20 mg PO HS 03/08/23 03/08/23 History fluocinolone 0.01 % topical 1 applic topical BID PRN .Flare ups 03/08/23 03/08/23 History solution gabapentin 300 mg capsule 300 mg PO QAM 03/08/23 03/08/23 History gabapentin 300 mg capsule 600 mg PO QPM 03/08/23 03/08/23 History insulin aspart U-100 100 unit/mL 22 unit subcut QAM 03/08/23 03/08/23 History (3 mL) subcutaneous pen (Novolog FlexPen U-100 Insulin aspart) insulin aspart U-100 100 unit/mL 26 unit subcut BIDM 03/08/23 03/08/23 History (3 mL) subcutaneous pen (Novolog FlexPen U-100 Insulin aspart) isosorbide mononitrate 30 mg 30 mg PO QAM 03/08/23 03/08/23 History tablet,extended release 24 hr Patient History Medical History 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 states ~35 yrs ago- was hospitalized, no issues since Chronic gout Chronic kidney disease, stage 3 (moderate) Cough Diabetes mellitus, type 2 IDDM Diabetic nephropathy follows with [facility] Diabetic peripheral neuropathy feet and hands Diverticulitis of colon hx Dyspnea occasionally, with stairs or incline, ongoing x several yrs, denies change or worsening, follows with PCP Essential hypertension controlled, stable per pt Factor V Leiden mutation plavix daily GERD (gastroesophageal reflux disease) controlled, stable per pt H/O proctoscopy History of balanitis Hypercholesterolemia Kidney stones hx Lumbar spondylosis Myalgia and myositis Pre-op evaluation Pulmonary emboli noted as likely chronic on 12/22 chest CTA Sciatica Transient ischemic attack (TIA) (~2012) no deficits Surgical History H/O colonoscopy H/O repair of rotator cuff right x1 and left x2 History of back surgery 10/15/22, rods and screws were placed History of cataract surgery bilateral History of colon resection r/t perforated diverticuliti History of cystoscopy with ureter stent History of dilation of urethra History of lumbar discectomy 12/30/2021 Grade 2 view, MAC 3, ETT 7.5. History of rectopexy laparoscopic with sigmoid resection --- patient unsure??? Family History Father , in his early 60s of colon cancer Colon cancer Diabetes Myocardial infarction Mother , in her 70s Diabetes Stroke Sister Breast cancer Brother Brain cancer Stroke Other No family history of adverse response to anesthesia Denies family history of Ovarian cancer Prostate cancer Lung cancer Social History Smoking Status: Never smoker Tobacco Type: Cigarettes Age Started Using Tobacco: 14; Age Quit Using Tobacco: 30; packs per day: 1; Cigarettes Per Day: 20 a day for 16 years; Second Hand Exposure: No; Do You Dip or Chew Tobacco: No; Hx Alcohol Use: No Hx Substance Use: No Preferred Language: Turkmen Communication Ability: Effective Visual Impairment: No Limitations Hearing Ability: Normal Associate Relations Specialist Required: No Beliefs That Will Affect Care: None marital status: Current Living Situation: Spouse current occupational status: retired 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 Feels Safe at Home: No Is there a partner from a previous relationship who is making you feel unsafe now?: No Safety Concerns: Feels Safe At This Time Childhood Exposure to Second-Hand Smoke: Yes (father) Dental Care, Regularly: Yes Physical Activity Frequency: Does not Exercise Seatbelt Use: always Sunscreen Use: No Assistive Devices: Cane Review of Systems Constitutional: no fever, no fatigue and no weakness Eyes: no diplopia, no eye pain and no worsening vision Ear, Nose, Mouth, Throat: no ear pain, no tinnitus, no hearing loss, no dizziness, no snoring, no hoarseness and no dysphagia Respiratory: no cough and no dyspnea Cardiovascular: no chest pain, no palpitations and no lightheadedness Gastrointestinal: no abdominal pain, no nausea and no vomiting Musculoskeletal: + back pain; no neck pain, no radicular pain, no joint pain and no myalgia Integumentary: no rash and no lesions Neurologic: + abnormal speech; no gait abnormality, no localized weakness, no generalized weakness, no tingling, no numbness, no tremor(s), no abnormal movements, no headache(s), no confusion and no memory loss Psychiatric: no depression, no irritability, no anxiety, no difficulty concentrating, no confusion and no hallucinations Endocrine: no fatigue and no flushing Hematologic / Lymphatic: no easy bleeding and no easy bruising Allergy / Immunological: no urticaria and no problem reported Exam (Neuro) Physical Exam: The patient is right-handed. The patient is awake, alert, and attentive. Speech is with some mild dysarthria, but no aphasia. The patient can name objects, repeat phrases, and has normal spontaneous speech. Mentation and thought processes are intact, with orientation to person, place and time, and normal fund of knowledge. Attention and concentration are normal. Mood and affect are normal and appropriate. General appearance and grooming are normal. Short and long-term memory are intact. Pupils are 4 mm bilaterally and reactive to light. Extraocular eye muscles are intact without nystagmus. Visual acuity and visual jarquin seem normal grossly to confrontation. There are no deficits to sensation in the face in all 3 distributions of the fifth cranial nerve bilaterally. Corneal reflexes are positive bilaterally. There was some mild asymmetry of the face with the right corner of the mouth drooping mildly compared to the left but it moved very well with voluntary smile and grimace. He can hold air in his cheeks easily. Hearing seems normal bilaterally. Palate moves well without asymmetry. There is normal sternocleidomastoid and trapezius (shoulder shrug) strength bilaterally. Tongue is midline with good strength bilaterally. Neck has a full range of motion without discomfort. There are no cervical bruits bilaterally. There are no cranial or ocular bruits. Heart is without murmur. There is a regular rhythm and rate. Cervical, thoracic, and lumbar spine are nontender to palpation. Gait was not tested but stance sitting up in bed is good. With outstretched arms there is no drift. There are no resting, postural, or action tremors. There is no ataxia with finger to nose testing. There is good facility in the hands. No other abnormal involuntary movements are noted. Motor strength is 5/5 diffusely in the arms bilaterally including deltoids, biceps, triceps, brachioradialis, wrist flexors and extensors, medical scientific officer, and intrinsic hand muscles. Motor strength is 5/5 diffusely in the legs bilaterally including hip flexors, quadriceps, hamstrings, gastrocnemius, tibialis anterior, tibialis posterior, and Peroneii muscles. Toe extensors are normal and there is good bulk in the extensor digitorum brevis muscles bilaterally. The limbs have good tone without rigidity or spasticity. There is no atrophy noted in the muscles. Muscle bulk is normal, there is no tenderness to palpation, no myotonia to percussion, and no fasciculations seen. Sensory examination is intact to touch and pin throughout all 4 limbs diffusely. Reflexes are 2/4 in the biceps, triceps, brachioradialis, and quadriceps tendons bilaterally. Achilles tendon reflexes are 1/4. There is no clonus bilaterally. Toes are downgoing with plantar stimulation bilaterally. Peripheral pulses are present and of normal quality distally in all 4 limbs. There is no peripheral edema noted in the limbs. Results & Data Vital Signs (Past 12 Hours) Vital Signs Temp Pulse Pulse Resp BP Pulse Ox O2 Del Method 03/09/23 08:11 61 03/09/23 07:31 36.3 C L 69 18 142/87 H 96 Room Air 03/09/23 03:57 36.8 C 74 18 144/83 H 94 Room Air 03/08/23 22:39 58 L 03/08/23 23:10 36.6 C 72 18 146/90 H 96 Room Air PG Care Time/CCT Total # of Minutes Spent Total Time Spent with Patient: Total time spent is greater than 50% in coordination of care (as documented) at patient's floor/unit and/or counseling patient: Coding Level of Care Code 16942 INT INP/OBS CARE 3/75MIN Diagnoses Acute CVA (cerebrovascular accident) I63.9 Dysarthria R47.1 Uncontrolled type 2 diabetes mellitus E11.65 Essential hypertension I10 Hypercholesterolemia E78.00 Factor V Leiden mutation D68.51 Lumbar spinal stenosis M48.061 Inflammatory arthritis M19.90
[2023-03-09] MEDS: INSULIN ASPART PER UNIT CHARGE SC SCH ×2 (08:52→12:09)
[2023-03-09] MEDS ORDERED: PANTOprazole 40 MG TAB PO SCH (09:00)
[2023-03-09] MEDS ORDERED: APIXABAN 5 MG TABLET PO SCH (09:00)
[2023-03-09] MEDS ORDERED: GABAPENTIN 300 MG CAP PO SCH (09:00)
[2023-03-09] MEDS ORDERED: SPIRONOLACTONE 25 MG TAB PO SCH (09:00)
[2023-03-09] MEDS ORDERED: ATENOLOL 50 MG TABLET PO SCH (09:00)
[2023-03-09] MEDS ORDERED: ISOSORBIDE MONO EXTENDED REL 30 MG TABCR PO SCH (09:00)
[2023-03-09] MEDS ORDERED: predniSONE 5 MG TAB PO SCH (09:00)
[2023-03-09] MEDS ORDERED: allopurinoL 300 MG TAB PO SCH (09:00)
--- NOTE | 2023-03-09 13:56 | Pharmacy Report ---
Pharmacy Glycemic Short Note 2 - Date of Service March 09, 2023 - Glycemic Short BSG Results (Last 24 hours): 03/08/23 03/08/23 03/09/23 15:56 21:04 07:15 Glucose 134 H POC Glucose 164 H 191 H 03/09/23 03/09/23 07:33 11:15 Glucose POC Glucose 153 H 235 H OUTPATIENT ANTIDIABETIC REGIMEN: * Novolog 22-26-26 units with meals * Lantus 40 units SQ HS per patient ASSESSMENT: * 67 y/o M admitted for CVA. Patient with history of Type 2 diabetes with chronic kidney disease and heart failure. Diabetes is managed at home with basal and bolus insulins. * He received 30 units of basal insulin at HS yesterday. Fasting BSG = 134 mg/dl. Basal insulin increased to 35 units at HS today. * Novolog was started yesterday based on stress of 2. Pre-lunch BSG trended up to 235 mg/dl. Novolog parameters were tightened with lunch. PLAN FOR INPATIENT GLYCEMIC CONTROL: * Basal insulin * Lantus 35 units SQ HS * Bolus insulin * NovoLog per scale ACHS or Q6hrs while NPO * Goal Range: Low 110 mg/dL - High 140 mg/dL * Correction Factor: 15 mg/dL/unit * Nutritional / Prandial insulin per carb ratio of 1 unit per 4 grams CHO consumed
[2023-03-09] MEDS ORDERED: STROKE PATIENT DISCHARGE STA (14:01)
--- NOTE | 2023-03-09 14:03 | Discharge Summary ---
Discharge Summary Date of Service March 09, 2023 Notes For Next Care Provider Needs outpatient Speech Therapy arranged Medication Changes From Visit Added Plavix 75mg po daily Increased amlodipine to 5mg po daily Increased Novolog to / units with meals Increased atorvastatin to 40mg daily Changed Prilosec to Protonix due to interaction with Plavix Admission HPI Per Admitting Provider Timoteo Modi is a 67-year-old male with past medical history of TIA, type II DM with nephropathy,HTN, Factor V Leiden and PE, HLD dysarthria and dysphagia @ 10am. No other symptoms. No arm or leg weakness. No numbness/tingling. Intermittent foot itching but no numbness tingling. Similar sx to this with ministrokes in the past Does not take aspirin or plaavix. On eliquis for FVL/homocysteinemia with multiple DVT/PE. No history of bleeding problems No chest pain, no chest pressure Atorvastatin 20mg, has not been on a higher dose. Medical History: Reviewed Medications: Reviewed Surgical History: Reviewed Family history: Reviewed Allergies: Reviewed Social History: No tobacco use, no etoh use Code Status: Full Principal Dx & Hospital Course #1 = Principal Diagnosis (1) Dysarthria: Dysarthria and facial droop--> confirmed small left parietal ischemic stroke on MRI CTA head and neck negative ECHO negative with bubble study no events on teleetry monitoring Neuro saw and agrees with addition of Plavix for thrombotic CVA and increased dose of atorvastatin DM uncontrolled with HgbA1C 8.8%--> increased Novolog Needs improved BP control--> increased amlodipine to 5mg daily changed Prilosec to Protonix due to interaction with Plavicx Needs outpt Speech Therapy for ongoing dysarthria, no diet changes as per Speech Tx eval here CKD Baseline creatinine around 1.92.25 Admitting creatinine 1.86 Type II DM increase insulin as above A1C 8.8% 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 above, continue other usual meds Dispo-stable for dc to home (2) Diabetic nephropathy: (3) Allergy to DEYSI inhibitors: (4) History of back surgery: (5) Uncontrolled type 2 diabetes mellitus: (6) Factor V Leiden mutation: (7) Essential hypertension: Discharge Exam Constitutional WD/WN, vitals as above Eyes PERRL, conjunctivae normal, anicteric sclerae ENMT right facial droop, +dysarthria otherwise CN 2-12 intact Respiratory normal respiratory effort, lungs clear to auscultation Cardiovascular RRR, no murmur, no edema Gastrointestinal (Abdomen) normal bowel sounds, soft, nontender, no hepatosplenomegaly Neurologic moves all extremities and awake; no focal motor deficits Psychiatric A+Ox3, euthymic affect Updated Medication List Medication Instructions Recorded Confirmed Type prednisone 5 mg tablet 5 mg PO QAM 04/29/19 03/08/23 History BD Ultra-Fine Mini Pen Needle 31 #400 ea 06/07/20 01/18/23 Rx gauge x 3/16" (pen needle, diabetic) allopurinol 300 mg tablet 300 mg PO QAM 12/14/20 03/08/23 History multivitamin 1 tab PO DAILY #30 tabs 11/07/21 03/08/23 Rx cholecalciferol (vitamin D3) 125 125 mcg PO QAM 09/21/22 03/08/23 History mcg (5,000 unit) capsule apixaban 5 mg tablet (Eliquis) 5 mg PO BID #180 tabs 11/26/22 03/08/23 Rx atenolol 100 mg tablet 100 mg PO QAM #90 tabs 12/11/22 03/08/23 Rx folic acid 1 mg tablet 1 mg PO QAM #90 tabs 12/26/22 03/08/23 Rx furosemide 40 mg tablet 40 mg PO QAM #90 tabs 12/26/22 03/08/23 Rx gemfibrozil 600 mg tablet 600 mg PO BID #180 tabs 12/26/22 03/08/23 Rx blood sugar diagnostic (OneTouch 01/02/23 01/18/23 History Ultra Blue Test Strip) flash glucose sensor (FreeStyle 01/02/23 01/18/23 History Pa 2 Sensor kit) lancets (OneTouch UltraSoft 01/02/23 01/18/23 History Lancets) spironolactone 25 mg tablet 25 mg PO DAILY #90 tabs 01/21/23 03/08/23 Rx insulin glargine 100 unit/mL (3 30 unit (0.3 mL) subcut HS 90 days 01/29/23 03/08/23 Rx mL) subcutaneous pen (Lantus #30 mL Solostar U-100 Insulin) omeprazole 20 mg capsule,delayed 20 mg PO QAM #90 caps 02/19/23 03/08/23 Rx release acetaminophen 500 mg tablet 1,000 mg PO BID PRN Pain 03/08/23 03/08/23 History (Tylenol Extra Strength) amlodipine 2.5 mg tablet 2.5 mg PO QAM 03/08/23 03/08/23 History atorvastatin 20 mg tablet 20 mg PO HS 03/08/23 03/08/23 History fluocinolone 0.01 % topical 1 applic topical BID PRN .Flare ups 03/08/23 03/08/23 History solution gabapentin 300 mg capsule 300 mg PO QAM 03/08/23 03/08/23 History gabapentin 300 mg capsule 600 mg PO QPM 03/08/23 03/08/23 History insulin aspart U-100 100 unit/mL 22 unit subcut QAM 03/08/23 03/08/23 History (3 mL) subcutaneous pen (Novolog FlexPen U-100 Insulin aspart) insulin aspart U-100 100 unit/mL 26 unit subcut BIDM 03/08/23 03/08/23 History (3 mL) subcutaneous pen (Novolog FlexPen U-100 Insulin aspart) isosorbide mononitrate 30 mg 30 mg PO QAM 03/08/23 03/08/23 History tablet,extended release 24 hr amlodipine 5 mg tablet 5 mg PO DAILY #90 tabs 03/09/23 Rx atorvastatin 40 mg tablet 40 mg PO HS #90 tabs 03/09/23 Rx clopidogrel 75 mg tablet 75 mg PO QAM #30 tabs 03/09/23 Rx pantoprazole 40 mg tablet,delayed 40 mg PO QAM #30 tabs 03/09/23 Rx release Hospital Stay Data Consultations 03/08/23 12:40 ED Decision to Admit Stat 03/08/23 20:37 Consult Neurology Routine Diagnostic Imagining Performed 03/08/23 11:34 CT angio head w con Stat CT angio neck with con Stat CT head/brain wo con Stat 03/08/23 14:54 MR brain wo con Routine ECHO Pending Results Patient Have Any Pending Studies at Discharge: No Discharge Instructions Given to Patient (Per Discharging Provider) You were admitted and found to have a small stroke on the left side of the brain which is causing your speech issues and facial droop. Hopefully this will continue to improve over time. It is recommended that you have outpatient Speech Therapy and your PCP can arrange/refer you for this as an outpatient. Your atorvastatin dose was increased and you were started on a new blood thinner called Plavix to help prevent future strokes. It is also important to improve your diabetes control and blood pressure-we will slightly increase your Novolog doses with each meal to 26 units with breakfast, and 28 units with lunch and dinner. Please keep your follow up appointment with Endocrinology. Your amlodipine dose will also be increased to 5mg daily for better blood pressure control. Your omeprazole will be CHANGED to Protonix because omeprazole interacts with Plavix. Risk Factors for Stroke: You can reduce your chances of stroke by working with your medical provider to adopt a healthy lifestyle. Some specific ways to lower your chance of stroke are: * If you are a smoker, now is the time to stop smoking cigarettes * If you are diabetic, improve the control of your blood sugars * Avoid excessive amounts of alcohol * Control high blood pressure * Lose weight if you are overweight * Be sure to lead an active lifestyle * Eat a healthy diet low in salt, cholesterol and fat You should know about other risk factors for stroke that you are unable to control. These include: * Age 55 years or older * Male gender * Certain racial groups: , or / * Family History of Stroke, Mini stroke or Heart Attack * Sickle Cell Disease Follow Up: It is important for you to keep your follow up appointments with your medical provider. Who to Call and When: Medical Emergencies: Call 911 immediately if you experience any of the following warning signs and symptoms of Stroke: * Sudden numbness or weakness of the face, arm or leg, especially on one side of the body * Sudden confusion, trouble speaking or understanding * Sudden trouble seeing in one or both eyes * Sudden trouble walking, dizziness, loss of balance or coordination * Sudden severe headache with no cause Do not delay calling 911 if you experience any warning signs or symptoms of a stroke. Delay in seeking medical attention may affect what treatments can be given to you. . Total Time Total Time Spent Total Time Spent (In Minutes): 45 min Total Time Includes: Examination of the Patient, Discharge Planning, Medication Reconciliation and Communication With Other Providers (Neurology) Coding Level of Care Code 58594 INP/OBS DISCH >30 MIN Diagnoses Dysarthria R47.1 Diabetic nephropathy E11.21 Allergy to DEYSI inhibitors Z88.8 History of back surgery Z98.890 Uncontrolled type 2 diabetes mellitus E11.65 Factor V Leiden mutation D68.51 Essential hypertension I10
[2023-03-09] MEDS ORDERED: LANTUS PER UNIT CHARGE SQ SCH (21:00)
== END 2023-03-09 16:12 | disposition home or self-care (01) | DRG 65 ==
LOC: ED 11:24 → SUATTDRO 13:04 → 2E 13:04

== ENCOUNTER 2024-09-15 14:33 | Inpatient (IN) ==
[2024-09-15] MEDS: ONDANSETRON INJ 2 MG/ML 2 ML VIAL ONE (15:03)
[2024-09-15] MEDS: ONDANSETRON INJ 2 MG/ML 2 ML VIAL IV STA (15:03)
--- NOTE | 2024-09-15 15:10 | XRay Report ---
XR femur RT 2V routine HISTORY: 69 years-old Male trauma acute pelvic pain status post trauma COMPARISON: Pelvis radiographs of same day TECHNIQUE: 2 views of the right femur FINDINGS: Partially imaged lumbar spinal fusion hardware. Surgical clips project over the scrotum. Moderate to severe osteoarthritis of the right hip. Tricompartment osteoarthritis of the knee. No acute fracture, or dislocation identified. IMPRESSION: No acute fracture or dislocation identified. ACT 112: Negative or not required by law. The above report was generated using voice recognition software. It may contain grammatical, syntax o r spelling errors. Electronically signed by: Landon Rodriguez M.D. 09/15/2024 3:08 PM
--- NOTE | 2024-09-15 15:13 | XRay Report ---
XR chest 1V portable CLINICAL HISTORY: Trauma TECHNIQUE: Single frontal radiograph of the chest was obtained. Comparison: Comparison is made to chest radiograph 03/08/2023 FINDINGS: No lines and tubes are seen. Cardiomegaly is noted. The lungs are clear. No evidence of pleural effus ion or pneumothorax. IMPRESSION: No acute chest disease. Cardiomegaly is noted. ACT 112: Negative or not required by law. Electronically signed by: Keyur Helms M.D. 09/15/2024 3:12 PM
[2024-09-15] MEDS: ACETAMINOPHEN 1,000 MG/100 ML VIAL IV STA (15:14)
--- NOTE | 2024-09-15 15:14 | XRay Report ---
XR pelvis 1-2V routine CLINICAL HISTORY: Trauma COMPARISON: Pelvis radiograph January 22, 2024. CT of the abdomen and pelvis January 14, 2024. FINDINGS: Sacroiliac joints and symphysis pubis are intact. There are no fractures within the pelvis or hips. The right hip is better depicted on the right femur radiographs which will be reported sepa rately. Postoperative findings within the lumbosacral spine are partially imaged. Visualized portions of the hardware are unchanged appearance since CT of January 14, 2024. Portions of the hardware has been removed. There is severe right and moderate left hip osteoarthritis. IMPRESSION: No fractures within the pelvis or hips. ACT 112: Negative or not required by law. Electronically signed by: Adonis Arellano M.D. 09/15/2024 3:13 PM
--- NOTE | 2024-09-15 15:20 | Emergency Department Note ---
History of Present Illness General Chief complaint: Trauma Stated complaint: FALL Time Seen by Provider: 09/15/24 14:41 Source: family History of Present Illness Provider complaint: Fall 69-year-old male presents emerged department for fall. Patient is on Eliquis. Son reports that he fell yesterday and has been acting more confused today. Difficulty following instructions. Home Medications Medication Instructions Recorded Confirmed Type prednisone 5 mg tablet 5 mg PO QAM 04/29/19 09/15/24 History allopurinol 300 mg tablet 300 mg PO QAM 12/14/20 09/15/24 History cholecalciferol (vitamin D3) 125 125 mcg PO QAM 09/21/22 09/15/24 History mcg (5,000 unit) capsule blood sugar diagnostic (OneTouch 01/02/23 07/14/24 History Ultra Blue Test Strip) flash glucose sensor (FreeStyle 01/02/23 07/14/24 History Pa 2 Sensor kit) lancets (MyDROBETouch UltraSoft 01/02/23 07/14/24 History Lancets) acetaminophen 500 mg tablet 1,000 mg PO BID PRN Pain 03/08/23 09/15/24 History (Tylenol Extra Strength) folic acid 1 mg tablet 1 mg PO QAM #90 tabs 11/19/23 09/15/24 Rx gemfibrozil 600 mg tablet 600 mg PO BID #180 tabs 11/19/23 09/15/24 Rx atorvastatin 40 mg tablet 40 mg PO HS #90 tabs 02/28/24 09/15/24 Rx isosorbide mononitrate 30 mg 30 mg PO QAM #90 tabs 03/30/24 09/15/24 Rx tablet,extended release 24 hr atenolol 100 mg tablet 100 mg PO QAM #90 tabs 04/23/24 09/15/24 Rx apixaban 5 mg tablet (Eliquis) 5 mg PO BID #180 tabs 05/05/24 09/15/24 Rx BD Ultra-Fine Mini Pen Needle 31 #400 ea 05/13/24 07/14/24 Rx gauge x 3/16" (pen needle, diabetic) insulin aspart U-100 100 unit/mL See Rx Instructions subcut 06/26/24 09/15/24 Rx (3 mL) subcutaneous pen (Novolog .COMPLEX #90 mL FlexPen U-100 Insulin aspart) amlodipine 5 mg tablet 5 mg PO QAM 09/15/24 09/15/24 History clopidogrel 75 mg tablet 75 mg PO QAM #90 tabs 09/15/24 09/15/24 Rx furosemide 40 mg tablet 40 mg PO QAM 09/15/24 09/15/24 History gabapentin 300 mg capsule 300 mg PO QAM 09/15/24 09/15/24 History insulin glargine 100 unit/mL (3 28 unit subcut BID 09/15/24 09/15/24 History mL) subcutaneous pen (Lantus Solostar U-100 Insulin) multivitamin 1 tab PO QAM 09/15/24 09/15/24 History pantoprazole 40 mg tablet,delayed 40 mg PO QAM #90 tabs 09/15/24 09/15/24 Rx release spironolactone 25 mg tablet 25 mg PO QAM 09/15/24 09/15/24 History Allergies Allergy/AdvReac Type Severity Reaction Status Date / Time ARB-Angiotensin Receptor Allergy Intermediate Nausea Verified 09/15/24 17:11 Antagonist ibuprofen Allergy Mild Blister Verified 09/15/24 17:11 DEYSI Inhibitors AdvReac Mild cough Verified 09/15/24 17:11 Past Med/Surg History Problem List (Updated 09/15/24 @ 18:38 by Renato Nettles MD) COVID-19 (Acute) Left shoulder pain Acute CVA (cerebrovascular accident) (Acute) Right hip pain Back pain Lumbar post-laminectomy syndrome Sacroiliitis Sacroiliac joint dysfunction of right side Current use of proton pump inhibitor History of CVA (cerebrovascular accident) 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 (Acute) states ~35 yrs ago- was hospitalized, no issues since Vitamin D deficiency (Chronic) Inflammatory arthritis (Acute) Hypercholesterolemia (Chronic) Homocysteinemia (Acute) Gastroesophageal reflux disease (Acute) Factor V Leiden mutation (Acute) plavix daily Essential hypertension (Chronic) controlled, stable per pt Diabetic peripheral neuropathy (Acute) Diabetic nephropathy (Acute) follows with [facility] Degeneration of cervical intervertebral disc (Acute) Chronic kidney disease, stage 3 (moderate) (Chronic) Chronic gout (Acute) Anemia (Chronic) Uncontrolled type 2 diabetes mellitus Obesity Loss of protective sensation of skin of foot Leg pain Bilateral primary osteoarthritis of knee Sciatica Lumbar spondylosis Screening for prostate cancer Colon polyps Encounter for pre-operative examination History of colon polyps Degeneration of lumbosacral intervertebral disc with acute herniation Lumbar spinal stenosis Intractable low back pain Headache History of back surgery 10/15/22, rods and screws were placed; instrumented T12-S1 fusion Allergy to DEYSI inhibitors Allergy to angiotensin receptor blockers (ARB) Dysarthria (Acute) Medical History (Updated 09/15/24 @ 18:38 by Renato Nettles MD) History of pulmonary embolism Cough Pre-op evaluation Pulmonary emboli noted as likely chronic on 12/22 chest CTA Dyspnea occasionally, with stairs or incline, ongoing x several yrs, denies change or worsening, follows with PCP Kidney stones hx GERD (gastroesophageal reflux disease) controlled, stable per pt Diabetes mellitus, type 2 IDDM Transient ischemic attack (TIA) (~2012) no deficits History of balanitis Diverticulitis of colon hx Myalgia and myositis H/O proctoscopy Surgical History History of lumbar discectomy 12/30/2021 Grade 2 view, MAC 3, ETT 7.5. History of cystoscopy with ureter stent History of cataract surgery bilateral History of rectopexy laparoscopic with sigmoid resection --- patient unsure??? History of dilation of urethra H/O repair of rotator cuff right x1 and left x2 H/O colonoscopy History of colon resection r/t perforated diverticuliti Family History Father , in his early 60s of colon cancer Colon cancer Diabetes Myocardial infarction Mother , in her 70s Diabetes Stroke Sister Breast cancer Brother Brain cancer Stroke Other No family history of adverse response to anesthesia Denies family history of Ovarian cancer Prostate cancer Lung cancer Social History Smoking Status: Never smoker Tobacco Type: Cigarettes Age Started Using Tobacco: 14; Age Quit Using Tobacco: 30; packs per day: 1; Cigarettes Per Day: 20 a day for 16 years; Second Hand Exposure: No; Do You Dip or Chew Tobacco: No; Hx Alcohol Use: No Hx Substance Use: No Preferred Language: Chinese Communication Ability: Effective Visual Impairment: No Limitations Hearing Ability: Normal Costumer Required: No Beliefs That Will Affect Care: Spiritual marital status: Current Living Situation: Spouse current occupational status: retired 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 Feels Safe at Home: Yes Childhood Exposure to Second-Hand Smoke: Yes (father) Dental Care, Regularly: Yes Physical Activity Frequency: Does not Exercise Seatbelt Use: always Sunscreen Use: No Assistive Devices: Cane Physical Exam Vital Signs Vital Signs - 24 hr 09/15/24 14:35 09/15/24 14:46 09/15/24 15:02 Temperature 36.7 C 38.8 C H Temperature Source Temporal Artery Scan Pulse Rate 105 H 108 H Pulse Rate [Apical] Pulse Rate from SpO2 Sensor Pulse Strength [Right Carotid] Normal Respiratory Rate 18 20 Respiratory Effort / Characteristics Respiratory Depth Respiratory Pattern Blood Pressure 142/71 H 154/95 H 164/86 H Blood Pressure [Right Arm] Blood Pressure Mean 94 136 Blood Pressure Mean [Right Arm] Blood Pressure Position [Right Arm] Pulse Oximetry 95 95 Oxygen Delivery Method Room Air Oxygen Flow Rate 95 Sepsis Recent Fever Within 48 Hours No Sepsis New/Unexplained Change in Mental Status N/A Sepsis Action Taken by Nursing No Action Required 09/15/24 15:12 09/15/24 15:49 09/15/24 15:55 Temperature Temperature Source Pulse Rate 101 H Pulse Rate [Apical] Pulse Rate from SpO2 Sensor 110 H Pulse Strength [Right Carotid] Respiratory Rate 24 Respiratory Effort / Characteristics Respiratory Depth Respiratory Pattern Blood Pressure 174/107 H Blood Pressure [Right Arm] Blood Pressure Mean 121 Blood Pressure Mean [Right Arm] Blood Pressure Position [Right Arm] Pulse Oximetry 94 Oxygen Delivery Method Room Air Oxygen Flow Rate Sepsis Recent Fever Within 48 Hours Sepsis New/Unexplained Change in Mental Status Sepsis Action Taken by Nursing 09/15/24 15:57 09/15/24 15:59 09/15/24 16:04 Temperature 38 C H Temperature Source Oral Pulse Rate 105 H Pulse Rate [Apical] 93 H Pulse Rate from SpO2 Sensor 105 H Pulse Strength [Right Carotid] Respiratory Rate 20 17 Respiratory Effort / Characteristics Non-Labored Spontaneous Respiratory Depth Normal Respiratory Pattern Regular Blood Pressure Blood Pressure [Right Arm] 156/89 H Blood Pressure Mean Blood Pressure Mean [Right Arm] 111 Blood Pressure Position [Right Arm] Lying Pulse Oximetry 95 92 Oxygen Delivery Method Room Air Room Air Oxygen Flow Rate Sepsis Recent Fever Within 48 Hours Sepsis New/Unexplained Change in Mental Status Sepsis Action Taken by Nursing 09/15/24 17:00 09/15/24 17:13 09/15/24 18:00 Temperature Temperature Source Pulse Rate Pulse Rate [Apical] 86 62 Pulse Rate from SpO2 Sensor Pulse Strength [Right Carotid] Respiratory Rate 20 16 Respiratory Effort / Characteristics Non-Labored Spontaneous Non-Labored Spontaneous Respiratory Depth Normal Normal Respiratory Pattern Regular Regular Blood Pressure Blood Pressure [Right Arm] 148/85 H 158/64 H Blood Pressure Mean Blood Pressure Mean [Right Arm] 106 95 Blood Pressure Position [Right Arm] Pulse Oximetry 94 95 95 Oxygen Delivery Method Room Air Room Air Room Air Oxygen Flow Rate Sepsis Recent Fever Within 48 Hours Sepsis New/Unexplained Change in Mental Status Sepsis Action Taken by Nursing Physical Exam HENT: Exam performed. - Head: Normocephalic and atraumatic. - Right Ear: External ear normal. No mastoid erythema - Left Ear: External ear normal. No mastoid erythema EYES: Conjunctivae and EOM are normal. Pupils are equal, round, and reactive to light. Right eye exhibits no discharge. Left eye exhibits no discharge. No scleral icterus. NECK: Normal range of motion. Neck supple. No JVD present. No spinous process tenderness present. CV: Tachycardic rate, regular rhythm, normal heart sounds and intact distal pulses. There is no peripheral edema. Palpable radial pulses bue. PULM/CHEST: Effort normal and breath sounds normal. No respiratory distress. No stridor. He has no wheezes. He has no rales. - Chest Wall: He exhibits no tenderness. No crepitus bilaterally. ABD: The abdomen is soft. Ecchymosis over the anterior abdominal wall. There is no tenderness. There is no rebound, no guarding. MUSC/SKEL: Pain on palpation of the right hip. NEURO: Difficulty ambulating. Patient appears confused. Sensation intact. Course Course 1441: The patient was evaluated in room A1. A complete history and physical exam was performed Cardiac monitoring: An order was placed for continuous cardiac monitoring. The monitor shows a rate of 110 with sinus tachycardia rhythm interpreted by me Trauma alert activated. 1523: Patient found to be tachycardic and febrile. IV Tylenol ordered for the patient. Lactic acid blood culture ordered for the patient. Patient [id number] creatinine is 2.8. Will obtain CT imaging without contrast. Pelvis x-ray and femur x-ray showed no acute fracture or dislocation. 1715: Vital signs stable. Imaging shows no traumatic injury however there is a large infarct on CT scan. Patient is COVID-positive. Patient will be admitted to the [facility] [place] [facility] team. Rectal aspirin ordered for the patient given his stroke. Patient is not a candidate for TNK given his recent trauma and being on Eliquis. Administered Medications Discontinued Medications Aspirin (Aspirin 300 Mg Supp) 300 mg NE ONE ONE Stop: 09/15/24 16:13 Last Admin: 09/15/24 17:18 Dose: Not Given Documented By: REJI Acetaminophen (Ofirmev) 1,000 mg in 100 mls @ 400 mls/hr IV NOW STA Stop: 09/15/24 15:22 Last Infusion: 09/15/24 16:09 Dose: Infused Documented By: Admin: 09/15/24 15:14 Dose: 400 mls/hr Documented By: CEE Ondansetron HCl (Ondansetron Inj 2 Mg/Ml 2 Ml Vial) 4 mg IV NOW STA Stop: 09/15/24 14:59 Last Admin: 09/15/24 15:03 Dose: 4 mg Documented By: REJI Ondansetron HCl (Ondansetron Inj 2 Mg/Ml 2 Ml Vial) Confirm Administered Dose 4 mg .ROUTE .STK-MED ONE Stop: 09/15/24 15:00 Last Admin: 09/15/24 15:03 Dose: 4 mg Documented By: REJI Medical Decision Making Laboratory Data Attestation: I reviewed the patient's lab results. 09/15/24 15:12 09/15/24 15:12 Lab Results 09/15/24 09/15/24 09/15/24 Range/Units 14:45 15:10 15:12 WBC 7.99 (4.8-10.8) K/ul RBC 4.33 L (4.70-6.10) M/uL Hgb 11.2 L (14.0-18.0) g/dl POC Hgb (14.0-18.0) g/dl Hct 36.0 L (42.0-52.0) % POC Hct (42-52) % MCV 83.1 (80.0-100.0) fL MCH 25.9 (25.0-34.0) pg MCHC 31.1 L (32.0-36.0) g/dL RDW Std Deviation 49.0 H (36.4-46.3) fL RDW Coeff of Jono 16.2 H (11.5-14.5) % Plt Count 256 (130-400) K/uL MPV 10.4 (9.4-12.4) fL Immature Gran % (Auto) 1.3 % Neut % (Auto) 69.9 % Lymph % (Auto) 8.6 % Sully % (Auto) 19.8 % Eos % (Auto) 0.0 % Baso % (Auto) 0.4 % Neut # (Auto) 5.59 (1.40-6.50) K/uL Lymph # (Auto) 0.69 L (1.20-3.40) K/uL Sully # (Auto) 1.58 H (0.11-0.59) K/uL Eos # (Auto) 0.00 (0.00-0.50) K/uL Baso # (Auto) 0.03 (0.00-0.20) K/uL Immature Gran # (Auto) 0.10 (0.01-0.20) K/uL PT 11.9 (9.0-12.0) Seconds INR 1.1 (0.9-1.1) APTT 35 H (21-31) Seconds PTT Ratio 1.3 VBG pH 7.35 L (7.36-7.41) VBG pCO2 48 (38-50) mmHg VBG pO2 32 mmHg VBG HCO3 27 mmol/L VBG O2 Saturation < 60.0 % VBG Base Excess 0.3 mEq/L POC Sodium (135-144) mmol/L Sodium 135 L (136-145) mmol/L POC Potassium (3.3-5.0) mmol/L Potassium 3.9 (3.5-5.1) mmol/L POC Chloride (101-112) mmol/L Chloride 99 (98-107) mmol/L Carbon Dioxide 24 (21-32) mmol/L POC Total CO2 (24-31) mmol/L Anion Gap 12 H (3-11) POC Anion Gap (16-25) mmol/L POC BUN (7-18) mg/dl BUN 45 H (6-23) mg/dl Creatinine 2.47 H (0.6-1.4) mg/dl POC Creatinine (0.6-1.3) mg/dl Est Cr Clr Drug Dosing 33.2 ml/min eGFR 27.19 BUN/Creatinine Ratio 18.2 (10-20) Glucose 107 H (70-99(Fasting)) mg/dl POC Glucose 172 H (70-99) mg/dl POC Glucose (other) (70-99) mg/dl Lactate 1.8 (0.4-2.0) mmol/L Calcium 9.4 (8.6-10.3) mg/dl POC Ioniz Calcium Denisa (1.12-1.32) mmol/l Total Bilirubin 0.4 (0.2-1.0) mg/dl AST 17 (13-39) U/L ALT 9 (7-52) U/L Alkaline Phosphatase 99 (34-104) U/L Ammonia 17.0 L (18-72) umol/L Total Creatine Kinase 127 (30-223) U/L Troponin I High Sens 24.0 H (0-20) pg/ml Total Protein 7.8 (6.0-8.3) gm/dl Albumin 4.4 (3.4-5.0) gm/dl Globulin 3.4 (2.5-4.0) gm/dl Albumin/Globulin Ratio 1.3 (0.9-2) Lipase 42 (11-82) U/L Procalcitonin (0-0.5) ng/ml TSH 1.283 (0.300-4.500) uIu/ml Urine Color Urine Appearance (Clear) Urine pH (4.5-7.5) Ur Specific [place] (1.000-1.030) Urine Protein (Negative) Urine Glucose (UA) (Negative) Urine Ketones (Negative) Urine Blood (Negative) Urine Nitrite (Negative) Urine Bilirubin (Negative) Urine Urobilinogen (Negative) Ur Leukocyte Esterase (Negative) Urine WBC (Auto) (0-5) /hpf Urine RBC (Auto) (0-2) /hpf U Hyaline Cast (Auto) (0-2) /lpf U Epithel Cells (Auto) (0-2) /hpf Urine Bacteria (Auto) (None Seen) Ethyl Alcohol mg/dL (<10.0) mg/dl SARS-CoV-2 (PCR) POSITIVE A (Negative) Influenza Type A (PCR) Negative (Neg) Influenza Type B (PCR) Negative (Neg) RSV (RT-PCR) Negative (Neg) Blood Type A Positive Antibody Screen NEGATIVE 09/15/24 09/15/24 09/15/24 Range/Units 15:14 15:15 15:23 WBC (4.8-10.8) K/ul RBC (4.70-6.10) M/uL Hgb (14.0-18.0) g/dl POC Hgb 12.2 L (14.0-18.0) g/dl Hct (42.0-52.0) % POC Hct 36 L (42-52) % MCV (80.0-100.0) fL MCH (25.0-34.0) pg MCHC (32.0-36.0) g/dL RDW Std Deviation (36.4-46.3) fL RDW Coeff of Jono (11.5-14.5) % Plt Count (130-400) K/uL MPV (9.4-12.4) fL Immature Gran % (Auto) % Neut % (Auto) % Lymph % (Auto) % Sully % (Auto) % Eos % (Auto) % Baso % (Auto) % Neut # (Auto) (1.40-6.50) K/uL Lymph # (Auto) (1.20-3.40) K/uL Sully # (Auto) (0.11-0.59) K/uL Eos # (Auto) (0.00-0.50) K/uL Baso # (Auto) (0.00-0.20) K/uL Immature Gran # (Auto) (0.01-0.20) K/uL PT (9.0-12.0) Seconds INR (0.9-1.1) APTT (21-31) Seconds PTT Ratio VBG pH (7.36-7.41) VBG pCO2 (38-50) mmHg VBG pO2 mmHg VBG HCO3 mmol/L VBG O2 Saturation % VBG Base Excess mEq/L POC Sodium 137 (135-144) mmol/L Sodium (136-145) mmol/L POC Potassium 4.0 (3.3-5.0) mmol/L Potassium (3.5-5.1) mmol/L POC Chloride 104 (101-112) mmol/L Chloride (98-107) mmol/L Carbon Dioxide (21-32) mmol/L POC Total CO2 24 (24-31) mmol/L Anion Gap (3-11) POC Anion Gap 14.0 L (16-25) mmol/L POC BUN 39 H (7-18) mg/dl BUN (6-23) mg/dl Creatinine (0.6-1.4) mg/dl POC Creatinine 2.6 H (0.6-1.3) mg/dl Est Cr Clr Drug Dosing ml/min eGFR BUN/Creatinine Ratio (10-20) Glucose (70-99(Fasting)) mg/dl POC Glucose (70-99) mg/dl POC Glucose (other) 110 H (70-99) mg/dl Lactate (0.4-2.0) mmol/L Calcium (8.6-10.3) mg/dl POC Ioniz Calcium Denisa 1.13 (1.12-1.32) mmol/l Total Bilirubin (0.2-1.0) mg/dl AST (13-39) U/L ALT (7-52) U/L Alkaline Phosphatase (34-104) U/L Ammonia (18-72) umol/L Total Creatine Kinase (30-223) U/L Troponin I High Sens (0-20) pg/ml Total Protein (6.0-8.3) gm/dl Albumin (3.4-5.0) gm/dl Globulin (2.5-4.0) gm/dl Albumin/Globulin Ratio (0.9-2) Lipase (11-82) U/L Procalcitonin 0.69 H (0-0.5) ng/ml TSH (0.300-4.500) uIu/ml Urine Color Urine Appearance (Clear) Urine pH (4.5-7.5) Ur Specific [place] (1.000-1.030) Urine Protein (Negative) Urine Glucose (UA) (Negative) Urine Ketones (Negative) Urine Blood (Negative) Urine Nitrite (Negative) Urine Bilirubin (Negative) Urine Urobilinogen (Negative) Ur Leukocyte Esterase (Negative) Urine WBC (Auto) (0-5) /hpf Urine RBC (Auto) (0-2) /hpf U Hyaline Cast (Auto) (0-2) /lpf U Epithel Cells (Auto) (0-2) /hpf Urine Bacteria (Auto) (None Seen) Ethyl Alcohol mg/dL < 10.0 (<10.0) mg/dl SARS-CoV-2 (PCR) (Negative) Influenza Type A (PCR) (Neg) Influenza Type B (PCR) (Neg) RSV (RT-PCR) (Neg) Blood Type Antibody Screen 09/15/24 Range/Units 15:30 WBC (4.8-10.8) K/ul RBC (4.70-6.10) M/uL Hgb (14.0-18.0) g/dl POC Hgb (14.0-18.0) g/dl Hct (42.0-52.0) % POC Hct (42-52) % MCV (80.0-100.0) fL MCH (25.0-34.0) pg MCHC (32.0-36.0) g/dL RDW Std Deviation (36.4-46.3) fL RDW Coeff of Jono (11.5-14.5) % Plt Count (130-400) K/uL MPV (9.4-12.4) fL Immature Gran % (Auto) % Neut % (Auto) % Lymph % (Auto) % Sully % (Auto) % Eos % (Auto) % Baso % (Auto) % Neut # (Auto) (1.40-6.50) K/uL Lymph # (Auto) (1.20-3.40) K/uL [place] # (Auto) (0.11-0.59) K/uL Eos # (Auto) (0.00-0.50) K/uL Baso # (Auto) (0.00-0.20) K/uL Immature Gran # (Auto) (0.01-0.20) K/uL PT (9.0-12.0) Seconds INR (0.9-1.1) APTT (21-31) Seconds PTT Ratio VBG pH (7.36-7.41) VBG pCO2 (38-50) mmHg VBG pO2 mmHg VBG HCO3 mmol/L VBG O2 Saturation % VBG Base Excess mEq/L POC Sodium (135-144) mmol/L Sodium (136-145) mmol/L POC Potassium (3.3-5.0) mmol/L Potassium (3.5-5.1) mmol/L POC Chloride (101-112) mmol/L Chloride (98-107) mmol/L Carbon Dioxide (21-32) mmol/L POC Total CO2 (24-31) mmol/L Anion Gap (3-11) POC Anion Gap (16-25) mmol/L POC BUN (7-18) mg/dl BUN (6-23) mg/dl Creatinine (0.6-1.4) mg/dl POC Creatinine (0.6-1.3) mg/dl Est Cr Clr Drug Dosing ml/min eGFR BUN/Creatinine Ratio (10-20) Glucose (70-99(Fasting)) mg/dl POC Glucose (70-99) mg/dl POC Glucose (other) (70-99) mg/dl Lactate (0.4-2.0) mmol/L Calcium (8.6-10.3) mg/dl POC Ioniz Calcium Denisa (1.12-1.32) mmol/l Total Bilirubin (0.2-1.0) mg/dl AST (13-39) U/L ALT (7-52) U/L Alkaline Phosphatase (34-104) U/L Ammonia (18-72) umol/L Total Creatine Kinase (30-223) U/L Troponin I High Sens (0-20) pg/ml Total Protein (6.0-8.3) gm/dl Albumin (3.4-5.0) gm/dl Globulin (2.5-4.0) gm/dl Albumin/Globulin Ratio (0.9-2) Lipase (11-82) U/L Procalcitonin (0-0.5) ng/ml TSH (0.300-4.500) uIu/ml Urine Color Yellow Urine Appearance Clear (Clear) Urine pH 6.0 (4.5-7.5) Ur Specific [place] 1.018 (1.000-1.030) Urine Protein 4+ H (Negative) Urine Glucose (UA) 2+ H (Negative) Urine Ketones Negative (Negative) Urine Blood 1+ H (Negative) Urine Nitrite Negative (Negative) Urine Bilirubin Negative (Negative) Urine Urobilinogen Negative (Negative) Ur Leukocyte Esterase Negative (Negative) Urine WBC (Auto) 0-5 (0-5) /hpf Urine RBC (Auto) 0-2 (0-2) /hpf U Hyaline Cast (Auto) 3-5 H (0-2) /lpf U Epithel Cells (Auto) 0-2 (0-2) /hpf Urine Bacteria (Auto) None Seen (None Seen) Ethyl Alcohol mg/dL (<10.0) mg/dl SARS-CoV-2 (PCR) (Negative) Influenza Type A (PCR) (Neg) Influenza Type B (PCR) (Neg) RSV (RT-PCR) (Neg) Blood Type Antibody Screen Imaging Data Attestation: I personally reviewed and interpreted this imaging study as follows: My Impression: Pelvis x-ray and femur x-ray showed no acute fracture or dislocation. Radiologist's Impression: Chest X-Ray 09/15/24 14:45 XR chest 1V portable CLINICAL HISTORY: Trauma TECHNIQUE: Single frontal radiograph of the chest was obtained. Comparison: Comparison is made to chest radiograph 03/08/2023 FINDINGS: No lines and tubes are seen. Cardiomegaly is noted. The lungs are clear. No evidence of pleural effusion or pneumothorax. IMPRESSION: No acute chest disease. Cardiomegaly is noted. ACT 112: Negative or not required by law. Electronically signed by: Keyur Helms M.D. 09/15/2024 3:12 PM Pelvis X-Ray 09/15/24 14:45 XR pelvis 1-2V routine CLINICAL HISTORY: Trauma COMPARISON: Pelvis radiograph January 22, 2024. CT of the abdomen and pelvis January 14, 2024. FINDINGS: Sacroiliac joints and symphysis pubis are intact. There are no fractures within the pelvis or hips. The right hip is better depicted on the right femur radiographs which will be reported separately. Postoperative findings within the lumbosacral spine are partially imaged. Visualized portions of the hardware are unchanged appearance since CT of January 14, 2024. Portions of the hardware has been removed. There is severe right and moderate left hip osteoarthritis. IMPRESSION: No fractures within the pelvis or hips. ACT 112: Negative or not required by law. Electronically signed by: Adonis Arellano M.D. 09/15/2024 3:[address] 09/15/24 14:47 CT cervical spine wo con CLINICAL HISTORY: Trauma TECHNIQUE: Multidetector row helical CT of the cervical spine was performed without administration of intravenous contrast. Coronal and sagittal reformations were obtained. Automated dose lowering techniques and/or adjustment according to patient size were utilized for this exam. Comparison: None available at the time of this dictation. FINDINGS: No acute fractures or subluxations are identified. Degenerative changes are seen in the visualized spine. There is straightening of the cervical spine. Soft tissues are unremarkable. IMPRESSION: Degenerative changes without evidence of acute bony injury. ACT 112: Negative or not required by law. Electronically signed by: Keyur Helms M.D. 09/15/2024 3:52 PM Femur X-Ray 09/15/24 14:47 XR femur RT 2V routine HISTORY: 69 years-old Male trauma acute pelvic pain status post trauma COMPARISON: Pelvis radiographs of same day TECHNIQUE: 2 views of the right femur FINDINGS: Partially imaged lumbar spinal fusion hardware. Surgical clips project over the scrotum. Moderate to severe osteoarthritis of the right hip. Tricompartment osteoarthritis of the knee. No acute fracture, or dislocation identified. IMPRESSION: No acute fracture or dislocation identified. ACT 112: Negative or not required by law. The above report was generated using voice recognition software. It may contain grammatical, syntax or spelling errors. Electronically signed by: Landon Rodriguez M.D. 09/15/2024 3:[address] 09/15/24 14:47 CT OF THE HEAD WITHOUT CONTRAST CLINICAL HISTORY: Trauma. COMPARISON STUDY: Head CT, MRI of the brain and head CTA March 08, 2023. TECHNIQUE: Helical axial images of the head were obtained without IV contrast. Automated exposure control was utilized for the study. A dose lowering technique was utilized adhering to the principles of ALARA. FINDINGS: No acute intracranial hemorrhage is present. There is a large hypodense focus with loss of walton-white differentiation within the right occipital lobe which measures 5.8 x 4.3 cm. This is new since prior exam. There is mild mass effect with sulcal effacement. There is no evidence for hemorrhagic conversion. Ventricular system is unremarkable. Basal cisterns are patent. There is an old small infarct within left cerebellar hemisphere. White matter hypodensity suggests small vessel disease. There are no extra axial collections. There are no calvarial fractures. IMPRESSION: 1. No acute intracranial hemorrhage. 2. Large subacute to acute right PHOTOGRAPHER STILL territory infarct. 3. No calvarial fractures. ACT 112: Negative or not required by law. Electronically signed by: Adonis Arellano M.D. 09/15/2024 3:[address] 09/15/24 15:17 CT chest diagnostic wo con CLINICAL HISTORY: trauma TECHNIQUE: Multidetector row helical CT of the chest was performed. Coronal and sagittal reformations were obtained. Automated dose lowering techniques and/or adjustment according to patient size were utilized for this exam. Comparison: Comparison is made to CT chest 12/09/2021 FINDINGS: Lungs and pleura: Mild atelectasis is seen. Heart and pericardium: Heart size is normal. No pericardial effusion. Vessels: Moderate atherosclerotic changes in the aorta and coronary arteries. Mediastinum and andrea: Subcentimeter lymph nodes are seen. Chest wall and lower neck: Unremarkable. Abdomen: Unremarkable. Bones: Degenerative changes in the thoracic spine. IMPRESSION: Unremarkable evaluation of the chest. In particular acute fracture. ACT 112: Negative or not required by law. Electronically signed by: Keyur Helms M.D. 09/15/2024 3:54 PM Abdomen/Pelvis CT 09/15/24 15:[address] WITHOUT CONTRAST CT DOSE: 4536.63 mGy.cm HISTORY: Acute abdominal trauma trauma TECHNIQUE: Multiaxial CT images of the abdomen and pelvis were performed without contrast. A dose lowering technique was utilized adhering to the principles of ALARA. COMPARISON STUDY: Chest CT of same day, CT abdomen and pelvis 01/14/2024 FINDINGS: Cardiomegaly with coronary artery calcifications. Chest CT dictated separately. Mild left hemidiaphragmatic elevation with bibasilar atelectasis and bronchial wall thickening. No pneumatosis or pneumoperitoneum. Suboptimal evaluation of the abdominal solid organs without IV contrast. Within the limitations of the study, the spleen, mildly atrophic pancreas, gallbladder, adrenal glands and liver appear unremarkable. No hydronephrosis. Exophytic hypodense 2.4; lesion of the posterior interpolar left kidney suggestive of a cyst. Cortical thinning of the left greater than right kidneys. Unremarkable urinary bladder. Borderline enlarged prostate. Atherosclerosis of the aorta branch vessels. No lymphadenopathy. No bowel obstruction or bowel wall thickening. No free fluid. Colonic diverticulosis. Anastomotic sutures in the mid sigmoid. Normal appendix. Degenerative and postoperative changes of the spine. Lumbar levoscoliosis. No acute fracture identified. IMPRESSION: 1. No acute posttraumatic intra-abdominal or intrapelvic abnormality identified. 2. No acute fracture. 3. Colonic diverticulosis. 4. Incidental findings as above. ACT 112: Negative or not required by law. The above report was generated using voice recognition software. It may contain grammatical, syntax or spelling errors. Electronically signed by: Landon Rodriguez M.D. 09/15/2024 4:05 PM Shoulder X-Ray 09/15/24 16:48 2 views of the left shoulder are submitted for review. Findings: No fracture or dislocation is seen. There is mild acromioclavicular osteoarthritis. No other osseous abnormality is identified. There are no radiopaque foreign bodies. Impression: Mild acromioclavicular osteoarthritis Electronically signed by Tae Salgado 09-15-2024 5:04 PM ECG Data Attestation: I personally reviewed and interpreted this ECG as follows: Rate (beats per minute): 107 Rhythm: + normal sinus ECG Intervals/blocks: + Normal QRS, + Normal NE and + Normal QT-c ECG ST segments: + Normal ST segments [facility] Narrative 1441: The patient was evaluated in room A1. A complete history and physical exam was performed Cardiac monitoring: An order was placed for continuous cardiac monitoring. The monitor shows a rate of 110 with sinus tachycardia rhythm interpreted by nm Trauma alert activated. 1523: Patient found to be tachycardic and febrile. IV Tylenol ordered for the patient. Lactic acid blood culture ordered for the patient. Patient [id number] creatinine is 2.8. Will obtain CT imaging without contrast. Pelvis x-ray and femur x-ray showed no acute fracture or dislocation. 1715: Vital signs stable. Imaging shows no traumatic injury however there is a large infarct on CT scan. Patient is COVID-positive. Patient will be admitted to the [facility] hospitalist team. Rectal aspirin ordered for the patient given his stroke. Patient is not a candidate for TNK given his recent trauma and being on Eliquis. Impression & Plan Acute CVA (cerebrovascular accident), COVID-19 Discharge Plan Visit Data Chief Complaint: Trauma Stated Complaint: FALL ED Provider: Renato Nettles Discharge Problem: Acute CVA (cerebrovascular accident), COVID-19 Patient Disposition: Admitted As Inpatient Forms Stand Alone Forms: My [facility] Prescriptions Prescriptions: No Action folic acid 1 mg tablet 1 mg PO QAM Qty: 90 3RF gemfibrozil 600 mg tablet 600 mg PO BID Qty: 180 3RF atorvastatin 40 mg tablet 40 mg PO HS Qty: 90 3RF isosorbide mononitrate 30 mg tablet extended release 24 hr 30 mg PO QAM Qty: 90 1RF atenolol 100 mg tablet 100 mg PO QAM Qty: 90 3RF Eliquis 5 mg tablet 5 mg PO BID Qty: 180 1RF (DME) pen needle, diabetic [BD Ultra-Fine Mini Pen Needle] 31 gauge x 3/16" needle See Rx Instructions .ROUTE .MEDSUPPLY Qty: 400 3RF Rx Instructions: Four times a day insulin aspart U-100 [Novolog FlexPen U-100 Insulin] 100 unit/mL (3 mL) insulin pen See Rx Instructions subcut .COMPLEX Qty: 90 1RF Hold Instructions: may change to nph Rx Instructions: subcutaneously 20 units with meals; plus sliding scale as needed; MDD 90 units clopidogrel 75 mg tablet 75 mg PO QAM Qty: 90 1RF pantoprazole 40 mg tablet,delayed release (DR/EC) 40 mg PO QAM Qty: 90 1RF prednisone 5 mg tablet 5 mg PO QAM (DME) FreeStyle Pa 2 Sensor Kit See Rx Instructions .Route Rx Instructions: As directed (DME) OneTouch Ultra Blue Test Strip Strip See Rx Instructions .ROUTE .MEDSUPPLY Dose Instruction: As directed Rx Instructions: Test blood sugar once daily PRN (DME) lancets [OneTouch UltraSoft Lancets] [facility] See Rx Instructions .ROUTE .MEDSUPPLY Dose Instruction: As directed Rx Instructions: Test blood sugar once daily PRN cholecalciferol (vitamin D3) 125 mcg (5,000 unit) capsule 125 mcg PO QAM allopurinol 300 mg tablet 300 mg PO QAM acetaminophen [Tylenol Extra Strength] 500 mg Tablet 1,000 mg PO BID PRN (Reason: Pain) multivitamin Tablet 1 tab PO QAM furosemide 40 mg tablet 40 mg PO QAM amlodipine 5 mg tablet 5 mg PO QAM spironolactone 25 mg tablet 25 mg PO QAM gabapentin 300 mg capsule 300 mg PO QAM insulin glargine [Lantus Solostar U-100 Insulin] 100 unit/mL (3 mL) insulin pen 28 unit subcut BID Referrals Referrals: Pro,Jam Onofre MD [Primary Care Provider] -
[2024-09-15 15:28] LABS: iSTAT Creatinine 2.6 mg/dl (0.6-1.3); iSTAT Hemoglobin 12.2 g/dl (14.0-18.0); iSTAT Ionized Calcium 1.13 mmol/l (1.12-1.32)
[2024-09-15 15:36] LABS: Base Excess VBG 0.3 mEq/L; HCO3 VBG 27 mmol/L; Oxygen Saturation VBG < 60.0 %; PCO2 VBG 48 mmHg (38-50); PO2 VBG 32 mmHg; pH VBG 7.35 (7.36-7.41)
[2024-09-15 15:46] LABS: Basophils # (auto) 0.03 K/uL (0.00-0.20); Basophils % (auto) 0.4 %; Hemoglobin 11.2 g/dl (14.0-18.0); Immature Granulocytes % (auto) 1.3 %; Lymphocytes # (auto) 0.69 K/uL (1.20-3.40); Lymphocytes % (auto) 8.6 %; Mean Corpuscular Hemoglobin 25.9 pg (25.0-34.0); Mean Corpuscular Hgb Conc 31.1 g/dL (32.0-36.0); Mean Corpuscular Volume 83.1 fL (80.0-100.0); Mean Platelet Volume 10.4 fL (9.4-12.4); Monocytes # (auto) 1.58 K/uL (0.11-0.59); Monocytes % (auto) 19.8 %; Neutrophils # (auto) 5.59 K/uL (1.40-6.50); Neutrophils % (auto) 69.9 %; Platelet Count 256 K/uL (130-400); RDW Coefficient of Variation 16.2 % (11.5-14.5); Red Blood Count 4.33 M/uL (4.70-6.10); White Blood Count 7.99 K/ul (4.8-10.8)
[2024-09-15 15:50] LABS: Albumin Globulin Ratio 1.3 (0.9-2); Albumin Level 4.4 gm/dl (3.4-5.0); BUN Creatinine Ratio 18.2 (10-20); Bilirubin,Total 0.4 mg/dl (0.2-1.0); Calcium 9.4 mg/dl (8.6-10.3); Creatinine Clr Calc Pharmacy 33.2 ml/min; Globulin 3.4 gm/dl (2.5-4.0); Potassium 3.9 mmol/L (3.5-5.1); Total Protein 7.8 gm/dl (6.0-8.3)
--- NOTE | 2024-09-15 15:53 | CT Scan Report ---
CT cervical spine wo con CLINICAL HISTORY: Trauma TECHNIQUE: Multidetector row helical CT of the cervical spine was performed without administration of intravenous contrast. Coronal and sagittal reformations were obtained. Automated dose lowering techn iques and/or adjustment according to patient size were utilized for this exam. Comparison: None available at the time of this dictation. FINDINGS: No acute fractures or subluxations are identified. Degenerative changes are seen in the visualized sp ine. There is straightening of the cervical spine. Soft tissues are unremarkable. IMPRESSION: Degenerative changes without evidence of acute bony injury. ACT 112: Negative or not required by law. Electronically signed by: Keyur Helms M.D. 09/15/2024 3:52 PM
--- NOTE | 2024-09-15 15:56 | CT Scan Report ---
CT chest diagnostic wo con CLINICAL HISTORY: trauma TECHNIQUE: Multidetector row helical CT of the chest was performed. Coronal and sagittal reformations were obtained. Automated dose lowering techniques and/or adjustment according to patient size were u tilized for this exam. Comparison: Comparison is made to CT chest 12/09/2021 FINDINGS: Lungs and pleura: Mild atelectasis is seen. Heart and pericardium: Heart size is normal. No pericardial effusion. Vessels: Moderate atherosclerotic changes in the aorta and coronary arteries. Mediastinum and andrea: Subcentimeter lymph nodes are seen. Chest wall and lower neck: Unremarkable. Abdomen: Unremarkable. Bones: Degenerative changes in the thoracic spine. IMPRESSION: Unremarkable evaluation of the chest. In particular acute fracture. ACT 112: Negative or not required by law. Electronically signed by: Keyur Helms M.D. 09/15/2024 3:54 PM
--- NOTE | 2024-09-15 16:00 | CT Scan Report ---
CT OF THE HEAD WITHOUT CONTRAST CLINICAL HISTORY: Trauma. COMPARISON STUDY: Head CT, MRI of the brain and head CTA March 08, 2023. TECHNIQUE: Helical axial images of the head were obtained without IV contrast. Automated exposure con trol was utilized for the study. A dose lowering technique was utilized adhering to the principles o f ALARA. FINDINGS: No acute intracranial hemorrhage is present. There is a large hypodense focus with loss of walton-white differentiation within the right occipital lobe which measures 5.8 x 4.3 cm. This is new s lois prior exam. There is mild mass effect with sulcal effacement. There is no evidence for hemorrhag ic conversion. Ventricular system is unremarkable. Basal cisterns are patent. There is an old small i nfarct within left cerebellar hemisphere. White matter hypodensity suggests small vessel disease. The re are no extra axial collections. There are no calvarial fractures. IMPRESSION: 1. No acute intracranial hemorrhage. 2. Large subacute to acute right [employer] territory infarct. 3. No calvarial fractures. ACT 112: Negative or not required by law. Electronically signed by: Adonis Arellano M.D. 09/15/2024 3:59 PM
--- NOTE | 2024-09-15 16:06 | CT Scan Report ---
ABDOMEN AND PELVIS CT WITHOUT CONTRAST CT DOSE: 4536.63 mGy.cm HISTORY: Acute abdominal trauma trauma TECHNIQUE: Multiaxial CT images of the abdomen and pelvis were performed without contrast. A dose lo wering technique was utilized adhering to the principles of ALARA. COMPARISON STUDY: Chest CT of same day, CT abdomen and pelvis 01/14/2024 FINDINGS: Cardiomegaly with coronary artery calcifications. Chest CT dictated separately. Mild left h emidiaphragmatic elevation with bibasilar atelectasis and bronchial wall thickening. No pneumatosis o r pneumoperitoneum. Suboptimal evaluation of the abdominal solid organs without IV contrast. Within the limitations of th e study, the spleen, mildly atrophic pancreas, gallbladder, adrenal glands and liver appear unremarka ble. No hydronephrosis. Exophytic hypodense 2.4; lesion of the posterior interpolar left kidney sugge stive of a cyst. Cortical thinning of the left greater than right kidneys. Unremarkable urinary bladd er. Borderline enlarged prostate. Atherosclerosis of the aorta branch vessels. No lymphadenopathy. No bowel obstruction or bowel wall thickening. No free fluid. Colonic diverticulosis. Anastomotic sut ures in the mid sigmoid. Normal appendix. Degenerative and postoperative changes of the spine. Lumbar levoscoliosis. No acute fracture identified. IMPRESSION: 1. No acute posttraumatic intra-abdominal or intrapelvic abnormality identified. 2. No acute fracture. 3. Colonic diverticulosis. 4. Incidental findings as above. ACT 112: Negative or not required by law. The above report was generated using voice recognition software. It may contain grammatical, syntax o r spelling errors. Electronically signed by: Landon Rodriguez M.D. 09/15/2024 4:05 PM
[2024-09-15 16:12] LABS: INR 1.1 (0.9-1.1); Partial Thromboplastin Ratio 1.3; Partial Thromboplastin Time 35 Seconds (21-31); Prothrombin Time 11.9 Seconds (9.0-12.0)
[2024-09-15 16:18] LABS: Influenza A virus by PCR Negative (Neg); Influenza B virus by PCR Negative (Neg); RSV by PCR Negative (Neg); SARS CoV2 RNA(COVID-19) Ceph POSITIVE (Negative)
[2024-09-15 16:24] LABS: Appearance Urine Clear (Clear); Bacteria Urine Automated None Seen (None Seen); Bilirubin Urine Negative (Negative); Blood Urine 1+ (Negative); Color Urine Yellow; Epithelial Cell Urine Auto 0-2 /hpf (0-2); Glucose Urine UA 2+ (Negative); Ketones Urine Negative (Negative); Leukocyte Esterase Urine Negative (Negative); Nitrite Urine Negative (Negative); Protein Urine 4+ (Negative); RBC Urine Automated 0-2 /hpf (0-2); Specific Gravity Urine 1.018 (1.000-1.030); Urobilinogen Urine Negative (Negative); WBC Urine Automated 0-5 /hpf (0-5)
--- NOTE | 2024-09-15 16:34 | History & Physical Report ---
Date of Service September 15, 2024 Assessment & Plan (1) Acute CVA (cerebrovascular accident): Plan: Left-sided homonymous hemianopia + possible left upper extremity weakness although difficult to examine due to left shoulder pain Acute right posterior cerebral artery stroke on CT head which by history suspect happened around 8 PM 09/14 Not for thrombolysis due to Eliquis use with last dose morning of admission Discussed care with Dr. Chappell at time of admission and will hold all antiplatelets and anticoagulation at this time pending reevaluation tomorrow given the size of the stroke Allow permissive hypertension, however since this happened yesterday, he is next due his antihypertensives tomorrow and while taking all his medications his blood pressure is 148/85 I will initially continue all his antihypertensives pending serial blood pressure measurements overnight Will avoid IV contrast due to current renal function and ability to perform alternative scan with MRA head and ultrasound carotid Doppler TTE Lipid panel and HbA1c with a.m. labs PT/OT/speech Consult neurology (2) COVID-19: Plan: Suspect this is the cause of his fever however he is otherwise having no symptoms other than a mild cough Discussed marissa however given unknown date of starting symptoms and CKD recommend against this at the current time (3) Left shoulder pain: Plan: Suspect rotator cuff injury, no fracture on left shoulder x-ray PT (4) Essential hypertension: Plan: Continue amlodipine, atenolol, furosemide, isosorbide mononitrate, spironolactone (5) Uncontrolled type 2 diabetes mellitus: Plan: HbA1c with a.m. labs Continue Lantus at a reduced dose of 20 units BID is likely having reduced carbs in hospital [facility] based on insulin calculator of 40 units basal dosing/day --Goal BSG Range: Low 110 mg/dL, High 140 mg/dL --Correction Factor: 20 mg/dL/unit --Carbohydrate ratio = 7 g/unit --BSGs ACHS if eating, q6h if npo (6) History of pulmonary embolism: Plan: Reason for his chronic Eliquis use Plan Chronic stable medical conditions: ?Rheumatoid arthritis - under Dr Babcock on chronic prednisone 5mg PO daily which we will continue GERD - continue pantoprazole 40mg PO daily VTE prophylaxis - deferred due to size of stroke and patient already had Eliquis on day of admission Diet - dysphagia screen pending but can have heart healthy type II diabetic diet if he passes this Disposition - admit to PCU Admission and Anticipated Discharge Date Admission Date: September 15, 2024 History of Present Illness Chief Complaint: Fall Primary Care Provider: Jam Hdez MD Timoteo Modi is a 69 year old male who presents to the ER following a fall last night and now ambulatory dysfunction. He is unable to remember the fall completely or whether he lost consciousness but hit his head and left shoulder. He notes prior rotator cuff surgery on the left shoulder. He noted a headache all of yesterday bilateral across the front of his head prior to this. From what can be gathered from his son in the room he fell around 5pm yesterday in the b athroom. His could not help him up so called their son to help im back to a chair. Later while watching TB he noticed the left side of his vision loss probably around 8pm although he has not told anyone this prior to me asking directly about his vision. He is on Eliquis for history of recurrent DVT/PE. Last took Eliquis aroun 6-7 am this morning. In the ER he was recorded as having a fever. He reports feeling cold around noon today but otherwise no fever or chills known prior to the ER. He has noted a non productive cough for the last 1.5 weeks. No chest pain, shortness of breath, urinary or new gastrointestinal symptoms. This morning he was unable to get himself our of bed and struggling with his left shoulder therefore decided to come to the ER. He took all his morning medications. Allergies Allergy/AdvReac Type Severity Reaction Status Date / Time ARB-Angiotensin Receptor Allergy Intermediate Nausea Verified 09/15/24 17:11 Antagonist ibuprofen Allergy Mild Blister Verified 09/15/24 17:11 DEYSI Inhibitors AdvReac Mild cough Verified 09/15/24 17:11 Home Medications Medication Instructions Recorded Confirmed Type prednisone 5 mg tablet 5 mg PO QAM 04/29/19 09/15/24 History allopurinol 300 mg tablet 300 mg PO QAM 12/14/20 09/15/24 History cholecalciferol (vitamin D3) 125 125 mcg PO QAM 09/21/22 09/15/24 History mcg (5,000 unit) capsule blood sugar diagnostic (OneTouch 01/02/23 07/14/24 History Ultra Blue Test Strip) flash glucose sensor (FreeStyle 01/02/23 07/14/24 History Pa 2 Sensor kit) lancets (OneTouch UltraSoft 01/02/23 07/14/24 History Lancets) acetaminophen 500 mg tablet 1,000 mg PO BID PRN Pain 03/08/23 09/15/24 History (Tylenol Extra Strength) folic acid 1 mg tablet 1 mg PO QAM #90 tabs 11/19/23 09/15/24 Rx gemfibrozil 600 mg tablet 600 mg PO BID #180 tabs 11/19/23 09/15/24 Rx atorvastatin 40 mg tablet 40 mg PO HS #90 tabs 02/28/24 09/15/24 Rx isosorbide mononitrate 30 mg 30 mg PO QAM #90 tabs 03/30/24 09/15/24 Rx tablet,extended release 24 hr atenolol 100 mg tablet 100 mg PO QAM #90 tabs 04/23/24 09/15/24 Rx apixaban 5 mg tablet (Eliquis) 5 mg PO BID #180 tabs 05/05/24 09/15/24 Rx BD Ultra-Fine Mini Pen Needle 31 #400 ea 05/13/24 07/14/24 Rx gauge x 3/16" (pen needle, diabetic) insulin aspart U-100 100 unit/mL See Rx Instructions subcut 06/26/24 09/15/24 Rx (3 mL) subcutaneous pen (Novolog .COMPLEX #90 mL FlexPen U-100 Insulin aspart) amlodipine 5 mg tablet 5 mg PO QAM 09/15/24 09/15/24 History clopidogrel 75 mg tablet 75 mg PO QAM #90 tabs 09/15/24 09/15/24 Rx furosemide 40 mg tablet 40 mg PO QAM 09/15/24 09/15/24 History gabapentin 300 mg capsule 300 mg PO QAM 09/15/24 09/15/24 History insulin glargine 100 unit/mL (3 28 unit subcut BID 09/15/24 09/15/24 History mL) subcutaneous pen (Lantus Solostar U-100 Insulin) multivitamin 1 tab PO QAM 09/15/24 09/15/24 History pantoprazole 40 mg tablet,delayed 40 mg PO QAM #90 tabs 09/15/24 09/15/24 Rx release spironolactone 25 mg tablet 25 mg PO QAM 09/15/24 09/15/24 History Past Med/Surg History Problem List (Updated 09/15/24 @ 18:38 by Renato Nettles MD) COVID-19 (Acute) Left shoulder pain Acute CVA (cerebrovascular accident) (Acute) Right hip pain Back pain Lumbar post-laminectomy syndrome Sacroiliitis Sacroiliac joint dysfunction of right side Current use of proton pump inhibitor History of CVA (cerebrovascular accident) 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 (Acute) states ~35 yrs ago- was hospitalized, no issues since Vitamin D deficiency (Chronic) Inflammatory arthritis (Acute) Hypercholesterolemia (Chronic) Homocysteinemia (Acute) Gastroesophageal reflux disease (Acute) Factor V Leiden mutation (Acute) plavix daily Essential hypertension (Chronic) controlled, stable per pt Diabetic peripheral neuropathy (Acute) Diabetic nephropathy (Acute) follows with [facility] Degeneration of cervical intervertebral disc (Acute) Chronic kidney disease, stage 3 (moderate) (Chronic) Chronic gout (Acute) Anemia (Chronic) Uncontrolled type 2 diabetes mellitus Obesity Loss of protective sensation of skin of foot Leg pain Bilateral primary osteoarthritis of knee Sciatica Lumbar spondylosis Screening for prostate cancer Colon polyps Encounter for pre-operative examination History of colon polyps Degeneration of lumbosacral intervertebral disc with acute herniation Lumbar spinal stenosis Intractable low back pain Headache History of back surgery 10/15/22, rods and screws were placed; instrumented T12-S1 fusion Allergy to DEYSI inhibitors Allergy to angiotensin receptor blockers (ARB) Dysarthria (Acute) Medical History (Updated 09/15/24 @ 18:38 by Renato Nettles MD) History of pulmonary embolism Cough Pre-op evaluation Pulmonary emboli noted as likely chronic on 12/22 chest CTA Dyspnea occasionally, with stairs or incline, ongoing x several yrs, denies change or worsening, follows with PCP Kidney stones hx GERD (gastroesophageal reflux disease) controlled, stable per pt Diabetes mellitus, type 2 IDDM Transient ischemic attack (TIA) (~2012) no deficits History of balanitis Diverticulitis of colon hx Myalgia and myositis H/O proctoscopy Surgical History History of lumbar discectomy 12/30/2021 Grade 2 view, MAC 3, ETT 7.5. History of cystoscopy with ureter stent History of cataract surgery bilateral History of rectopexy laparoscopic with sigmoid resection --- patient unsure??? History of dilation of urethra H/O repair of rotator cuff right x1 and left x2 H/O colonoscopy History of colon resection r/t perforated diverticuliti Family History Father , in his early 60s of colon cancer Colon cancer Diabetes Myocardial infarction Mother , in her 70s Diabetes Stroke Sister Breast cancer Brother Brain cancer Stroke Other No family history of adverse response to anesthesia Denies family history of Ovarian cancer Prostate cancer Lung cancer Social History Smoking Status: Former smoker Tobacco Type: Cigarettes Age Started Using Tobacco: 14; Age Quit Using Tobacco: 30; packs per day: 1; Cigarettes Per Day: 20 a day for 16 years; Second Hand Exposure: No; Do You Dip or Chew Tobacco: No; Hx Alcohol Use: No Hx Substance Use: No Preferred Language: Togolese Communication Ability: Effective Visual Impairment: No Limitations Hearing Ability: Normal Be[place]ster Required: No Beliefs That Will Affect Care: None marital status: Current Living Situation: Spouse 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 occupational 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 Feels Safe at Home: Yes Safety Concerns: Feels Safe At This Time Childhood Exposure to Second-Hand Smoke: Yes (father) Dental Care, Regularly: Yes Physical Activity Frequency: Does not Exercise Seatbelt Use: always Sunscreen Use: No Assistive Devices: Cane, Glasses and Walker Review of Systems Review of Systems: All systems reviewed & are unremarkable except as noted in HPI & below Physical Exam Constitutional: WD/WN, vitals as above Eyes: + abnormal visual field confrontation (l eft sided vision loss bilaterally) ENMT: external ear and nose normal, oropharynx normal Respiratory: normal respiratory effort, lungs clear to auscultation Cardiovascular: RRR, no murmur, no edema (occasional skipped beats) Gastrointestinal (Abdomen): normal bowel sounds, soft, nontender, no hepatosplenomegaly Skin: no rashes, warm and dry Neurologic: Speech / Cognition: + abnormal speech (son noticed speech slower than normal); no expressive aphasia and no receptive aphasia Cranial Nerves: PERRL, EOM intact bilaterally (no diplopia), normal facial strength, able to rotate head bilaterally and no nystagmus; + not able to elevate shoulders (left unable ?secondary to pain) Psychiatric: Orientation: alert and oriented to person; + not oriented to place (aware he is in hospital) and + not oriented to time Genitourinary: no CVA tenderness Results & Data Results & Data Vital Signs (Past 12 Hours) Vital Signs Temp Pulse Pulse Resp BP BP Pulse Ox 09/15/24 16:04 93 H 17 156/89 H 92 09/15/24 15:59 38 C H 09/15/24 15:57 105 H 20 95 09/15/24 15:55 174/107 H 09/15/24 15:49 101 H 09/15/24 15:12 24 94 09/15/24 15:02 164/86 H 09/15/24 14:46 38.8 C H 108 H 20 154/95 H 95 09/15/24 14:35 36.7 C 105 H 18 142/71 H 95 O2 Del Method O2 Flow Rate 09/15/24 16:04 Room Air 09/15/24 15:59 09/15/24 15:57 Room Air 09/15/24 15:55 09/15/24 15:49 09/15/24 15:12 Room Air 09/15/24 15:02 09/15/24 14:46 Room Air 95 09/15/24 14:35 Laboratory Results Abnormal lab results 09/15/24 09/15/24 09/15/24 Range/Units 14:45 15:10 15:12 RBC 4.33 L (4.70-6.10) M/uL Hgb 11.2 L (14.0-18.0) g/dl POC Hgb (14.0-18.0) g/dl Hct 36.0 L (42.0-52.0) % POC Hct (42-52) % MCHC 31.1 L (32.0-36.0) g/dL RDW Std Deviation 49.0 H (36.4-46.3) fL RDW Coeff of Jono 16.2 H (11.5-14.5) % Lymph # (Auto) 0.69 L (1.20-3.40) K/uL [place] # (Auto) 1.58 H (0.11-0.59) K/uL APTT 35 H (21-31) Seconds VBG pH 7.35 L (7.36-7.41) Sodium 135 L (136-145) mmol/L Anion Gap 12 H (3-11) POC Anion Gap (16-25) mmol/L POC BUN (7-18) mg/dl BUN 45 H (6-23) mg/dl Creatinine 2.47 H (0.6-1.4) mg/dl POC Creatinine (0.6-1.3) mg/dl Glucose 107 H (70-99(Fasting)) mg/dl POC Glucose 172 H (70-99) mg/dl POC Glucose (other) (70-99) mg/dl Ammonia 17.0 L (18-72) umol/L Troponin I High Sens 24.0 H (0-20) pg/ml Urine Protein (Negative) Urine Glucose (UA) (Negative) Urine Blood (Negative) U Hyaline Cast (Auto) (0-2) /lpf SARS-CoV-2 (PCR) POSITIVE A (Negative) 09/15/24 09/15/24 Range/Units 15:15 15:30 RBC (4.70-6.10) M/uL Hgb (14.0-18.0) g/dl POC Hgb 12.2 L (14.0-18.0) g/dl Hct (42.0-52.0) % POC Hct 36 L (42-52) % MCHC (32.0-36.0) g/dL RDW Std Deviation (36.4-46.3) fL RDW Coeff of Jono (11.5-14.5) % Lymph # (Auto) (1.20-3.40) K/uL [place] # (Auto) (0.11-0.59) K/uL APTT (21-31) Seconds VBG pH (7.36-7.41) Sodium (136-145) mmol/L Anion Gap (3-11) POC Anion Gap 14.0 L (16-25) mmol/L POC BUN 39 H (7-18) mg/dl BUN (6-23) mg/dl Creatinine (0.6-1.4) mg/dl POC Creatinine 2.6 H (0.6-1.3) mg/dl Glucose (70-99(Fasting)) mg/dl POC Glucose (70-99) mg/dl POC Glucose (other) 110 H (70-99) mg/dl Ammonia (18-72) umol/L Troponin I High Sens (0-20) pg/ml Urine Protein 4+ H (Negative) Urine Glucose (UA) 2+ H (Negative) Urine Blood 1+ H (Negative) U Hyaline Cast (Auto) 3-5 H (0-2) /lpf SARS-CoV-2 (PCR) (Negative) Diagnostic Findings CT OF THE HEAD WITHOUT CONTRAST CLINICAL HISTORY: Trauma. COMPARISON STUDY: Head CT, MRI of the brain and head CTA March 08, 2023. TECHNIQUE: Helical axial images of the head were obtained without IV contrast. Automated exposure control was utilized for the study. A dose lowering technique was utilized adhering to the principles of ALARA. FINDINGS: No acute intracranial hemorrhage is present. There is a large hypodense focus with loss of walton-white differentiation within the right occipital lobe which measures 5.8 x 4.3 cm. This is new since prior exam. There is mild mass effect with sulcal effacement. There is no evidence for hemorrhagic conversion. Ventricular system is unremarkable. Basal cisterns are patent. There is an old small infarct within left cerebellar hemisphere. White matter hypodensity suggests small vessel disease. There are no extra axial collections. There are no calvarial fractures. IMPRESSION: 1. No acute intracranial hemorrhage. 2. 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 3. No calvarial fractures. CT cervical spine wo con CLINICAL HISTORY: Trauma TECHNIQUE: Multidetector row helical CT of the cervical spine was performed without administration of intravenous contrast. Coronal and sagittal reformations were obtained. Automated dose lowering techniques and/or adjustment according to patient size were utilized for this exam. Comparison: None available at the time of this dictation. FINDINGS: No acute fractures or subluxations are identified. Degenerative changes are seen in the visualized spine. There is straightening of the cervical spine. Soft tissues are unremarkable. IMPRESSION: Degenerative changes without evidence of acute bony injury. CT chest diagnostic wo con CLINICAL HISTORY: trauma TECHNIQUE: Multidetector row helical CT of the chest was performed. Coronal and sagittal reformations were obtained. Automated dose lowering techniques and/or adjustment according to patient size were utilized for this exam. Comparison: Comparison is made to CT chest 12/09/2021 FINDINGS: Lungs and pleura: Mild atelectasis is seen. Heart and pericardium: Heart size is normal. No pericardial effusion. Vessels: Moderate atherosclerotic changes in the aorta and coronary arteries. Mediastinum and andrea: Subcentimeter lymph nodes are seen. Chest wall and lower neck: Unremarkable. Abdomen: Unremarkable. Bones: Degenerative changes in the thoracic spine. IMPRESSION: Unremarkable evaluation of the chest. In particular acute fracture. ABDOMEN AND PELVIS CT WITHOUT CONTRAST CT DOSE: 4536.63 mGy.cm HISTORY: Acute abdominal trauma trauma TECHNIQUE: Multiaxial CT images of the abdomen and pelvis were performed without contrast. A dose lowering technique was utilized adhering to the principles of ALARA. COMPARISON STUDY: Chest CT of same day, CT abdomen and pelvis 01/14/2024 FINDINGS: Cardiomegaly with coronary artery calcifications. Chest CT dictated separately. Mild left hemidiaphragmatic elevation with bibasilar atelectasis and bronchial wall thickening. No pneumatosis or pneumoperitoneum. Suboptimal evaluation of the abdominal solid organs without IV contrast. Within the limitations of the study, the spleen, mildly atrophic pancreas, gallbladder, adrenal glands and liver appear unremarkable. No hydronephrosis. Exophytic hypodense 2.4; lesion of the posterior interpolar left kidney suggestive of a cyst. Cortical thinning of the left greater than right kidneys. Unremarkable urinary bladder. Borderline enlarged prostate. Atherosclerosis of the aorta branch vessels. No lymphadenopathy. No bowel obstruction or bowel wall thickening. No free fluid. Colonic div erticulosis. Anastomotic sutures in the mid sigmoid. Normal appendix. Degenerative and postoperative changes of the spine. Lumbar levoscoliosis. No acute fracture identified. IMPRESSION: 1. No acute posttraumatic intra-abdominal or intrapelvic abnormality identified. 2. No acute fracture. 3. Colonic diverticulosis. 4. Incidental findings as above. XR femur RT 2V routine HISTORY: 69 years-old Male trauma acute pelvic pain status post trauma COMPARISON: Pelvis radiographs of same day TECHNIQUE: 2 views of the right femur FINDINGS: Partially imaged lumbar spinal fusion hardware. Surgical clips project over the scrotum. Moderate to severe osteoarthritis of the right hip. Tricompartment osteoarthritis of the knee. No acute fracture, or dislocation identified. IMPRESSION: No acute fracture or dislocation identified. XR pelvis 1-2V routine CLINICAL HISTORY: Trauma COMPARISON: Pelvis radiograph January 22, 2024. CT of the abdomen and pelvis January 14, 2024. FINDINGS: Sacroiliac joints and symphysis pubis are intact. There are no fractures within the pelvis or hips. The right hip is better depicted on the right femur radiographs which will be reported separately. Postoperative findings within the lumbosacral spine are partially imaged. Visualized portions of the hardware are unchanged appearance since CT of January 14, 2024. Portions of the hardware has been removed. There is severe right and moderate left hip osteoarthritis. IMPRESSION: No fractures within the pelvis or hips. Medications Administered ER medications given: Ondansetron 4 mg IV Acetaminophen 1000 mg IV ECG Rate (beats per minute): 107 Rhythm: sinus tachycardia Findings: no acute ischemic change Comparison ECG Date: from (March 08, 2023) Change: the following changes noted (Increased rate) Code Status & VTE Plan Code Status Full VTE Prophylaxis Plan VTE Prophylaxis will be ordered: Yes PG Care Time/CCT Total # of Minutes Spent Total Time Spent with Patient: Total time spent is greater than 50% in coordination of care (as documented) at patient's floor/unit and/or counseling patient: Coding Level of Care Code 86671 INT INP/OBS CARE 3/75MIN Diagnoses Acute CVA (cerebrovascular accident) I63.9 COVID-19 U07.1 Left shoulder pain M25.512 Essential hypertension I10 Uncontrolled type 2 diabetes mellitus E11.65 History of pulmonary embolism Z86.711
[2024-09-15 17:03] LABS: Thyroid Stimulating Hormone 1.283 uIu/ml (0.300-4.500)
--- NOTE | 2024-09-15 17:04 | XRay Report ---
2 views of the left shoulder are submitted for review. Findings: No fracture or dislocation is seen. There is mild acromioclavicular osteoarthritis. No other osseous abnormality is identified. There are no radiopaque foreign bodies. Impression: Mild acromioclavicular osteoarthritis Electronically signed by Tae Salgado 09-15-2024 5:04 PM
[2024-09-15] MEDS: ASPIRIN 300 MG SUPP PR ONE (17:18)
[2024-09-15 18:39] LABS: C Reactive Protein 10.94 mg/dl (0-0.5)
[2024-09-15] MEDS ORDERED: GLUCOSE 10 TAB/TUBE PO PRN (19:30)
[2024-09-15] MEDS ORDERED: PHARMACIST DISCHARGE MED REC CONSULT PRN (19:30)
[2024-09-15] MEDS ORDERED: GLUCAGON FOR INJ 1 MG VIAL SQ PRN (19:30)
[2024-09-15] MEDS ORDERED: DEXTROSE 50% 50 ML SYRINGE IV PRN (19:30)
[2024-09-15] MEDS ORDERED: CARBOHYDRATES FOR HYPOGLYCEMIA PO PRN (19:30)
[2024-09-15] MEDS ORDERED: PHARMACY GLYCEMIC MGMT CONSULT PRN (19:30)
[2024-09-15] MEDS ORDERED: GLUCOSE 40% GEL 15 GM TUBE PO PRN (19:30)
[2024-09-15] MEDS: INSULIN ASPART PER UNIT CHARGE SC SCH (20:58)
[2024-09-15] MEDS: ACETAMINOPHEN 500 MG TAB PO PRN (22:06)
[2024-09-15] MEDS: gemfibroziL 600 MG TAB PO SCH (22:07)
[2024-09-15] MEDS: LANTUS PER UNIT CHARGE SQ SCH (22:07)
[2024-09-15] MEDS: ATORVASTATIN 40 MG TAB PO SCH (22:07)
--- NOTE | 2024-09-15 22:14 | Ultrasound Report ---
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 TECHNIQUE: Real-time duplex ultrasound scan of the extracranial arteries integrating B-mode two-dimensional vascular structure, Doppler spectral analysis and color flow Doppler imaging. COMPARISON: No relevant prior studies available. FINDINGS: Right common carotid artery: Unremarkable. No occlusion or significant stenosis on color flow and spectral Doppler imaging. Right internal carotid artery: Unremarkable. No occlusion or significant stenosis on color flow and spectral Doppler imaging. Right external carotid artery: Unremarkable. No occlusion or significant stenosis on color flow and spectral Doppler imaging. Right vertebral artery: Unremarkable. Antegrade flow. Right ICA/CCA ratio: Unremarkable. Within normal limits. Left common carotid artery: Unremarkable. No occlusion or significant stenosis on color flow and spectral Doppler imaging. Left internal carotid artery: Unremarkable. No occlusion or significant stenosis on color flow and spectral Doppler imaging. Left external carotid artery: Unremarkable. No occlusion or significant stenosis on color flow and spectral Doppler imaging. Left vertebral artery: Unremarkable. Antegrade flow. Left ICA/CCA ratio: Unremarkable. Within normal limits. Lymph nodes: Unremarkable. No lymphadenopathy. CAROTID STENOSIS REFERENCE USING SRU CRITERIA: Mild - <50% stenosis. ICA PSV is less than 125 cm/second and plaque or intimal thickening is visible. Moderate - 50-69% stenosis. ICA PSV is 125 to 230 cm/second and plaque is visible. Severe - 70-94% stenosis. ICA PSV is more than 230 cm/second and visible plaque with lumen narrowing is seen. Near occlusion - 95-99% stenosis. ICA PSV is variable and significant plaque with luminal narrowing is seen. Occluded - 100% stenosis. No flow identified. IMPRESSION: Normal duplex ultrasound of the neck. Electronically signed by: Geronimo Casillas MD 09/15/24 22:13 PM
--- OUTSIDE RECORDS SUMMARY | 2024-09-15 23:15 | External Medical Summary | Summary of Care ---
Author Name Unknown Organization [facility] Address [address] [place] [place] [address] Phone [phone] Care Team Providers Care Director Of Enterprise Architecture Name Role Phone , Jam Auguste MD Primary Care Provider [phone] Encounter Details Date Type Department Care Team (Late st Contact Info) Description 09/03/2024 Population Health External Data Unspecified Department Allergies Active Allergy Reactions Criticality Noted Date Comments Carrington Inhibitors 11/25/2017 Ibuprofen Other (Please comment) 08/21/2012 Blisters in his mouth Other Allergy (See Comments) 08/21/2012 Carrington inhibitors cause cough documented as of this encounter (statuses as of 09/08/2024) Medications ONETOUCH ULTRA BLUE STRP As directed 11/02/19 16 Active Acetaminophen 325 MG Oral Tablet (Tylenol) Take 1 Tablet by mouth every 6 hours as needed. 09/25/19 23 Active Multi-Vitamin Oral Tablet take 1 tablet by oral route every day with food Active Clopidogrel Bisulfate 75 MG Oral Tablet (pLAVix) TAKE 1 TABLET BY MOUTH DAILY IN THE MORNING. 90 Tablet 3 4 11:23 AM EDT 03/18/20 23 Active Pantoprazole Sodium 40 MG Oral Tablet Delayed Release (Protonix) Take one tablet by mouth daily in the morning 90 Tablet 3 4 11:23 AM EDT 03/18/20 23 Active Folic Acid 1 MG Oral Tablet take 1 tablet (1 MG) by mouth daily in the morning 90 Tablet 3 4 7:36 AM EST 11/19/19 24 Active Gemfibrozil 600 MG Oral Tablet (Lopid) take 1 tablet (600 MG) by mouth twice a day 180 Tablet 3 4 10:29 AM EST 11/19/19 24 Active Spironolactone 25 MG Oral Tablet (Aldactone) take 1 tablet by mouth daily 90 Tablet 3 4 6:43 PM EDT 11/19/19 24 Active Gabapentin 300 MG Oral Capsule (Neurontin) take one capsule by mouth in the morning and two capsules at nightime 270 Capsule 3 4 4:34 PM EST 11/19/19 24 Active Additional Information Patient taking differently: Take 1 capsule by mouth twice daily, Reported on 08/05/2024 Insulin Aspart FlexPen 100 UNIT/ML Subcutaneous Solution Pen-injector inject 20 units subcutaneously with meals; plus sliding scale as needed; Max Daily Dose: 90 units. 90 mL 1 4 6:45 AM EDT 11/19/19 24 Active Furosemide 40 MG Oral Tablet (Lasix) take one tablet daily 90 Tablet 3 4 4:13 PM EDT 12/24/19 24 Active amLODIPine Besylate 5 MG Oral Tablet (Norvasc) Take 1 Tablet by mouth daily. 90 Tablet 3 4 7:36 AM EST 02/28/20 24 Active Atorvastatin Calcium 40 MG Oral Tablet (Lipitor) Take 1 Tablet by mouth at bedtime. 90 Tablet 3 4 7:36 AM EST 02/28/20 24 Active Allopurinol 300 MG Oral Tablet (Zyloprim) TAKE ONE AND ONE-HALF TABLETS BY MOUTH EVERY DAY IN THE MORNING 135 Tablet 3 4 9:52 AM EDT 03/23/20 24 Active Additional Information Patient taking differently: Take 1 tablet by mouth once daily, Reported on 08/05/2024 Clopidogrel Bisulfate 75 MG Oral Tablet (pLAVix) take 1 tablet by mouth daily in the morning 90 Tablet 1 4 9:52 AM EDT 03/23/20 24 Active Pantoprazole Sodium 40 MG Oral Tablet Delayed Release (Protonix) take 1 tablet by mouth daily in the morning 90 Tablet 1 4 9:52 AM EDT 03/23/20 24 Active Isosorbide Mononitrate ER 30 MG Oral Tablet Extended Release 24 Hour (Imdur) take 1 tablet by mouth daily in the morning 90 Tablet 1 4 11:21 AM EST 03/30/20 24 Active Atenolol 100 MG Oral Tablet (Tenormin) Take 1 tablet by mouth daily in the morning 90 Tablet 3 4 5:37 PM EST 04/23/20 24 Active Eliquis 5 MG Oral Tablet (Apixaban) take one tablet by mouth twice a day 180 Tablet 1 4 4:34 PM EST 05/05/20 24 Active BD Pen Needle Mini U/F 31G X 5 MM use as directed Four times a day 400 Each 3 4 3:44 PM EDT 05/13/20 24 Active predniSONE 5 MG Oral Tablet (Deltasone) TAKE ONE TABLET BY MOUTH EVERY DAY IN THE MORNING 90 Tablet 3 4 9:52 AM EDT 06/18/20 24 025 Active Insulin Glargine Solostar 100 UNIT/ML Subcutaneous Solution Pen-injector inject 27 units under the skin twice daily 60 mL 1 4 9:04 AM EDT 06/25/20 24 Active Additional Information Patient taking differently:Subcutaneous,Inject 30 units under the skin twice daily, Reported on 08/05/2024 Insulin Aspart FlexPen 100 UNIT/ML Subcutaneous Solution Pen-injector Inject 20 units under the skin with meals plus sliding scale as needed; Max daily dose: 90 units 90 mL 1 4 6:25 AM EDT 06/29/20 24 Active Cholecalciferol 125 MCG (5000 UT) Oral Tablet Take 1 Tablet by mouth daily. 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 Primary osteoarthritis of both knees 05/04/2020 [facility] current use of systemic steroids 01/14 Seronegative polyarthritis 01/21/2018 History of DVT (deep vein thrombosis) 12/07/2013 Overview (07/28/2024): historical Factor V Leiden 12/07/2013 History of colon polyps 08/29/2012 Overview (07/28/2024): adenomatous polyp, repeat 3 yrs historical Gouty arthropathy Diabetes type 2, controlled documented as of this encounter (statuses as of 09/08/2024) Immunizations Name Administration Dates Next Due COVID-19 mRNA, LNP-s, No Pre serve, 2-Dose Series (Pfizer) 08/08/2021,11/02/2020,10/12/2020 COVID-19, MRNA-LNP, PF, 30 M CG/0.3 mL, 12 YRS AND ABOVE, IM (PFIZER-Comirnaty) 01/09/2024,06/25/2023 Pneumococcal Conjugate Vacc, 13 Valent (Prevnar) 10/12/2019 Seasonal Influenza, PF, 6 M & above, IM , (FluLaval or Fluzone) 05/16/2020,05/18/2019,07/16/2018,06/1805/18/2020 Seasonal Influenza, Quadriva lent Hd (Fluzone Hd) 05/13/2023,05/20/2021 Seasonal Influenza, Quadriva lent Hd, 65+ Yrs 05/22/2022 Seasonal Influenza, Quadriva lent, No Preserve, IM 06/06/2016,06/01/2015 documented as of this encounter Social History Tobacco Use Types Packs/Day Years Used Date Smoking Tobacco: Former Cigarettes Q uit: 12/07/2004 Smokeless Tobacco: Never Alcohol Use Standard Drinks/Week Comments No 0 (1 standard drink = 0.6 oz pur e alcohol) Sex and Gender Information Value Date Recorded Sex Assigned at Male 02/05/2023 11:28 AM EDT Legal Sex Male 5:15 AM EST Gender Identity Male 02/05/2023 11:28 AM EDT Sexual Orientation Straight 02/05/2023 11 :28 AM EDT Occupation Industry Job Start Date Job End Date Not on file Not on file Not on file Not on file documented as of this encounter Plan of Treatment Upcoming Encounters Date Type Department Care Team (Late st Contact Info) Description 02/10/2025 9:40 AM EDT Office Visit Rheumatology [place] [id number] [facility] [place] [address] Ronaldo Colbert MD [address] [place] [address] Scheduled Procedures Name Priority Associated Diagnoses Date/Ti me COLONOSCOPY FLEXIBLE PROXIMAL DIAGNOSTIC Recall History of colon polyps Health Maintenance Due Date Last Done Comments Depression Screening 1965 Hepatitis C Screening 1971 DTap/Tdap Vaccines (1 - Tdap) 1972 Zoster Vaccines (1 of 2) 1972 VITAMIN D LEVEL ONCE IN A LIFETIME-USE SMARTSET# 13075 1993 Cologuard 1998 Fecal Occult Blood Test 1998 Sigmoidoscopy 1998 Diabetic Foot Exam 06/06/2017 06/06/2016 AAA Screening 2018 Pneumococcal Vaccine: 50+ Years (2 of 2 - PPSV23) 12/07/2019 10/12/2019 Colonoscopy 06/06/2020 06/06/2017, 12/2016, 08/29/2012, Additional history exists Colorectal Cancer Screening 06/06/2020 *BISPHONATE OR OTHER ACCEPTABLE MEDICATION NEEDED FOR OSTEOPOROSIS (REFER TO SMARTSET #1146) 02/09/2023 Albumin/Creatinine Ratio 07/09/2023 07/09/2022 GFR 01/15/2024 01/14/2023, 10/04, 05/21/2022, Additional history exists COVID-19 Vaccine ( season) 2024 01/09/2024, 06/25/2023, 06/05/2023, Additional history exists Diabetic Eye Exam 05/14/2024 05/14/2023 DXA Scan 10/10/2024 10/10/2022, 10/10/2022 HbA1c 12/30/2024 07/01/2024, 05/03, 10/30/2019 Lipid Panel 05/21/2027 05/21/2022 Influenza Vaccine (FLU shot) Completed 08/2024, 05/13/2023, 05/22/2022, Additional history exists HPV (Gardasil) Vaccine Aged Out No lo nger eligible based on patient's age to complete this topic Hepatitis B Vaccine Aged Out No longe r eligible based on patient's age to complete this topic MENINGOCOCCAL (MENACTRA/MENVEO) Aged Out No longer eligible based on patient's age to complete this topic documented as of this encounter Medical Devices Not on filedocumented as of this encounter Care Teams Director Of Enterprise Architecture Relationship Specialty Start Date End Date Pro, Jam Auguste MD [address] [place] [address] PCP - General Internal Medicine 12/11/16 documented as of this encounter
--- NOTE | 2024-09-16 07:03 | Hospitalist Progress Note ---
Date of Service September 16, 2024 Assessment & Plan (1) Acute CVA (cerebrovascular accident): (2) COVID-19: (3) Uncontrolled type 2 diabetes mellitus: (4) Left shoulder pain: (5) Essential hypertension: (6) History of pulmonary embolism: Plan #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 Accident (Right SPICE GRINDER) - Associated with fall: - Xray: chest, pelvis, femur, shoulder = WNL - CT: cervical spine, chest, abdomen/pelvis = WNL - Head CT: large subacute to acute right SPICE GRINDER territory infarct - TTE without acute changes - EF 55-60%, no definite regional wall motion abnormalities - Carotid Doppler: WNL - Factor V Leiden on apixaban 5 mg BID + previous stroke (on clopidogrel 75 mg QD) - MRI/MRA brain pending - attempted earlier in the day but pt was unable to lay flat, pt agreeable to trying again. - Left-sided homonymous hemianopia - will need outpatient ophtho evaluation - Neurology Consulted: - Continue anticoagulant/antiplatelet agents - Continue atorvastain 40 mg QD - Diabetes management closer to HbA1c closer to 7 (8.8 on 09/16) - Patient advised on lifestyle management options; follows with endocrinology outpatient - Needs outpatient ophthalmologic exam with visual field testing - Permissive hypertension; monitor vitals - PT/OT/Speech consulted #COVID-19 - Viral panel: (+) SARS-CoV-2 - Remdesivir deferred due to unknown date of starting symptoms and CKD #Left shoulder pain - Previous left shoulder rotator cuff injuries and surgeries, per patient - No fractures noted on shoulder x-rays - Follow with PT outpatient #Chronic Conditions - Hypertension - Continue amlodipine, atenolol, furosemide, isosorbide mononitrate, spironolactone - Type II diabetes mellitus - HbA1c 8.8 on 09/16 - Continue Lantus at a reduced dose of 20 units BID is likely having reduced carbs in hospital - NovoLog based on insulin calculator of 20 to 40 units basal dosing/day - Rheumatoid arthritis - follows Dr. Babcock on chronic prednisone 5mg PO daily - GERD - continue pantoprazole 40mg PO daily - Factor V Leiden/Previous VTE - Continue apixaban and clopidogrel VTE prophylaxis - apixaban Diet - CC/HH Disposition - PCU Admission and Anticipated Discharge Date Admission Date: September 15, 2024 Supervising Physician Co-Signing Physician Notes I personally examined the patient and verified all bruno points of history and exam, discussed case, and agree with decision making with Dr Bradshaw and Ceci Chino MS4 Feeling okay. No new neurodeficits. Agrees that rehab would be a good option. Discussed dietshe drinks chocolate milk in the morning, and eats sandwiches and rice very frequently. Vitals noted, in general he is awake and alert pleasant no distress. Visual deficits and weakness noted. Breathing unlabored no accessory muscle use good effort. Skin without rashes pallor or icterus. Neuro without focal deficits. CVAseems to be posterior cerebral artery atherosclerotic plaque rupturewith risk factors being age, hypertension, hyperlipidemia, male gender, uncontrolled diabetesmost of his modifiable risk factors are under control except for his sugar. Tried to discussed eating changes. Will adjust insulin. Emphasized that his diabetes control would be best to be viewed as a lifestyle solution with medications to reduce risk of atherosclerotic progression while he works on lifestyle change. PT/OT eval and treat, anticipate rehab placement. Otherwise as above Subjective Timoteo was seen at bedside this morning. He states that he knows he fell in his bathroom during his CVA episode. He indicates that he hit his left shoulder, which he mentions two previous rotator cuff surgeries and that he's had pain in the side for some time. He also mentions that he has sciatica that limits his leg movements, especially when it flares or exacerbated such as sitting for prolonged periods of times. He is cognizant of his left vision field deficit and notes that his dysarthria/production of speech/rate of speech is improved from yesterday. He otherwise has no further updates, concerns, or questions. Review of Systems Review of Systems: Per HPI Physical Exam Constitutional: Lying comfortably in bed In no apparent distress Initially positioned myself to the left field of vision, his eyes did not follow me; I repositioned to his right for the remainder of the encounter Respiratory: Conversational without difficulty No accessory respiratory muscle use Respiratory rate and effort appropriate for situation Neurologic: Cranial Nerves: III, IV, - grossly intact through requesting the patient to look left/right/up/down as he could not track my hand past midline on the left side V - facial sensation in V1, V2, V3 distributions intact through touch at the forehead, zygomatic arches, and mandible intact and symmetrical VII - facial expressions intact without appreciable differences L vs. R. Eyebrows surpise/shut and smile symmetrical. Face symmetrical well resting VIII - hearing grossing intact during conversation IX/XI - tongue movements intact. tongue midline at rest. shoulder shrug symmetrical X - no dysphonia Strength: Finger extension, Wrist extension/flexion, Elbow flexion, Shoulder elevation: 5/5 Leg flexion, Leg extension, Foot dorsiflexion/plantarflexion: 5/5 Sensation: Gross sensation intact bilaterally with light touch in the upper and lower extremities Results & Data Results & Data Vital Signs (Past 12 Hours) Vital Signs Temp Pulse Pulse Resp BP Pulse Ox O2 Del Method 09/16/24 02:48 37 C 81 18 147/82 H 94 Room Air 09/15/24 22:50 37.3 C 87 18 156/82 H 95 Room Air 09/15/24 22:03 85 09/15/24 21:33 36.8 C 87 20 162/91 H 98 Room Air 09/15/24 21:15 Room Air 09/15/24 19:15 36.8 C 85 22 149/85 H 92 Room Air 09/15/24 19:15 36.8 C 85 20 149/85 H 92 Room Air Resident Activity Tracking Resident Involvement: Resident Care Provided Care Provided: Adult Hospital Medicine
[2024-09-16 07:08] LABS: Basophils # (auto) 0.01 K/uL (0.00-0.20); Basophils % (auto) 0.2 %; Eosinophils # (auto) 0.01 K/uL (0.00-0.50); Eosinophils % (auto) 0.2 %; Hemoglobin 10.5 g/dl (14.0-18.0); Immature Granulocytes # (auto) 0.04 K/uL (0.01-0.20); Immature Granulocytes % (auto) 0.6 %; Lymphocytes # (auto) 0.97 K/uL (1.20-3.40); Lymphocytes % (auto) 15.4 %; Mean Corpuscular Hemoglobin 26.4 pg (25.0-34.0); Mean Corpuscular Hgb Conc 31.8 g/dL (32.0-36.0); Mean Corpuscular Volume 82.9 fL (80.0-100.0); Mean Platelet Volume 10.1 fL (9.4-12.4); Monocytes # (auto) 1.58 K/uL (0.11-0.59); Neutrophils % (auto) 58.6 %; Platelet Count 220 K/uL (130-400); RDW Coefficient of Variation 16.2 % (11.5-14.5); RDW Standard Deviation 48.8 fL (36.4-46.3); Red Blood Count 3.98 M/uL (4.70-6.10); White Blood Count 6.31 K/ul (4.8-10.8)
[2024-09-16 07:33] LABS: Chol HDL Ratio 3.4 (0-5); Creatinine Clr Calc Pharmacy 33.5 ml/min; Potassium 4.1 mmol/L (3.5-5.1)
[2024-09-16 07:57] LABS: Estimated Average Glucose 206 mg/dl; Hemoglobin A1C 8.8 % (4.5-5.6)
[2024-09-16] MEDS: SPIRONOLACTONE 25 MG TAB PO SCH (09:14)
[2024-09-16] MEDS: amLODIPine BESYLATE 5 MG TAB PO SCH (09:14)
[2024-09-16] MEDS: ISOSORBIDE MONO EXTENDED REL 30 MG TABCR PO SCH (09:14)
[2024-09-16] MEDS: FOLIC ACID 1 MG TAB PO SCH (09:14)
[2024-09-16] MEDS: FUROSEMIDE 40 MG TAB PO SCH (09:14)
[2024-09-16] MEDS: PANTOprazole 40 MG TAB PO SCH (09:15)
[2024-09-16] MEDS: predniSONE 5 MG TAB PO SCH (09:15)
[2024-09-16] MEDS: allopurinoL 300 MG TAB PO SCH (09:15)
[2024-09-16] MEDS: GABAPENTIN 300 MG CAP PO SCH (09:15)
[2024-09-16] MEDS: ATENOLOL 50 MG TABLET PO SCH (09:15)
--- NOTE | 2024-09-16 09:15 | Neurology Consultation ---
Date of Consultation September 16, 2024 Assessment & Plan (1) Acute CVA (cerebrovascular accident): (2) Left homonymous hemianopsia due to recent cerebral infarction: (3) Left shoulder pain: (4) Lumbar post-laminectomy syndrome: (5) Diabetic peripheral neuropathy: (6) Factor V Leiden mutation: (7) Essential hypertension: Plan This patient has an acute right, large posterior cerebral artery distribution stroke September 15, resulting in a significant left homonymous hemianopsia. On exam, I do not see any other acute focal findings from the stroke. The patient has chronic shoulder pain and likely injured his right shoulder with the fall September 15. He may have had some closed head trauma as well. The etiology of the stroke is not obvious but I suspect large vessel ischemia. This stroke occurred despite on 5 mg Eliquis (for factor V Leiden mutation and previous clots) and 75 mg clopidogrel daily. The patient has chronic low back pain post multiple surgeries and some right sciatic/radicular symptoms currently. These are stable. He has a peripheral neuropathy, involving predominantly sensory fibers, likely secondary to diabetes. He has a history of hypertension which is not adequately controlled today. Recommendations: 1. Continue apixaban 5 mg twice daily 2. Continue clopidogrel 75 mg daily 3. Continue atorvastatin 40 mg daily. There is no need to go to high dose atorvastatin as his total cholesterol on 40 mg daily is less than 150. Ad ditionally, with his somewhat large stroke and being on chronic anticoagulation, he is not a high-dose statin candidate as he is at increased bleeding risk. 4. Control sugar improving hemoglobin A1c to closer to 7. 5. Increase activity as able and consider physical, occupational, and speech therapy. 6. As an outpatient, he will need a complete ophthalmologic examination with visual field testing. 7. Awaiting MRI of the brain without contrast 8. Awaiting echocardiogram results 9. Awaiting MRA of the head (without contrast) Overall, I spent a total of 110 minutes with this case including review of records, review of CT and MRI films, direct evaluation of the patient at bedside, report generation, and discussion of the case with the patient and RN at bedside and Dr. Bradshaw including differential diagnosis and treatment options. History of Present Illness Reason for Consultation: Patient is a 69-year-old, who I was asked to see at the request of Dr. Daniel, for neurologic consultation regarding stroke Requesting Physician: Dr. Daniel Attending Physician: Geronimo Hernández DO History of Present Illness I 1st saw this patient in September of 2014 in consultation for acute onset right upper extremity dysesthesias and expressive aphasia. MRI at that time did not show any acute stroke and this was considered a TIA. MRI did show evidence of scattered small vessel ischemic disease. at the time he was admitted his blood pressure was markedly elevated at 170/112. he had a history of hypertension for years prior. 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 This has created an insulin-dependent type 2 diabetes. He has diabetic peripheral neuropathy (with numbness and dysesthesias in his feet) and diabetic nephrop athy. The patient has factor 5 Leiden mutation and history of blood clots, including lower extremity DVT in 2012, for which he was on anticoagulant for 1 year. There was another blood clots early 2022 and he has been on Eliquis since. He has not been on any antiplatelet medication. He also has dyslipidemia on atorvastatin. I next saw him in March 2023 in consultation for mild right facial droop and dysarthria. He had small left parietal, very peripheral, acute stroke noted on MRI. MRI also showed very mild atrophy in general and mild small vessel ischemic disease of an old nature. I reviewed these films again. CTA of the head and neck were unremarkable without any vascular anomalies or stenoses. Echocardiogram revealed mild left ventricular hypertrophy. Triglycerides at that time were 181 and total cholesterol 154. By discharge, atorvastatin was increased from 20 mg to 40 mg daily.. He was discharged on clopidogrel 75 mg daily plus Eliquis 5 mg twice daily (which she has been on since). He has significant low back pain with right lower extremity sciatica symptoms, chronic cervical spine pain and rotator cuff/shoulder injuries. He walks with a walker. Patient has a history of lumbar spine surgery back in October 2022 which was an extension/revision of previous surgery 2 years prior. He has chronic low back pain and right sciatica. He was doing fairly well with all of this until recently. On September 15, he found himself on the floor. He fell and he is not sure why. He hit his head (crown of his head was sore) and his left shoulder. He has had left shoulder pain and weakness since. Because of the fall and some confusion he was brought to the emergency room. He arrived to emergency room September 15 at 1435, with a temperature of 36.7, pulse 105, respiratory rate 18, blood pressure 142/71, and O2 saturation 95%. Neurologic examination revealed trouble walking with weak legs bilaterally, left shoulder weakness and pain in some mild confusion. CBC showed mild anemia and CHEM profile was remarkable for a mildly elevated glucose and increased BUN and creatinine (chronic kidney disease). CK, ammonia, liver profile, lactate, TSH, lipase, urinalysis, and alcohol level were all normal. Patient had a positive COVID test. He has a mild cough but has not been ill otherwise. Plain x-rays of the left shoulder, pelvis, and femur were unremarkable for fracture. Chest x-ray showed some cardiomegaly but otherwise no acute processes. CT scan of the head revealed a large hypodensity in the right posterior cerebral artery distribution consistent with subacute/acute stroke. There was no hemorrhage. I reviewed these films CT scan of the cervical spine showed degenerative changes and straightening of the normal curvature. CT scan of the spine was unremarkable CT scan of the abdomen and pelvis showed some diverticulosis but was otherwise unremarkable. MRI of the brain and MRA of the head were attempted, but he could not lay flat. Because of his kidney function CT angiography was not performed. Carotid ultrasound showed no internal carotid artery stenosis or anomalies and vertebral flow was normal bilaterally. Nursing reports no new issues overnight. The patient himself knows that he cannot see off to the left but does not feel confused or have other vision problems such as blurriness or double vision. He has no speech issues, incontinence of urine, new weakness (except his left shoulder) new pain (except his left shoulder), or new numbness. Blood pressure this morning was 174/99. Allergies Allergy/AdvReac Type Severity Reaction Status Date / Time ARB-Angiotensin Receptor Allergy Intermediate Nausea Verified 09/15/24 17:11 Antagonist ibuprofen Allergy Mild Blister Verified 09/15/24 17:11 DEYSI Inhibitors AdvReac Mild cough Verified 09/15/24 17:11 Home Medications Medication Instructions Recorded Confirmed Type prednisone 5 mg tablet 5 mg PO QAM 04/29/19 09/15/24 History allopurinol 300 mg tablet 300 mg PO QAM 12/14/20 09/15/24 History cholecalciferol (vitamin D3) 125 125 mcg PO QAM 09/21/22 09/15/24 History mcg (5,000 unit) capsule blood sugar diagnostic (OneTouch 01/02/23 07/14/24 History Ultra Blue Test Strip) flash glucose sensor (FreeStyle 01/02/23 07/14/24 History Pa 2 Sensor kit) lancets (OneTouch UltraSoft 01/02/23 07/14/24 History Lancets) acetaminophen 500 mg tablet 1,000 mg PO BID PRN Pain 03/08/23 09/15/24 History (Tylenol Extra Strength) folic acid 1 mg tablet 1 mg PO QAM #90 tabs 11/19/23 09/15/24 Rx gemfibrozil 600 mg tablet 600 mg PO BID #180 tabs 11/19/23 09/15/24 Rx atorvastatin 40 mg tablet 40 mg PO HS #90 tabs 02/28/24 09/15/24 Rx isosorbide mononitrate 30 mg 30 mg PO QAM #90 tabs 03/30/24 09/15/24 Rx tablet,extended release 24 hr atenolol 100 mg tablet 100 mg PO QAM #90 tabs 04/23/24 09/15/24 Rx apixaban 5 mg tablet (Eliquis) 5 mg PO BID #180 tabs 05/05/24 09/15/24 Rx BD Ultra-Fine Mini Pen Needle 31 #400 ea 05/13/24 07/14/24 Rx gauge x 3/16" (pen needle, diabetic) insulin aspart U-100 100 unit/mL See Rx Instructions subcut 06/26/24 09/15/24 Rx (3 mL) subcutaneous pen (Novolog .COMPLEX #90 mL FlexPen U-100 Insulin aspart) amlodipine 5 mg tablet 5 mg PO QAM 09/15/24 09/15/24 History clopidogrel 75 mg tablet 75 mg PO QAM #90 tabs 09/15/24 09/15/24 Rx furosemide 40 mg tablet 40 mg PO QAM 09/15/24 09/15/24 History gabapentin 300 mg capsule 300 mg PO QAM 09/15/24 09/15/24 History insulin glargine 100 unit/mL (3 28 unit subcut BID 09/15/24 09/15/24 History mL) subcutaneous pen (Lantus Solostar U-100 Insulin) multivitamin 1 tab PO QAM 09/15/24 09/15/24 History pantoprazole 40 mg tablet,delayed 40 mg PO QAM #90 tabs 09/15/24 09/15/24 Rx release spironolactone 25 mg tablet 25 mg PO QAM 09/15/24 09/15/24 History Patient History Medical History History of pulmonary embolism Cough Pre-op evaluation Pulmonary emboli noted as likely chronic on 12/22 chest CTA Dyspnea occasionally, with stairs or incline, ongoing x several yrs, denies change or worsening, follows with PCP Kidney stones hx GERD (gastroesophageal reflux disease) controlled, stable per pt Diabetes mellitus, type 2 IDDM Transient ischemic attack (TIA) (~2012) no deficits History of balanitis Diverticulitis of colon hx Myalgia and myositis H/O proctoscopy Surgical History History of lumbar discectomy 12/30/2021 Grade 2 view, MAC 3, ETT 7.5. History of cystoscopy with ureter stent History of cataract surgery bilateral History of rectopexy laparoscopic with sigmoid resection --- patient unsure??? History of dilation of urethra H/O repair of rotator cuff right x1 and left x2 H/O colonoscopy History of colon resection r/t perforated diverticuliti Family History Father , in his early 60s of colon cancer Colon cancer Diabetes Myocardial infarction Mother , in her 70s Diabetes Stroke Sister Breast cancer Brother Brain cancer Stroke Other No family history of adverse response to anesthesia Denies family history of Ovarian cancer Prostate cancer Lung cancer Social History Smoking Status: Former smoker Tobacco Type: Cigarettes Age Started Using Tobacco: 14; Age Quit Using Tobacco: 30; packs per day: 1; Cigarettes Per Day: 20 a day for 16 years; Second Hand Exposure: No; Do You Dip or Chew Tobacco: No; Hx Alcohol Use: No Hx Substance Use: No Preferred Language: Occitan Communication Ability: Effective Visual Impairment: No Limitations Hearing Ability: Normal Geological Science Teacher Required: No Beliefs That Will Affect Care: None marital status: Current Living Situation: Spouse current occupational status: retired 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 Feels Safe at Home: Yes Safety Concerns: Feels Safe At This Time Childhood Exposure to Second-Hand Smoke: Yes (father) Dental Care, Regularly: Yes Physical Activity Frequency: Does not Exercise Seatbelt Use: always Sunscreen Use: No Assistive Devices: Cane, Glasses and Walker Review of Systems Constitutional: no fever, no fatigue and no weakness Eyes: + worsening vision (Cannot see to the le ft of midline); no diplopia and no eye pain Ear, Nose, Mouth, Throat: no ear pain, no tinnitus, no hearing loss, no dizziness, no snoring, no hoarseness and no dysphagia Respiratory: no cough and no dyspnea Cardiovascular: no chest pain, no palpitations and no lightheadedness Gastrointestinal: no abdominal pain, no nausea and no vomiting Musculoskeletal: + back pain, + neck pain and + joint gerri n (Left shoulder); no radicular pain and no myalgia Integumentary: no rash and no lesions Neurologic: + gait abnormality and + numbness; no lo calized weakness, no generalized weakness, no tingling, no tremor(s), no abnormal movements, no headache(s), no abnormal speech, no confusion and no memory loss Psychiatric: no depression, no irritability, no anxiety, no difficulty concentrating, no confusion and no hallucinations Endocrine: no fatigue and no flushing Hematologic / Lymphatic: no easy bleeding and no easy bruising Allergy / Immunological: no urticaria and no problem reported Exam (Neuro) Physical Exam: The patient is right-handed. The patient is awake, alert, and attentive. Speech is normal without any aphasia or dysarthria. Mentation and thought processes are intact, although at times he seems slightly slow with conversation. He has full orientation and normal fund of knowledge. Mood and affect are normal and appropriate. Appearance and grooming are normal. Short and long-term memory are intact to conversation. The discs are sharp with positive venous pulsations bilaterally. There are no exudates, hemorrhages, or blood vessel changes seen. Pupils are 4 mm bilaterally and reactive to light. Extraocular eye muscles are intact without nystagmus. Patient has normal vision to the right of midline. To the left of midline he has a dense left homonymous hemianopsia. There are no deficits to sensation in the face in all 3 distributions of the fifth cranial nerve bilaterally. Corneal reflexes are positive bilaterally. Facial strength and symmetry was normal bilaterally. Hearing seems intact grossly to voice and finger rub bilaterally. Palate moves well without asymmetry. There is normal sternocleidomastoid and trapezius strength bilaterally. Tongue is midline with good strength bilaterally. Neck has a full range of motion without discomfort. There are no cervical bruits bilaterally. There are no cranial or ocular bruits. Heart is without murmur. There is a regular rhythm and rate. Cervical, thoracic, and lumbar spine are nontender to palpation. Gait is not tested but stance sitting up in bed is reasonable. With outstretched arms there is no drift. There are no resting, postural, or action tremors. There is no ataxia with finger to nose testing. There is good facility in the hands. No other abnormal involuntary movements are noted. Motor strength is 5/5 diffusely in the arms bilaterally including biceps, triceps, brachioradialis, wrist flexors and extensors, senior network systems engineer, and intrinsic hand muscles. The right deltoid and shoulder girdle muscles are 5/5. The left shoulder girdle muscles and deltoid are 2- 3/5 with pain and giveaway weakness. Motor strength is 5/5 diffusely in the legs bilaterally including hip flexors, quadriceps, hamstrings, gastrocnemius, tibialis anterior, tibialis posterior, and Peroneii muscles bilaterally. Toe extensors are normal and there is good bulk in the extensor digitorum brevis muscles bilaterally. The limbs have good tone without rigidity or spasticity. There is no atrophy noted in the muscles. Muscle bulk is normal, there is no tenderness to palpation, no myotonia to percussion, and no fasciculations seen. Sensory examination reveals mild decrease sensation to pin and touch in the feet to the mid lower legs bilaterally Reflexes are 2/4 in the biceps, triceps, brachioradialis, quadriceps, and Achilles tendons bilaterally. Toes are downgoing with plantar stimulation bilaterally. Peripheral pulses are present and of normal quality distally in all 4 limbs. There is no peripheral edema noted in the limbs. Results & Data Vital Signs (Past 12 Hours) Vital Signs Temp Pulse Pulse Resp BP Pulse Ox O2 Del Method 09/16/24 07:19 36.9 C 82 19 174/99 H 95 Room Air 09/16/24 02:48 37 C 81 18 147/82 H 94 Room Air 09/15/24 22:50 37.3 C 87 18 156/82 H 95 Room Air 09/15/24 22:03 85 09/15/24 21:33 36.8 C 87 20 162/91 H 98 Room Air 09/15/24 21:15 Room Air PG Care Time/CCT Total # of Minutes Spent Total Time Spent with Patient: Total time spent is greater than 50% in coordination of care (as documented) at patient's floor/unit and/or counseling patient: Coding Level of Care Code 03806 INT INP/OBS CARE 375MIN Diagnoses Acute CVA (cerebrovascular accident) I63.9 Left homonymous hemianopsia due to recent cerebral infarction I69.398; H53.462 Left shoulder pain M25.512 Lumbar post-laminectomy syndrome M96.1 Diabetic peripheral neuropathy E11.42 Factor V Leiden mutation D68.51 Essential hypertension I10 Time Spent (min) 110
[2024-09-16] MEDS: ACETAMINOPHEN 325 MG TAB PO PRN (09:26)
--- NOTE | 2024-09-16 09:37 | XCELERA ---
[id number]
[2024-09-16] MEDS: LANTUS PER UNIT CHARGE SQ SCH (10:13)
--- NOTE | 2024-09-16 11:28 | Pharmacy Report ---
Pharmacy Glycemic Short Note 2 - Date of Service September 16, 2024 - Glycemic Short BSG Results (Last 24 hours): 09/15/24 09/15/24 09/15/24 14:45 15:12 15:15 Glucose 107 H POC Glucose 172 H POC Glucose (other) 110 H 09/15/24 09/16/24 09/16/24 20:25 06:51 07:14 Glucose 128 H POC Glucose 186 H 142 H POC Glucose (other) 09/16/24 10:18 Glucose POC Glucose 197 H POC Glucose (other) OUTPATIENT ANTIDIABETIC REGIMEN: * Lantus 28 units BID (possibly increase to 30 units at HS) * Novolog 20 units with meals plus sliding scale, max daily dose 90 units (possibly increase to 26 units with dinner) * HbA1c 8.8% on 09/16/24 ASSESSMENT: * 69 yo M with T2DM on basal/bolus insulin as an outpatient admitted with CVA * BSG's originally elevated, but trending down * Will scale Lantus at slightly lower than home dose but continue home BID schedule * Will initiate weight-based Novolog, but with slightly tighter CHO ratio due to higher reported outpatient doses and continuation of outpatient lower dose prednisone PLAN FOR INPATIENT GLYCEMIC CONTROL: * Basal insulin * Lantus 15-25 units SQ BID * Bolus insulin * NovoLog per scale ACHS or Q6hrs while NPO * Goal Range: Low 110 mg/dL - High 140 mg/dL * Correction Factor: 25 mg/dL/unit * Nutritional / Prandial insulin per carb ratio of 1 unit per 7 grams CHO consumed
--- NOTE | 2024-09-16 12:10 | Pharmacy Report ---
- Date of Service September 16, 2024 - Pharmacy CVA/TIA Medication Review Medications to Prevent Stroke handout has been added to the patients discharge packet. Antiplatelet(s) * Clopidogrel Cholesterol * High intensity statin: atorvastatin 40 mg daily DVT Prophylaxis * See therapeutic anticoagulation below Therapeutic Anticoagulation * Resumed home apixaban, as recommended by neurology. Hx Factor V Leiden and previous clots. Type 2 Diabetes * Patient has T2DM, but per Dr. Bradshaw, a diabetes medication with proven CVD benefit will be deferred to their outpatient provider due to familiarity with risks/benefits of such therapies. "Medications to prevent stroke" handout has already been added to the patient's discharge packet, which instructs the patient to follow up with their outpatient provider to evaluate which diabetes medication with proven CVD benefit is best for them
[2024-09-16] MEDS: CLOPIDOGREL BISULFATE 75 MG TAB PO SCH (13:12)
[2024-09-16] MEDS: APIXABAN 5 MG TABLET PO SCH (13:12)
--- NOTE | 2024-09-16 17:53 | Billing Data ---
Date of Service September 16, 2024 Coding Level of Care Code 62172 SUB INP/OBS CARE 3MIN
--- NOTE | 2024-09-16 23:50 | Magnetic Resonance Report ---
Exam(s): MRA HEAD Without Contrast EXAM: MR Angiography Head Without Intravenous Contrast CLINICAL HISTORY: Reason for exam: Large subacute to acute right [employer] territory infarc. TECHNIQUE: Magnetic resonance angiography images of the head without intravenous contrast. COMPARISON: No relevant prior studies available. FINDINGS: Right internal carotid artery: No acute findings. Intracranial segment is patent with no significant stenosis. No aneurysm. Right anterior cerebral artery: Unremarkable. No occlusion or significant stenosis. No aneurysm. Right middle cerebral artery: Unremarkable. No occlusion or significant stenosis. No aneurysm. Right posterior cerebral artery: Occlusion of the P 3 segment of the right [facility] [employer] [employer]. Right vertebral artery: Unremarkable as visualized. Left internal carotid artery: No acute findings. Intracranial segment is patent with no significant stenosis. No aneurysm. Left anterior cerebral artery: Unremarkable. No occlusion or significant stenosis. No aneurysm. Left middle cerebral artery: Unremarkable. No occlusion or significant stenosis. No aneurysm. Left posterior cerebral artery: Unremarkable. No occlusion or significant stenosis. No aneurysm. Left vertebral artery: Unremarkable as visualized. Basilar artery: Unremarkable. No occlusion or significant stenosis. No aneurysm. Dental: IMPRESSION: Occlusion of the P3 segment of the right [facility] Electronically signed by: Geronimo Casillas MD 09/16/24 23:49 PM
--- NOTE | 2024-09-16 23:57 | Magnetic Resonance Report ---
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 TECHNIQUE: Magnetic resonance images of the head/brain without intravenous contrast in multiple planes. COMPARISON: No relevant prior studies available. FINDINGS: Brain: Acute right occipital lobe infarct. T2/flair signal hyperintensity scattered throughout the subcortical and deep white matter consistent with mild ischemic microangiopathy. No acute intracranial hemorrhage. Ventricles: Unremarkable. No ventriculomegaly. Bones/joints: Unremarkable. No acute fracture. Sinuses: Unremarkable as visualized. No acute sinusitis. Mastoid air cells: Unremarkable as visualized. No mastoid effusion. Orbits: Unremarkable as visualized. IMPRESSION: Acute right occipital lobe infarct Electronically signed by: Geronimo Casillas MD 09/16/24 23:56 PM
[2024-09-17] MEDS: GABAPENTIN 300 MG CAP PO ONE (01:15)
[2024-09-17 06:46] LABS: Basophils # (auto) 0.01 K/uL (0.00-0.20); Basophils % (auto) 0.2 %; Hematocrit (blood only) 32.4 % (42.0-52.0); Hemoglobin 10.1 g/dl (14.0-18.0); Immature Granulocytes # (auto) 0.04 K/uL (0.01-0.20); Immature Granulocytes % (auto) 0.6 %; Lymphocytes # (auto) 1.34 K/uL (1.20-3.40); Lymphocytes % (auto) 20.2 %; Mean Corpuscular Hemoglobin 25.8 pg (25.0-34.0); Mean Corpuscular Hgb Conc 31.2 g/dL (32.0-36.0); Mean Corpuscular Volume 82.7 fL (80.0-100.0); Mean Platelet Volume 11.3 fL (9.4-12.4); Monocytes # (auto) 1.41 K/uL (0.11-0.59); Monocytes % (auto) 21.3 %; Neutrophils # (auto) 3.83 K/uL (1.40-6.50); Neutrophils % (auto) 57.7 %; Platelet Count 237 K/uL (130-400); RDW Coefficient of Variation 16.1 % (11.5-14.5); RDW Standard Deviation 48.4 fL (36.4-46.3); Red Blood Count 3.92 M/uL (4.70-6.10); White Blood Count 6.63 K/ul (4.8-10.8)
[2024-09-17 07:16] LABS: BUN Creatinine Ratio 18.6 (10-20); Calcium 8.7 mg/dl (8.6-10.3); Creatinine Clr Calc Pharmacy 32.5 ml/min; Potassium 3.8 mmol/L (3.5-5.1)
--- NOTE | 2024-09-17 08:31 | Pharmacy Report ---
Pharmacy Glycemic Short Note 2 - Date of Service September 17, 2024 - Glycemic Short BSG Results (Last 24 hours): 09/16/24 09/16/24 09/16/24 10:18 16:24 20:08 Glucose POC Glucose 197 H 205 H 166 H 09/17/24 09/17/24 05:34 07:37 Glucose 98 POC Glucose 109 H OUTPATIENT ANTIDIABETIC REGIMEN: * Lantus 28 units BID (possibly increase to 30 units at HS) * Novolog 20 units with meals plus sliding scale, max daily dose 90 units (possi debra increase to 26 units with dinner) * HbA1c 8.8% on 09/16/24 ASSESSMENT: 09/17 * Stressors stable * AM fasting BSG below goal range. Will adjust/reduce BID Lantus scale * Post-prandial BSG's elevated, but CHO consumed yesterday not too high. Hesitate to tighten CHO ratio as increased CHO consumption could lead to hypoglycemia. Will instead tighten correction factor for now. 09/16 * 69 yo M with T2DM on basal/bolus insulin as an outpatient admitted with CVA * BSG's originally elevated, but trending down * Will scale Lantus at slightly lower than home dose but continue home BID schedule * Will initiate weight-based Novolog, but with slightly tighter CHO ratio due to higher reported outpatient doses and continuation of outpatient lower dose prednisone PLAN FOR INPATIENT GLYCEMIC CONTROL: * Basal insulin * Lantus 10-15 units SQ BID * Bolus insulin * NovoLog per scale ACHS or Q6hrs while NPO * Goal Range: Low 110 mg/dL - High 140 mg/dL * Correction Factor: 20 mg/dL/unit * Nutritional / Prandial insulin per carb ratio of 1 unit per 7 grams CHO consumed
[2024-09-17] MEDS: ACETAMINOPHEN 500 MG TAB PO PRN (09:06)
--- NOTE | 2024-09-17 09:15 | Hospitalist Progress Note ---
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) - Associated with fall: - Xray: chest, pelvis, femur, shoulder = WNL - CT: cervical spine, chest, abdomen/pelvis = WNL - Head CT: large subacute to acute right TOWER CRANE OPERATOR territory infarct - TTE without acute changes - EF 55-60%, no definite regional wall motion abnormalities - Carotid Doppler: WNL - Factor V Leiden - On apixaban 5 mg BID + previous stroke (on clopidogrel 75 mg QD) - MRI/MRA brain: remarkable for acute P3 segment of right TOWER CRANE OPERATOR territory infarct - Left-sided homonymous hemianopia; requires outpatient follow-up (per below) - Neurology Consulted: - Continue anticoagulant/antiplatelet agents - Continue atorvastain 40 mg QD - Diabetes management closer to HbA1c closer to 7 (8.8 on 09/16) - Patient advised on lifestyle management options; follows with endocrinology outpatient - Needs outpatient ophthalmologic exam with visual field testing - Permissive hypertension; monitor vitals - PT/OT/Speech: - SURFACING TECHNICIAN: recommends alternative liquids/solids; single bites/slow sips/slow rate; aspiration and reflux protocol - PT/OT: good candidate for acute rehabilitation stay - Likely to be discharged to [facility] (09/18) #COVID-19 - Viral panel: (+) SARS-CoV-2 - Remdesivir deferred due to unknown date of starting symptoms and CKD - Supportive care #Left shoulder pain - Previous left shoulder rotator cuff injuries and surgeries, per patient - No fractures noted on shoulder x-rays - Follow with PT outpatient #Chronic Conditions - Hypertension - Continue amlodipine, atenolol, furosemide, isosorbide mononitrate, spironolactone - Type II diabetes mellitus - HbA1c 8.8 on 09/16 - Continue Lantus at a reduced dose of 20 units BID is likely having reduced carbs in hospital - NovoLog based on insulin calculator of 20 to 40 units basal dosing/day - Use lifestyle modifications outpatient - Rheumatoid arthritis - Follows Dr. Babcock on chronic prednisone 5 mg PO daily - GERD - continue pantoprazole 40mg PO daily - Factor V Leiden/Previous VTE - Continue apixaban and clopidogrel VTE prophylaxis - apixaban Diet - CC/HH Disposition - PCU Admission and Anticipated Discharge Date Admission Date: September 15, 2024 Supervising Physician Co-Signing Physician Notes I personally examined the patient and verified all bruno points of history and exam, discussed case, and agree with decision making with Dr Bradshaw and Ceci Chino MS4 Feeling okay. No new neurodeficits. Awaiting rehablater in the day where informed by case management he will be able to go to rehab tomorrow. Vitals noted, in general he is awake and alert pleasant no distress. Visual deficits and weakness noted. Breathing unlabored no accessory muscle use good effort. Skin without rashes pallor or icterus. Neuro without focal deficits. CVAseems to be posterior cerebral artery atherosclerotic plaque rupturewith risk factors being age, hypertension, hyperlipidemia, male gender, uncontrolled diabetesmost of his modifiable risk factors are under control except for his sugar. lifestyle change > insulin adjustments for long-term management. yesterday emphasized that his diabetes control would be best to be viewed as a lifestyle solution with medications to reduce risk of atherosclerotic progression while he works on lifestyle change. PT/OT eval and treat, rehab tomorrow Otherwise as above Subjective Timoteo was seen at bedside this morning. He stated that he needed to urinate. I assisted him from the lying to seated and seated to standing position making sure he had a firm grasp on his walker and balance. After seeing him take a few steps, for his privacy, I exited the room. A CAFE ATTENDANT helped him get back in bed after he was done. On reentry, he stated that he was exhausted and was concerned about his having a procedure in [place] today. He also mentioned that he cannot see through the left side of his vision on both eyes. Afterward, he promptly fell asleep. Timoteo was seen this afternoon with Dr. Bradshaw and Dr. Hernández. He stated that he is ready to go to rehab. We stated that we will keep him posted on transportation along with case management. Otherwise, he had no further questions, comments, or concerns. Review of Systems Review of Systems: Per HPI Physical Exam Constitutional: Lying comfortably in bed Distressed about his Respiratory: Conversational without shortness of breath Respiratory rate and effort appropriate for situation Neurologic: Sensation grossly intact with light touch Upper and lower extremity strength 5/5 on the right and 4/5 on the left Mild difficulty with balance Slow paced ambulation Left sided visual field deficit bilaterally Results & Data Results & Data Vital Signs (Past 12 Hours) Vital Signs Temp Pulse Pulse Resp BP Pulse Ox O2 Del Method 09/17/24 07:35 36.6 C 80 19 146/78 H 94 Room Air 09/17/24 02:48 36.8 C 70 18 127/87 96 Room Air 09/16/24 22:44 36.7 C 75 18 137/77 95 Room Air 09/16/24 21:34 87
--- NOTE | 2024-09-17 11:21 | Neurology Progress Note ---
Date of Service September 17, 2024 Assessment & Plan (1) Acute CVA (cerebrovascular accident): (2) Left homonymous hemianopsia due to recent cerebral infarction: (3) Left shoulder pain: (4) Lumbar post-laminectomy syndrome: (5) Diabetic peripheral neuropathy: (6) Factor V Leiden mutation: (7) Essential hypertension: Plan This patient has an acute right, large posterior cerebral artery distribution stroke September 15, resulting in a significant left homonymous hemianopsia. On exam, I do not see any other acute focal findings from the stroke. The patient has chronic shoulder pain and likely injured his right shoulder with the fall September 15. He may have had some closed head trauma as well. The etiology of the stroke is not obvious but I suspect large vessel ischemia. MR angiography showed right P3 branch of the posterior cerebral artery occlusion. The etiology of this occlusion is not apparent but may represent thrombosis in that long vessel or a piece of plaque broken off with the fall and head trauma that lodged in that spot. This stroke occurred despite on 5 mg Eliquis (for factor V Leiden mutation and previous clots) and 75 mg clopidogrel daily. The patient has chronic low back pain post multiple surgeries and some right sciatic/radicular symptoms currently. These are stable. He has a peripheral neuropathy, involving predominantly sensory fibers, likely secondary to diabetes. He has a history of hypertension which is improved and stable Recommendations: 1. Continue apixaban 5 mg twice daily 2. Continue clopidogrel 75 mg daily 3. Continue atorvastatin 40 mg daily. There is no need to go to high dose atorvastatin as his total cholesterol on 40 mg daily is less than 150. Additionally, with his somewhat large stroke and being on chronic anticoagulation, he is not a high-dose statin candidate as he is at increased bleeding risk. 4. Control sugar improving hemoglobin A1c to closer to 7. 5. Increase activity as able and consider physical, occupational, and speech therapy. 6. As an outpatient, he will need a complete ophthalmologic examination with visual field testing. 7. I have no further neurologic testing or treatment recommendations to make at this time. Please contact me if I can be of further assistance on this case. Overall, I spent a total of 35 minutes with this case including review of records, review of MR films, direct evaluation of the patient at bedside, report generation, and discussion of the case with the patient and RN at bedside and Dr. Bradshaw including differential diagnosis and treatment options. Admission and Anticipated Discharge Date Admission Date: September 15, 2024 Subjective Patient has no complaint of pain and feels about the same with his vision today compared to yesterday. He has no issues with speech or mentation, is not dizzy, and has no weakness or numbness in the limbs. Nursing reports no new issues. CBC and CHEM profile were largely unremarkable/similar to previous values. He does have an anemia. MRI of the brain showed a rather large acute right occipital CVA and a posterior cerebral artery distribution. MRA of the head showed an occluded right P3 segment of the posterior cerebral artery. Carotid ultrasound was unremarkable with no significant vascular anomalies or stenoses. Echocardiogram revealed mildly dilated left ventricle and some moderately concentric left ventricular hypertrophy. Otherwise it was a limited study and similar to previous. Results & Data Vital Signs (Past 12 Hours) Vital Signs Temp Pulse Resp BP Pulse Ox O2 Del Method 09/17/24 10:38 36.7 C 79 20 96/61 L 95 Room Air 09/17/24 07:35 36.6 C 80 19 146/78 H 94 Room Air 09/17/24 02:48 36.8 C 70 18 127/87 96 Room Air Exam (Neuro) Physical Exam: He is awake and alert. Speech is without aphasia or dysarthria. Mood and affect are normal and appropriate. Thought processes are intact with conversation Extraocular eye muscles are intact without nystagmus. Pupils are 3 to 4 mm bilaterally reactive to light. There is no facial droop and tongue is midline. The patient has a dense left homonymous hemianopsia not seeing anything from midline to the left in both eyes. Coordination is normal in the arms without tremor or ataxia. Strength and movement of the limbs is symmetrical/unremarkable, much like yesterday. PG Care Time/CCT Total # of Minutes Spent Total Time Spent with Patient: Total time spent is greater than 50% in coordination of care (as documented) at patient's floor/unit and/or counseling patient: Coding Level of Care Code 33327 SUB INP/OBS CARE 2/35MIN Diagnoses Acute CVA (cerebrovascular accident) I63.9 Left homonymous hemianopsia due to recent cerebral infarction I69.398; H53.462 Left shoulder pain M25.512 Lumbar post-laminectomy syndrome M96.1 Diabetic peripheral neuropathy E11.42 Factor V Leiden mutation D68.51 Essential hypertension I10 Time Spent (min) 35
--- NOTE | 2024-09-17 16:21 | Billing Data ---
Date of Service September 17, 2024 Coding Level of Care Code 60335 SUB INP/OBS CARE
[2024-09-17] MEDS: MELATONIN 3 MG TAB PO PRN (21:56)
[2024-09-17] MEDS: ONDANSETRON INJ 2 MG/ML 2 ML VIAL IV PRN (23:34)
[2024-09-18] MEDS: ACETAMINOPHEN 500 MG TAB PO PRN (03:55)
[2024-09-18 07:15] VITALS: TEMP 97.9
--- NOTE | 2024-09-18 10:06 | Discharge Summary ---
Date of Service September 18, 2024 Admission HPI Per Admitting Provider Timoteo Modi is a 69 year old male who presents to the ER following a fall last night and now ambulatory dysfunction. He is unable to remember the fall completely or whether he lost consciousness but hit his head and left shoulder. He notes prior rotator cuff surgery on the left shoulder. He noted a headache all of yesterday bilateral across the front of his head prior to this. From what can be gathered from his son in the room he fell around 5pm yesterday in the bathroom. His could not help him up so called their son to help im back to a chair. Later while watching TB he noticed the left side of his vision loss probably around 8pm although he has not told anyone this prior to me asking directly about his vision. He is on Eliquis for history of recurrent DVT/PE. Last took Eliquis aroun 6-7 am this morning. In the ER he was recorded as having a fever. He reports feeling cold around noon today but otherwise no fever or chills known prior to the ER. He has noted a non productive cough for the last 1.5 weeks. No chest pain, shortness of breath, urinary or new gastrointestinal symptoms. This morning he was unable to get himself our of bed and struggling with his left shoulder therefore decided to come to the ER. He took all his morning medications. Admission Exam Per Admitting Provider Constitutional: WD/WN, vitals as above Eyes: + abnormal visual field confrontation (l eft sided vision loss bilaterally) ENMT: external ear and nose normal, oropharynx normal Respiratory: normal respiratory effort, lungs clear to auscultation Cardiovascular: RRR, no murmur, no edema (occasional skipped beats) Gastrointestinal (Abdomen): normal bowel sounds, soft, nontender, no hepatosplenomegaly Skin: no rashes, warm and dry Neurologic: Speech / Cognition: + abnormal speech (son noticed speech slower than normal); no expressive aphasia and no receptive aphasia Cranial Nerves: PERRL, EOM intact bilaterally (no diplopia), normal facial strength, able to rotate head bilaterally and no nystagmus; + not able to elevate shoulders (left unable ?secondary to pain) Psychiatric: Orientation: alert and oriented to person; + not oriented to place (aware he is in hospital) and + not oriented to time Genitourinary: no CVA tenderness Principal Diagnosis 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 No rhonchi, wheezes, or crackles. No increased work of breathing Neuro: alert, oriented Discharge Data Allergies Allergy/AdvReac Type Severity Reaction Status Date / Time ARB-Angiotensin Receptor Allergy Intermediate Nausea Verified 09/15/24 17:11 Antagonist ibuprofen Allergy Mild Blister Verified 09/15/24 17:11 DEYSI Inhibitors AdvReac Mild cough Verified 09/15/24 17:11 Consultations 09/15/24 16:13 ED Decision to Admit Stat 09/15/24 19:30 Consult Neurology Routine Ordered Studies 09/15/24 14:47 CT cervical spine wo con Stat CT head/brain wo con Stat 09/15/24 15:17 CT chest diagnostic wo con Stat 09/15/24 15:18 CT abd pelvis wo con Stat 09/15/24 16:21 US carotid doppler BI Stat 09/16/24 16:21 MR angio head wo con Stat MR brain wo con Stat Hospital Course (1) Acute CVA (cerebrovascular accident): (2) COVID-19: (3) Uncontrolled type 2 diabetes mellitus: (4) Left shoulder pain: (5) Essential hypertension: (6) History of pulmonary embolism: Plan Pt is a 69 yo male with PMH of PE, GERD, and DM who presented to the hospital due to acute confusion and a fall in the shower. 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) - Head CT: large subacute to acute right OPERATING SYSTEMS PROGRAMMER territory infarct - TTE without acute changes; EF 55-60%, no definite regional wall motion abnormalities - Carotid Doppler: WNL - MRI/MRA brain: remarkable for acute P3 segment occlusion leading to right OPERATING SYSTEMS PROGRAMMER territory infarct - Neurology consulted: - Continue anticoagulant/antiplatelet agents (eliquis 5mg BID and clopidogrel 75mg daily) - Continue atorvastatin 40 mg daily - Diabetes management closer to HbA1c 7 (8.8 on 09/16) - Patient advised on lifestyle management options; follows with endocrinology outpatient - Needs outpatient ophthalmologic exam with visual field testing d/t new lef t-sided homonymous hemianopia - recommend continuation of PT/OT/Speech: - speech recommends alternative liquids/solids; single bites/slow sips/slow rate; aspiration and reflux protocol Fall secondary to acute CVA - xrays of chest, pelvis, femur, shoulder all without acute findings - CTs of cervical spine, chest, and abdomen/pelvis all without acute findings COVID-19 - Viral panel: (+) SARS-CoV-2 - Remdesivir deferred due to unknown date of starting symptoms and CKD - pt stable; continue supportive care PRN Left shoulder pain - Previous left shoulder rotator cuff injuries and surgeries, per patient - No fractures noted on shoulder x-rays - Follow with PT outpatient Chronic Conditions - Hypertension - Continue amlodipine, atenolol, furosemide, isosorbide mononitrate, and spironolactone - Type II diabetes mellitus - HbA1c 8.8 on 09/16 - Continue Lantus at a reduced dose of 20 units BID; however, pt's previous home dose was 28u BID; SSI PRN - discussed lifestyle modifications as an outpatient - Rheumatoid arthritis - Follows with Dr. Babcock; on chronic prednisone 5 mg PO daily - GERD - continue pantoprazole 40mg PO daily - Factor V Leiden/Previous VTE - Continue apixaban and clopidogrel as above Discharge to [facility] Total Time Total Time Spent Total Time Spent (In Minutes): as per attending attestation Discharge Plan Discharge Items Patient Disposition: Transfer Inpatient Rehab Fac Reason For Visit: ACUTE CVA Discharge Diagnosis: OPERATING SYSTEMS PROGRAMMER Stroke Activity: As commented below Activity Comment: activity progression as tolerated/ as directed by PT/OT Non-emergency contact: Primary Care Provider Call non-emergency contact if: you have any medication questions and your symptoms worsen Follow-up/Referrals: Pro,Jam Onofre MD [Primary Care Provider] - Diet: Carb Consistent or DM2 and Heart Healthy Addtl Attending Provider Instructions: Pt is a 69 yo male with PMH of PE, GERD, and DM who presented to the hospital due to acute confusion and a fall in the shower. 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) - Head CT: large subacute to acute right OPERATING SYSTEMS PROGRAMMER territory infarct - TTE without acute changes; EF 55-60%, no definite regional wall motion abnormalities - Carotid Doppler: WNL - MRI/MRA brain: remarkable for acute P3 segment of right OPERATING SYSTEMS PROGRAMMER territory infarct - Neurology consulted: - Continue anticoagulant/antiplatelet agents (eliquis 5mg BID and clopidogrel 75mg daily) - Continue atorvastatin 40 mg daily - Diabetes management closer to HbA1c 7 (8.8 on 09/16) - Patient advised on lifestyle management options; follows with endocrinology outpatient - Needs outpatient ophthalmologic exam with visual field testing d/t new left-sided homonymous hemianopia - recommend continuation of PT/OT/Speech: - speech recommends alternative liquids/solids; single bites/slow sips/slow rate; aspiration and reflux protocol Fall secondary to acute CVA - xrays of chest, pelvis, femur, shoulder all without acute findings - CTs of cervical spine, chest, and abdomen/pelvis all without acute findings COVID-19 - Viral panel: (+) SARS-CoV-2 - Remdesivir deferred due to unknown date of starting symptoms and CKD - pt stable; continue supportive care PRN Left shoulder pain - Previous left shoulder rotator cuff injuries and surgeries, per patient - No fractures noted on shoulder x-rays - Follow with PT outpatient Chronic Conditions - Hypertension - Continue amlodipine, atenolol, furosemide, isosorbide mononitrate, and spironolactone - Type II diabetes mellitus - HbA1c 8.8 on 09/16 - Continue Lantus at a reduced dose of 20 units BID; however, pt's previous home dose was 28u BID; SSI PRN - discussed lifestyle modifications as an outpatient - Rheumatoid arthritis - Follows with Dr. Babcock; on chronic prednisone 5 mg PO daily - GERD - continue pantoprazole 40mg PO daily - Factor V Leiden/Previous VTE - Continue apixaban and clopidogrel as above Discharge to [facility] Pending Studies at Discharge: No Stand-Alone Forms: My [employer] Charge, Medications to Prevent Stroke Skilled Items Patient informed of condition?: Yes DNR: No Discharge Level of Care: Acute rehab Communicable Disease: Yes (COVID) Discharge Prognosis: Stable Lines: None Urinary Catheter: No Medications and DC Order Prescriptions: Continued folic acid 1 mg tablet 1 mg PO QAM Qty: 90 3RF gemfibrozil 600 mg tablet 600 mg PO BID Qty: 180 3RF atorvastatin 40 mg tablet 40 mg PO HS Qty: 90 3RF isosorbide mononitrate 30 mg tablet extended release 24 hr 30 mg PO QAM Qty: 90 1RF atenolol 100 mg tablet 100 mg PO QAM Qty: 90 3RF Eliquis 5 mg tablet 5 mg PO BID Qty: 180 1RF (DME) pen needle, diabetic [BD Ultra-Fine Mini Pen Needle] 31 gauge x 3/16" needle See Rx Instructions .ROUTE .MEDSUPPLY Qty: 400 3RF Rx Instructions: Four times a day insulin aspart U-100 [Novolog FlexPen U-100 Insulin] 100 unit/mL (3 mL) insulin pen See Rx Instructions subcut .COMPLEX Qty: 90 1RF Hold Instructions: may change to nph Rx Instructions: subcutaneously 20 units with meals; plus sliding scale as needed; MDD 90 units clopidogrel 75 mg tablet 75 mg PO QAM Qty: 90 1RF pantoprazole 40 mg tablet,delayed release (DR/EC) 40 mg PO QAM Qty: 90 1RF prednisone 5 mg tablet 5 mg PO QAM (DME) FreeStyle Pa 2 Sensor Kit See Rx Instructions .Route Rx Instructions: As directed (DME) OneTouch Ultra Blue Test Strip Strip See Rx Instructions .ROUTE .MEDSUPPLY Dose Instruction: As directed Rx Instructions: Test blood sugar once daily PRN (DME) lancets [OneTouch UltraSoft Lancets] [facility] See Rx Instructions .ROUTE .MEDSUPPLY Dose Instruction: As directed Rx Instructions: Test blood sugar once daily PRN cholecalciferol (vitamin D3) 125 mcg (5,000 unit) capsule 125 mcg PO QAM allopurinol 300 mg tablet 300 mg PO QAM acetaminophen [Tylenol Extra Strength] 500 mg Tablet 1,000 mg PO BID PRN (Reason: Pain) multivitamin Tablet 1 tab PO QAM furosemide 40 mg tablet 40 mg PO QAM amlodipine 5 mg tablet 5 mg PO QAM spironolactone 25 mg tablet 25 mg PO QAM gabapentin 300 mg capsule 300 mg PO QAM Changed insulin glargine [Lantus Solostar U-100 Insulin] 100 unit/mL (3 mL) insulin pen 20 unit subcut BID Qty: 0 0RF Discharge Orders: Discharge Order (Routine); Ordered 09/18/24 Ordered By: Milly Salgado Admission Data Admit Date/Time: 09/15/24 17:00 Attending Provider: Geronimo Hernández Admit Provider: [place] Daniel Primary Care Provider: Jam Hdez Other Providers: Chico Daniel; Caden Chappell; [facility] Supervising Physician Co-Signing Physician Notes I personally examined the patient and verified all bruno points of history and exam, discussed case, and agree with decision making with Dr Salgado no new problems. For rehab today.. Vitals noted, in general he is awake and alert pleasant no distress. Visual deficits and weakness noted. Breathing unlabored no accessory muscle use good effort. Skin without rashes pallor or icterus. Neuro without focal deficits. CVAseems to be posterior cerebral artery atherosclerotic plaque rupturewith risk factors being age, hypertension, hyperlipidemia, male gender, uncontrolled diabetesmost of his modifiable risk factors are under control except for his sugar. lifestyle change > insulin adjustments for long-term management. Previously emphasized that his diabetes control would be best to be viewed as a lifestyle solution with medications to reduce risk of atherosclerotic progression while he works on lifestyle change. PT/OT eval and treat, for rehab today. Otherwise as above Resident Activity Tracking Resident Involvement: Resident Care Provided Care Provided: Adult Hospital Medicine
[2024-09-18 11:40] VITALS: BP 135/80; PULSE 78; RESP 18; O2SAT 93
--- NOTE | 2024-09-18 17:32 | Billing Data ---
Date of Service September 18, 2024 Coding Level of Care Code 49642 IN/OBS DISCH 30 MIN/LESS
--- NOTE | 2024-09-18 21:43 | Electrocardiogram Report ---
Test Reason : Blood Pressure : */* mmHG Vent. Rate : 107 BPM Atrial Rate : 107 BPM P-R Int : 136 ms QRS Dur : 82 ms QT Int : 316 ms P-R-T Axes : 66 -6 70 degrees QTcB Int : 421 ms Sinus tachycardia with frequent Premature atrial complexes Otherwise normal ECG When compared with ECG of 08-Mar-2023 11:47, Vent. rate has increased by 39 bpm Premature atrial complexes are now Present Confirmed by Adan Herr ([id number]) on 09/18/2024 9:43:01 PM Referred By: REFERRED SELF Confirmed By: Adan Herr
== END 2024-09-18 16:00 | DRG 64 ==
LOC: ED 14:33 → SUATTDRO 17:00 → EDINP 17:00 → 2E 19:35
DX: E78.5 Hyperlipidemia, unspecified; Z87.891 Personal history of nicotine dependence; Z79.02 Long term (current) use of antithrombotics/antiplatelets; Z86.711 Personal history of pulmonary embolism; I69.398 Other sequelae of cerebral infarction; R47.01 Aphasia; E11.42 Type 2 diabetes mellitus with diabetic polyneuropathy; D68.51 Activated protein C resistance; M96.1 Postlaminectomy syndrome, not elsewhere classified; E11.22 Type 2 diabetes mellitus with diabetic chronic kidney disease; I12.9 Hypertensive chronic kidney disease with stage 1 through stage 4 chronic kidney disease, or unspecified chronic kidney disease; D64.9 Anemia, unspecified; N18.9 Chronic kidney disease, unspecified; M75.102 Unspecified rotator cuff tear or rupture of left shoulder, not specified as traumatic; I69.331 Monoplegia of upper limb following cerebral infarction affecting right dominant side; Z79.4 Long term (current) use of insulin; I63.531 Cerebral infarction due to unspecified occlusion or stenosis of right posterior cerebral artery; K21.9 Gastro-esophageal reflux disease without esophagitis; U07.1 COVID-19; Z79.01 Long term (current) use of anticoagulants